=== PATIENT | male | born 1950 | race Caucasian/White ===

== ENCOUNTER 2017-06-07 15:51 | Inpatient (IN) | payer MEDICARE ==
[2017-06-07] MEDS ORDERED: Acetaminophen 650 MG Suppository ONE (16:11)
[2017-06-07] MEDS ORDERED: Sodium Chloride 0.9% 100 ML ONE (16:27)
[2017-06-07] MEDS ORDERED: Piperacillin/Tazobactam 4.5 GM VIAL ONE (16:27)
[2017-06-07 16:29] LABS: Hematocrit 39.5 % (42.0-52.0); Mean Platelet Volume 7.6 fL (7.4-10.4); Red Blood Cell (RBC) Count 4.78 mill/uL (4.70-6.10); White Blood Cell (WBC) Count 22.2 thou/uL (4.8-10.8)
[2017-06-07 16:35] LABS: Lactic Acid - Sepsis 1.6 mmol/L (0.5-2.2)
[2017-06-07 16:39] LABS: ALT (SGPT) 35 U/L (8-55); AST (SGOT) 137 U/L (5-34); Alkaline Phosphatase 80 U/L (40-150); Anion Gap 13 mmol/L (10-20); BUN (Urea Nitrogen) 13 mg/dL (8.4-25.7); Bilirubin, Total 0.4 mg/dL (0.2-1.2); Calc. Creatinine Clearance 0 mL/min (70-130); Calcium 9.1 mg/dL (7.8-10.44); Carbon Dioxide 24 mmol/L (23-31); Chloride 99 mmol/L (98-107); Estimated GFR-MDRD Greater than 90; Globulin 4.5 g/dL (2.4-3.5); Protein, Total 7.7 g/dL (5.8-8.1)
[2017-06-07 16:46] LABS: Anisocytosis MODERATE=16-30 cells (100X) (0-5/hpf); Band 41 % (5-11); Elliptocytes SLIGHT = 2-5 cells (100X) (0-1/hpf); Hypochromia SLIGHT = 6-15 cells (100X) (0-5/hpf); Metamyelocyte 2 % (0-0); Neutrophil 39 % (42-75); Ovalocytes SLIGHT = 2-5 cells (100X) (0-1/hpf); Polychromasia SLIGHT = 2-3 cells (100X) (0-2/hpf); Target Cells SLIGHT = 2-5 cells (100X) (0-1/hpf)
[2017-06-07 17:30] LABS: Troponin I 0.024 ng/mL (< 0.028)
[2017-06-07 17:41] LABS: Bilirubin Negative (Negative); Blood, Urine Large (Negative); Glucose, Urine (Dipstick) Negative (Negative); Ketone, Urine 15 mg/dL (Negative); Nitrite Negative (Negative); Protein, Urine (Dipstick) 100 mg/dL (Neg-Trace)
[2017-06-07 17:43] LABS: Bacteria/HPF None Seen HPF (None Seen); Hyaline Casts/LPF 0-3 HYALINE CAST LPF (0-3 Hyaline); RBC/HPF GREATER THAN 50-TNTC HPF (0-3); WBC/HPF 0-3 HPF (0-3)
[2017-06-07 17:55] LABS: Renal Epithelial None Seen HPF (0-3); Transitional Epithelial NONE SEEN HPF (0-3)
--- NOTE | 2017-06-07 19:19 | RAD ---
SINGLE VIEW OF THE CHEST: 06/07/17 COMPARISON: 04/21/17 HISTORY: Mental status changes with possible fall six hours ago. FINDINGS: Single view of the chest shows an enlarged but stable cardiomediastinal silhouette. The pacemaker is unchanged in position. There appear to be multifocal opacities in the left thorax which may represe nt scarring or these could represent infiltrates. No pleural effusion is seen. IMPRESSION: Multifocal left pulmonary infiltrates. POS: [facility]
[2017-06-07] MEDS ORDERED: Diabetic Tussin 200 MG/10 ML UDCUP PO PRN (22:00)
[2017-06-07] MEDS ORDERED: Lorazepam 1 MG TAB PO PRN (22:00)
--- NOTE | 2017-06-07 22:18 | CT ---
CT OF THE BRAIN WITHOUT CONTRAST: 06/07/17 COMPARISON: 06/18/16 HISTORY: Mental status changes and possible fall six hours ago. TECHNIQUE: Multiple contiguous axial images were obtained in a CT of the brain without contrast. FINDINGS: There are scattered hypodensities in the subcortical and periventricular white matter, likely second heaven to small vessel ischemic disease. There is a stable calcified region along the temporal dura whi ch may represent a small meningioma. There is no evidence of hydrocephalus, intracranial hemorrhage or extra-axial fluid collection. The calvarium and overlying soft tissues are unremarkable. IMPRESSION: The visualized paranasal sinuses and mastoid air cells are well aerated. IMPRESSION: 1. No evidence of acute intracranial abnormality. 2. Small vessel ischemic disease. POS: [facility]
--- NOTE | 2017-06-07 22:24 | CT ---
CT OF THE CERVICAL SPINE WITHOUT CONTRAST: 06/07/17 COMPARISON: 04/06/16 HISTORY: AMS with possible fall. TECHNIQUE: Multiple contiguous axial images were obtained in a CT of the cervical spine without contrast. Sagit bernarda and coronal reformats were performed. FINDINGS: There are severe degenerative changes of the cervical spine. There are large bulky anterior osteophy sherif and fusion at multiple levels. The vertebral bodies demonstrate normal alignment without acute f racture or subluxation. No prevertebral soft tissue swelling is seen. The posterior facets are well aligned. Normal alignment of the skull base with the cervical spine is seen. IMPRESSION: Degenerative changes of the cervical spine without acute osseous abnormality. POS: [facility]
--- NOTE | 2017-06-07 22:41 | HP ---
PRIMARY CARE PHYSICIAN: Through the [facility]. CHIEF COMPLAINT: Fell at the assisted living. HISTORY OF PRESENT ILLNESS: The history of present illness is taken from the patient's son who is a t the bedside. Mr. Lomax is a 66-year-old gentleman who has a very complex past medical history. He was actually recently discharged from our facility for a COPD exacerbation. He also has a histor y of a lung mass which is presumed cancerous, but he has not been biopsied due to his poor health. He also has a history of atrial fibrillation, bipolar disorder and chronic swallowing dysfunction. He was apparently residing at the [facility] when his son says that they called him a nd said that he had fallen and hit his head and his eye was swollen. They had called the paramedics , but he refused to come to the hospital on the first time. Apparently according to the son, he gómez d in the same position for over 3 hours and his son had come [facility] to check on him and try to move him. We started having a very severe pain in his leg. He was concerned more about the leg and asked them to bring him to the hospital. When he was in the emergency room, he was found t o have a temperature of 103. His heart rate was in the 150s and he was also somewhat tachypneic. H e also has an elevated white blood cell count of 22,000 and his chest x-ray was suggestive of an inf iltrate in the left lung field and he is being admitted for severe sepsis likely from pneumonia. Th e patient himself has no complaints other than wanting his keys and he denies any pain other than so me pain in his legs, but otherwise no other complaints from the patient. REVIEW OF SYSTEMS: This is unreliable as the patient appears to have some form of possible delirium from the infection and is unable to give me any significant history of present illness. PAST MEDICAL HISTORY: Taken from his previous hospital stay from the and P from 04/21/2017 and in cludes sick sinus syndrome status post dual chamber pacemaker, history of paroxysmal atrial fibrilla tion, bipolar disorder, chronic swallowing dysfunction, hypertension, chronic respiratory failure se condary to COPD, lung cancer which is untreated other than radiation, history of ischemic colitis, c hronic anemia, dyslipidemia, gastroesophageal reflux disease and syncope. PAST SURGICAL HISTORY: He has had a pacemaker placed, a colostomy, back surgery and a ureteral sten t placed. ALLERGIES: No known drug allergies. FAMILY HISTORY: Significant for Parkinson disease. SOCIAL HISTORY: He lives at [facility]. He was a smoker since age 13. No mentio n of any alcohol use. CODE STATUS: Per the patient's son at the bedside is DNR. There has been no surrogate decision laurie er designated, but the son and daughter are his closest relative and they make decisions for him tog ether. MEDICATIONS: Include diltiazem 30 mg t.i.d., Depakote 250 mg twice a day, Colace 100 mg daily, foli c acid 0.4 mg daily, DuoNeb, Xarelto 20 mg daily, Florastor 250 mg daily, BuSpar 30 mg daily. PHYSICAL EXAMINATION: GENERAL: He is awake and alert and answering questions, but somewhat disoriented. VITAL SIGNS: His blood pressure was 130/80, heart rate initially was 150, currently it is around 11 2, respiratory rate is 22, temperature was 103.2 rectally. He is slightly disheveled in appearance with some poor hygiene. HEENT: He does have some mild erythema over the left eye, but there is no swelling. His pupils are reactive. He has got very dry mucous membranes. There was no oral lesion. Neck, there is no efraín opathy, no bruits. LUNGS: He has got some mild expiratory wheezing as well as some rales along the left base as well a s some decreased breath sounds. ABDOMEN: Soft, nontender, nondistended. The colostomy site, there is no drainage from the colostom y site. There is no redness or induration. EXTREMITIES: On his extremities, he did have some chronic venous stasis changes, but no significant edema and his pulses were palpable. LABORATORY RESULTS: His white blood cell count was 22.2, hemoglobin 12.3, hematocrit is 39.5, plate let count is 300. Sodium 132, potassium 4.0, chloride is 99, BUN 13, creatinine 0.77, glucose is 10 9. His urine was significant for large blood, but no white blood cells are mentioned. No bacteria, and his chest x-ray, the official reading is still pending but by my reading, there is some cardiom egaly as well as increased pulmonary vascular markings since what appears to be some fluffy infiltra te or even mass-like lesions along the left lung. ASSESSMENT AND PLAN: This is a 66-year-old gentleman who is seriously ill with a sepsis picture, tommy irene as a result of pneumonia. He will be admitted to telemetry, started on broad spectrum IV antib iotics including vancomycin and Zosyn. Blood and cultures have been obtained from the emergency sourav m. We will also place him on IV fluid resuscitation and continue his usual home medications. The p atient wishes were to be DNR, which will be acknowledged and done during this admission. I did expl ain to the patient's son that his prognosis at this time is guarded as he has significant comorbidit ies and what appears to be again very severe sepsis.
[2017-06-07] MEDS: Acetaminophen 325 MG TAB PO PRN (22:45)
[2017-06-07] MEDS: Piperacillin/Tazobactam 3.375 GM in Sodium Chloride 0.9% 100 ML IVPB SCH (23:48)
[2017-06-08] MEDS: Vancomycin HCl 1.75 GM in Sodium Chloride 0.9% 500 ML IVPB SCH ×2 (04:25→17:17)
[2017-06-08] MEDS: Piperacillin/Tazobactam 3.375 GM in Sodium Chloride 0.9% 100 ML IVPB SCH ×4 (06:39→23:30)
[2017-06-08 06:43] LABS: Anion Gap 14 mmol/L (10-20); BUN (Urea Nitrogen) 11 mg/dL (8.4-25.7); Calc. Creatinine Clearance 177 mL/min (70-130); Calcium 8.2 mg/dL (7.8-10.44); Carbon Dioxide 20 mmol/L (23-31); Chloride 105 mmol/L (98-107); Estimated GFR-MDRD Greater than 90
[2017-06-08 07:16] LABS: Band 44 % (5-11); Hematocrit 37.9 % (42.0-52.0); Mean Platelet Volume 8.2 fL (7.4-10.4); Metamyelocyte 2 % (0-0); Neutrophil 35 % (42-75); Red Blood Cell (RBC) Count 4.39 mill/uL (4.70-6.10); White Blood Cell (WBC) Count 18.2 thou/uL (4.8-10.8)
[2017-06-08] MEDS: Famotidine 20 MG TAB PO SCH ×2 (08:55→21:01)
--- NOTE | 2017-06-08 12:21 | PDOC.PN ---
- Subjective Encounter Start Date: 06/08/17 Encounter Start Time: 12:20 Subjective: pt poor historian .reports he feels ok. -: denies any CP/SOB/F/C - Objective Resuscitation Status: Resuscitation Status DNR:Do Not Resuscitate MAR Reviewed: Yes Vital Signs & Weight: Vital Signs (12 hours) Temp Pulse Resp BP Pulse Ox 06/08/17 08:00 99.7 F H 103 H 20 97 06/08/17 04:00 99.9 F H 108 H 20 134/77 98 Weight Weight 254 lb 9.6 oz Result Diagrams: 06/08/17 05:34 06/08/17 05:34 Additional Labs: Microbiology 06/07/17 17:17 Venous blood - Left Arm Blood Culture - Preliminary Specimen has been received and culture in progress. No Growth to date. 06/07/17 16:07 Venous blood - Left Arm Blood Culture - Preliminary Specimen has been received and culture in progress. No Growth to date. Laboratory Tests 06/07/17 06/07/17 06/07/17 16:07 16:07 16:07 WBC 22.2 H Lactic Acid 1.6 AST 137 H CK-MB (CK-2) Troponin I 06/07/17 06/08/17 16:07 05:34 WBC 18.2 H Lactic Acid AST CK-MB (CK-2) 16.1 H* Troponin I 0.024 Radiology Reviewed by me: Yes (CXR-left sided PNA) EKG Reviewed by me: Yes (rate controlled a-fib) Phys Exam - Physical Examination Constitutional: NAD pale and sick looking HEENT: PERRLA, moist MMs, sclera anicteric, oral pharynx no lesions Neck: no nodes, no JVD Respiratory: no wheezing, no rales, no rhonchi decreased at bases Cardiovascular: no significant murmur, irregular Gastrointestinal: soft, non-tender, no distention, positive bowel sounds Musculoskeletal: no edema, pulses present Neurological: non-focal, normal sensation, moves all 4 limbs Psychiatric: normal affect, A&O x 3 Skin: no rash Dx/Plan (1) Sepsis Code(s): A41.9 - SEPSIS, UNSPECIFIED ORGANISM Status: Acute (2) CAP (community acquired pneumonia) Code(s): J18.9 - PNEUMONIA, UNSPECIFIED ORGANISM Status: Acute (3) Chronic atrial fibrillation Code(s): I48.2 - CHRONIC ATRIAL FIBRILLATION Status: Acute (4) Bipolar disorder Code(s): F31.9 - BIPOLAR DISORDER, UNSPECIFIED Status: Chronic (5) COPD (chronic obstructive pulmonary disease) Status: Chronic Comment: requiring intermittent bipap (6) GERD (gastroesophageal reflux disease) Code(s): K21.9 - GASTRO-ESOPHAGEAL REFLUX DISEASE WITHOUT ESOPHAGITIS Status: Chronic Qualifiers: Esophagitis presence: with esophagitis Qualified Code(s): K21.0 - Gastro- esophageal reflux disease with esophagitis (7) Sick sinus syndrome Code(s): I49.5 - SICK SINUS SYNDROME Status: Chronic Comment: s/p PPM placement in past (8) Lung cancer, primary, with metastasis from lung to other site Code(s): C34.90 - MALIGNANT NEOPLASM OF UNSP PART OF UNSP BRONCHUS OR LUNG Status: Chronic Qualifiers: Laterality: unspecified laterality Qualified Code(s): C34.90 - Malignant neoplasm of unspecified part of unspecified bronchus or lung Comment: Without treatment (9) Chronic anticoagulation Code(s): Z79.01 - PHLEBOTOMY SERVICES REPRESENTATIVE (CURRENT) USE OF ANTICOAGULANTS Status: Chronic Comment: on Xarelto for A-fib (10) Chronic Dysphagia Status: Chronic Comment: Does not follow aspiration precautions at home (11) h/o Ischemic colitis Status: Acute (12) HLD (hyperlipidemia) Code(s): E78.5 - HYPERLIPIDEMIA, UNSPECIFIED Status: Chronic (13) HTN (hypertension) Code(s): I10 - ESSENTIAL (PRIMARY) HYPERTENSION Status: Chronic - Plan continue antibiotics, PT/OT, social science research assistant, respiratory therapy, incentive spirometry, out of bed/ambulate, DVT proph w/SCDs Cont empiric ABx. pt high risk of aspiration but won't follow diet restrict -: Cont diet w precautions. consult palliative care team for goals of care -: PtDNR w advanced ,metastatic,untreated lung CA w multiple admissions -: reconile and restart home meds including xarelto. -: daily labs. supportive care. IS.Nebs.O2 prn * . Review of Systems - Review of Systems Constitutional: Weakness, Malaise Respiratory: Cough. negative: Dry, Shortness of Breath, Hemoptysis, SOB with Excertion, Pleuritic Pain, Sputum, Wheezing Cardiovascular: negative: Chest Pain, Palpitations, Orthopnea, Paroxysmal Noc. Dyspnea, Edema, Light Headedness, Other Gastrointestinal: negative: Nausea, Vomiting, Abdominal Pain, Diarrhea, Constipation, Melena, Hematochezia, Other Genitourinary: negative: Dysuria, Frequency, Incontinence, Hematuria, Retention , Other Musculoskeletal: negative: Neck Pain, Shoulder Pain, Arm Pain, Back Pain, Hand Pain, Leg Pain, Foot Pain, Other Neurological: negative: Weakness, Numbness, Incoordination, Change in Speech, Confusion, Seizures, Other - Medications/Allergies Allergies/Adverse Reactions: Allergies Allergy/AdvReac Type Severity Reaction Status Date / Time No Known Allergies Allergy Verified 06/18/16 22:03 Medications: Current Medications Acetaminophen (Tylenol) 650 mg PO Q4H PRN PRN Reason: Headache/Fever or Pain Last Admin: 06/07/17 22:45 Dose: 650 mg Albuterol/Ipratropium (Duoneb) 3 ml NEB Q4H PRN PRN Reason: SOB &/or Wheezing Famotidine (Pepcid) 20 mg PO BID [facility] Last Admin: 06/08/17 08:55 Dose: Not Given Guaifenesin (Robitussin Sf) 200 mg PO Q4H PRN PRN Reason: Cough Hydralazine HCl (Apresoline) 10 mg SLOW IVP Q4H PRN PRN Reason: Systolic BP > 180 Piperacillin Sod/Tazobactam (Sod 3.375 gm/ Sodium Chloride) 100 mls @ 200 mls/ hr IVPB Q6HR [facility] Last Admin: 06/08/17 06:39 Dose: 100 mls Vancomycin HCl 1.75 gm/ Sodium (Chloride) 500 mls @ 250 mls/hr IVPB 0400,1600 [facility] Last Admin: 06/08/17 04:25 Dose: 500 mls Lorazepam (Ativan) 0.5 mg PO Q4H PRN PRN Reason: Anxiety/Agitation Miscellaneous Medication (Pharmacy To Dose) 0 each IVPB PRN PRN PRN Reason: [facility] Pharmacy to Dose Sodium Chloride (Flush - Normal Saline) 10 ml IVF Q12HR [facility] Last Admin: 06/08/17 08:55 Dose: 10 ml Sodium Chloride (Flush - Normal Saline) 10 ml IVF PRN PRN PRN Reason: Saline Flush Last Admin: 06/08/17 06:40 Dose: 10 ml
[2017-06-08] MEDS: Acetaminophen 325 MG TAB PO PRN ×2 (12:47→17:54)
--- NOTE | 2017-06-08 15:55 | RAD ---
THREE VIEWS LEFT WRIST: HISTORY: Fall with pain. FINDINGS: AP, lateral, and oblique views left wrist are obtained. There are degenerative changes seen in the 1st carpometacarpal joint. No evidence of acute fracture is seen. No other bony lesions seen. IMPRESSION: Osteoarthritis 1st carpometacarpal joint. POS: [facility]
--- NOTE | 2017-06-08 18:11 | RAD ---
LEFT ELBOW FOUR VIEW: 06/08/17 HISTORY: Fall. FINDINGS: Large joint effusion. There is some cortical irregularity of the lateral margin of the radial head w ithout a definite impacted fracture. There is large osteophyte formation of the sublime tubercle. Ch ronic medial epicondylitis. Mild lateral epicondylitis. IMPRESSION: Large joint effusion without a displaced fracture definitively seen. This is concerning for a nondis placed radial head/neck fracture, radiographically occult. MRI recommended. POS: [facility]
--- NOTE | 2017-06-08 18:36 | CON ---
DATE OF SERVICE: 06/08/2017 SERVICE: Pulmonary Medicine. REASON FOR CONSULTATION: [facility] patient. HISTORY OF PRESENT ILLNESS: The patient is a 66-year-old white male with past medical history for fairly significant debility requiring independent living. He has been falling on and off for quite some time. He has absolutely no clue why he is in the hospital. He does have confusional states whenever he comes into the hospital for the most part. That being said, we are told that he had hypoxemia, and increasing altered mentation. He was brought to the emergency department where he was discovered to have pneumonia. He is being treated for healthcare-associated pneumonia. His breathing is actually much improved. He currently has complaints of pain in the right leg, left leg, and the left arm. Apparently, he had fallen on two separate occasions and was down for an extended period of time (she is up to 7 hours after both falls). As mentioned, he was living in independent living. It is not clear whether or not he is safe to return to that environment in his usual state. PAST MEDICAL HISTORY: 1. Sick sinus syndrome, status post pacemaker. 2. Paroxysmal atrial fibrillation. 3. Bipolar disorder. 4. Oropharyngeal dysphagia. 5. Hypertension. 6. Dyslipidemia. 7. Chronic hypoxic respiratory failure. 8. Chronic obstructive pulmonary disease. 9. History of lung cancer, status post radiation therapy. 10. History of ischemic colitis. 11. Anemia. 12. Dyslipidemia. 13. Gastroesophageal reflux disease. PAST SURGICAL HISTORY: 1. Pacemaker placement. 2. Colostomy. 3. Back surgery. 4. Ureteral stent placement. ALLERGIES: No known drug allergies. MEDICATIONS: List of his inpatient medicines was reviewed. No updates were made at this time. SOCIAL HISTORY: He is currently lives in [place] with the independent living. He has a greater than [id number] history of smoking. He does not use significant alcohol or illicit drugs. There is no report of exposure to chemicals or dust, asbestos, or tuberculosis. FAMILY HISTORY: Noncontributory. REVIEW OF SYSTEMS: General, head, ears, eyes, nose, throat, cardiovascular, respiratory, GI, , musculoskeletal, neurologic and skin is negative except as mentioned in the HPI. PHYSICAL EXAMINATION: VITAL SIGNS: Temperature 101.5, pulse 108, blood pressure 129/75, respirations 24, and saturation 98% on room air currently. HEART: Normal rate, regular. ABDOMEN: Soft, nontender, nondistended, bowel sounds positive. MUSCULOSKELETAL: No cyanosis. There is erythema in the right lower extremity with heat to palpation. There is a slightly asymmetric edema. There is also a little swelling in the left upper extremity which appears to be diffuse. He is tender to palpation throughout the left forearm. : Padron catheter in place. NEUROLOGIC: Grossly nonfocal. LABORATORY DATA: WBC 18.2, hemoglobin 11.0, and platelets 215,000. Neutrophil count is 35% with a band count is 44%. Basic metabolic profile is unremarkable. Troponin is 0.024 with a CK-MB of 16.1. There are no significant white blood cells in the urine. There is greater than 50 red blood cells. Blood cultures x2 and urine culture negative to date. IMAGIN. Wrist x-ray demonstrates no acute osseous abnormality. There is some osteoarthritis. 2. Elbow x-ray demonstrates no acute osseous abnormality, so far as I can tell though the official read is currently pending. 3. CT of the cervical spine demonstrates degenerative changes without acute osseous abnormality. 4. CT of the brain demonstrates no acute intracranial abnormality. There are some small vessel ischemic changes. 5. Chest x-ray demonstrates left-sided alveolar pattern throughout the periphery of the left lung. The heart size appears to be fairly normal. There is an AICD in place. Cranial angle appears to be fairly short. There are some air bronchograms, all consistent with suspected pneumonia. ASSESSMENT: 1. Severe sepsis. 2. Healthcare-associated pneumonia. 3. Cellulitis of the right lower extremity, possible. 4. Lung cancer. 5. Debility. PLAN: We will ultrasound the right leg. Agree with vancomycin and Zosyn. This should also cover cellulitis if this is present in the right lower extremity. From a purely respiratory perspective, he is stable for transition out of the [facility] to the medical unit. I will continue to follow while he remains in this location. Ultimately on discharge from the hospital, he requires repeat chest x-ray in 6 weeks to make certain this infiltrate resolves. Urine will be sent for Strep and legionella antigens. We will also collect influenza A and B. MTDD
--- NOTE | 2017-06-08 18:42 | ULT ---
VENOUS DOPPLER ULTRASOUND OF THE RIGHT LOWER EXTREMITY 06/08/17 HISTORY: Edema in the right leg. TECHNIQUE: Thorpe scale ultrasound with color flow and spectral doppler imaging of the deep venous system of the right lower extremity is performed. FINDINGS: There is good flow, compression and augmentation noted in the right common femoral, femoral, deep fe moral, popliteal, posterior tibial and greater saphenous veins in the right lower extremity. IMPRESSION: No evidence of DVT in the right lower extremity. POS: [facility]
[2017-06-08 18:53] LABS: LegU Control Bar Appear? YES (CONTROL BAR); LegionellaU Control Bkground? CLEAR/WHITE (CLR/WHITE); Strp pneuU Control Background? CLEAR/WHITE (CLR/WHITE); Strp pneumo Control Bar Appear YES (CONTROL BAR)
[2017-06-08] MEDS: guaiFENesin ER 600 MG TAB PO SCH (21:01)
[2017-06-09] MEDS: Acetaminophen 325 MG TAB PO PRN ×2 (02:52→11:10)
[2017-06-09 04:39] LABS: Anion Gap 13 mmol/L (10-20); BUN (Urea Nitrogen) 8 mg/dL (8.4-25.7); Calc. Creatinine Clearance 194 mL/min (70-130); Calcium 8.4 mg/dL (7.8-10.44); Carbon Dioxide 21 mmol/L (23-31); Chloride 102 mmol/L (98-107); Estimated GFR-MDRD Greater than 90; Vancomycin, Trough 8.4 ug/mL
[2017-06-09] MEDS: Vancomycin HCl 1.75 GM in Sodium Chloride 0.9% 500 ML IVPB SCH (05:00)
[2017-06-09 05:18] LABS: Band 4 % (5-11); Burr Cells SLIGHT = 2-5 cells (100X) (0-1/hpf); Hematocrit 33.1 % (42.0-52.0); Hypochromia SLIGHT = 6-15 cells (100X) (0-5/hpf); Mean Platelet Volume 7.6 fL (7.4-10.4); Neutrophil 67 % (42-75); Polychromasia SLIGHT = 2-3 cells (100X) (0-2/hpf); Red Blood Cell (RBC) Count 3.93 mill/uL (4.70-6.10); White Blood Cell (WBC) Count 13.1 thou/uL (4.8-10.8)
[2017-06-09] MEDS: Piperacillin/Tazobactam 3.375 GM in Sodium Chloride 0.9% 100 ML IVPB SCH ×3 (06:18→18:09)
[2017-06-09] MEDS: guaiFENesin ER 600 MG TAB PO SCH ×2 (08:49→22:24)
[2017-06-09] MEDS: Famotidine 20 MG TAB PO SCH ×2 (09:01→22:24)
[2017-06-09] MEDS ORDERED: Benzonatate 100 MG CAP PO PRN (09:27)
--- NOTE | 2017-06-09 11:27 | CON ---
DATE OF CONSULTATION: 06/09/2017 PRIMARY BLENDING TANK TENDER: Dr. Jase Hdez REASON FOR CONSULTATION: Atrial flutter. HISTORY OF PRESENT ILLNESS: Mr. Lomax is a 66-year-old white gentleman who comes to the hospital f or a fall. He has had multiple falls in the last year. He has had several admissions for falls in the past. He has hit his head several times with it and he has got several lesions on his head and forehead from the falls. He came in this time for the same reason, he fell down. He was found down . He was actually down for about 3 hours before they found him. He is in an assisted living facili . He was brought in and diagnosed with a pneumonia and is being treated with antibiotics currentl y. Mr. Lomax remains somewhat confused and is unable to give any other accurate history, all he wa nts to know is when he is going to be able to be discharged from the hospital. PAST MEDICAL HISTORY: 1. Sick sinus syndrome, status post pacemaker placement. 2. Paroxysmal atrial fibrillation. 3. Atrial flutter, status post ablation. 4. Bipolar disorder. 5. Chronic dysphagia and swallowing dysfunction. 6. Hypertension. 7. Chronic respiratory failure. 8. Chronic obstructive pulmonary disease. 9. Untreated lung cancer with apparent metastatic disease. 10. History of ischemic colitis. 11. Chronic anemia. 12. Hyperlipidemia. 13. Gastroesophageal reflux disease. 14. Multiple episodes of syncope in the past. PAST SURGICAL HISTORY: 1. Pacemaker placement at [facility]. 2. Colostomy at [facility]. 3. Back surgery. 2. Ureteral stent. SOCIAL HISTORY: No alcohol, tobacco or drugs. He used to be a smoker. FAMILY HISTORY: Noncontributory. OUTPATIENT MEDICATIONS: Diltiazem 30 mg p.o. t.i.d., Depakote 250 mg twice a day, Colace 100 mg kaylen ly, folic acid, Duoneb, Xarelto 20 mg daily, Florastor, BuSpar. ALLERGIES: No known drug allergies. REVIEW OF SYSTEMS: A 12 point review of systems was done as otherwise noted in history of present i llness. However, most likely inaccurate as the patient is confused currently. PHYSICAL EXAMINATION: VITAL SIGNS: Temperature 101.5 max, earlier this morning at 4:00 a.m., pulse 99, respiratory rate 1 7, satting 97% on 2 liters, blood pressure 132/69. GENERAL: Awake, alert, he is oriented to person only, in no distress. HEENT: Normocephalic. He has several bruises on his forehead from the falls and hitting his head. NECK: Supple, no JVD. LUNGS: Clear anteriorly. There are coarse breath sounds bilaterally. CARDIOVASCULAR: S1, S2. No S3, S4. No murmurs or rubs. ABDOMEN: Soft. EXTREMITIES: 1+ edema. SKIN: Warm and dry. There is an erythematous area on the left leg. LABORATORY WORK: Reviewed. White count on admission of 22,000 with 41% bands, hemoglobin up to 12 , hematocrit 39, platelet count 300. Chemistries were reviewed. Troponin is negative x1. CK-MB wa s high. UA was reviewed. vanc trough was normal. Serology is Strep pneumo and L pneumo. Ur ine antigens were both negative. EKG on admission showed atrial flutter with 2:1 AV block. Telemetry currently shows sinus tachycard ia, heart rate between [address] of the brain, chest x-ray, wrist and elbow x-ray were all reviewed. ASSESSMENT AND PLAN: 1. Atrial flutter with 2:1 atrioventricular block. Most likely related to his acute infectious pro cess. Currently he remains in sinus rhythm and sinus tachycardia. I would continue his home regime n with Diltiazem as long as blood pressure allows. If his blood pressure becomes an issue we may sw itch this to either digoxin or amiodarone. As far as stroke prophylaxis is concerned, he would be a very poor candidate for full anticoagulation given his frequent falls. I agree with Dr. Allen's evaluation that discontinuing his Xarelto for now and will reevaluate in the next few days depending on his mental status. 2. Lung cancer. Thank you for allowing me to participate in the care of your patient. We will follow.
--- NOTE | 2017-06-09 11:36 | PRG ---
DATE OF SERVICE: 06/09/2017 Mr. Loamx's events have been reviewed. He says he is feeling a little better. PHYSICAL EXAMINATION: VITAL SIGNS: He had a temperature of 101 yesterday, it is 99.7 this morning. Heart rate 99, respir atory rate 17. Oximetry is 97. Blood pressure 132/69. LUNGS: Remarkable for coarse wheezes bilaterally that are mild. CARDIOVASCULAR: Regular rhythm. ABDOMEN: Soft. EXTREMITIES: Without asymmetry. IMPRESSION: 1. Pneumonia. 2. ? Rhabdomyolysis. CPK was not done. His left upper extremity is fairly swollen. He says he was laying on his arm for several hours. No fracture was seen, but I will have Orthopedic Surgery look at him. I have already discussed this with the orthopedics team. PLAN: Continue antimicrobial therapy for pneumonia and possible cellulitis.
--- NOTE | 2017-06-09 13:09 | PDOC.PN ---
- Subjective Encounter Start Date: 06/09/17 Encounter Start Time: 13:07 Subjective: awake & says he feels Ok ,denies any chest pain/cough/fever/SOB - Objective Resuscitation Status: Resuscitation Status DNR:Do Not Resuscitate Vital Signs & Weight: Vital Signs (12 hours) Temp Pulse Resp BP Pulse Ox 06/09/17 11:39 100 F H 108 H 22 H 134/95 H 100 06/09/17 08:00 99.7 F H 99 17 97 06/09/17 07:05 99.7 F H 99 17 132/69 97 06/09/17 06:00 99.5 F 90 22 H 122/85 97 06/09/17 04:15 99.9 F H 95 22 H 06/09/17 04:00 101.5 F H 108 H 22 H 130/75 98 Weight Weight 254 lb 6.4 oz I&O: 06/08/17 06/09/17 06/10/17 06:59 06:59 06:59 Intake Total 520 1610 240 Output Total 1250 5335 Balance -730 -1115 240 Result Diagrams: 06/09/17 03:58 06/09/17 03:58 Additional Labs: Laboratory Tests 06/08/17 06/08/17 16:03 16:03 Ur L.pneumophila Ag Negative Ur Strep pneumoniae Ag NEGATIVE Radiology Reviewed by me: Yes (XR wrist left-effusion) Phys Exam - Physical Examination Constitutional: NAD pale and weak looking HEENT: PERRLA, moist MMs, sclera anicteric, oral pharynx no lesions Neck: no nodes, no JVD Respiratory: no rales, no rhonchi, clear to auscultation bilateral wheezing left lung Cardiovascular: RRR, no significant murmur Gastrointestinal: soft, non-tender, no distention, positive bowel sounds Musculoskeletal: pulses present, edema present Neurological: non-focal, normal sensation, moves all 4 limbs Psychiatric: normal affect, A&O x 3 Skin: no rash Dx/Plan (1) Sepsis Code(s): A41.9 - SEPSIS, UNSPECIFIED ORGANISM Status: Acute (2) CAP (community acquired pneumonia) Code(s): J18.9 - PNEUMONIA, UNSPECIFIED ORGANISM Status: Acute (3) Chronic atrial fibrillation Code(s): I48.2 - CHRONIC ATRIAL FIBRILLATION Status: Acute Comment: NSR now (4) Bipolar disorder Code(s): F31.9 - BIPOLAR DISORDER, UNSPECIFIED Status: Chronic (5) COPD (chronic obstructive pulmonary disease) Status: Chronic Comment: requiring intermittent bipap (6) GERD (gastroesophageal reflux disease) Code(s): K21.9 - GASTRO-ESOPHAGEAL REFLUX DISEASE WITHOUT ESOPHAGITIS Status: Chronic Qualifiers: Esophagitis presence: with esophagitis Qualified Code(s): K21.0 - Gastro- esophageal reflux disease with esophagitis (7) Sick sinus syndrome Code(s): I49.5 - SICK SINUS SYNDROME Status: Chronic Comment: s/p PPM placement in past (8) Lung cancer, primary, with metastasis from lung to other site Code(s): C34.90 - MALIGNANT NEOPLASM OF UNSP PART OF UNSP BRONCHUS OR LUNG Status: Chronic Qualifiers: Laterality: unspecified laterality Qualified Code(s): C34.90 - Malignant neoplasm of unspecified part of unspecified bronchus or lung Comment: Without treatment (9) Chronic anticoagulation Code(s): Z79.01 - [facility] (CURRENT) USE OF ANTICOAGULANTS Status: Chronic Comment: was on Xarelto for A-fib (10) Chronic Dysphagia Status: Chronic Comment: Does not follow aspiration precautions at home (11) h/o Ischemic colitis Status: Acute Comment: s/p colectomy and ostomy placement (12) HLD (hyperlipidemia) Code(s): E78.5 - HYPERLIPIDEMIA, UNSPECIFIED Status: Chronic (13) HTN (hypertension) Code(s): I10 - ESSENTIAL (PRIMARY) HYPERTENSION Status: Chronic (14) Bipolar disease, chronic Code(s): F31.9 - BIPOLAR DISORDER, UNSPECIFIED Status: Acute - Plan continue antibiotics, 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 -: restart cardizem Po for rate control.sinus now. -: cont Empiric abx.persistant fever? check PVR.follow Cx * .No DVt on RLE US. * Pallaitive care team consulted given advanced lung cancer and resultant recurrent PNA and sepsis. Pt does not want Rx * Discussed the risk of aspiration and PNA with current diet , but pt wants to continues to eat understanding the risk including . * am labs. * DNR Review of Systems - Review of Systems Other: cant not be reliably obtainable as Patient appears confused - Medications/Allergies Allergies/Adverse Reactions: Allergies Allergy/AdvReac Type Severity Reaction Status Date / Time No Known Allergies Allergy Verified 06/18/16 22:03 Medications: Current Medications Acetaminophen (Tylenol) 650 mg PO Q4H PRN PRN Reason: Headache/Fever or Pain Last Admin: 06/09/17 11:10 Dose: 650 mg Albuterol/Ipratropium (Duoneb) 3 ml NEB Q4H PRN PRN Reason: SOB &/or Wheezing Benzonatate (Tessalon) 100 mg PO Q4H PRN PRN Reason: Cough Cyanocobalamin (Vitamin B-12) 1,000 mcg PO DAILY [facility] Diltiazem HCl (Cardizem) 30 mg PO ACHS [facility] Last Admin: 06/09/17 11:10 Dose: 30 mg Divalproex Sodium (Depakote) 1,500 mg PO HS [facility] Famotidine (Pepcid) 20 mg PO BID [facility] Last Admin: 06/09/17 09:01 Dose: 20 mg Gabapentin (Neurontin) 300 mg PO BID [facility] Guaifenesin (Robitussin Sf) 200 mg PO Q4H PRN PRN Reason: Cough Guaifenesin (Mucinex) 600 mg PO Q12HR [facility] Last Admin: 06/09/17 08:49 Dose: Not Given Hydralazine HCl (Apresoline) 10 mg SLOW IVP Q4H PRN PRN Reason: Systolic BP > 180 Piperacillin Sod/Tazobactam (Sod 3.375 gm/ Sodium Chloride) 100 mls @ 200 mls/ hr IVPB Q6HR [facility] Last Admin: 06/09/17 11:11 Dose: 100 mls Vancomycin HCl 2 gm/ Sodium (Chloride) 500 mls @ 250 mls/hr IVPB 0500,1700 [facility] Last Admin: 06/09/17 05:26 Dose: 500 mls Lorazepam (Ativan) 0.5 mg PO Q4H PRN PRN Reason: Anxiety/Agitation Miscellaneous Medication (Pharmacy To Dose) 0 each IVPB PRN PRN PRN Reason: [facility] Pharmacy to Dose Sodium Chloride (Flush - Normal Saline) 10 ml IVF Q12HR [facility] Last Admin: 06/09/17 09:01 Dose: 10 ml Sodium Chloride (Flush - Normal Saline) 10 ml IVF PRN PRN PRN Reason: Saline Flush Last Admin: 06/09/17 06:18 Dose: 10 ml
--- NOTE | 2017-06-09 15:44 | RAD ---
RIGHT ANKLE THREE VIEWS: 06/09/17 HISTORY: Fall. Pain. COMPARISON: None. FINDINGS: Mild soft tissue swelling. Joint space is preserved. No fracture, no cortical irregularity. No perio steal reaction. IMPRESSION: Soft tissue swelling, without fracture. POS: [facility]
--- NOTE | 2017-06-09 16:04 | CT ---
LEFT WRIST CT: 06/09/17 HISTORY: Fall. Pain. COMPARISON: None. TECHNIQUE: Noncontrast left wrist Act is performed in the axial plane. Reformatted images are submitted for int erpretation. FINDINGS: Distal radius and ulna are unremarkable. There is evidence of a nondisplaced triquetral bone fractur e. Otherwise, the proximal carpal row is unremarkable. The distal carpal row does not demonstrate an y fractures. The visualized metacarpal and phalanges do not have fracture. IMPRESSION: Nondisplaced triquetral fracture. Exam reviewed in conjunction with Dr. Sears. POS: [facility]
[2017-06-09] MEDS: HYDROcodone/Acetaminophen 5/325 mg Tablet PO PRN (16:58)
[2017-06-09] MEDS ORDERED: Rivaroxaban 10 MG TAB PO SCH (18:00)
--- NOTE | 2017-06-09 18:37 | CON ---
DATE OF CONSULTATION: 06/09/2017 HISTORY OF PRESENT ILLNESS: We were asked to see the patient by Dr. [place] for complaints of some left hand and wrist swelling. The patient fell at [facility]. He was found down 5 hours later and he had laid on that arm. The patient's son is at the bedside and he also sta sherif his father is having some right ankle pain and that is the leg that he had laid on for quite a w hile. The patient is awake, alert, and in no acute distress, currently resting in bed. He is able to move that left hand and right foot without problems. In fact, he moves all of his extremities we ll. It is visibly noted though that the left hand and wrist is quite edematous. The patient denies any numbness or tingling in that hand currently and also denies any numbness or tingling in the solange t. Past medical history, social history, family history, medications, allergies, surgical history can a ll be gleaned from his admission H and P on 06/07/2017. PHYSICAL EXAMINATION: GENERAL: Well-nourished male, resting in bed, in no acute distress. Speech clear. Affect pleasant . Answers questions appropriately. He is alert and oriented x3. Son is at the bedside. The patie nt does stammer once in a while and has to think about his answers, but for the most part, he is brii te lucid. HEENT: Normal exam. EXTREMITIES: Right upper extremity, multiple areas of bruising on the arm, but moves right upper ex tremity well. Pulses bilaterally are intact. Left upper extremity, he does have swelling to the en tire left hand into the distal aspect of his forearm. The edema is pitting and mildly tender to pal pation. He is able to flex and extend, move his wrist back and forth, side to side without any pain . It is just painful with palpation. He moves all of his fingers. Sensations are intact. 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 Lower extremities, left lower extremity and right lower extremity show obvious peripheral vascular disease, mottling of lower extremities, but his pulses are equal. Both lower extremities w ere cold to the touch and equal in their temperature with gross sensation. Movement is good. He ca n flex, extend, and rotate his right ankle without difficulty. It is just tender to palpation media lly and laterally over the malleolus. Strength to the bilateral lower extremities is equal. He can lift them off the bed without difficulty. ASSESSMENT: 1. Left hand wrist swelling due to compression from being down on the floor for an extended period of time, 5 hours. 2. Right ankle pain, also tender to palpation from being down on the floor for 5+ hours. X-RAYS: No x-rays of the ankle. X-rays of the hand shows no gross bony abnormalities or fractures. PLAN: I spoke with the patient and his son. They both admit that the swelling is looking a little bit better and he is able to move his hand a little bit better. I offered him a wrist splint or an [place] wrap to help with the swelling. The patient denied. As for the ankle, there are no x-rays. We are going to get some x-rays and also speak with the patient tomorrow about what the films show. If the edema continues to subside, there is probably nothing orthopedically for us to do. If he has p ain for a week or so afterward, I encouraged the son and father to follow up with us as the fracture may show up that was not visible at this point in time and they are both happy with this plan. Aga in, x-rays ordered of the ankle, take a look at those and talk with the patient and family in the mo rning about the findings. Matt Smiley PA-C, for Dr. Maximo Mejia M.D.
[2017-06-09] MEDS ORDERED: RISPERIDONE 2 MG PO SCH (21:00)
[2017-06-09] MEDS: Gabapentin 300 MG CAP PO SCH (22:24)
[2017-06-09] MEDS: Divalproex Sodium DR 500 MG TAB PO SCH (22:25)
[2017-06-10] MEDS: Piperacillin/Tazobactam 3.375 GM in Sodium Chloride 0.9% 100 ML IVPB SCH ×5 (00:37→23:55)
[2017-06-10 06:14] LABS: Anion Gap 14 mmol/L (10-20); BUN (Urea Nitrogen) 9 mg/dL (8.4-25.7); Calc. Creatinine Clearance 182 mL/min (70-130); Calcium 8.4 mg/dL (7.8-10.44); Carbon Dioxide 22 mmol/L (23-31); Chloride 105 mmol/L (98-107); Estimated GFR-MDRD Greater than 90
[2017-06-10 06:19] LABS: Band 9 % (5-11); Hematocrit 32.4 % (42.0-52.0); Mean Platelet Volume 7.6 fL (7.4-10.4); Neutrophil 69 % (42-75); Red Blood Cell (RBC) Count 3.78 mill/uL (4.70-6.10); White Blood Cell (WBC) Count 7.3 thou/uL (4.8-10.8)
[2017-06-10] MEDS: Gabapentin 300 MG CAP PO SCH ×2 (09:13→21:41)
[2017-06-10] MEDS: guaiFENesin ER 600 MG TAB PO SCH ×2 (09:13→21:41)
[2017-06-10] MEDS: Famotidine 20 MG TAB PO SCH ×2 (09:13→21:40)
[2017-06-10] MEDS: Cyanocobalamin (Vitamin B-12) 1,000 MCG TAB PO SCH (09:14)
--- NOTE | 2017-06-10 12:12 | PDOC.PN ---
- Subjective Encounter Start Date: 06/10/17 Encounter Start Time: 09:30 -: old records requested/rev Patient seen and examined. No new complaints. No overnight events - Objective Resuscitation Status: Resuscitation Status DNR:Do Not Resuscitate MAR Reviewed: Yes Vital Signs & Weight: Vital Signs (12 hours) Temp Pulse Resp BP Pulse Ox 06/10/17 08:00 98.8 F 85 24 H 145/79 H 94 L 06/10/17 04:00 98.3 F 93 20 139/90 92 L Weight Weight 246 lb 11.2 oz I&O: 06/09/17 06/10/17 06/11/17 06:59 06:59 06:59 Intake Total 1610 1670 Output Total 7420 6269 Balance -1115 -1005 Result Diagrams: 06/10/17 05:11 06/10/17 05:11 Radiology Reviewed by me: Yes Phys Exam - Physical Examination Constitutional: NAD HEENT: PERRLA, moist MMs, sclera anicteric Neck: no JVD, supple Respiratory: no wheezing, no rales, no rhonchi coarse sound Cardiovascular: RRR, no significant murmur, no rub Gastrointestinal: soft, non-tender, no distention, positive bowel sounds Musculoskeletal: no edema, pulses present Neurological: moves all 4 limbs Lymphatic: no nodes Psychiatric: normal affect Skin: no rash, normal turgor Dx/Plan (1) Ankle pain, left Code(s): M25.572 - PAIN IN LEFT ANKLE AND JOINTS OF LEFT FOOT Status: Acute Qualifiers: Chronicity: acute Qualified Code(s): M25.572 - Pain in left ankle and joints of left foot (2) Effusion of elbow joint, left Code(s): M25.422 - EFFUSION, LEFT ELBOW Status: Acute (3) Multifocal pneumonia Code(s): J18.9 - PNEUMONIA, UNSPECIFIED ORGANISM Status: Acute (4) Rhabdomyolysis Code(s): M62.82 - RHABDOMYOLYSIS Status: Acute (5) Sepsis Code(s): A41.9 - SEPSIS, UNSPECIFIED ORGANISM Status: Acute (6) Wrist pain, left Code(s): M25.532 - PAIN IN LEFT WRIST Status: Acute (7) Bipolar disorder Code(s): F31.9 - BIPOLAR DISORDER, UNSPECIFIED Status: Chronic (8) COPD (chronic obstructive pulmonary disease) Status: Chronic Comment: requiring intermittent bipap (9) Chronic anticoagulation Code(s): Z79.01 - 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 (CURRENT) USE OF ANTICOAGULANTS Status: Chronic Comment: was on Xarelto for A-fib, now discontinued due to fall risk and not a good candidate (10) DJD (degenerative joint disease) of cervical spine Code(s): M47.812 - SPONDYLOSIS W/O MYELOPATHY OR RADICULOPATHY, CERVICAL REGION Status: Chronic (11) GERD (gastroesophageal reflux disease) Code(s): K21.9 - GASTRO-ESOPHAGEAL REFLUX DISEASE WITHOUT ESOPHAGITIS Status: Chronic Qualifiers: Esophagitis presence: with esophagitis Qualified Code(s): K21.0 - Gastro- esophageal reflux disease with esophagitis (12) H/O sick sinus syndrome Code(s): Z86.79 - PERSONAL HISTORY OF OTHER DISEASES OF THE CIRCULATORY SYSTEM Status: Chronic Comment: with PPM (13) HLD (hyperlipidemia) Code(s): E78.5 - HYPERLIPIDEMIA, UNSPECIFIED Status: Chronic (14) HTN (hypertension) Code(s): I10 - ESSENTIAL (PRIMARY) HYPERTENSION Status: Chronic (15) Lung cancer, primary, with metastasis from lung to other site Code(s): C34.90 - MALIGNANT NEOPLASM OF UNSP PART OF UNSP BRONCHUS OR LUNG Status: Chronic Qualifiers: Laterality: unspecified laterality Qualified Code(s): C34.90 - Malignant neoplasm of unspecified part of unspecified bronchus or lung Comment: Without treatment (16) Normocytic anemia Code(s): D64.9 - ANEMIA, UNSPECIFIED Status: Chronic (17) Obesity (BMI 30.0-34.9) Code(s): E66.9 - OBESITY, UNSPECIFIED Status: Chronic (18) Paroxysmal atrial fibrillation Code(s): I48.0 - PAROXYSMAL ATRIAL FIBRILLATION Status: Chronic (19) Tobacco dependence Code(s): F17.200 - NICOTINE DEPENDENCE, UNSPECIFIED, UNCOMPLICATED Status: Chronic - Plan cont current plan of care, continue antibiotics, PT/OT, respiratory therapy * medication reviewed as below * symptomatic treatment. * continue vancomycin and zosyn for now * pain control. * pt is clinically improving Review of Systems - Review of Systems Other: not reliable due to confused status - Medications/Allergies Allergies/Adverse Reactions: Allergies Allergy/AdvReac Type Severity Reaction Status Date / Time No Known Allergies Allergy Verified 06/18/16 22:03 Medications: Current Medications Acetaminophen (Tylenol) 650 mg PO Q4H PRN PRN Reason: Headache/Fever or Pain Last Admin: 06/09/17 11:10 Dose: 650 mg Hydrocodone Bitart/Acetaminophen ([place] 5/325) 1 tab PO Q6H PRN PRN Reason: Pain Last Admin: 06/09/17 16:58 Dose: 1 tab Albuterol/Ipratropium (Duoneb) 3 ml NEB Q4H PRN PRN Reason: SOB &/or Wheezing Benzonatate (Tessalon) 100 mg PO Q4H PRN PRN Reason: Cough Cyanocobalamin (Vitamin B-12) 1,000 mcg PO DAILY [facility] Last Admin: 06/10/17 09:14 Dose: 1,000 mcg Diltiazem HCl (Cardizem) 30 mg PO ACHS [facility] Last Admin: 06/10/17 09:13 Dose: 30 mg Divalproex Sodium (Depakote) 1,500 mg PO HS [facility] Last Admin: 06/09/17 22:25 Dose: 1,500 mg Famotidine (Pepcid) 20 mg PO BID [facility] Last Admin: 06/10/17 09:13 Dose: 20 mg Gabapentin (Neurontin) 300 mg PO BID [facility] Last Admin: 06/10/17 09:13 Dose: 300 mg Guaifenesin (Robitussin Sf) 200 mg PO Q4H PRN PRN Reason: Cough Guaifenesin (Mucinex) 600 mg PO Q12HR [facility] Last Admin: 06/10/17 09:13 Dose: 600 mg Hydralazine HCl (Apresoline) 10 mg SLOW IVP Q4H PRN PRN Reason: Systolic BP > 180 Piperacillin Sod/Tazobactam (Sod 3.375 gm/ Sodium Chloride) 100 mls @ 200 mls/ hr IVPB Q6HR [facility] Last Admin: 06/10/17 05:49 Dose: 100 mls Vancomycin HCl 2 gm/ Sodium (Chloride) 500 mls @ 250 mls/hr IVPB 0500,1700 [facility] Last Admin: 06/10/17 06:30 Dose: 500 mls Lorazepam (Ativan) 0.5 mg PO Q4H PRN PRN Reason: Anxiety/Agitation Miscellaneous Medication (Pharmacy To Dose) 0 each IVPB PRN PRN PRN Reason: [facility] Pharmacy to Dose Sodium Chloride (Flush - Normal Saline) 10 ml IVF Q12HR [facility] Last Admin: 06/10/17 09:23 Dose: 10 ml Sodium Chloride (Flush - Normal Saline) 10 ml IVF PRN PRN PRN Reason: Saline Flush Last Admin: 06/09/17 06:18 Dose: 10 ml
--- NOTE | 2017-06-10 14:58 | PRG ---
DATE OF SERVICE: 06/10/2017 SUBJECTIVE: Denies any difficulty breathing. OBJECTIVE: VITAL SIGNS: Blood pressure 140/79, sats 100% on 2 liters, temperature 98, respirations 24. CHEST: With decreased breath sounds, no wheezing. CARDIAC: Normal S1, S2. No gallops. ABDOMEN: Soft, no masses. LABORATORY DATA: White count is 7.3, H\T\H 9 and 32. Platelet count 206. Electrolytes are normal. IMPRESSION: 1. Chronic obstructive pulmonary disease. 2. Pneumonia. 3. Lung cancer. PLAN: It looks like he is stable at this stage. Continue neb treatments, deescalate antibiotics, PT.
[2017-06-10 16:29] LABS: Vancomycin, Trough 14.2 ug/mL
--- NOTE | 2017-06-10 17:13 | PDOC.CTH ---
Cardiology Progress Note - Subjective No new issues. No new complaints. - Objective Vital Signs Temp Pulse Resp BP Pulse Ox 06/10/17 12:00 98.4 F 104 H 18 104/63 92 L 06/10/17 09:30 98.8 F 85 24 H 94 L 06/10/17 08:00 98.8 F 85 24 H 145/79 H 94 L Weight 246 lb 11.2 oz 06/09/17 06/10/17 06/11/17 06:59 06:59 06:59 Intake Total 1610 1670 240 Output Total 2725 2675 Balance -1115 -1005 240 - Physical Examination General/Neuro: alert & oriented x3, NAD Neck: no JVD present Lungs: unlabored respirations Heart: RRR Abdomen: NT/ND Extremities: + edema B (1+) - Labs Result Diagrams: 06/10/17 05:11 06/10/17 05:11 Troponin/CKMB CK-MB (CK-2) 16.1 ng/mL (0-6.6) H* 06/07/17 16:07 Troponin I 0.024 ng/mL (< 0.028) 06/07/17 16:07 - Assessment/Plan 1. Atrial flutter remains in sinus . 2. Lung Cancer. 3. SSS s/p PPM in the past PLAN: - Continue current meds. - Will sign out please call with any questions.
[2017-06-10] MEDS: HYDROcodone/Acetaminophen 5/325 mg Tablet PO PRN (19:39)
[2017-06-10] MEDS: Divalproex Sodium DR 500 MG TAB PO SCH (21:40)
[2017-06-11 04:48] LABS: Anion Gap 15 mmol/L (10-20); BUN (Urea Nitrogen) 15 mg/dL (8.4-25.7); CK (CPK) 375 U/L (30-200); Calc. Creatinine Clearance 100 mL/min (70-130); Calcium 8.4 mg/dL (7.8-10.44); Carbon Dioxide 22 mmol/L (23-31); Chloride 107 mmol/L (98-107); Estimated GFR-MDRD 63
[2017-06-11] MEDS: Piperacillin/Tazobactam 3.375 GM in Sodium Chloride 0.9% 100 ML IVPB SCH ×3 (05:56→17:29)
[2017-06-11 06:30] LABS: Anisocytosis SLIGHT = 6-15 cells (100X) (0-5/hpf); Hematocrit 31.1 % (42.0-52.0); Hypochromia SLIGHT = 6-15 cells (100X) (0-5/hpf); Mean Platelet Volume 7.3 fL (7.4-10.4); Metamyelocyte 1 % (0-0); Neutrophil 61 % (42-75); Polychromasia SLIGHT = 2-3 cells (100X) (0-2/hpf); Red Blood Cell (RBC) Count 3.65 mill/uL (4.70-6.10); White Blood Cell (WBC) Count 7.6 thou/uL (4.8-10.8)
[2017-06-11] MEDS: guaiFENesin ER 600 MG TAB PO SCH ×2 (07:48→21:41)
[2017-06-11] MEDS: Cyanocobalamin (Vitamin B-12) 1,000 MCG TAB PO SCH (07:48)
[2017-06-11] MEDS: Famotidine 20 MG TAB PO SCH ×2 (07:49→21:41)
[2017-06-11] MEDS: Gabapentin 300 MG CAP PO SCH ×2 (07:49→21:41)
--- NOTE | 2017-06-11 10:43 | PDOC.PN ---
- Subjective Encounter Start Date: 06/11/17 Encounter Start Time: 09:40 Patient seen and examined. pt is sleepy today, No overnight events - Objective Resuscitation Status: Resuscitation Status DNR:Do Not Resuscitate MAR Reviewed: Yes Vital Signs & Weight: Vital Signs (12 hours) Temp Pulse Resp BP Pulse Ox 06/11/17 08:00 98.5 F 105 H 20 137/88 92 L Weight Weight 239 lb 4.8 oz I&O: 06/10/17 06/11/17 06/12/17 06:59 06:59 06:59 Intake Total 1670 1810 360 Output Total 2675 0 Balance -1005 -240 360 Result Diagrams: 06/11/17 04:02 06/11/17 04:02 Phys Exam - Physical Examination Constitutional: NAD HEENT: PERRLA, sclera anicteric Neck: no JVD, supple coarse breath sound Cardiovascular: RRR, no significant murmur, no rub Gastrointestinal: soft, non-tender, no distention, positive bowel sounds colostomy+, peterson+ Musculoskeletal: no edema, pulses present Neurological: moves all 4 limbs Lymphatic: no nodes Psychiatric: normal affect Skin: no rash, normal turgor Dx/Plan (1) Sepsis Code(s): A41.9 - SEPSIS, UNSPECIFIED ORGANISM Status: Acute (2) Multifocal pneumonia Code(s): J18.9 - PNEUMONIA, UNSPECIFIED ORGANISM Status: Acute (3) Ankle pain, left Code(s): M25.572 - PAIN IN LEFT ANKLE AND JOINTS OF LEFT FOOT Status: Acute Qualifiers: Chronicity: acute Qualified Code(s): M25.572 - Pain in left ankle and joints of left foot (4) Effusion of elbow joint, left Code(s): M25.422 - EFFUSION, LEFT ELBOW Status: Acute (5) Rhabdomyolysis Code(s): M62.82 - RHABDOMYOLYSIS Status: Acute (6) Wrist pain, left Code(s): M25.532 - PAIN IN LEFT WRIST Status: Acute (7) Bipolar disorder Code(s): F31.9 - BIPOLAR DISORDER, UNSPECIFIED Status: Chronic (8) COPD (chronic obstructive pulmonary disease) Status: Chronic Comment: requiring intermittent bipap (9) Chronic anticoagulation Code(s): Z79.01 - LONG-TERM (CURRENT) USE OF ANTICOAGULANTS Status: Chronic Comment: was on Xarelto for A-fib, now discontinued due to fall risk and not a good candidate (10) DJD (degenerative joint disease) of cervical spine Code(s): M47.812 - SPONDYLOSIS W/O MYELOPATHY OR RADICULOPATHY, CERVICAL REGION Status: Chronic (11) GERD (gastroesophageal reflux disease) Code(s): K21.9 - GASTRO-ESOPHAGEAL REFLUX DISEASE WITHOUT ESOPHAGITIS Status: Chronic Qualifiers: Esophagitis presence: with esophagitis Qualified Code(s): K21.0 - Gastro- esophageal reflux disease with esophagitis (12) H/O sick sinus syndrome Code(s): Z86.79 - PERSONAL HISTORY OF OTHER DISEASES OF THE CIRCULATORY SYSTEM Status: Chronic Comment: with PPM (13) HLD (hyperlipidemia) Code(s): E78.5 - HYPERLIPIDEMIA, UNSPECIFIED Status: Chronic (14) HTN (hypertension) Code(s): I10 - ESSENTIAL (PRIMARY) HYPERTENSION Status: Chronic (15) Lung cancer, primary, with metastasis from lung to other site Code(s): C34.90 - MALIGNANT NEOPLASM OF UNSP PART OF UNSP BRONCHUS OR LUNG Status: Chronic Qualifiers: Laterality: unspecified laterality Qualified Code(s): C34.90 - Malignant neoplasm of unspecified part of unspecified bronchus or lung Comment: Without treatment (16) Normocytic anemia Code(s): D64.9 - ANEMIA, UNSPECIFIED Status: Chronic (17) Obesity (BMI 30.0-34.9) Code(s): E66.9 - OBESITY, UNSPECIFIED Status: Chronic (18) Paroxysmal atrial fibrillation Code(s): I48.0 - PAROXYSMAL ATRIAL FIBRILLATION Status: Chronic (19) Tobacco dependence Code(s): F17.200 - NICOTINE DEPENDENCE, UNSPECIFIED, UNCOMPLICATED Status: Chronic - Plan cont current plan of care, peterson catheter, continue antibiotics, medical social consultant , speech therapy, respiratory therapy * contineu vancomycin and zosyn * will change to augmentin and doxy on discharge * discharge planning * high risk for readmission * supportive care * medication reviewed as below * symptomatic treatment.. Review of Systems - Review of Systems Other: not reliable today due to his sleepiness and confusional state - Medications/Allergies Allergies/Adverse Reactions: Allergies Allergy/AdvReac Type Severity Reaction Status Date / Time No Known Allergies Allergy Verified 06/18/16 22:03 Medications: Current Medications Acetaminophen (Tylenol) 650 mg PO Q4H PRN PRN Reason: Headache/Fever or Pain Last Admin: 06/09/17 11:10 Dose: 650 mg Hydrocodone Bitart/Acetaminophen ([place] 5/325) 1 tab PO Q6H PRN PRN Reason: Pain Last Admin: 06/10/17 19:39 Dose: 1 tab Albuterol/Ipratropium (Duoneb) 3 ml NEB Q4H PRN PRN Reason: SOB &/or Wheezing Benzonatate (Tessalon) 100 mg PO Q4H PRN PRN Reason: Cough Cyanocobalamin (Vitamin B-12) 1,000 mcg PO DAILY [facility] Last Admin: 06/11/17 07:48 Dose: 1,000 mcg Diltiazem HCl (Cardizem) 30 mg PO ACHS [facility] Last Admin: 06/11/17 07:49 Dose: 30 mg Divalproex Sodium (Depakote) 1,500 mg PO HS [facility] Last Admin: 06/10/17 21:40 Dose: 1,500 mg Famotidine (Pepcid) 20 mg PO BID [facility] Last Admin: 06/11/17 07:49 Dose: 20 mg Gabapentin (Neurontin) 300 mg PO BID [facility] Last Admin: 06/11/17 07:49 Dose: 300 mg Guaifenesin (Robitussin Sf) 200 mg PO Q4H PRN PRN Reason: Cough Guaifenesin (Mucinex) 600 mg PO Q12HR [facility] Last Admin: 06/11/17 07:48 Dose: 600 mg Hydralazine HCl (Apresoline) 10 mg SLOW IVP Q4H PRN PRN Reason: Systolic BP > 180 Piperacillin Sod/Tazobactam (Sod 3.375 gm/ Sodium Chloride) 100 mls @ 200 mls/ hr IVPB Q6HR [facility] Last Admin: 06/11/17 05:56 Dose: 100 mls Vancomycin HCl 2 gm/ Sodium (Chloride) 500 mls @ 250 mls/hr IVPB 0500,1700 [facility] Last Admin: 06/11/17 05:56 Dose: 500 mls Lorazepam (Ativan) 0.5 mg PO Q4H PRN PRN Reason: Anxiety/Agitation Miscellaneous Medication (Pharmacy To Dose) 0 each IVPB PRN PRN PRN Reason: VANC Pharmacy to Dose Sodium Chloride (Flush - Normal Saline) 10 ml IVF Q12HR [facility] Last Admin: 06/11/17 07:51 Dose: Not Given Sodium Chloride (Flush - Normal Saline) 10 ml IVF PRN PRN PRN Reason: Saline Flush Last Admin: 06/09/17 06:18 Dose: 10 ml
[2017-06-11] MEDS: HYDROcodone/Acetaminophen 5/325 mg Tablet PO PRN (14:49)
--- NOTE | 2017-06-11 17:36 | PRG ---
DATE OF SERVICE: 06/11/2017 SUBJECTIVE: Denies any difficulty breathing, coughing, or wheezing. OBJECTIVE: VITAL SIGNS: Blood pressure 130/78, sats are 92% on 2 liters, temperature 98, pulse 105. CHEST: Decreased breath sounds, no wheezing. CARDIAC: Normal S1, S2. No gallops. LABORATORY DATA: White count 7.6, H\T\H 9 and 30, and platelet count normal. Electrolytes are norm al. IMPRESSION: Pneumonia, rhabdo, severe deconditioning, bipolar. PLAN: 1. Continue neb treatment, continue Zosyn and supportive care. 2. Deescalate antibiotics.
[2017-06-11] MEDS: Divalproex Sodium DR 500 MG TAB PO SCH (21:40)
[2017-06-12] MEDS: Piperacillin/Tazobactam 3.375 GM in Sodium Chloride 0.9% 100 ML IVPB SCH ×3 (00:36→13:38)
[2017-06-12 05:22] LABS: Vancomycin, Trough 52.2 ug/mL
[2017-06-12] MEDS: guaiFENesin ER 600 MG TAB PO SCH ×2 (08:45→21:13)
[2017-06-12] MEDS: Famotidine 20 MG TAB PO SCH ×2 (08:45→21:13)
[2017-06-12] MEDS: Cyanocobalamin (Vitamin B-12) 1,000 MCG TAB PO SCH (08:45)
[2017-06-12] MEDS: Gabapentin 300 MG CAP PO SCH ×2 (08:46→21:13)
--- NOTE | 2017-06-12 11:48 | PDOC.PN ---
- Subjective Encounter Start Date: 06/12/17 Encounter Start Time: 10:45 Patient seen and examined. pt is lethargic today. No overnight events - Objective Resuscitation Status: Resuscitation Status DNR:Do Not Resuscitate MAR Reviewed: Yes Vital Signs & Weight: Vital Signs (12 hours) Temp Pulse Resp BP Pulse Ox 06/12/17 11:30 98.1 F 86 16 148/85 H 92 L 06/12/17 08:00 98.5 F 89 16 92 L 06/12/17 07:50 98.5 F 89 16 146/75 H 92 L Weight Weight 241 lb 12.8 oz I&O: 06/11/17 06/12/17 06/13/17 06:59 06:59 06:59 Intake Total 1810 1360 240 Output Total 2050 1300 Balance -240 60 240 Result Diagrams: 06/11/17 04:02 06/11/17 04:02 Phys Exam - Physical Examination Constitutional: NAD HEENT: PERRLA, moist MMs, sclera anicteric Neck: no JVD, supple Respiratory: no wheezing, no rales, no rhonchi coarse breath sound Cardiovascular: RRR, no significant murmur, no rub Gastrointestinal: soft, non-tender, no distention Musculoskeletal: no edema, pulses present Lymphatic: no nodes Skin: no rash, normal turgor Dx/Plan (1) Sepsis Code(s): A41.9 - SEPSIS, UNSPECIFIED ORGANISM Status: Acute (2) Multifocal pneumonia Code(s): J18.9 - PNEUMONIA, UNSPECIFIED ORGANISM Status: Acute (3) Ankle pain, left Code(s): M25.572 - PAIN IN LEFT ANKLE AND JOINTS OF LEFT FOOT Status: Acute Qualifiers: Chronicity: acute Qualified Code(s): M25.572 - Pain in left ankle and joints of left foot (4) Effusion of elbow joint, left Code(s): M25.422 - EFFUSION, LEFT ELBOW Status: Acute (5) Rhabdomyolysis Code(s): M62.82 - RHABDOMYOLYSIS Status: Acute (6) Wrist pain, left Code(s): M25.532 - PAIN IN LEFT WRIST Status: Acute (7) Bipolar disorder Code(s): F31.9 - BIPOLAR DISORDER, UNSPECIFIED Status: Chronic (8) COPD (chronic obstructive pulmonary disease) Status: Chronic Comment: requiring intermittent bipap (9) Chronic anticoagulation Code(s): Z79.01 - FPC (CURRENT) USE OF ANTICOAGULANTS Status: Chronic Comment: was on Xarelto for A-fib, now discontinued due to fall risk and not a good candidate (10) DJD (degenerative joint disease) of cervical spine Code(s): M47.812 - SPONDYLOSIS W/O MYELOPATHY OR RADICULOPATHY, CERVICAL REGION Status: Chronic (11) GERD (gastroesophageal reflux disease) Code(s): K21.9 - GASTRO-ESOPHAGEAL REFLUX DISEASE WITHOUT ESOPHAGITIS Status: Chronic Qualifiers: Esophagitis presence: with esophagitis Qualified Code(s): K21.0 - Gastro- esophageal reflux disease with esophagitis (12) H/O sick sinus syndrome Code(s): Z86.79 - PERSONAL HISTORY OF OTHER DISEASES OF THE CIRCULATORY SYSTEM Status: Chronic Comment: with PPM (13) HLD (hyperlipidemia) Code(s): E78.5 - HYPERLIPIDEMIA, UNSPECIFIED Status: Chronic (14) HTN (hypertension) Code(s): I10 - ESSENTIAL (PRIMARY) HYPERTENSION Status: Chronic (15) Lung cancer, primary, with metastasis from lung to other site Code(s): C34.90 - MALIGNANT NEOPLASM OF UNSP PART OF UNSP BRONCHUS OR LUNG Status: Chronic Qualifiers: Laterality: unspecified laterality Qualified Code(s): C34.90 - Malignant neoplasm of unspecified part of unspecified bronchus or lung Comment: Without treatment (16) Normocytic anemia Code(s): D64.9 - ANEMIA, UNSPECIFIED Status: Chronic (17) Obesity (BMI 30.0-34.9) Code(s): E66.9 - OBESITY, UNSPECIFIED Status: Chronic (18) Paroxysmal atrial fibrillation Code(s): I48.0 - PAROXYSMAL ATRIAL FIBRILLATION Status: Chronic (19) Tobacco dependence Code(s): F17.200 - NICOTINE DEPENDENCE, UNSPECIFIED, UNCOMPLICATED Status: Chronic - Plan cont current plan of care * continue IV vancomycin and zosyn * prognosis is poor * will need placement * medication reviewed as below * symptomatic treatment.. Review of Systems - Review of Systems Other: unable to review as pt is demented - Medications/Allergies Allergies/Adverse Reactions: Allergies Allergy/AdvReac Type Severity Reaction Status Date / Time No Known Allergies Allergy Verified 06/18/16 22:03 Medications: Current Medications Acetaminophen (Tylenol) 650 mg PO Q4H PRN PRN Reason: Headache/Fever or Pain Last Admin: 06/09/17 11:10 Dose: 650 mg Hydrocodone Bitart/Acetaminophen ([place] 5/325) 1 tab PO Q6H PRN PRN Reason: Pain Last Admin: 06/11/17 14:49 Dose: 1 tab Albuterol/Ipratropium (Duoneb) 3 ml NEB Q4H PRN PRN Reason: SOB &/or Wheezing Benzonatate (Tessalon) 100 mg PO Q4H PRN PRN Reason: Cough Cyanocobalamin (Vitamin B-12) 1,000 mcg PO DAILY [facility] Last Admin: 06/12/17 08:45 Dose: 1,000 mcg Diltiazem HCl (Cardizem) 30 mg PO ACHS [facility] Last Admin: 06/12/17 08:45 Dose: 30 mg Divalproex Sodium (Depakote) 1,500 mg PO HS [facility] Last Admin: 06/11/17 21:40 Dose: 1,500 mg Famotidine (Pepcid) 20 mg PO BID [facility] Last Admin: 06/12/17 08:45 Dose: 20 mg Gabapentin (Neurontin) 300 mg PO BID [facility] Last Admin: 06/12/17 08:46 Dose: 300 mg Guaifenesin (Robitussin Sf) 200 mg PO Q4H PRN PRN Reason: Cough Guaifenesin (Mucinex) 600 mg PO Q12HR [facility] Last Admin: 06/12/17 08:45 Dose: 600 mg Hydralazine HCl (Apresoline) 10 mg SLOW IVP Q4H PRN PRN Reason: Systolic BP > 180 Piperacillin Sod/Tazobactam (Sod 3.375 gm/ Sodium Chloride) 100 mls @ 200 mls/ hr IVPB Q6HR [facility] Last Admin: 06/12/17 05:42 Dose: 100 mls Vancomycin HCl 2 gm/ Sodium (Chloride) 500 mls @ 250 mls/hr IVPB .HOLD UNTIL < 20 SAM Lorazepam (Ativan) 0.5 mg PO Q4H PRN PRN Reason: Anxiety/Agitation Miscellaneous Medication (Pharmacy To Dose) 0 each IVPB PRN PRN PRN Reason: VANC Pharmacy to Dose Sodium Chloride (Flush - Normal Saline) 10 ml IVF Q12HR [facility] Last Admin: 06/12/17 08:46 Dose: 10 ml Sodium Chloride (Flush - Normal Saline) 10 ml IVF PRN PRN PRN Reason: Saline Flush Last Admin: 06/09/17 06:18 Dose: 10 ml
--- NOTE | 2017-06-12 12:51 | PRG ---
DATE OF SERVICE: 06/12/2017 Mr. Lomax says he is feeling better. He actually says he feels great. He was actually fairly func tional prior to admission. Rehab placement is being contemplated. PHYSICAL EXAMINATION: VITAL SIGNS: He is afebrile, heart rate 86, respiratory rate 16. Oximetry is 92. Blood pressure 1 48/85. LUNGS: Clear. HEART: Regular rhythm. ABDOMEN: Soft. IMPRESSION: 1. Status post fall with mild rhabdomyolysis. 2. Pneumonia ? aspiration mediated. He can be switched to p.o. antimicrobial therapy. 3. Chronic obstructive pulmonary disease. 4. 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 5. History of a lung mass, referred for empiric stereotactic radiation. 6. Life-long smoking. 7. History of PET imaging showing this lung mass to have an SUV of 15, my understanding was that he did not keep his follow up for stereotactic radiation. 8. History of atrial fibrillation. 9. Do not resuscitate status in the past. PLAN: Continue current care, switch to p.o. antibiotics. ADDENDUM: CT of the left wrist showing a fracture. I will discuss the above with Orthopedic Surgery .
[2017-06-12] MEDS: Divalproex Sodium DR 500 MG TAB PO SCH (21:13)
[2017-06-12] MEDS: Amoxicillin/Potassium Clav 875 MG TAB PO SCH (21:13)
[2017-06-12] MEDS: HYDROcodone/Acetaminophen 5/325 mg Tablet PO PRN (21:14)
[2017-06-13] MEDS: Amoxicillin/Potassium Clav 875 MG TAB PO SCH ×2 (08:12→20:29)
[2017-06-13] MEDS: Gabapentin 300 MG CAP PO SCH ×2 (08:12→20:29)
[2017-06-13] MEDS: Famotidine 20 MG TAB PO SCH ×2 (08:12→20:29)
[2017-06-13] MEDS: guaiFENesin ER 600 MG TAB PO SCH ×2 (08:12→20:29)
[2017-06-13] MEDS ORDERED: methylPREDNISolone Sod Succ/PF 125 MG/2 ML VIAL IVP SCH (13:15)
--- NOTE | 2017-06-13 13:54 | PDOC.PN ---
- Subjective Encounter Start Date: 06/13/17 Encounter Start Time: 10:25 Subjective: lethargic, awakens easily, says he is breathing better - Objective Resuscitation Status: Resuscitation Status DNR:Do Not Resuscitate MAR Reviewed: Yes Vital Signs & Weight: Vital Signs (12 hours) Temp Pulse Resp BP Pulse Ox 06/13/17 08:00 98.0 F 86 20 130/80 93 L Weight Weight 250 lb 8 oz I&O: 06/12/17 06/13/17 06/14/17 06:59 06:59 06:59 Intake Total 1360 1810 240 Output Total 1300 2450 Balance 60 -640 240 Result Diagrams: 06/11/17 04:02 06/11/17 04:02 Phys Exam - Physical Examination HEENT: PERRLA, sclera anicteric Neck: no JVD, supple Respiratory: no rales, wheezing present Cardiovascular: RRR, no rub Gastrointestinal: soft, no distention, positive bowel sounds Musculoskeletal: pulses present, edema present Neurological: non-focal, moves all 4 limbs Psychiatric: A&O x 3 Dx/Plan (1) Aspiration pneumonia Code(s): J69.0 - PNEUMONITIS DUE TO INHALATION OF FOOD AND VOMIT Status: Acute Qualifiers: Aspiration pneumonia type: unspecified (2) COPD (chronic obstructive pulmonary disease) Status: Acute Qualifiers: COPD type: COPD with acute exacerbation Qualified Code(s): J44.1 - Chronic obstructive pulmonary disease with (acute) exacerbation (3) Rhabdomyolysis Code(s): M62.82 - RHABDOMYOLYSIS Status: Acute (4) Sepsis Code(s): A41.9 - SEPSIS, UNSPECIFIED ORGANISM Status: Acute Qualifiers: Sepsis type: sepsis due to unspecified organism Qualified Code(s): A41.9 - Sepsis, unspecified organism (5) Wrist pain, left Code(s): M25.532 - PAIN IN LEFT WRIST Status: Acute Comment: in splint with edema of extremity (6) Bipolar disorder Code(s): F31.9 - BIPOLAR DISORDER, UNSPECIFIED Status: Chronic Qualifiers: Active/Remission status: remission status unspecified Qualified Code(s): F31.9 - Bipolar disorder, unspecified (7) GERD (gastroesophageal reflux disease) Code(s): K21.9 - GASTRO-ESOPHAGEAL REFLUX DISEASE WITHOUT ESOPHAGITIS Status: Chronic Qualifiers: Esophagitis presence: with esophagitis Qualified Code(s): K21.0 - Gastro- esophageal reflux disease with esophagitis (8) H/O sick sinus syndrome Code(s): Z86.79 - PERSONAL HISTORY OF OTHER DISEASES OF THE CIRCULATORY SYSTEM Status: Chronic Comment: with PPM (9) HLD (hyperlipidemia) Code(s): E78.5 - HYPERLIPIDEMIA, UNSPECIFIED Status: Chronic Qualifiers: Hyperlipidemia type: unspecified Qualified Code(s): E78.5 - Hyperlipidemia , unspecified (10) HTN (hypertension) Code(s): I10 - ESSENTIAL (PRIMARY) HYPERTENSION Status: Chronic Qualifiers: Hypertension type: essential hypertension Qualified Code(s): I10 - Essential (primary) hypertension (11) Normocytic anemia Code(s): D64.9 - ANEMIA, UNSPECIFIED Status: Chronic (12) Obesity (BMI 30.0-34.9) Code(s): E66.9 - OBESITY, UNSPECIFIED Status: Chronic (13) Paroxysmal atrial fibrillation Code(s): I48.0 - PAROXYSMAL ATRIAL FIBRILLATION Status: Chronic (14) Lung mass Code(s): R91.8 - OTHER NONSPECIFIC ABNORMAL FINDING OF LUNG FIELD Status: Chronic - Plan is on steroids, duonebs -: elevate left UE over 3 pillows -: oob to chair and amb as tolerated -: is on augmentin -: awaiting placement * . Review of Systems - Medications/Allergies Allergies/Adverse Reactions: Allergies Allergy/AdvReac Type Severity Reaction Status Date / Time No Known Allergies Allergy Verified 06/18/16 22:03 Medications: Current Medications Acetaminophen (Tylenol) 650 mg PO Q4H PRN PRN Reason: Headache/Fever or Pain Last Admin: 06/09/17 11:10 Dose: 650 mg Hydrocodone Bitart/Acetaminophen ([place] 5/325) 1 tab PO Q6H PRN PRN Reason: Pain Last Admin: 06/12/17 21:14 Dose: 1 tab Albuterol/Ipratropium (Duoneb) 3 ml NEB Q4H PRN PRN Reason: SOB &/or Wheezing Albuterol/Ipratropium (Duoneb) 3 ml NEB [id number] [facility] Amoxicillin/Clavulanate Potassium (Augmentin) 875 mg PO Q12HR [facility] Last Admin: 06/13/17 08:12 Dose: 875 mg Benzonatate (Tessalon) 100 mg PO Q4H PRN PRN Reason: Cough Diltiazem HCl (Cardizem) 30 mg PO ACHS [facility] Last Admin: 06/13/17 11:44 Dose: 30 mg Divalproex Sodium (Depakote) 1,500 mg PO HS [facility] Last Admin: 06/12/17 21:13 Dose: 1,500 mg Famotidine (Pepcid) 20 mg PO BID [facility] Last Admin: 06/13/17 08:12 Dose: 20 mg Gabapentin (Neurontin) 300 mg PO BID [facility] Last Admin: 06/13/17 08:12 Dose: 300 mg Guaifenesin (Robitussin Sf) 200 mg PO Q4H PRN PRN Reason: Cough Guaifenesin (Mucinex) 600 mg PO Q12HR [facility] Last Admin: 06/13/17 08:12 Dose: 600 mg Hydralazine HCl (Apresoline) 10 mg SLOW IVP Q4H PRN PRN Reason: Systolic BP > 180 Lorazepam (Ativan) 0.5 mg PO Q4H PRN PRN Reason: Anxiety/Agitation Methylprednisolone Sodium Succinate (Solu-Medrol) 125 mg IVP NOW [facility] Stop: 06/13/17 15:15 Prednisone (Prednisone) 40 mg PO Q[facility] Sodium Chloride (Flush - Normal Saline) 10 ml IVF Q12HR [facility] Last Admin: 06/13/17 08:12 Dose: 10 ml Sodium Chloride (Flush - Normal Saline) 10 ml IVF PRN PRN PRN Reason: Saline Flush Last Admin: 06/09/17 06:18 Dose: 10 ml
--- NOTE | 2017-06-13 18:34 | PRG ---
DATE OF SERVICE: 06/13/2017 SUBJECTIVE: Mr. Lomax was evaluated today. He had no complaints. OBJECTIVE: VITAL SIGNS: He is afebrile, heart rate is 84, respiratory rate 20, oximetry is 92, blood pressure 130/74. LUNGS: He was noted to have diffuse coarse wheezes today. HEART: Regular rhythm. ABDOMEN: Soft. IMPRESSION: 1. Chronic obstructive pulmonary disease with bronchospasm. 2. Left lung pneumonia. ? aspiration related. 3. History of a lung mass. He does confirm that he completed empiric stereotactic radiation of his lung mass.I suppose the abnormality on the left could be related to progression with endobronchial disease. 4. Wrist fracture. PLAN: Continue current care. Nebulizer treatments were added today routinely he was given one dose of IV steroids today and we will be given 48 day of prednisone, starting tomorrow. Hopefully, he will feel better with this. [facility]
[2017-06-13] MEDS: Divalproex Sodium DR 500 MG TAB PO SCH (20:23)
[2017-06-14] MEDS: Gabapentin 300 MG CAP PO SCH ×2 (07:53→22:01)
[2017-06-14] MEDS: predniSONE 20 MG TAB PO SCH (07:53)
[2017-06-14] MEDS: guaiFENesin ER 600 MG TAB PO SCH ×2 (07:53→22:01)
[2017-06-14] MEDS: Famotidine 20 MG TAB PO SCH ×2 (07:54→22:01)
[2017-06-14] MEDS: Amoxicillin/Potassium Clav 875 MG TAB PO SCH (07:54)
[2017-06-14 09:17] LABS: ALT (SGPT) 33 U/L (8-55); AST (SGOT) 21 U/L (5-34); Alkaline Phosphatase 78 U/L (40-150); Anion Gap 17 mmol/L (10-20); BUN (Urea Nitrogen) 41 mg/dL (8.4-25.7); Bilirubin, Total 0.2 mg/dL (0.2-1.2); Calc. Creatinine Clearance 18 mL/min (70-130); Calcium 8.9 mg/dL (7.8-10.44); Carbon Dioxide 21 mmol/L (23-31); Chloride 105 mmol/L (98-107); Estimated GFR-MDRD 13; Globulin 4.3 g/dL (2.4-3.5); Protein, Total 7.1 g/dL (5.8-8.1)
[2017-06-14 09:42] LABS: #Lymphocytes 0.4 thou/uL (1.20-3.40); #Monocytes 0.2 thou/uL (0.11-0.59); #Neutrophils 4.9 thou/uL (1.40-6.50); %Eosinophils 0.3 % (0.0-10.0); %Lymphocytes 7.8 % (21.0-51.0); %Monocytes 3.1 % (0.0-10.0); Anisocytosis MODERATE=16-30 cells (100X) (0-5/hpf); Hematocrit 30.8 % (42.0-52.0); Mean Platelet Volume 7.5 fL (7.4-10.4); Red Blood Cell (RBC) Count 3.58 mill/uL (4.70-6.10); White Blood Cell (WBC) Count 5.6 thou/uL (4.8-10.8)
[2017-06-14] MEDS: HYDROcodone/Acetaminophen 5/325 mg Tablet PO PRN (11:46)
--- NOTE | 2017-06-14 13:42 | PRG ---
DATE OF SERVICE: 06/14/2017 Mr. Lomax thinks he can go home. He is not ambulating very far. My concern is that he was down on the floor with an arm under him, unable to turn himself over which would suggest to me that his fun ctional level prior to coming to the hospital was marginal at best. He would probably best be serve d in a residential unit until his is a little stronger. PHYSICAL EXAMINATION: VITAL SIGNS: He is afebrile, heart rate 71, respiratory rate 20, oximetry is 90. Blood pressure 12 4/74. LUNGS: His lungs are clear. His wheezes are for all practical purposes, resolved compared to yeste rday. White count 5.6, hemoglobin 9.2, platelets 239. Electrolytes are unchanged, although somehow his creatinine has gone from 1.1 to 4.5. It is unclear whether or not this has been repeated, so this will need to be repeated. If this is truly him, he has only had negative 200 to negative 600 fluid balance the last 4 days. I cannot imagine his creat inine went to 4 over 3 days, especially with documented excellent urine output.
[2017-06-14 14:16] LABS: Anion Gap 17 mmol/L (10-20); BUN (Urea Nitrogen) 43 mg/dL (8.4-25.7); Calc. Creatinine Clearance 19 mL/min (70-130); Carbon Dioxide 20 mmol/L (23-31); Chloride 106 mmol/L (98-107); Estimated GFR-MDRD 14
[2017-06-14] MEDS: Sodium Chloride 0.45% 1,000 ML IV SCH (15:14)
--- NOTE | 2017-06-14 16:12 | PDOC.PN ---
- Subjective Encounter Start Date: 06/14/17 Encounter Start Time: 13:00 Subjective: breathing better, no chest pain or abd pain - Objective Resuscitation Status: Resuscitation Status DNR:Do Not Resuscitate MAR Reviewed: Yes Vital Signs & Weight: Vital Signs (12 hours) Temp Pulse Resp BP Pulse Ox 06/14/17 12:28 97.9 F 71 20 124/74 90 L 06/14/17 10:30 68 15 06/14/17 08:00 97.9 F 75 16 94 L 06/14/17 07:50 91 L 06/14/17 07:48 75 16 91 L Weight Weight 173 lb 6.4 oz I&O: 06/13/17 06/14/17 06/15/17 06:59 06:59 06:59 Intake Total 1810 0 Output Total 2449 2050 Balance -640 -111 Result Diagrams: 06/14/17 08:42 06/14/17 13:38 Phys Exam - Physical Examination HEENT: PERRLA, sclera anicteric Neck: no JVD, supple Respiratory: no wheezing, no rales Cardiovascular: RRR, no significant murmur Gastrointestinal: soft, non-tender, positive bowel sounds Musculoskeletal: no edema, pulses present Neurological: non-focal, moves all 4 limbs Psychiatric: A&O x 3 Dx/Plan (1) ARF (acute renal failure) Status: Acute Qualifiers: Acute renal failure type: unspecified Qualified Code(s): N17.9 - Acute kidney failure, unspecified (2) Aspiration pneumonia Code(s): J69.0 - PNEUMONITIS DUE TO INHALATION OF FOOD AND VOMIT Status: Acute Qualifiers: Aspiration pneumonia type: unspecified (3) COPD (chronic obstructive pulmonary disease) Status: Acute Qualifiers: COPD type: COPD with acute exacerbation Qualified Code(s): J44.1 - Chronic obstructive pulmonary disease with (acute) exacerbation (4) Rhabdomyolysis Code(s): M62.82 - RHABDOMYOLYSIS Status: Acute (5) Sepsis Code(s): A41.9 - SEPSIS, UNSPECIFIED ORGANISM Status: Acute Qualifiers: Sepsis type: sepsis due to unspecified organism Qualified Code(s): A41.9 - Sepsis, unspecified organism (6) Wrist pain, left Code(s): M25.532 - PAIN IN LEFT WRIST Status: Chronic Comment: in splint with edema of extremity (7) Bipolar disorder Code(s): F31.9 - BIPOLAR DISORDER, UNSPECIFIED Status: Chronic Qualifiers: Active/Remission status: remission status unspecified Qualified Code(s): F31.9 - Bipolar disorder, unspecified (8) GERD (gastroesophageal reflux disease) Code(s): K21.9 - GASTRO-ESOPHAGEAL REFLUX DISEASE WITHOUT ESOPHAGITIS Status: Chronic Qualifiers: Esophagitis presence: with esophagitis Qualified Code(s): K21.0 - Gastro- esophageal reflux disease with esophagitis (9) H/O sick sinus syndrome Code(s): Z86.79 - PERSONAL HISTORY OF OTHER DISEASES OF THE CIRCULATORY SYSTEM Status: Chronic Comment: with PPM (10) HLD (hyperlipidemia) Code(s): E78.5 - HYPERLIPIDEMIA, UNSPECIFIED Status: Chronic Qualifiers: Hyperlipidemia type: unspecified Qualified Code(s): E78.5 - Hyperlipidemia , unspecified (11) HTN (hypertension) Code(s): I10 - ESSENTIAL (PRIMARY) HYPERTENSION Status: Chronic Qualifiers: Hypertension type: essential hypertension Qualified Code(s): I10 - Essential (primary) hypertension (12) Normocytic anemia Code(s): D64.9 - ANEMIA, UNSPECIFIED Status: Chronic (13) Obesity (BMI 30.0-34.9) Code(s): E66.9 - OBESITY, UNSPECIFIED Status: Chronic (14) Paroxysmal atrial fibrillation Code(s): I48.0 - PAROXYSMAL ATRIAL FIBRILLATION Status: Chronic (15) Lung mass Code(s): R91.8 - OTHER NONSPECIFIC ABNORMAL FINDING OF LUNG FIELD Status: Chronic - Plan transfer pt to telemetry, unclear if he had arrythmias -: sudden arf with creatinine going upto 4, d/w -: usg renal results are pending, had mild rhabdo which is resolving -: clinically he feels better and his breathing has gotten better -: on iv fluids 125mls/hr, labs in am, decrease augmentin dose * . Review of Systems - Medications/Allergies Allergies/Adverse Reactions: Allergies Allergy/AdvReac Type Severity Reaction Status Date / Time No Known Allergies Allergy Verified 06/18/16 22:03 Medications: Current Medications Acetaminophen (Tylenol) 650 mg PO Q4H PRN PRN Reason: Headache/Fever or Pain Last Admin: 06/09/17 11:10 Dose: 650 mg Hydrocodone Bitart/Acetaminophen ([place] 5/325) 1 tab PO Q6H PRN PRN Reason: Pain Last Admin: 06/14/17 11:46 Dose: 1 tab Albuterol/Ipratropium (Duoneb) 3 ml NEB Q4H PRN PRN Reason: SOB &/or Wheezing Albuterol/Ipratropium (Duoneb) 3 ml NEB [id number] [facility] Last Admin: 06/14/17 10:30 Dose: 3 ml Amoxicillin/Clavulanate Potassium (Augmentin) 500 mg PO Q12HR [facility] Benzonatate (Tessalon) 100 mg PO Q4H PRN PRN Reason: Cough Diltiazem HCl (Cardizem) 30 mg PO ACHS [facility] Last Admin: 06/14/17 11:47 Dose: 30 mg Divalproex Sodium (Depakote) 1,500 mg PO HS [facility] Last Admin: 06/13/17 20:23 Dose: 1,500 mg Famotidine (Pepcid) 20 mg PO BID [facility] Last Admin: 06/14/17 07:54 Dose: 20 mg Gabapentin (Neurontin) 300 mg PO BID [facility] Last Admin: 06/14/17 07:53 Dose: 300 mg Guaifenesin (Robitussin Sf) 200 mg PO Q4H PRN PRN Reason: Cough Guaifenesin (Mucinex) 600 mg PO Q12HR [facility] Last Admin: 06/14/17 07:53 Dose: 600 mg Hydralazine HCl (Apresoline) 10 mg SLOW IVP Q4H PRN PRN Reason: Systolic BP > 180 Sodium Chloride (1/2 Normal Saline) 1,000 mls @ 125 mls/hr IV .Q8H [facility] Last Admin: 06/14/17 15:14 Dose: 1,000 mls Lorazepam (Ativan) 0.5 mg PO Q4H PRN PRN Reason: Anxiety/Agitation Prednisone (Prednisone) 40 mg PO QAM[facility] Last Admin: 06/14/17 07:53 Dose: 40 mg Sodium Bicarbonate (Bicarbonate, Sodium) 650 mg PO BID [facility] Sodium Chloride (Flush - Normal Saline) 10 ml IVF Q12HR [facility] Last Admin: 06/14/17 07:54 Dose: 10 ml Sodium Chloride (Flush - Normal Saline) 10 ml IVF PRN PRN PRN Reason: Saline Flush Last Admin: 06/09/17 06:18 Dose: 10 ml
--- NOTE | 2017-06-14 16:15 | ULT ---
RENAL ULTRASOUND: HISTORY: Acute renal failure. TECHNIQUE: Multiplanar, henson scale, and color Doppler images were obtained in a renal ultrasound. FINDINGS: The kidneys are normal in echogenicity without hydronephrosis or calculi and measure 14.2 and 13.7 c m in length on the right and left, respectively. The urinary bladder is decompressed with a Padron catheter. IMPRESSION: Unremarkable renal ultrasound. POS: SUGAR
[2017-06-14] MEDS: Albumin 25% 25 GM/100 ML BOT IVPB SCH (20:46)
[2017-06-14 21:15] LABS: Bilirubin Negative (Negative); Blood, Urine Small (Negative); Glucose, Urine (Dipstick) Negative (Negative); Ketone, Urine Negative (Negative); Nitrite Negative (Negative); Protein, Urine (Dipstick) Negative (Neg-Trace); Urobilinogen 0.2 mg/dL (0.2-1.0)
[2017-06-14 21:18] LABS: Bacteria/HPF None Seen HPF (None Seen); Squamous Epithelial 0-3 HPF (0-3)
[2017-06-14 21:34] LABS: Hyaline Casts/LPF 0-3 HYALINE CAST LPF (0-3 Hyaline)
[2017-06-14] MEDS: Divalproex Sodium DR 500 MG TAB PO SCH (22:00)
[2017-06-14] MEDS: Sodium Bicarbonate Tab 325 MG TAB PO SCH (22:00)
[2017-06-14] MEDS: Amoxicillin/Potassium Clav 500 MG TAB PO SCH (22:00)
[2017-06-15] MEDS: Albumin 25% 25 GM/100 ML BOT IVPB SCH ×5 (01:01→23:06)
[2017-06-15] MEDS: Sodium Chloride 0.45% 1,000 ML IV SCH ×4 (01:01→19:59)
[2017-06-15 07:43] LABS: #Lymphocytes 0.6 thou/uL (1.20-3.40); #Monocytes 0.7 thou/uL (0.11-0.59); #Neutrophils 7.4 thou/uL (1.40-6.50); %Eosinophils 0.2 % (0.0-10.0); %Lymphocytes 6.6 % (21.0-51.0); %Monocytes 7.6 % (0.0-10.0); Hematocrit 28.1 % (42.0-52.0); Hypochromia SLIGHT = 6-15 cells (100X) (0-5/hpf); Mean Platelet Volume 7.9 fL (7.4-10.4); Polychromasia SLIGHT = 2-3 cells (100X) (0-2/hpf); Red Blood Cell (RBC) Count 3.26 mill/uL (4.70-6.10); White Blood Cell (WBC) Count 8.6 thou/uL (4.8-10.8)
[2017-06-15 07:51] LABS: Anion Gap 18 mmol/L (10-20); BUN (Urea Nitrogen) 49 mg/dL (8.4-25.7); Calc. Creatinine Clearance 30 mL/min (70-130); Calcium 9.1 mg/dL (7.8-10.44); Carbon Dioxide 21 mmol/L (23-31); Chloride 107 mmol/L (98-107); Estimated GFR-MDRD 15
[2017-06-15] MEDS: predniSONE 20 MG TAB PO SCH (08:35)
--- NOTE | 2017-06-15 09:47 | CON ---
DATE OF CONSULTATION: 06/15/2017 SERVICE: Renal medicine. HISTORY OF PRESENT ILLNESS: Mr. Lomax is a 66-year-old white male who was admitted for frequent fa lls. During this hospitalization, his renal function was noted to have worsened, hence the renal co nsultation. Please note, this patient has also been evaluated by Cardiology due to the frequent falls and? of an y cardiac issues with him. He does have atrial flutter with 2:1 AV block. Pulmonology has also halley luated him for his underlying chronic obstructive pulmonary disease. REVIEW OF SYSTEMS: Positive for dysarthria. No chest pain. Denies any syncopal episode. No nause a, no vomiting, no diarrhea, no constipation. No fever or chills. No abdominal pain. Appetite vy r. Energy level is fair. No gross hematuria. No dysuria, no urinary frequency. CURRENT MEDICATIONS: [place] 5/325 q.6 hours p.r.n., DuoNeb q.4 hours p.r.n., Augmentin 500 mg p.o. q .12 hours, Cardizem 30 mg at bedtime, Depakote 1500 mg p.o. at bedtime, Pepcid 20 mg p.o. b.i.d., Ne urontin 300 mg p.o. b.i.d., hydralazine p.r.n., Ativan 0.5 mg q.4 hours p.r.n., prednisone 40 mg q.a .m., sodium bicarbonate 650 mg p.o. b.i.d., 1/2 normal saline at 125 mL per hour. PAST MEDICAL HISTORY: Includes the followin. History of paroxysmal atrial fibrillation. 2. Bipolar disorder. 3. Chronic obstructive pulmonary disease. 4. Chronis dysphagia. 5. Hypertension. 6. Lung cancer - with metastatic lesion - untreated history of ischemic colitis, chronic anemia, GE RD, multiple episodes of syncope, sick sinus syndrome. PAST SURGICAL HISTORY: 1. Status post pacemaker placement. 2. Status post colostomy. 3. Status post colonoscopy. 4. Status post back surgery. 5. Status post ureteral stent placement. SOCIAL HISTORY: The patient is currently living in [facility], 2 children. He is wi dowed. Smoked for 50 years - still smoking at 1 pack a day. No alcohol. 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 Education, high school. No IV drug abuse. ALLERGIES: None. TRAUMA: None. IMMUNIZATION: Unknown. HOSPITALIZATION: Please see past medical history. FAMILY HISTORY: Noncontributory. PHYSICAL EXAMINATION: VITAL SIGNS: Blood pressure is 142/65, heart rate 74, respiratory rate 20, temperature 98, pulse ox 90%. GENERAL: Awake, alert, oriented. The patient is dysarthric. SKIN: Adequate turgor. HEENT: Pinkish conjunctivae, anicteric sclerae. NECK: No neck mass, no carotid bruits, no JVD. LUNGS: Decreased breath sounds. HEART: Irregular. No murmur, no gallops or rubs. ABDOMEN: Globular, soft, nontender, no masses. EXTREMITIES: No edema or deformities. NEUROLOGIC: The patient is somewhat dysarthric, but moving all extremities. No tremors or asterixi s. LABORATORY DATA AND IMAGING: Renal ultrasound of 06/14/2017 was within normal. On 06/14/2017, whit e count 5.6, hemoglobin 9.2, sodium 141, potassium 4.6, chloride 107, carbon dioxide 21, BUN 49, cre atinine 4.11, glucose 110, calcium 9.1. Urine sodium 52, urine creatinine 79. Urinalysis shows spe cific gravity of 1.014, no pigmented granular casts. ASSESSMENT AND PLAN: 1. Acute kidney injury on top of underlying chronic renal failure, most likely hemodynamically medi ated renal dysfunction. I agree with empiric volume repletion. Currently on half normal saline. I did add salt poor albumin 25 grams IV q.6 hours to see if I can improve the renal function. There is no indication for any dialytic intervention. Also, this patient is most likely not a candidate f or a long-term dialysis due to the multiple comorbid problems with the patient. I did review the me dications. The patient is not on any nephrotoxic drugs. If no significant improvement with the shelly al function, this patient may have a superimposed acute tubular necrosis. 2. Chronic renal failure, unclear etiology. Renal ultrasound is said to be within normal. The uri ne sediment was relatively benign. No indication for any renal biopsy. Continue supportive care.
[2017-06-15] MEDS: Sodium Bicarbonate Tab 325 MG TAB PO SCH ×2 (09:58→22:44)
[2017-06-15] MEDS: Amoxicillin/Potassium Clav 500 MG TAB PO SCH ×2 (09:58→22:42)
[2017-06-15] MEDS: Famotidine 20 MG TAB PO SCH ×2 (09:58→22:44)
[2017-06-15] MEDS: guaiFENesin ER 600 MG TAB PO SCH ×3 (09:58→22:43)
[2017-06-15] MEDS: Gabapentin 300 MG CAP PO SCH ×2 (09:58→22:45)
[2017-06-15 10:20] LABS: Ovalocytes SLIGHT = 2-5 cells (100X) (0-1/hpf)
--- NOTE | 2017-06-15 15:37 | PDOC.PN ---
- Subjective Encounter Start Date: 06/15/17 Encounter Start Time: 15:30 Subjective: States feeling ok overall. Admitted for fall, sepsis and PNA with -: aspiration component. Transferred to tele with PM hx. - Objective Resuscitation Status: Resuscitation Status DNR:Do Not Resuscitate MAR Reviewed: Yes Vital Signs & Weight: Vital Signs (12 hours) Temp Pulse Pulse Pulse Resp BP BP 06/15/17 13:57 80 16 06/15/17 12:00 85 20 06/15/17 11:16 80 83 135/77 146/93 H 06/15/17 10:25 98 F 74 16 06/15/17 10:23 74 16 06/15/17 08:05 98 F 74 20 06/15/17 06:49 88 16 06/15/17 04:00 98.4 F 83 22 H BP Pulse Ox Pulse Ox Pulse Ox 06/15/17 13:57 96 06/15/17 12:00 135/77 92 L 06/15/17 11:16 93 L 95 06/15/17 10:25 96 06/15/17 10:23 96 06/15/17 08:05 142/65 H 90 L 06/15/17 06:49 92 L 06/15/17 04:00 129/68 92 L Weight Admit Weight 254 lb 9.6 oz Weight 261 lb 4.8 oz I&O: 06/14/17 06/15/17 06/16/17 06:59 06:59 06:59 Intake Total 1940 2720 Output Total 2576 2130 Balance -636 590 Result Diagrams: 06/15/17 07:14 06/15/17 07:14 EKG Reviewed by me: Yes (Tele - A-paced in 60's) Phys Exam - Physical Examination awake, talks slowly HEENT: PERRLA Neck: no JVD, supple diminished in bases, scattered coarse sounds Respiratory: no wheezing Cardiovascular: RRR Gastrointestinal: soft, non-tender, no distention, positive bowel sounds Musculoskeletal: no edema, pulses present Neurological: normal sensation, moves all 4 limbs Skin: normal turgor, cap refill <2 seconds Dx/Plan (1) ARF (acute renal failure) Status: Acute Qualifiers: Acute renal failure type: unspecified Qualified Code(s): N17.9 - Acute kidney failure, unspecified Comment: Likely multifactorial, slow improvement, continue IV NS at 75ml/h, avoid nephrotoxic meds and contrast media, repeat creatinine in am (2) Aspiration pneumonia Code(s): J69.0 - PNEUMONITIS DUE TO INHALATION OF FOOD AND VOMIT Status: Acute Qualifiers: Aspiration pneumonia type: unspecified Comment: Continue Augmentin 500mg BID, Duonebs, O2 supplementation (3) Rhabdomyolysis Code(s): M62.82 - RHABDOMYOLYSIS Status: Acute Comment: Mild, improved, continue IVF's (4) Sepsis Code(s): A41.9 - SEPSIS, UNSPECIFIED ORGANISM Status: Acute Qualifiers: Sepsis type: sepsis due to unspecified organism Qualified Code(s): A41.9 - Sepsis, unspecified organism Comment: Suspected but no organism identified, supportive care (5) H/O sick sinus syndrome Code(s): Z86.79 - PERSONAL HISTORY OF OTHER DISEASES OF THE CIRCULATORY SYSTEM Status: Chronic Comment: with PPM, stable (6) Lung cancer, primary, with metastasis from lung to other site Code(s): C34.90 - MALIGNANT NEOPLASM OF UNSP PART OF UNSP BRONCHUS OR LUNG Status: Chronic Qualifiers: Laterality: unspecified laterality Qualified Code(s): C34.90 - Malignant neoplasm of unspecified part of unspecified bronchus or lung Comment: Without treatment (7) Wrist pain, left Code(s): M25.532 - PAIN IN LEFT WRIST Status: Chronic Comment: Left triquetral fx, non-displaced, splinting - Plan continue antibiotics, PT/OT, older adult social work specialist, respiratory therapy, out of bed/ ambulate, DVT proph w/SCDs Stable overall -: Continue Augmentin 500mg BID -: Avoid nephrotoxic meds and contrast media -: PT for mobilization -: Plan for SNF transfer to [facility] 06/16/17 * AM lab: BMP
[2017-06-15] MEDS: HYDROcodone/Acetaminophen 5/325 mg Tablet PO PRN (16:07)
--- NOTE | 2017-06-15 19:31 | PRG ---
DATE OF SERVICE: 06/15/2017 SUBJECTIVE: Madie Lomax was moved to the telemetry unit. Dr. Joya is to see him in consultation. IV fluids were started yesterday. His creatinine is down to 4.11 from 4.52 yesterday morning. Intake and outputs positive 590 mL. OBJECTIVE: LUNGS: Remarkable for coarse equal breath sounds. HEART: Regular rhythm. ABDOMEN: Soft. IMPRESSION: 1. Chronic obstructive pulmonary disease. 2. History of stereotactically radiated lung mass, it was presumed to be cancer. 3. History of atrial fibrillation. 4. Acute kidney injury of unclear etiology appears to be improving. He will likely be in the hospi b[facility]arda several more days because of his renal dysfunction.
[2017-06-15] MEDS: Divalproex Sodium DR 500 MG TAB PO SCH (22:43)
[2017-06-16] MEDS: Sodium Chloride 0.45% 1,000 ML IV SCH ×2 (04:32→17:26)
[2017-06-16] MEDS: Albumin 25% 25 GM/100 ML BOT IVPB SCH ×3 (05:41→17:27)
[2017-06-16] MEDS: Nystatin 500,000 UNITS/5 ML UDCUP SSP SCH ×3 (05:41→17:27)
[2017-06-16 06:17] LABS: Anion Gap 15 mmol/L (10-20); BUN (Urea Nitrogen) 50 mg/dL (8.4-25.7); Calc. Creatinine Clearance 34 mL/min (70-130); Calcium 9.1 mg/dL (7.8-10.44); Carbon Dioxide 21 mmol/L (23-31); Chloride 106 mmol/L (98-107); Estimated GFR-MDRD 17
[2017-06-16 07:51] VITALS: BMI 35.2
--- NOTE | 2017-06-16 08:25 | PRG ---
DATE OF SERVICE: 06/16/2017 RENAL MEDICINE SUBJECTIVE: Mr. Lomax is a 66-year-old white male who was seen for his acute kidney injury seconda ry to presumed hemodynamically mediated renal dysfunction. Patient was started on salt poor albumin yesterday. We are currently avoiding any diuretics for this patient. This morning, he is feeling better. His appetite is excellent. He denies any shortness of breath or worsening shortness of zofia ath. PHYSICAL EXAMINATION: VITAL SIGNS: Blood pressure is 135/91, heart rate 84, respiratory rate 16, temperature 98.3, pulse ox 90%. GENERAL: Awake, supine, comfortable, not in distress. SKIN: Adequate turgor. HEENT: Pinkish conjunctivae, anicteric sclerae. NECK: No neck mass, no carotid bruits, no JVD. Some mild dysarthria. LUNGS: Decreased breath sounds. HEART: Normal sinus rhythm. No murmur, no gallops or rubs. ABDOMEN: Globular, soft, nontender. No masses. EXTREMITIES: No edema, no deformities. MEDICATIONS: Medications of 06/16/2017 was reviewed. LABORATORY DATA: Laboratories of 06/16/2017; sodium 138, potassium 4.3, chloride 106, carbon dioxid e 21, BUN 50, and creatinine 3.66. GFR is 17 mL per minute. Calcium 9.1. ASSESSMENT AND PLAN: Acute kidney injury - this is a hemodynamically mediated renal dysfunction. P bob note creatinine is slowly improving. We will continue current gentle volume repletion with th is patient. He is currently on crystalloid and colloids - half normal and salt poor albumin. Pleas e note review of the renal ultrasound was essentially within normal. There is no indication for any dialytic intervention with this patient. Continue current management. Recheck basic metabolic kraft el and CBC in a.m.
--- NOTE | 2017-06-16 08:47 | PRG ---
DATE OF SERVICE: 06/16/2017 He says he feels better. He does not want to go to rehab. PHYSICAL EXAMINATION: VITAL SIGNS: He is afebrile, heart rate 84, respiratory rate 16, oximetry is 90 on 2 liters, blood pressure 135/91. LUNGS: Lungs are clear now. HEART: Regular rhythm. ABDOMEN: Abdomen is soft. EXTREMITIES: His wrist brace is off his left wrist. IMPRESSION: 1. Status post fall, for a prolonged period of time down on the floor unable to get off of his left wrist. 2. Wrist fracture. He should have his brace on. I have relayed this to the nurses. 3. Acute kidney injury most likely secondary to intravascular volume depletion. Creatinine is down to 3.66. 4. Underlying obstructive lung disease. 5. Marginal medical compliance history. 6. [facility] that [facility]. This was stereotactically radiated by Dr. Qureshi. 7. Pneumonia in the left lung on admission. I do not feel bronchoscopy is indicated at this point since there is no further therapeutic options for him should we find endobronchial disease or progre ssion of the tumor on the left. We will continue current care.
[2017-06-16] MEDS: guaiFENesin ER 600 MG TAB PO SCH ×2 (09:20→21:23)
[2017-06-16] MEDS: Sodium Bicarbonate Tab 325 MG TAB PO SCH ×2 (09:20→21:23)
[2017-06-16] MEDS: Nystatin Powder 15 GM BOT TOP SCH ×2 (09:21→21:36)
[2017-06-16] MEDS: predniSONE 20 MG TAB PO SCH (09:21)
[2017-06-16] MEDS: Amoxicillin/Potassium Clav 500 MG TAB PO SCH ×2 (09:21→21:23)
[2017-06-16] MEDS: Famotidine 20 MG TAB PO SCH ×2 (09:21→21:23)
[2017-06-16] MEDS: Gabapentin 300 MG CAP PO SCH ×2 (09:21→21:25)
--- NOTE | 2017-06-16 09:51 | PDOC.PN ---
- Subjective Encounter Start Date: 06/16/17 Encounter Start Time: 09:40 Subjective: f/u [facility] likely due to volume depletion. Creatinine improved but still -: elevated. No SOB, increasing edema. - Objective Resuscitation Status: Resuscitation Status DNR:Do Not Resuscitate MAR Reviewed: Yes Vital Signs & Weight: Vital Signs (12 hours) Temp Pulse Resp BP Pulse Ox 06/16/17 09:14 98.3 F 98 20 120/74 92 L 06/16/17 06:32 84 16 06/16/17 04:00 98.3 F 101 H 22 H 135/91 H 90 L 06/16/17 01:35 96 Weight Admit Weight 254 lb 9.6 oz Weight 266 lb 11.2 oz I&O: 06/15/17 06/16/17 06/17/17 06:59 06:59 06:59 Intake Total 2720 2550 Output Total 2130 3100 Balance 590 -550 Result Diagrams: 06/15/17 07:14 06/16/17 05:27 Additional Labs: Laboratory Tests 03/04/16 03/05/16 03/06/16 04:00 04:08 03:45 WBC 12.5 H 15.4 H 14.5 H Hgb 9.0 L 6.7 L 8.0 L Bands % (Auto) 10 16 H 6 Creatinine Calcium Phosphorus Magnesium 03/07/16 03/08/16 03/08/16 04:00 03:54 03:54 WBC 17.2 H Hgb 8.4 L Bands % (Auto) 12 H 8 Creatinine Calcium 8.4 Phosphorus 2.6 Magnesium 2.0 06/14/17 06/14/17 06/15/17 08:42 13:38 07:14 WBC Hgb Bands % (Auto) Creatinine 4.52 H 4.39 H 4.11 H Calcium Phosphorus Magnesium EKG Reviewed by me: Yes (Tele - SR in in 's) Phys Exam - Physical Examination Constitutional: NAD HEENT: PERRLA, oral pharynx no lesions Neck: no JVD, supple few scattered coarse sounds diminished in bases Cardiovascular: RRR Gastrointestinal: soft, non-tender, no distention, positive bowel sounds Musculoskeletal: no edema, pulses present Neurological: normal sensation, moves all 4 limbs Skin: normal turgor, cap refill <2 seconds Dx/Plan (1) ARF (acute renal failure) Status: Acute Qualifiers: Acute renal failure type: unspecified Qualified Code(s): N17.9 - Acute kidney failure, unspecified Comment: Likely multifactorial, slow improvement, continue IV NS at 75ml/h, avoid nephrotoxic meds and contrast media, repeat creatinine in am (2) Aspiration pneumonia Code(s): J69.0 - PNEUMONITIS DUE TO INHALATION OF FOOD AND VOMIT Status: Acute Qualifiers: Aspiration pneumonia type: unspecified Comment: Continue Augmentin 500mg BID, Duonebs, O2 supplementation (3) Rhabdomyolysis Code(s): M62.82 - RHABDOMYOLYSIS Status: Acute Comment: Mild, improved, continue IVF's (4) Sepsis Code(s): A41.9 - SEPSIS, UNSPECIFIED ORGANISM Status: Acute Qualifiers: Sepsis type: sepsis due to unspecified organism Qualified Code(s): A41.9 - Sepsis, unspecified organism Comment: Suspected but no organism identified, supportive care (5) H/O sick sinus syndrome Code(s): Z86.79 - PERSONAL HISTORY OF OTHER DISEASES OF THE CIRCULATORY SYSTEM Status: Chronic Comment: with PPM, stable (6) Lung cancer, primary, with metastasis from lung to other site Code(s): C34.90 - MALIGNANT NEOPLASM OF UNSP PART OF UNSP BRONCHUS OR LUNG Status: Chronic Qualifiers: Laterality: unspecified laterality Qualified Code(s): C34.90 - Malignant neoplasm of unspecified part of unspecified bronchus or lung Comment: Partial treatment apparently in past, none currently (7) Wrist pain, left Code(s): M25.532 - PAIN IN LEFT WRIST Status: Chronic Comment: Left triquetral fx, non-displaced, splinting - Plan continue antibiotics, PT/OT, DVT proph w/SCDs Stable overall -: Continue IVF's low volume -: Avoid nephrotoxic meds and contrast media -: PT for mobilization -: Continue Prednisone 40mg daily * Approved for [facility] but awaiting renal function to return to baseline * AM lab: BMP
[2017-06-16] MEDS: Divalproex Sodium DR 500 MG TAB PO SCH (21:23)
[2017-06-17] MEDS: Nystatin 500,000 UNITS/5 ML UDCUP SSP SCH ×4 (01:06→17:46)
[2017-06-17 05:40] LABS: #Lymphocytes 0.7 thou/uL (1.20-3.40); #Monocytes 0.8 thou/uL (0.11-0.59); #Neutrophils 5.4 thou/uL (1.40-6.50); %Basophils 0.2 % (0.0-1.0); %Eosinophils 0.1 % (0.0-10.0); %Lymphocytes 10.3 % (21.0-51.0); %Monocytes 11.7 % (0.0-10.0); Hematocrit 26.6 % (42.0-52.0); Mean Platelet Volume 7.5 fL (7.4-10.4); Red Blood Cell (RBC) Count 3.08 mill/uL (4.70-6.10)
[2017-06-17 05:53] LABS: Anion Gap 15 mmol/L (10-20); BUN (Urea Nitrogen) 51 mg/dL (8.4-25.7); Calc. Creatinine Clearance 37 mL/min (70-130); Calcium 8.8 mg/dL (7.8-10.44); Carbon Dioxide 23 mmol/L (23-31); Chloride 108 mmol/L (98-107); Estimated GFR-MDRD 18
[2017-06-17] MEDS: Sodium Chloride 0.45% 1,000 ML IV SCH ×2 (07:56→17:48)
[2017-06-17] MEDS: Gabapentin 300 MG CAP PO SCH ×2 (08:36→21:48)
[2017-06-17] MEDS: Sodium Bicarbonate Tab 325 MG TAB PO SCH ×2 (08:36→21:47)
[2017-06-17] MEDS: Amoxicillin/Potassium Clav 500 MG TAB PO SCH ×2 (08:36→21:47)
[2017-06-17] MEDS: predniSONE 20 MG TAB PO SCH (08:37)
[2017-06-17] MEDS: guaiFENesin ER 600 MG TAB PO SCH ×2 (08:37→21:48)
[2017-06-17] MEDS: Famotidine 20 MG TAB PO SCH ×2 (08:37→21:48)
[2017-06-17] MEDS ORDERED: Lorazepam 1 MG TAB PO PRN (09:40)
[2017-06-17] MEDS ORDERED: HYDROcodone/Acetaminophen 5/325 mg Tablet PO PRN (09:41)
[2017-06-17] MEDS: Nystatin Powder 15 GM BOT TOP SCH ×2 (09:47→21:48)
[2017-06-17] MEDS ORDERED: Epoetin (ESRD) 20,000 UNITS/ML SC SCH (11:00)
--- NOTE | 2017-06-17 11:06 | PRG ---
DATE OF SERVICE: 06/17/2017 RENAL MEDICINE SUBJECTIVE: Mr. Lomax is a 66-year-old white male who was seen for his acute kidney injury on top of his chronic renal failure. He had a presumptive diagnosis of hemodynamically mediated renal dysf unction. He was started on salt poor albumin and adjustment of home medications was made. Currently, this morning he is feeling better. He denies any chest pain, shortness of breath. The p atient denies any nausea or vomiting. PHYSICAL EXAMINATION: VITAL SIGNS: Blood pressure is 141/76, heart rate is 94, respiratory rate 18, pulse ox 94%, tempera ture 97.6. GENERAL: Noted to be awake, supine, comfortable, and not in distress. SKIN: Adequate turgor. HEENT: He has slightly pale conjunctivae, anicteric sclerae. NECK: No neck mass, no carotid bruits, no JVD. CHEST: No deformities. LUNGS: Decreased breath sounds. HEART: Normal sinus rhythm. No murmur, no gallops, no rubs. ABDOMEN: Globular, soft, nontender, no masses. EXTREMITIES: No edema, no deformities. MEDICATIONS: Medications of 06/17/2017 was reviewed. LABORATORY DATA: Laboratories of 06/17/2017; white count 7, hemoglobin 7.8, hematocrit 26.6. Sodiu m 141, potassium 4.6, chloride 108, carbon dioxide 23, BUN 51, creatinine 3.39, GFR 18 mL per minute , calcium 8.8. ASSESSMENT AND PLAN: 1. Acute kidney injury on top of his chronic renal failure, superimposed prerenal azotemia. Much i mproved with salt poor albumin and holding off diuretics and ERIC inhibitors. Creatinine peaked at 4 .5, it is currently 3.39. From a renal point of view, this patient can be discharged and we will fo llow him up at the [facility]. Continue to hold off any diuretics and ERIC inhibitors or ARBs for the moment. 2. Anemia. We will give Epogen 10,000 units subcu q. week. Overall, agreed with current management.
[2017-06-17] MEDS ORDERED: Epoetin (ESRD) 10,000 UNITS/ML VIAL IVP SCH (12:00)
--- NOTE | 2017-06-17 12:27 | PRG ---
DATE OF SERVICE: 06/17/2017 SUBJECTIVE: Patient had no acute complaints this morning. OBJECTIVE: VITAL SIGNS: Temperature 97.6, pulse 90, respirations 20, O2 saturation 94% on 2 liters, blood pres sure 141/76. HEENT: Unremarkable. NECK: No JVD. LUNGS: Poor air movement without wheezing. CARDIAC: S1 and S2 regular. ABDOMEN: Soft. EXTREMITIES: No edema. LABORATORY DATA: White blood cell count 7, hematocrit 26.6, and platelet count 215. Sodium 141, po tassium 4.6, chloride 108, CO2 of 23, BUN 51, creatinine 3.4, glucose 101. ASSESSMENT: 1. Status post fall. 2. Wrist fracture. 3. Acute kidney injury. 4. Lung mass. 5. Pneumonia. PLAN: 1. We are continuing with oral antibiotic medication. 2. He is not considered a candidate for workup of lung mass at this time. 3. Continue steroids. 4. Increase activity as tolerated. 5. The patient should be able to move to the regular floor.
--- NOTE | 2017-06-17 13:06 | PDOC.PN ---
- Subjective Encounter Start Date: 06/17/17 Encounter Start Time: 13:04 Pt seen for ALPESH. Denies chest pain, shortness of breath, fevers or chills. No nausea or vomiting. - Objective Resuscitation Status: Resuscitation Status DNR:Do Not Resuscitate MAR Reviewed: Yes Vital Signs & Weight: Vital Signs (12 hours) Temp Pulse Resp BP Pulse Ox 06/17/17 12:39 97.9 F 91 20 147/70 H 94 L 06/17/17 10:33 90 20 06/17/17 08:29 97.6 F 90 20 06/17/17 08:20 94 18 141/76 H 94 L 06/17/17 07:01 95 06/17/17 06:50 84 16 06/17/17 04:00 97.6 F 72 20 143/66 H 94 L Weight Admit Weight 254 lb 9.6 oz Weight 261 lb 6.4 oz I&O: 06/16/17 06/17/17 06/18/17 06:59 06:59 06:59 Intake Total 2550 2566.25 Output Total 3100 3600 Balance -550 -1033.75 Result Diagrams: 06/17/17 04:51 06/17/17 04:51 EKG Reviewed by me: Yes (Tele: NSR) Phys Exam - Physical Examination Obese HEENT: moist MMs, oral pharynx no lesions Neck: supple Respiratory: no wheezing, no rales, no rhonchi, clear to auscultation bilateral Cardiovascular: RRR, no rub Gastrointestinal: soft, positive bowel sounds Musculoskeletal: pulses present L wrist brace Neurological: moves all 4 limbs Psychiatric: normal affect Skin: no rash Dx/Plan (1) ARF (acute renal failure) Status: Acute Qualifiers: Acute renal failure type: unspecified Qualified Code(s): N17.9 - Acute kidney failure, unspecified Comment: Likely multifactorial, slow improvement, continue IV NS at 75ml/h, avoid nephrotoxic meds and contrast media, repeat creatinine in am (2) Bipolar disorder Code(s): F31.9 - BIPOLAR DISORDER, UNSPECIFIED Status: Chronic Qualifiers: Active/Remission status: remission status unspecified Qualified Code(s): F31.9 - Bipolar disorder, unspecified (3) DJD (degenerative joint disease) of cervical spine Code(s): M47.812 - SPONDYLOSIS W/O MYELOPATHY OR RADICULOPATHY, CERVICAL REGION Status: Chronic (4) GERD (gastroesophageal reflux disease) Code(s): K21.9 - GASTRO-ESOPHAGEAL REFLUX DISEASE WITHOUT ESOPHAGITIS Status: Chronic Qualifiers: Esophagitis presence: with esophagitis Qualified Code(s): K21.0 - Gastro- esophageal reflux disease with esophagitis (5) HLD (hyperlipidemia) Code(s): E78.5 - HYPERLIPIDEMIA, UNSPECIFIED Status: Chronic Qualifiers: Hyperlipidemia type: unspecified Qualified Code(s): E78.5 - Hyperlipidemia , unspecified (6) HTN (hypertension) Code(s): I10 - ESSENTIAL (PRIMARY) HYPERTENSION Status: Chronic Qualifiers: Hypertension type: essential hypertension Qualified Code(s): I10 - Essential (primary) hypertension (7) Lung mass Code(s): R91.8 - OTHER NONSPECIFIC ABNORMAL FINDING OF LUNG FIELD Status: Chronic (8) Obesity (BMI 30.0-34.9) Code(s): E66.9 - OBESITY, UNSPECIFIED Status: Chronic (9) Paroxysmal atrial fibrillation Code(s): I48.0 - PAROXYSMAL ATRIAL FIBRILLATION Status: Chronic - Plan PT/OT, out of bed/ambulate, DVT proph w/SCDs * . Discussed with nephrology service. Creatinine is stable. Transfer to [facility] 24-48 hrs. Transfer to medical floor. Ambulate patient. Review of Systems - Review of Systems Constitutional: negative: Fever, Chills, Sweats, Weakness, Malaise Respiratory: negative: Cough, Dry, Shortness of Breath, Hemoptysis, SOB with Excertion, Pleuritic Pain, Sputum, Wheezing Cardiovascular: negative: Chest Pain, Palpitations, Orthopnea, Paroxysmal Noc. Dyspnea, Edema, Light Headedness - Medications/Allergies Allergies/Adverse Reactions: Allergies Allergy/AdvReac Type Severity Reaction Status Date / Time No Known Allergies Allergy Verified 06/18/16 22:03 Medications: Current Medications Acetaminophen (Tylenol) 650 mg PO Q4H PRN PRN Reason: Headache/Fever or Pain Last Admin: 06/09/17 11:10 Dose: 650 mg Hydrocodone Bitart/Acetaminophen ([place] 5/325) 1 tab PO Q6H PRN PRN Reason: Pain Albuterol/Ipratropium (Duoneb) 3 ml NEB Q4H PRN PRN Reason: SOB &/or Wheezing Albuterol/Ipratropium (Duoneb) 3 ml NEB [id number] Last Admin: 06/17/17 10:33 Dose: 3 ml Amoxicillin/Clavulanate Potassium (Augmentin) 500 mg PO Q12HR [facility] Last Admin: 06/17/17 08:36 Dose: 500 mg Benzonatate (Tessalon) 100 mg PO Q4H PRN PRN Reason: Cough Last Admin: 06/15/17 10:19 Dose: 100 mg Diltiazem HCl (Cardizem) 30 mg PO ACHS [facility] Last Admin: 06/17/17 12:24 Dose: 30 mg Divalproex Sodium (Depakote) 1,500 mg PO HS [facility] Last Admin: 06/16/17 21:23 Dose: 1,500 mg Epoetin Amol (Procrit) 10,000 units IVP [facility] Last Admin: 06/17/17 12:24 Dose: 10,000 units Famotidine (Pepcid) 20 mg PO BID [facility] Last Admin: 06/17/17 08:37 Dose: 20 mg Ferrous Sulfate (Feosol) 325 mg PO BID-[facility] Gabapentin (Neurontin) 300 mg PO BID [facility] Last Admin: 06/17/17 08:36 Dose: 300 mg Guaifenesin (Robitussin Sf) 200 mg PO Q4H PRN PRN Reason: Cough Guaifenesin (Mucinex) 600 mg PO Q12HR [facility] Last Admin: 06/17/17 08:37 Dose: 600 mg Hydralazine HCl (Apresoline) 10 mg SLOW IVP Q4H PRN PRN Reason: Systolic BP > 180 Sodium Chloride (1/2 Normal Saline) 1,000 mls @ 75 mls/hr IV .[id number] [facility] Last Admin: 06/17/17 07:56 Dose: 1,000 mls Lorazepam (Ativan) 0.5 mg PO Q4H PRN PRN Reason: Anxiety/Agitation Nystatin (Mycostatin Powder) 0 gm TOP BID [facility] Last Admin: 06/17/17 09:47 Dose: 1 applic Nystatin (Mycostatin) 500,000 units SSP Q6HR [facility] Last Admin: 06/17/17 12:24 Dose: 500,000 units Prednisone (Prednisone) 40 mg PO QAM-[facility] Last Admin: 06/17/17 08:37 Dose: 40 mg Sodium Bicarbonate (Bicarbonate, Sodium) 650 mg PO BID [facility] Last Admin: 06/17/17 08:36 Dose: 650 mg Sodium Chloride (Flush - Normal Saline) 10 ml IVF Q12HR [facility] Last Admin: 06/17/17 09:56 Dose: 10 ml Sodium Chloride (Flush - Normal Saline) 10 ml IVF PRN PRN PRN Reason: Saline Flush Last Admin: 06/15/17 16:35 Dose: 10 ml
[2017-06-17] MEDS: Ferrous Sulfate 325 MG TAB PO SCH (17:48)
[2017-06-17] MEDS: Divalproex Sodium DR 500 MG TAB PO SCH (21:56)
[2017-06-18] MEDS: Nystatin 500,000 UNITS/5 ML UDCUP SSP SCH ×4 (00:54→16:59)
[2017-06-18] MEDS: Sodium Chloride 0.45% 1,000 ML IV SCH ×3 (05:58→16:59)
[2017-06-18] MEDS: Amoxicillin/Potassium Clav 500 MG TAB PO SCH ×2 (09:51→20:34)
[2017-06-18] MEDS: Ferrous Sulfate 325 MG TAB PO SCH ×2 (09:51→16:59)
[2017-06-18] MEDS: guaiFENesin ER 600 MG TAB PO SCH ×2 (09:51→20:35)
[2017-06-18] MEDS: Nystatin Powder 15 GM BOT TOP SCH ×2 (09:52→20:39)
[2017-06-18] MEDS: Gabapentin 300 MG CAP PO SCH ×2 (09:52→20:34)
[2017-06-18] MEDS: Famotidine 20 MG TAB PO SCH ×2 (09:52→20:33)
[2017-06-18] MEDS: predniSONE 20 MG TAB PO SCH (09:52)
[2017-06-18] MEDS: Sodium Bicarbonate Tab 325 MG TAB PO SCH ×2 (09:52→20:34)
--- NOTE | 2017-06-18 10:30 | PRG ---
DATE OF SERVICE: 06/18/2017 SUBJECTIVE: The patient is doing reasonably well, had no complaints. PHYSICAL EXAMINATION: VITAL SIGNS: Temperature 97.9, pulse 88, respirations 20, O2 saturation 97%, blood pressure 146/87. HEENT: Unremarkable. NECK: No JVD. CHEST: Fairly clear. CARDIAC: S1 and S2 regular. ABDOMEN: Soft. EXTREMITIES: Trace edema. ASSESSMENT: 1. Status post fall. 2. Wrist fracture. 3. Acute kidney injury. 4. Lung mass. 5. Pneumonia. PLAN: Continue oral antibiotic medication. Continue steroids.
--- NOTE | 2017-06-18 12:37 | PDOC.PN ---
- Subjective Encounter Start Date: 06/18/17 Encounter Start Time: 12:35 Patient seen and examined, all questions answered, states he does not want to go to the senior care from where he came and is pending a bed at [facility], no new issues in the last 24 hours. All questions answered. - Objective Resuscitation Status: Resuscitation Status DNR:Do Not Resuscitate Vital Signs & Weight: Vital Signs (12 hours) Temp Pulse Resp BP BP Pulse Ox 06/18/17 10:34 101 H 20 92 L 06/18/17 08:05 97.9 F 88 20 146/87 H 97 06/18/17 08:00 97.9 F 88 20 97 06/18/17 07:40 94 L 06/18/17 07:38 84 20 94 L 06/18/17 04:00 97.9 F 94 20 133/85 93 L 06/18/17 00:46 93 L Weight Admit Weight 254 lb 9.6 oz Weight 261 lb 6.4 oz I&O: 06/17/17 06/18/17 06/19/17 06:59 06:59 06:59 Intake Total 2566.25 2820 240 Output Total 3600 5130 0 Balance -1033.75 -2310 240 Result Diagrams: 06/17/17 04:51 06/17/17 04:51 Phys Exam - Physical Examination Constitutional: NAD HEENT: PERRLA, moist MMs Neck: no nodes, no JVD Respiratory: no wheezing, no rales coarse breath sounds B/L Cardiovascular: RRR, no significant murmur Gastrointestinal: soft, non-tender Musculoskeletal: pulses present, edema present (trace) Neurological: non-focal, normal sensation Skin: no rash, normal turgor Dx/Plan (1) ARF (acute renal failure) Status: Acute Qualifiers: Acute renal failure type: unspecified Qualified Code(s): N17.9 - Acute kidney failure, unspecified Comment: Likely multifactorial, slow improvement, continue IV NS at 75ml/h, avoid nephrotoxic meds and contrast media, repeat creatinine in am (2) Bipolar disorder Code(s): F31.9 - BIPOLAR DISORDER, UNSPECIFIED Status: Chronic Qualifiers: Active/Remission status: remission status unspecified Qualified Code(s): F31.9 - Bipolar disorder, unspecified (3) DJD (degenerative joint disease) of cervical spine Code(s): M47.812 - SPONDYLOSIS W/O MYELOPATHY OR RADICULOPATHY, CERVICAL REGION Status: Chronic (4) GERD (gastroesophageal reflux disease) Code(s): K21.9 - GASTRO-ESOPHAGEAL REFLUX DISEASE WITHOUT ESOPHAGITIS Status: Chronic Qualifiers: Esophagitis presence: with esophagitis Qualified Code(s): K21.0 - Gastro- esophageal reflux disease with esophagitis (5) Lung mass Code(s): R91.8 - OTHER NONSPECIFIC ABNORMAL FINDING OF LUNG FIELD Status: Chronic (6) Obesity (BMI 30.0-34.9) Code(s): E66.9 - OBESITY, UNSPECIFIED Status: Chronic (7) Paroxysmal atrial fibrillation Code(s): I48.0 - PAROXYSMAL ATRIAL FIBRILLATION Status: Chronic - Plan * Pending bed placement at [facility] * no changes in medical management for now * DC once bed available * case and plan d/w patient at length, he understands and agrees with this plan
[2017-06-18] MEDS: Divalproex Sodium DR 500 MG TAB PO SCH (20:33)
[2017-06-19] MEDS: Nystatin 500,000 UNITS/5 ML UDCUP SSP SCH ×3 (01:14→12:14)
[2017-06-19 05:59] LABS: Anion Gap 15 mmol/L (10-20); BUN (Urea Nitrogen) 49 mg/dL (8.4-25.7); Calc. Creatinine Clearance 44 mL/min (70-130); Calcium 8.8 mg/dL (7.8-10.44); Carbon Dioxide 22 mmol/L (23-31); Chloride 109 mmol/L (98-107); Estimated GFR-MDRD 23
[2017-06-19] MEDS: Sodium Chloride 0.45% 1,000 ML IV SCH (07:44)
[2017-06-19] MEDS: predniSONE 20 MG TAB PO SCH (07:50)
[2017-06-19] MEDS: Amoxicillin/Potassium Clav 500 MG TAB PO SCH (07:50)
[2017-06-19] MEDS: Gabapentin 300 MG CAP PO SCH (07:50)
[2017-06-19] MEDS: Famotidine 20 MG TAB PO SCH (07:50)
[2017-06-19] MEDS: Ferrous Sulfate 325 MG TAB PO SCH (07:50)
[2017-06-19] MEDS: guaiFENesin ER 600 MG TAB PO SCH (07:50)
[2017-06-19] MEDS: Nystatin Powder 15 GM BOT TOP SCH (07:51)
[2017-06-19] MEDS: Sodium Bicarbonate Tab 325 MG TAB PO SCH (07:51)
--- NOTE | 2017-06-19 10:38 | DIS ---
DISCHARGE DIAGNOSES: 1. Pneumonia, better. 2. History of falls. Physical therapy in place. 3. Atrial flutter with a history of paroxysmal atrial fibrillation, stable. 4. Bipolar disorder, stable. 5. Chronic obstructive pulmonary disease, stable. 6. Chronic dysphagia, stable. 7. Hypertension, stable. 8. Lung cancer, stable. 9. The patient is a DNR code. 10. Stable acute kidney injury on chronic kidney disease. 11. Sick sinus syndrome, status post pacemaker. 12. Left wrist swelling better. CONSULTANTS: The patient's consultants on the case were Cardiology, Renal, Ortho and Pulmonary. DISCHARGE MEDICATIONS: Include nebulizer treatments, Augmentin 500 mg p.o. b.i.d. for 14 days, Sonia enzo 100 mg p.o. q.6 hours p.r.n. for cough, Buspirone 300 mg p.o. b.i.d., vitamin B, Depakote 1500 p.o. at bedtime, doxycycline 100 mg p.o. b.i.d. for 14 days, gabapentin 300 mg p.o. b.i.d., Medrol D [place], sodium bicarbonate 325 tabs two tablets p.o. b.i.d. for 7 days, tramadol 50 mg p.o. b.i.d. f or pain control, Risperdal 2 mg p.o. b.i.d. BRIEF HOSPITAL COURSE: This is a 66-year-old pleasant gentleman who was a resident of the [facility], came into the hospital with fall. He also was found to have a temperature of 103. Please refe r to the admitting physician's H\T\P for further details. He was found to have pneumonia. He also has a history of lung cancer, Pulmonary were consulted. They optimized the antibiotics, gave him Du oNeb treatments and put him on some steroids. He improved with this treatment. He was also found t o be in SVT for which Dr. Saravia was consulted. He put the patient on Cardizem which controlled the SVT and he did much better with that. The patient also developed acute kidney injury on chronic re nal injury for which Dr. Joya was consulted. Kidney ultrasound was good. He hydrate the patient, ga ve some albumin. The patient's kidney functions improved, though not at baseline, it is acceptable for discharge with outpatient followup. The patient also had a history of fall which resulted in le ft wrist swelling and right ankle swelling. Orthopedic was consulted for that. They did a CT scan which did not show any fracture and he recommended medical management that. The patient is doing mu ch better with all respects, he is a little deconditioned for which physical therapy was done. He i s accepted at [facility] where he is going to do more physical therapy. Sha andino was involved and they recommended pureed diet which he is tolerating well. He is right now medi [facility] stable to be discharged to the shelter facility and to be followed up by Cardiology, P ulmonary, Renal and Orthopedic. PHYSICAL EXAMINATION: VITAL SIGNS: At the time of discharge, his blood pressure was 135/95, respirations 18, temperature 98 and pulse of 100. GENERAL: The patient was lying in bed in no apparent distress. HEENT: Atraumatic and normocephalic. Pupils equally round, react to light. Extraocular movements intact. Mucous membranes moist. NECK: No JVD. LUNGS: Chest with some coarse breath sounds at the bases, otherwise good air entry in upper lobes. HEART: S1, S2, no murmurs or gallops. ABDOMEN: Soft. EXTREMITIES: Some chronic venous stasis changes, left wrist in a splint. NEUROLOGIC: Alert, oriented. Cranial nerves II through XII; no sensorimotor deficits. The patient is right now medically stable to be discharged. His Padron catheter will be discontinued. He is a DNR. He is asked to come back to the emergency room in case symptoms recur and is asked to follow u p with consultants as an outpatient and the PCP in 1 week. He is right now medically stable to be d ischarged. Total time for this discharge took 35 minutes.
[2017-06-19 12:14] VITALS: BP 126/82; TEMP 98.1
== END 2017-06-19 14:18 | DRG 871 ==
LOC: ERS 15:51 → T4-B 21:48 → IMCU/EMU 21:55 → T4-B 06-09 21:15 → 2NO 06-14 18:28 → T4-B 06-17 16:42
PROVIDERS: ADMIT Internal Medicine; ATTEND Internal Medicine
PROC: 2W39X1Z Immobilization of Left Upper Extremity using Splint (ICD-10-PCS; principal; 2017-06-09)
DX: A41.9 Sepsis, unspecified organism (principal); J18.9 Pneumonia, unspecified organism; N17.9 Acute kidney failure, unspecified; J96.10 Chronic respiratory failure, unspecified whether with hypoxia or hypercapnia; M62.82 Rhabdomyolysis; J44.0 Chronic obstructive pulmonary disease with (acute) lower respiratory infection; R13.10 Dysphagia, unspecified; I48.0 Paroxysmal atrial fibrillation; I44.1 Atrioventricular block, second degree; I48.92 Unspecified atrial flutter; Z66 Do not resuscitate; Z95.0 Presence of cardiac pacemaker; E78.5 Hyperlipidemia, unspecified; Z93.3 Colostomy status; R91.8 Other nonspecific abnormal finding of lung field; F31.9 Bipolar disorder, unspecified; F17.210 Nicotine dependence, cigarettes, uncomplicated; I12.9 Hypertensive chronic kidney disease with stage 1 through stage 4 chronic kidney disease, or unspecified chronic kidney disease; N18.9 Chronic kidney disease, unspecified; M25.432 Effusion, left wrist; M25.571 Pain in right ankle and joints of right foot; Y95 Nosocomial condition; M47.892 Other spondylosis, cervical region; E66.9 Obesity, unspecified; Z68.30 Body mass index [BMI] 30.0-30.9, adult; R65.20 Severe sepsis without septic shock; D64.9 Anemia, unspecified; M25.422 Effusion, left elbow; Z79.01 Long term (current) use of anticoagulants; W19.XXXA Unspecified fall, initial encounter; Z91.81 History of falling; Y92.129 Unspecified place in nursing home as the place of occurrence of the external cause
CPT/HCPCS: 36415; 36416; 51702; 70450; 71010; 72125; 76770; 80048; 80053; 80202; 81001; 81003; 81015; 82274; 82550; 82553; 82570; 83605; 84300; 84484; 85025; 87040; 87086; 87633; 87899; 93005; 94640; 94760; 96361; 96365; 96366; 96367; 96375; A4216; G8978-GP-CK; G8978-GP-CL; G8979-GP-CJ; G8987-GO-CL; G8988-GO-CJ; G8996-GN-CM; G8997-GN-CM; J2270; J2543; J2930; J3370; J7050; J7506; J7620; P9047; Q4081

== ENCOUNTER 2017-06-23 16:56 | Emergency (ER) | payer MEDICARE ==
--- NOTE | 2017-06-23 18:06 | RAD ---
PORTABLE CHEST ONE VIEW 06/23/17 at 5:13 p.m. HISTORY: Fall. FINDINGS/IMPRESSION: Comparison made to exam of 06/07/17. Left sided pacemaker device remains in place. The heart size is normal. The aorta is tortuous. The l ungs are well expanded. The mass in the left upper lobe is incompletely obscured by the overlying pa cemaker and was better seen on the CT scan of 08/24/16. No lobar consolidation, pneumothorax or pleural effusions are seen. A mild infiltrate of the left lung base cannot be excluded. POS: [facility]
--- NOTE | 2017-06-23 18:08 | RAD ---
RIGHT KNEE FOUR VIEWS: 06/23/17 HISTORY: Right knee pain, fall. FINDINGS/IMPRESSION: Degenerative changes are present. No acute fracture or dislocation is identified. No significant jalil nt effusion is seen. POS: [facility]
[2017-06-23 18:22] LABS: Prothrombin Time 18.1 SEC (12.0-14.7)
[2017-06-23 18:25] LABS: Hematocrit 30.7 % (42.0-52.0); Mean Platelet Volume 8.2 fL (7.4-10.4); Red Blood Cell (RBC) Count 3.52 mill/uL (4.70-6.10); White Blood Cell (WBC) Count 6.1 thou/uL (4.8-10.8)
[2017-06-23 18:26] LABS: Bilirubin Negative (Negative); Blood, Urine Moderate (Negative); Glucose, Urine (Dipstick) Negative (Negative); Ketone, Urine Negative (Negative); Nitrite Negative (Negative); Protein, Urine (Dipstick) Trace mg/dL (Neg-Trace); Urobilinogen 0.2 mg/dL (0.2-1.0)
[2017-06-23 18:27] LABS: Bacteria/HPF None Seen HPF (None Seen); Hyaline Casts/LPF 0-3 HYALINE CAST LPF (0-3 Hyaline); Squamous Epithelial 0-3 HPF (0-3)
--- NOTE | 2017-06-23 18:32 | CT ---
CT BRAIN WITHOUT CONTRAST: 06/23/17 HISTORY: Fall. Patient on Pradaxa/blood thinner medicine. FINDINGS: Comparison is made to exam of 06/07/17. Ventricular size prominence is again seen. Changes of chronic small vessel ischemic disease in the p eriventricular white matter are redemonstrated. The ventricular size is stable and the basilar ciste rns patent. No evidence of acute infarct, hemorrhage, midline shift or abnormal extra-axial fluid co llections is noted. The bony calvarium is intact. The visualized paranasal sinuses and mastoid air c ells are well aerated. The calcified small meningioma along the right temporal dura is stable. IMPRESSION: Stable exam. No acute process. POS: [facility]
[2017-06-23 18:33] LABS: Lactic Acid - Sepsis 1.2 mmol/L (0.5-2.2)
[2017-06-23 18:38] LABS: ALT (SGPT) 16 U/L (8-55); AST (SGOT) 14 U/L (5-34); Alkaline Phosphatase 66 U/L (40-150); Anion Gap 15 mmol/L (10-20); BUN (Urea Nitrogen) 43 mg/dL (8.4-25.7); Bilirubin, Total 0.3 mg/dL (0.2-1.2); Calc. Creatinine Clearance 0 mL/min (70-130); Calcium 8.7 mg/dL (7.8-10.44); Carbon Dioxide 25 mmol/L (23-31); Chloride 102 mmol/L (98-107); Estimated GFR-MDRD 24; Protein, Total 7.7 g/dL (5.8-8.1)
[2017-06-23 18:44] LABS: Anisocytosis SLIGHT = 6-15 cells (100X) (0-5/hpf); Band 4 % (5-11); Hypochromia SLIGHT = 6-15 cells (100X) (0-5/hpf); Neutrophil 66 % (42-75); Ovalocytes SLIGHT = 2-5 cells (100X) (0-1/hpf); Polychromasia SLIGHT = 2-3 cells (100X) (0-2/hpf); Reactive Lymphocytes 1 % (0-10); Troponin I 0.022 ng/mL (< 0.028)
[2017-06-23] MEDS ORDERED: Acetaminophen 500 MG TAB ONE (18:49)
== END 2017-06-23 21:22 | disposition left against medical advice (07) ==
LOC: ERS 16:56 → T4-B 20:36 → UNDOADMIN 20:36 → ERS 21:22
DX: S80.211A Abrasion, right knee, initial encounter (principal); N39.0 Urinary tract infection, site not specified; N28.9 Disorder of kidney and ureter, unspecified; E87.70 Fluid overload, unspecified; W19.XXXA Unspecified fall, initial encounter; K21.9 Gastro-esophageal reflux disease without esophagitis; J44.9 Chronic obstructive pulmonary disease, unspecified; F31.9 Bipolar disorder, unspecified; F17.210 Nicotine dependence, cigarettes, uncomplicated
CPT/HCPCS: 70450; 71010; 80053; 81003; 81015; 83605; 83880; 84484; 85025; 85610; 87086; 93005; 96361; 96365; 96366; J1956

== ENCOUNTER 2017-06-24 11:35 | Emergency (ER) | payer MEDICARE, OTHER ==
[2017-06-24 14:00] LABS: Hematocrit 29.7 % (42.0-52.0); Red Blood Cell (RBC) Count 3.39 mill/uL (4.70-6.10); White Blood Cell (WBC) Count 5.9 thou/uL (4.8-10.8)
[2017-06-24 14:01] LABS: Prothrombin Time 20.4 SEC (12.0-14.7)
[2017-06-24 14:02] LABS: PTT 53.4 SEC (22.9-36.1)
[2017-06-24 14:16] LABS: Anisocytosis MODERATE=16-30 cells (100X) (0-5/hpf); Band 10 % (5-11); Hypochromia SLIGHT = 6-15 cells (100X) (0-5/hpf); Metamyelocyte 1 % (0-0); Myelocyte 1 % (0-0); Neutrophil 59 % (42-75); Ovalocytes SLIGHT = 2-5 cells (100X) (0-1/hpf); Polychromasia SLIGHT = 2-3 cells (100X) (0-2/hpf)
[2017-06-24 14:18] LABS: ALT (SGPT) 14 U/L (8-55); AST (SGOT) 12 U/L (5-34); Alkaline Phosphatase 59 U/L (40-150); Anion Gap 14 mmol/L (10-20); BUN (Urea Nitrogen) 33 mg/dL (8.4-25.7); Bilirubin, Total 0.3 mg/dL (0.2-1.2); Calc. Creatinine Clearance 0 mL/min (70-130); Calcium 8.4 mg/dL (7.8-10.44); Carbon Dioxide 25 mmol/L (23-31); Chloride 104 mmol/L (98-107); Estimated GFR-MDRD 28; Globulin 3.7 g/dL (2.4-3.5)
--- NOTE | 2017-06-24 14:22 | CT ---
CT HEAD NONCONTRAST: HISTORY: Falls. Weakness. COMPARISON: 06/23/17. FINDINGS: There is no evidence of acute intracranial hemorrhage or infarct. Diffuse cortical atrophy and chronic manager bernarda ischemic small-vessel disease are similar in appearance to the previous exam. There is no mass effect or shift of midline structures. Visualized paranasal sinuses remain well aerated. IMPRESSION: Chronic-type findings are stable. No acute intracranial abnormalities are demonstrated. POS: [facility]
--- NOTE | 2017-06-24 14:23 | CT ---
CT CERVICAL SPINE NONCONTRAST: History Fall. Neck injury. COMPARISON: 06/14/17. FINDINGS: Bulky osteophytosis with partial fusion is similar in appearance to the prior study. No acute fract ure or dislocation. Vertebral body height and alignment are maintained. Cervicothoracic junction i s intact. IMPRESSION: Prominent degenerative changes of the cervical spine. No acute osseous abnormalities are demonstrat ed. POS: [facility]
== END 2017-06-24 16:36 | disposition home or self-care (01) ==
LOC: ERS 11:35
DX: S00.03XA Contusion of scalp, initial encounter (principal); S00.81XA Abrasion of other part of head, initial encounter; K21.9 Gastro-esophageal reflux disease without esophagitis; J44.9 Chronic obstructive pulmonary disease, unspecified; F31.9 Bipolar disorder, unspecified; F17.210 Nicotine dependence, cigarettes, uncomplicated; W17.89XA Other fall from one level to another, initial encounter
CPT/HCPCS: 36415; 70450; 72125; 80053; 82553; 84484; 85025; 85610; 85730; 93005; 96360

== ENCOUNTER 2017-07-07 09:23 | Inpatient (IN) | payer MEDICARE, OTHER ==
[2017-07-07] MEDS ORDERED: Acetaminophen 500 MG TAB ONE (10:15)
[2017-07-07 10:22] LABS: Hematocrit 27.8 % (42.0-52.0); Mean Platelet Volume 7.8 fL (7.4-10.4); White Blood Cell (WBC) Count 10.4 thou/uL (4.8-10.8)
[2017-07-07 10:24] LABS: Prothrombin Time 19.4 SEC (12.0-14.7)
[2017-07-07 10:25] LABS: PTT 54.8 SEC (22.9-36.1)
[2017-07-07 10:32] LABS: Lactic Acid - Sepsis 2.9 mmol/L (0.5-2.2)
[2017-07-07 10:39] LABS: ALT (SGPT) 22 U/L (8-55); AST (SGOT) 30 U/L (5-34); Alkaline Phosphatase 73 U/L (40-150); Anion Gap 16 mmol/L (10-20); BUN (Urea Nitrogen) 17 mg/dL (8.4-25.7); Bilirubin, Total 0.4 mg/dL (0.2-1.2); CK (CPK) 774 U/L (30-200); Calc. Creatinine Clearance 0 mL/min (70-130); Calcium 8.7 mg/dL (7.8-10.44); Carbon Dioxide 26 mmol/L (23-31); Chloride 94 mmol/L (98-107); Estimated GFR-MDRD 48; Protein, Total 7.1 g/dL (5.8-8.1)
[2017-07-07 10:41] LABS: Troponin I Less than 0.010 ng/mL (< 0.028)
[2017-07-07 10:49] LABS: Band 25 % (5-11); Hypochromia SLIGHT = 6-15 cells (100X) (0-5/hpf); Myelocyte 1 % (0-0); Neutrophil 54 % (42-75); Polychromasia SLIGHT = 2-3 cells (100X) (0-2/hpf)
[2017-07-07] MEDS ORDERED: Acetaminophen 325 MG Suppository ONE (11:06)
[2017-07-07] MEDS ORDERED: Acetaminophen 650 MG Suppository ONE (11:06)
--- NOTE | 2017-07-07 11:49 | CT ---
NONCONTRAST CT OF THE CERVICAL SPINE: 07/07/2017 HISTORY: Left-sided neck pain after a fall. COMPARISON: 06/24/2017 FINDINGS: There is calcification of the anterior longitudinal ligament with large bridging osteophytes present . The large anteriorly projecting osteophyte at the C3-C4 level is again present. There are multil evel degenerative changes and partial fusion of several vertebral bodies. No fracture or subluxatio n is seen, and the CT scan of the cervical spine is stable from the study on 06/24/2017. The prevertebral soft tissues are within normal limits. There is suggestion of a subcentimeter hypodense nodule in the left lobe of the thyroid gland, stabl e from prior exam. IMPRESSION: 1. Stable CT scan of the cervical spine with prominent degenerative changes and partial fusion at m ultiple levels with a large anterior osteophyte at the C3-C4 level. 2. No fracture or subluxation involving the cervical spine. POS: [facility]
--- NOTE | 2017-07-07 11:58 | CT ---
CT BRAIN WITHOUT CONTRAST: HISTORY: Trauma. COMPARISON: CT brain 06/24/17. FINDINGS: Moderate atrophy. Moderate microangiopathic changes. No midline shift or mass effect. Calvarium is intact. There is a radiopaque object adjacent to the medial left orbit, similar to the comparison examination. There appears to be a left forehead soft tissue contusion. No acute hemorrhage. There is a partially calcified extraaxial mass along the right parietal calvarium, likely a partiall y calcified meningioma. IMPRESSION: No acute posttraumatic sequelae. No acute intracranial abnormality. POS: [facility]
--- NOTE | 2017-07-07 12:12 | RAD ---
PORTABLE CHEST 1 VIEW: Date: 07/07/17 Time: 1036 hours HISTORY: Fall. FINDINGS: Comparison made with exam of 06/07/17. There has been interval improvement in the left lung multifocal infiltrates with residual opacities in the left upper and lower lung zones. The right lung is unremarkable. The heart size is stable. Le ft-sided pacemaker device remains in place. IMPRESSION: Incomplete resolution of left lung infiltrate since 06/07/17. Continued follow-up is recommended in 4 weeks. CODE T. POS: [facility]
--- NOTE | 2017-07-07 12:12 | RAD ---
LEFT ANKLE 3 VIEWS: Date: 07/07/17 HISTORY: Fall, left ankle pain. FINDINGS/IMPRESSION: Degenerative changes are present. No acute fracture or dislocation is identified. The ankle mortise is maintained. POS: [facility]
--- NOTE | 2017-07-07 12:14 | RAD ---
RIGHT ANKLE 3 VIEWS: Date: 07/07/17 HISTORY: Fall, right ankle pain. FINDINGS/IMPRESSION: Degenerative changes are present. The ankle mortise is maintained. No acute fracture or dislocation is identified. POS: [facility]
--- NOTE | 2017-07-07 12:17 | RAD ---
RIGHT LEG 2 VIEWS: Date: 07/07/17 HISTORY: Fall. Right leg pain. FINDINGS/IMPRESSION: The right tibia and fibula appear intact. Degenerative changes are present in the right knee and ank le joints. POS: [facility]
--- NOTE | 2017-07-07 12:20 | RAD ---
RIGHT FOOT 3 VIEWS: Date: 07/07/17 HISTORY: Fall. Right foot pain. FINDINGS/IMPRESSION: No acute fracture or dislocation is identified. POS: [facility]
--- NOTE | 2017-07-07 12:22 | RAD ---
4 VIEW LEFT ELBOW: Date: 07/07/17 INDICATION: Fall, trauma, pain. FINDINGS: No fracture or dislocation. Lateral view is obliqued, which limits assessment. There is osteoarthrit is. IMPRESSION: 1. No acute fracture of the left elbow. 2. There is a subtle, stable cortical irregularity of the radial head/neck junction, without signif icant interval displacement. Correlate clinically. POS: [facility]
--- NOTE | 2017-07-07 12:37 | RAD ---
3 VIEWS LEFT HAND: Date: 07/07/17 HISTORY: Fall after tripping. Patient found face-down on left side. Swelling to left eye. FINDINGS: The fingers are held in flexion, which limits osseous detail of the phalanges. While no obvious disp laced fracture is seen, subtle fracture cannot be excluded base on this exam. PA view is also not ob tained due to positioning. No obvious fracture is visualized. There is no dislocation seen. Subcutan eous soft tissue swelling seen dorsal to the hand. IMPRESSION: 1. Limited exam due to positioning and fingers held in flexion. While no obvious fracture is seen, subtle fracture would be difficult to entirely exclude, especially involving the fingers. If patient has persistent pain, follow-up imaging is recommended. 2. Subcutaneous soft tissue swelling. POS: [facility]
[2017-07-07] MEDS ORDERED: Potassium Chloride 30 MEQ, Admixture Fee 1 EACH in Sodium Chloride 0.9% 250 ML 250 ML IVPB SCH (13:15)
--- NOTE | 2017-07-07 13:23 | CT ---
CT ABDOMEN AND PELVIS WITHOUT CONTRAST: Date: 07/07/17 HISTORY: Left lower quadrant pain. FINDINGS: Absence of oral and IV contrast reduces the sensitivity of exam, particularly for evaluation of janey d organs and bowel. Patient refused rectal contrast after being tipped. There is patchy consolidation in the left lung base with accompanying tiny effusion. No calcified ga llstones are seen. No free air or free fluid is noted in the abdomen or pelvis. No calculi are seen in the kidneys, ureters, or the urinary bladder. No hydroureteronephrosis is not ed on either side. There is a small cyst arising from the posterior cortex of the left kidney. The p rostate is enlarged. A normal appearing appendix is present. There is a left lower quadrant colostomy. No significant div erticulosis is seen. No pericolonic inflammatory changes are noted. A normal appearing appendix is p resent. There are vascular calcifications without evidence of aneurysmal dilatation of the abdominal aorta. There are degenerative changes in the spine. IMPRESSION: 1. Left basilar patchy consolidation with tiny pleural effusions, suspicious for pneumonia. 2. No CT evidence of urinary tract calculi or obstruction. 3. Prostatic enlargement. 4. No evidence of diverticulitis or appendicitis. POS: [facility]
[2017-07-07] MEDS ORDERED: Piperacillin/Tazobactam 3.375 GM VIAL ONE (13:25)
[2017-07-07 14:10] LABS: Bilirubin Negative (Negative); Blood, Urine Large (Negative); Glucose, Urine (Dipstick) Negative (Negative); Ketone, Urine Negative (Negative); Nitrite Negative (Negative); Protein, Urine (Dipstick) 30 mg/dL (Neg-Trace); Urobilinogen 0.2 mg/dL (0.2-1.0)
[2017-07-07 14:17] LABS: Bacteria/HPF None Seen HPF (None Seen); Hyaline Casts/LPF 4-6 HYALINE CAST LPF (0-3 Hyaline); Squamous Epithelial 0-3 HPF (0-3)
[2017-07-07] MEDS ORDERED: Acetaminophen 325 MG TAB PO PRN (14:54)
[2017-07-07] MEDS ORDERED: Ondansetron ODT 4 MG TAB SL PRN (14:54)
[2017-07-07] MEDS ORDERED: Ondansetron HCl/PF 4 MG/2 ML Vial IVP PRN ×2 (14:54→16:24)
[2017-07-07 15:49] VITALS: BMI 31.0
[2017-07-07] MEDS ORDERED: Acetaminophen 500 MG TAB PO PRN (16:24)
[2017-07-07] MEDS ORDERED: Benzonatate 100 MG CAP PO PRN (16:24)
[2017-07-07] MEDS ORDERED: Ondansetron ODT 4 MG TAB PO PRN (16:24)
[2017-07-07] MEDS ORDERED: Nystatin Powder 15 GM BOT TOP PRN (16:52)
[2017-07-07] MEDS: Sodium Chloride 0.9% 1,000 ML IV SCH (17:51)
[2017-07-07] MEDS: Cefepime 2 GM, Admixture Fee 1 EACH in Sodium Chloride 0.9% 100 ML IVPB SCH (19:04)
[2017-07-07] MEDS ORDERED: Divalproex Sodium DR 500 MG TAB PO SCH (21:00)
[2017-07-07] MEDS ORDERED: FLU VACC TS2017-18 (>65YR) 0.5 ML SYRINGE IM ONE (21:00)
[2017-07-07] MEDS: Gabapentin 300 MG CAP PO SCH ×2 (21:45→21:54)
[2017-07-07] MEDS: Famotidine/PF 20 mg/2ml Vial SLOW IVP SCH (21:46)
[2017-07-07] MEDS ORDERED: Valproate Sodium 500 MG in Sodium Chloride 0.9% 100 ML IVPB SCH (22:30)
[2017-07-08] MEDS: Vancomycin HCl 1 GM in Premix Bag 1 BAG IVPB SCH ×2 (02:50→13:39)
[2017-07-08] MEDS: Sodium Chloride 0.9% 1,000 ML IV SCH ×2 (02:52→11:25)
[2017-07-08] MEDS: Cefepime 2 GM, Admixture Fee 1 EACH in Sodium Chloride 0.9% 100 ML IVPB SCH ×2 (05:30→17:46)
[2017-07-08 06:39] LABS: Band 15 % (5-11); Mean Platelet Volume 7.5 fL (7.4-10.4); Neutrophil 54 % (42-75); Red Blood Cell (RBC) Count 2.86 mill/uL (4.70-6.10)
[2017-07-08 06:48] LABS: ALT (SGPT) 24 U/L (8-55); AST (SGOT) 54 U/L (5-34); Alkaline Phosphatase 59 U/L (40-150); Anion Gap 11 mmol/L (10-20); BUN (Urea Nitrogen) 13 mg/dL (8.4-25.7); Bilirubin, Total 0.2 mg/dL (0.2-1.2); CK (CPK) 1200 U/L (30-200); Calc. Creatinine Clearance 112 mL/min (70-130); Calcium 8.2 mg/dL (7.8-10.44); Carbon Dioxide 29 mmol/L (23-31); Chloride 102 mmol/L (98-107); Estimated GFR-MDRD 76; Globulin 3.4 g/dL (2.4-3.5)
[2017-07-08] MEDS: Famotidine/PF 20 mg/2ml Vial SLOW IVP SCH ×2 (08:05→21:02)
[2017-07-08] MEDS: Gabapentin 300 MG CAP PO SCH ×2 (08:05→21:02)
[2017-07-08] MEDS: Cyanocobalamin (Vitamin B-12) 1,000 MCG TAB PO SCH (08:05)
[2017-07-08] MEDS: Saccharomyces boulardii 250 MG CAP PO SCH (08:05)
[2017-07-08] MEDS ORDERED: Mag-Al 1200 mg/1200 mg/30 ML UDCUP PO PRN (08:20)
[2017-07-08] MEDS ORDERED: Eucerin (Mineral Oil/Petrolatum,White) 30 gm Jar TOP PRN (08:20)
[2017-07-08] MEDS ORDERED: Diabetic Tussin 200 MG/10 ML UDCUP PO PRN (08:20)
[2017-07-08] MEDS ORDERED: Artificial Tears 18 DROP/0.9 ML EA EYE PRN (08:20)
[2017-07-08] MEDS ORDERED: Chloraseptic Spray 180 ml Bottle PO PRN (08:20)
[2017-07-08] MEDS ORDERED: Milk Of Magnesia 30 ML UDCUP PO PRN (08:20)
[2017-07-08] MEDS ORDERED: hydrALAZINE 20 MG/ML VIAL SLOW IVP PRN (08:20)
[2017-07-08] MEDS ORDERED: Loperamide HCl 2 MG CAP PO PRN (08:20)
[2017-07-08] MEDS ORDERED: Sodium Chloride 0.65% Nasal 44 ML BOT EA NARE PRN (08:20)
[2017-07-08] MEDS ORDERED: Senokot 8.6 MG TAB PO PRN (08:20)
--- NOTE | 2017-07-08 11:34 | PDOC.PN ---
- Subjective Encounter Start Date: 07/08/17 Encounter Start Time: 09:35 -: old records requested/rev Patient seen and examined. No new complaints. No overnight events, asking for food, no fever - Objective Resuscitation Status: Resuscitation Status DNR:Do Not Resuscitate MAR Reviewed: Yes Vital Signs & Weight: Vital Signs (12 hours) Temp Pulse Resp BP Pulse Ox 07/08/17 10:13 78 16 95 07/08/17 07:55 98.0 F 95 16 07/08/17 07:13 98.0 F 95 16 143/84 H 99 07/08/17 06:20 97 07/08/17 06:18 71 16 97 07/08/17 04:00 97.5 F L 79 16 128/81 99 07/08/17 00:00 97.5 F L 80 18 97/59 L 100 Weight Weight 235 lb 3.2 oz I&O: 07/07/17 07/08/17 07/09/17 06:59 06:59 06:59 Intake Total 1440 Output Total 200 Balance 1240 Result Diagrams: 07/08/17 05:58 07/08/17 05:57 Phys Exam - Physical Examination Constitutional: NAD HEENT: PERRLA, moist MMs, sclera anicteric Neck: no JVD, supple Respiratory: no wheezing, no rales, no rhonchi Cardiovascular: RRR, no significant murmur, no rub Gastrointestinal: soft, non-tender, no distention, positive bowel sounds colostomy+ Musculoskeletal: no edema, pulses present Neurological: moves all 4 limbs Lymphatic: no nodes Psychiatric: normal affect Skin: no rash, normal turgor Dx/Plan (1) ARF (acute renal failure) Status: Acute Qualifiers: Comment: (2) Hypokalemia Code(s): E87.6 - HYPOKALEMIA Status: Acute (3) Hyponatremia Code(s): E87.1 - HYPO-OSMOLALITY AND HYPONATREMIA Status: Acute (4) Lactic acidosis Code(s): E87.2 - ACIDOSIS Status: Acute (5) Left lower lobe pneumonia Code(s): J18.1 - LOBAR PNEUMONIA, UNSPECIFIED ORGANISM Status: Acute (6) Rhabdomyolysis Code(s): M62.82 - RHABDOMYOLYSIS Status: Acute (7) Sepsis Code(s): A41.9 - SEPSIS, UNSPECIFIED ORGANISM Status: Acute Qualifiers: Comment: (8) UTI (urinary tract infection) Status: Acute (9) BPH (benign prostatic hyperplasia) Code(s): N40.0 - BENIGN PROSTATIC HYPERPLASIA WITHOUT LOWER URINRY TRACT SYMP Status: Chronic (10) Bipolar disorder Code(s): F31.9 - BIPOLAR DISORDER, UNSPECIFIED Status: Chronic Qualifiers: (11) DJD (degenerative joint disease) of cervical spine Code(s): M47.812 - SPONDYLOSIS W/O MYELOPATHY OR RADICULOPATHY, CERVICAL REGION Status: Chronic (12) GERD (gastroesophageal reflux disease) Code(s): K21.9 - GASTRO-ESOPHAGEAL REFLUX DISEASE WITHOUT ESOPHAGITIS Status: Chronic (13) H/O sick sinus syndrome Code(s): Z86.79 - PERSONAL HISTORY OF OTHER DISEASES OF THE CIRCULATORY SYSTEM Status: Chronic Comment: (14) HLD (hyperlipidemia) Code(s): E78.5 - HYPERLIPIDEMIA, UNSPECIFIED Status: Chronic Qualifiers: (15) HTN (hypertension) Code(s): I10 - ESSENTIAL (PRIMARY) HYPERTENSION Status: Chronic Qualifiers: (16) Lung cancer, primary, with metastasis from lung to other site Code(s): C34.90 - MALIGNANT NEOPLASM OF UNSP PART OF UNSP BRONCHUS OR LUNG Status: Chronic Qualifiers: Comment: (17) Normocytic anemia Code(s): D64.9 - ANEMIA, UNSPECIFIED Status: Chronic (18) Obesity (BMI 30.0-34.9) Code(s): E66.9 - OBESITY, UNSPECIFIED Status: Chronic (19) Paroxysmal atrial fibrillation Code(s): I48.0 - PAROXYSMAL ATRIAL FIBRILLATION Status: Chronic (20) Tobacco dependence Code(s): F17.200 - NICOTINE DEPENDENCE, UNSPECIFIED, UNCOMPLICATED Status: Chronic - Plan cont current plan of care, continue antibiotics, social media specialist, speech therapy * continue IV antibiotics for now as per below * continue IVF * follow up on culture result * monitor labs * start diet after speech evaluation * verify home medication * medication reviewed as below * symptomatic treatment. Review of Systems - Review of Systems ENT: negative: Ear Pain, Ear Discharge, Nose Pain, Nose Discharge, Nose Congestion, Mouth Pain, Mouth Swelling, Throat Pain, Throat Swelling, Other Respiratory: negative: Cough, Dry, Shortness of Breath, Hemoptysis, SOB with Excertion, Pleuritic Pain, Sputum, Wheezing Cardiovascular: negative: Chest Pain, Palpitations, Orthopnea, Paroxysmal Noc. Dyspnea, Edema, Light Headedness, Other Gastrointestinal: negative: Nausea, Vomiting, Abdominal Pain, Diarrhea, Constipation, Melena, Hematochezia, Other Genitourinary: negative: Dysuria, Frequency, Incontinence, Hematuria, Retention , Other Musculoskeletal: negative: Neck Pain, Shoulder Pain, Arm Pain, Back Pain, Hand Pain, Leg Pain, Foot Pain, Other - Medications/Allergies Allergies/Adverse Reactions: Allergies Allergy/AdvReac Type Severity Reaction Status Date / Time No Known Allergies Allergy Verified 06/18/16 22:03 Medications: Current Medications Acetaminophen (Tylenol) 650 mg PO Q4H PRN PRN Reason: Headache/Fever or Mild Pain Al Hydroxide/Mg Hydroxide (Maalox) 15 ml PO Q4H PRN PRN Reason: Heartburn or Indigestion Albuterol/Ipratropium (Duoneb) 3 ml NEB [id number] Last Admin: 07/08/17 10:13 Dose: 3 ml Artificial Tears (Tears Naturale) 0 drop EA EYE PRN PRN PRN Reason: Dry Eyes Benzonatate (Tessalon) 200 mg PO Q6H PRN PRN Reason: Cough Cyanocobalamin (Vitamin B-12) 1,000 mcg PO DAILY [facility] Last Admin: 07/08/17 08:05 Dose: Not Given Famotidine (Pepcid) 20 mg SLOW IVP Q12HR [facility] Last Admin: 07/08/17 08:05 Dose: Not Given Gabapentin (Neurontin) 300 mg PO BID [facility] Last Admin: 07/08/17 08:05 Dose: Not Given Guaifenesin (Robitussin Sf) 200 mg PO Q4H PRN PRN Reason: Cough Hydralazine HCl (Apresoline) 10 mg SLOW IVP Q4H PRN PRN Reason: Systolic BP > 180 Cefepime HCl 2 gm/Miscellaneous Medication 1 each/ Sodium Chloride 100 mls @ 200 mls/hr IVPB 0600,1800 [facility] Last Admin: 07/08/17 05:30 Dose: 100 mls Sodium Chloride (Normal Saline 0.9%) 1,000 mls @ 100 mls/hr IV .Q10H [facility] Last Admin: 07/08/17 11:25 Dose: Not Given Vancomycin HCl 1 gm/ Device 200 mls @ 200 mls/hr IVPB 0200,1400 [facility] Last Admin: 07/08/17 02:50 Dose: 200 mls Valproic Acid 500 mg/ Sodium (Chloride) 105 mls @ 105 mls/hr IVPB HS [facility] Loperamide HCl (Imodium) 2 mg PO PRN PRN PRN Reason: Diarrhea/Loose Stools Magnesium Hydroxide (Milk Of Magnesium) 30 ml PO DAILYPRN PRN PRN Reason: Constipation Mineral Oil/White Petrolatum (Eucerin Cream) 0 gm TOP BIDPRN PRN PRN Reason: Dry Skin Nystatin (Mycostatin Powder) 0 gm TOP BID PRN PRN Reason: Topical Irritations Ondansetron HCl (Zofran Odt) 4 mg PO Q6H PRN PRN Reason: Nausea/Vomiting Ondansetron HCl (Zofran) 4 mg IVP Q6H PRN PRN Reason: Nausea/Vomiting Phenol (Chloraseptic [place] 180 Ml Bot) 0 ml PO PRN PRN PRN Reason: Sore Throat Saccharomyces Boulardii (Florastor) 250 mg PO DAILY [facility] Last Admin: 07/08/17 08:05 Dose: Not Given Senna (Senokot) 2 tab PO HSPRN PRN PRN Reason: Constipation Sodium Chloride (Flush - Normal Saline) 10 ml IVF Q12HR [facility] Last Admin: 07/08/17 08:05 Dose: Not Given Sodium Chloride (Flush - Normal Saline) 10 ml IVF PRN PRN PRN Reason: Saline Flush Sodium Chloride ([place] Nasal [place] 0.65%) 0 ml EA NARE QIDPRN PRN PRN Reason: Nasal Congestion
--- NOTE | 2017-07-08 12:15 | HP ---
DATE OF ADMISSION: 07/07/2017 PRIMARY CARE PHYSICIAN: [facility] in [place], [place]. CHIEF COMPLAINT: Fall. HISTORY OF PRESENT ILLNESS: This is a 66-year-old male, who presents to [facility] and transfer from [facility] after patient states he sustained a fall. The patient states he was attempting to step over the foot rest of his recliner; when he lost his ba nerissa, falling on the ground. The patient states he was on the floor for approximately 1 hour befor [facility] staffs were able to locate him. Patient states he has some difficulty with his right lo wer extremity stepping over objects and uses a rolling walker for ambulation. The patient denies an specific injury; other than bruising to his knees, but no specific head injury or loss of consciou sness. The patient was notably admitted to [facility] after admission in 05/2017 for suspected pneumonia and a prior history of falls. The patient received antibiotic therap y during this time and was released back to [place] on discharge 06/19/2017. The patient denies a sd specific increased cough, fever, chills or exposure history. Patient denies any specific change to his chronic medication regimen. Patient denies any specific unilateral weakness, difficulty with speech, or facial droop. In the emergency room, the patient underwent general evaluation including multiple imaging modalities including plain radiographs and CTs of the abdomen and pelvis and cervi yara spine essentially showing negative findings for acute fracture; however, CT of the abdomen and p gypsy did reveal evidence of left lower lobe basilar patchy and infiltrate concerning for pneumonia. Patient received intravenous fluids x500 mL as well as vancomycin and Zosyn. The patient also rec eived Tylenol and potassium chloride supplementation. PAST MEDICAL HISTORY: 1. Recent community-acquired pneumonia, treated 06/07/2017 to 06/19/2017. 2. History of falls. 3. Sick sinus syndrome, status post dual chamber pacemaker placement. 4. History of paroxysmal atrial fibrillation. 5. Bipolar disorder. 6. Chronic dysphagia. 7. Hypertension. 8. Chronic hypoxemic respiratory failure secondary to chronic obstructive pulmonary disease. 9. History of lung cancer, previously treated with radiation. 10. History of ischemic colitis. 11. Chronic anemia. 12. Dyslipidemia. 13. Gastroesophageal reflux disease. PAST SURGICAL HISTORY: 1. Status post pacemaker placement. 2. Status post colostomy. 3. Status post back surgery. 4. Status post ureteral stent placement. DISCHARGE MEDICATIONS: From 06/19/2017 showed, 1. DuoNeb 3 mL nebulized q.4 hours p.r.n. 2. BuSpar 300 mg p.o. b.i.d. 3. Vitamin B. 4. Depakote 1500 mg p.o. at bedtime. 5. Gabapentin 300 mg p.o. b.i.d. 6. Sodium bicarbonate 325 mg 2 tablets p.o. b.i.d. 7. Tramadol 50 mg p.o. b.i.d. 8. Risperdal 2 mg p.o. b.i.d. ALLERGIES: No known drug allergies. FAMILY HISTORY: Positive for Parkinson's disease. SOCIAL HISTORY: Patient resides at [facility]. Smoked since the age of 13. No a lcohol or illicit drug use. Ambulates with a rolling walker. History of multiple and recurrent fal ls. REVIEW OF SYSTEMS: The following complete review of systems was negative, unless otherwise mentione d in the HPI or below: Constitutional: Weight loss or gain, ability to conduct usual activities. Skin: Rash, itching. Eyes: Double vision, pain. ENT/Mouth: Nose bleeding, neck stiffness, pain, tenderness. Cardiovascular: Palpitations, dyspnea on exertion, orthopnea. Respiratory: Shortness of breath, wheezing, cough, hemoptysis, fever or night sweats. Gastrointesti nal: Poor appetite, abdominal pain, heartburn, nausea, vomiting, constipation, or diarrhea. Genitourinary: Urgency, frequency, dysuria, nocturia. Musculoskeletal: Pain, swelling. Neurologic/Psychiatric: Anxiety, depression. Allergy/Immunologic: Skin rash, bleeding tendency. PHYSICAL EXAMINATION: VITAL SIGNS: On admission, blood pressure 110/75, pulse 78, respiratory rate 16, temperature 97.9 degrees Fahrenheit, O2 saturation 97% on 2 liters per minute by nasal cannula. GENERAL APPEARANCE: This is a 66-year-old male , who appearing older than stated age, eduardo rt and oriented x3, pleasant, in no acute distress. HEENT: Pupils are equal, round, and reactive to light and accommodation. Extraocular muscles are i ntact. No scleral icterus, no conjunctival injection. Nares patent. OP is clear. Teeth in poor r epair. NECK: Supple. No cervical adenopathy. No thyromegaly. No carotid bruits. No JVD appreciated. C ervical spine with full active and passive range of motion. No meningeal signs appreciated. CHEST: Coarse breath sounds in the bases bilaterally. Diminished breath sounds in the bases. CARDIOVASCULAR EXAM: S1, S2 with distant heart sounds. ABDOMEN: Rounded, soft, nontender, nondistended. Bowel sounds are positive in all four quadrants. There is no hepatosplenomegaly, no abdominal bruits, no rebound or guarding appreciated. EXTREMITIES: Warm and dry with fair turgor. Mild pitting edema to the bilateral lower extremities. Pulses palpable distally at the dorsalis pedis, posterior tibial and popliteal arteries bilaterall y. Capillary refill less than 2 seconds. Contusions noted on bilateral patellar regions and ankle region. NEUROLOGIC EXAMINATION: Cranial nerves II-XII are grossly intact. No focal or lateralizing signs a ppreciated. The patient not observed ambulatory during this exam. PERTINENT LABORATORY AND X-RAY FINDINGS: Sodium 133, potassium 3.2, chloride 94, CO2 of 26, BUN 17, creatinine 1.47 with estimated GFR 48, glucose 144, lactic acid level ranged between 1.0 to 2.9, ca lcium 8.7. LFTs within normal limits. Total CK 774. Troponin negative x1. Albumin 3.1. CBC show ed a white blood cell count 10.4, hemoglobin 8.6, hematocrit 28, platelet count 179,000 with 54% [place] trophils, 25% bands. PT 19.4, INR 1.6, PTT 55. Urinalysis showed large blood, small leukocyte ghada rase, 11-20 rbcs per high power field and 7-10 wbcs per high power field. CT of the cervical spine dated 07/07/2017 showed no acute fracture or dislocation. Degenerative changes noted throughout the cervical spine. CT of the brain without contrast dated 07/07/2017 showed no acute intracranial pro cess. CT of the abdomen and pelvis dated 07/07/2017 showed left basilar patchy consolidation concer carroll for pneumonia. Radiographs of the hand, foot, elbows and ankles showed no evidence of fracture or dislocation. Portable chest x-ray dated 07/07/2017 showed left lung infiltrate persistent since 06/07/2017. ASSESSMENT AND PLAN: 1. Left lower lobe community-acquired/healthcare associated pneumonia. Suspect gram positive cocci . We will continue cefepime 2 g IV q.12 h. with additional vancomycin 1 g IV q.12 h. Bronchodilator therapy with DuoNebs 3 mL nebulized q.4 hours p.r.n. Blood cultures x2 pending. Continue general and pulmonary supportive measures. Oxygen supplementation at 2 liters per minute by nasal cannula. 2. Status post mechanical fall. We will obtain PT, OT evaluation for functional assessment. The p atient may benefit from inpatient rehabilitation. General fall risk precautions. 3. Acute kidney injury. We will continue intravenous normal saline at 100 mL per hour. Avoid neph rotoxic agents and contrast media. Repeat creatinine in the a.m. 4. Hyponatremia, mild. Continue intravenous normal saline and repeat sodium level in the a.m. 5. Hypokalemia. Potassium supplementation initiated in the emergency room. We will repeat potassi um level in the a.m. 6. Acute rhabdomyolysis. We will continue intravenous fluids as outlined previously. Repeat total CK in the a.m. 7. Chronic normocytic anemia. Stable currently. No evidence to suggest acute blood loss. Repeat CBC in the a.m. 8. Chronic dysphagia. We will obtain speech therapy consultation for general swallow evaluation. 9. Polypharmacy. We will attempt to review patient's overall medication regimen with attempts to c onsolidate or eliminate due to interactions. 10. Deconditioning/recurrent falls. PT, OT evaluation in the a.m. Consider inpatient rehabilitati on screening. 11. Prophylaxis. Sequential compression devices while in bed and Pepcid 20 mg p.o. b.i.d. 12. Code status: Do not resuscitate, confirmed with the patient. Surrogate medical decision maker is the patient's daughter.
[2017-07-08] MEDS: Acetaminophen 325 MG TAB PO PRN (16:16)
[2017-07-08] MEDS: Valproate Sodium 500 MG in Sodium Chloride 0.9% 100 ML IVPB SCH (21:02)
[2017-07-09 01:25] LABS: Vancomycin, Trough 13.3 ug/mL
[2017-07-09] MEDS: Vancomycin HCl 1 GM in Premix Bag 1 BAG IVPB SCH ×2 (01:31→13:13)
[2017-07-09] MEDS: Acetaminophen 325 MG TAB PO PRN ×2 (01:31→20:40)
[2017-07-09] MEDS: Cefepime 2 GM, Admixture Fee 1 EACH in Sodium Chloride 0.9% 100 ML IVPB SCH ×2 (05:19→17:37)
[2017-07-09] MEDS: Sodium Chloride 0.9% 1,000 ML IV SCH ×2 (08:51)
[2017-07-09] MEDS: Saccharomyces boulardii 250 MG CAP PO SCH (08:52)
[2017-07-09] MEDS: Famotidine/PF 20 mg/2ml Vial SLOW IVP SCH ×2 (08:53→20:40)
[2017-07-09] MEDS: Multivit, Therapeutic 1 TAB PO SCH (08:53)
[2017-07-09] MEDS: Folic Acid 1 MG TAB PO SCH (08:53)
[2017-07-09] MEDS: Cyanocobalamin (Vitamin B-12) 1,000 MCG TAB PO SCH (08:53)
[2017-07-09] MEDS: Fluconazole 100 MG TAB PO SCH (08:53)
[2017-07-09] MEDS: Gabapentin 300 MG CAP PO SCH ×2 (08:53→20:40)
[2017-07-09 10:04] LABS: Anion Gap 9 mmol/L (10-20); BUN (Urea Nitrogen) 7 mg/dL (8.4-25.7); CK (CPK) 706 U/L (30-200); Calc. Creatinine Clearance 139 mL/min (70-130); Calcium 8.6 mg/dL (7.8-10.44); Carbon Dioxide 31 mmol/L (23-31); Chloride 103 mmol/L (98-107); Estimated GFR-MDRD Greater than 90
[2017-07-09 10:09] LABS: Hematocrit 27.4 % (42.0-52.0); Mean Platelet Volume 7.2 fL (7.4-10.4); Red Blood Cell (RBC) Count 3.03 mill/uL (4.70-6.10); White Blood Cell (WBC) Count 4.3 thou/uL (4.8-10.8)
[2017-07-09 10:45] LABS: Band 5 % (5-11); Neutrophil 61 % (42-75); Polychromasia SLIGHT = 2-3 cells (100X) (0-2/hpf)
[2017-07-09] MEDS: NS 0.9% w/ 20 MEQ KCL 1,000 ML/1,000 ML BAG IV SCH (10:56)
[2017-07-09] MEDS ORDERED: Potassium Chloride 20 MEQ TAB PO SCH (11:00)
--- NOTE | 2017-07-09 12:01 | PDOC.PN ---
- Subjective Encounter Start Date: 07/09/17 Encounter Start Time: 08:30 Patient seen and examined. No new complaints. No overnight events - Objective Resuscitation Status: Resuscitation Status DNR:Do Not Resuscitate MAR Reviewed: Yes Vital Signs & Weight: Vital Signs (12 hours) Temp Pulse Resp BP Pulse Ox 07/09/17 11:45 98.4 F 90 18 146/90 H 92 L 07/09/17 10:59 87 16 93 L 07/09/17 08:06 98.2 F 96 20 162/92 H 90 L 07/09/17 08:00 98.2 F 96 20 90 L 07/09/17 06:14 95 07/09/17 06:13 92 16 95 07/09/17 03:56 98.6 F 97 16 148/90 H 93 L Weight Weight 235 lb 3.2 oz I&O: 07/08/17 07/09/17 07/10/17 06:59 06:59 06:59 Intake Total 1440 1350 240 Output Total 200 500 Balance 1240 850 240 Result Diagrams: 07/09/17 09:21 07/09/17 09:21 Additional Labs: Accuchecks 07/08/17 11:38 POC Glucose 142 H Phys Exam - Physical Examination Constitutional: NAD HEENT: PERRLA, moist MMs, sclera anicteric Neck: no JVD, supple Respiratory: no wheezing, no rales, no rhonchi Cardiovascular: RRR, no significant murmur, no rub Gastrointestinal: soft, non-tender, no distention, positive bowel sounds Musculoskeletal: no edema, pulses present Neurological: moves all 4 limbs Lymphatic: no nodes Psychiatric: normal affect Skin: no rash, normal turgor Dx/Plan (1) ARF (acute renal failure) Status: Resolved Qualifiers: Comment: (2) Hypokalemia Code(s): E87.6 - HYPOKALEMIA Status: Acute (3) Hyponatremia Code(s): E87.1 - HYPO-OSMOLALITY AND HYPONATREMIA Status: Resolved (4) Lactic acidosis Code(s): E87.2 - ACIDOSIS Status: Resolved (5) Left lower lobe pneumonia Code(s): J18.1 - LOBAR PNEUMONIA, UNSPECIFIED ORGANISM Status: Acute (6) Rhabdomyolysis Code(s): M62.82 - RHABDOMYOLYSIS Status: Acute (7) Sepsis Code(s): A41.9 - SEPSIS, UNSPECIFIED ORGANISM Status: Acute Qualifiers: Comment: (8) UTI (urinary tract infection) Status: Acute (9) BPH (benign prostatic hyperplasia) Code(s): N40.0 - BENIGN PROSTATIC HYPERPLASIA WITHOUT LOWER URINRY TRACT SYMP Status: Chronic (10) Bipolar disorder Code(s): F31.9 - BIPOLAR DISORDER, UNSPECIFIED Status: Chronic Qualifiers: (11) DJD (degenerative joint disease) of cervical spine Code(s): M47.812 - SPONDYLOSIS W/O MYELOPATHY OR RADICULOPATHY, CERVICAL REGION Status: Chronic (12) GERD (gastroesophageal reflux disease) Code(s): K21.9 - GASTRO-ESOPHAGEAL REFLUX DISEASE WITHOUT ESOPHAGITIS Status: Chronic (13) H/O sick sinus syndrome Code(s): Z86.79 - PERSONAL HISTORY OF OTHER DISEASES OF THE CIRCULATORY SYSTEM Status: Chronic Comment: (14) HLD (hyperlipidemia) Code(s): E78.5 - HYPERLIPIDEMIA, UNSPECIFIED Status: Chronic Qualifiers: (15) HTN (hypertension) Code(s): I10 - ESSENTIAL (PRIMARY) HYPERTENSION Status: Chronic Qualifiers: (16) Lung cancer, primary, with metastasis from lung to other site Code(s): C34.90 - MALIGNANT NEOPLASM OF UNSP PART OF UNSP BRONCHUS OR LUNG Status: Chronic Qualifiers: Comment: (17) Normocytic anemia Code(s): D64.9 - ANEMIA, UNSPECIFIED Status: Chronic (18) Obesity (BMI 30.0-34.9) Code(s): E66.9 - OBESITY, UNSPECIFIED Status: Chronic (19) Paroxysmal atrial fibrillation Code(s): I48.0 - PAROXYSMAL ATRIAL FIBRILLATION Status: Chronic (20) Tobacco dependence Code(s): F17.200 - NICOTINE DEPENDENCE, UNSPECIFIED, UNCOMPLICATED Status: Chronic - Plan cont current plan of care, continue antibiotics, PT/OT * continue vanocmycin and cefefime * change IVF NS with KCL * replace potassium PO and add with IVF * repeat labs tomorrow * CK improving' * renal function improved * on discharge consider omnicef * medication reviewed as below * symptomatic treatment. Review of Systems - Review of Systems ENT: negative: Ear Pain, Ear Discharge, Nose Pain, Nose Discharge, Nose Congestion, Mouth Pain, Mouth Swelling, Throat Pain, Throat Swelling, Other Respiratory: negative: Cough, Dry, Shortness of Breath, Hemoptysis, SOB with Excertion, Pleuritic Pain, Sputum, Wheezing Cardiovascular: negative: Chest Pain, Palpitations, Orthopnea, Paroxysmal Noc. Dyspnea, Edema, Light Headedness, Other Gastrointestinal: negative: Nausea, Vomiting, Abdominal Pain, Diarrhea, Constipation, Melena, Hematochezia, Other Genitourinary: negative: Dysuria, Frequency, Incontinence, Hematuria, Retention , Other Musculoskeletal: negative: Neck Pain, Shoulder Pain, Arm Pain, Back Pain, Hand Pain, Leg Pain, Foot Pain, Other - Medications/Allergies Allergies/Adverse Reactions: Allergies Allergy/AdvReac Type Severity Reaction Status Date / Time No Known Allergies Allergy Verified 06/18/16 22:03 Medications: Current Medications Acetaminophen (Tylenol) 650 mg PO Q4H PRN PRN Reason: Headache/Fever or Mild Pain Last Admin: 07/09/17 01:31 Dose: 650 mg Al Hydroxide/Mg Hydroxide (Maalox) 15 ml PO Q4H PRN PRN Reason: Heartburn or Indigestion Albuterol/Ipratropium (Duoneb) 3 ml NEB [id number] [facility] Last Admin: 07/09/17 10:59 Dose: 3 ml Artificial Tears (Tears Naturale) 0 drop EA EYE PRN PRN PRN Reason: Dry Eyes Benzonatate (Tessalon) 200 mg PO Q6H PRN PRN Reason: Cough Cyanocobalamin (Vitamin B-12) 1,000 mcg PO DAILY [facility] Last Admin: 07/09/17 08:53 Dose: 1,000 mcg Famotidine (Pepcid) 20 mg SLOW IVP Q12HR [facility] Last Admin: 07/09/17 08:53 Dose: 20 mg Fluconazole (Diflucan) 100 mg PO DAILY [facility] Last Admin: 07/09/17 08:53 Dose: 100 mg Folic Acid (Folvite) 1 mg PO DAILY [facility] Last Admin: 07/09/17 08:53 Dose: 1 mg Gabapentin (Neurontin) 300 mg PO BID [facility] Last Admin: 07/09/17 08:53 Dose: 300 mg Guaifenesin (Robitussin Sf) 200 mg PO Q4H PRN PRN Reason: Cough Hydralazine HCl (Apresoline) 10 mg SLOW IVP Q4H PRN PRN Reason: Systolic BP > 180 Cefepime HCl 2 gm/Miscellaneous Medication 1 each/ Sodium Chloride 100 mls @ 200 mls/hr IVPB 0600,1800 [facility] Last Admin: 07/09/17 05:19 Dose: 100 mls Vancomycin HCl 1 gm/ Device 200 mls @ 200 mls/hr IVPB 0200,1400 [facility] Last Admin: 07/09/17 01:31 Dose: 200 mls Valproic Acid 500 mg/ Sodium (Chloride) 105 mls @ 105 mls/hr IVPB HS [facility] Last Admin: 07/08/17 21:02 Dose: 105 mls Potassium Chloride/Sodium Chloride (Ns 0.9% W/ 20 Meq Kcl) 1,000 ml in 1,000 mls @ 75 mls/hr IV .[id number] [facility] Last Admin: 07/09/17 10:56 Dose: 1,000 mls Loperamide HCl (Imodium) 2 mg PO PRN PRN PRN Reason: Diarrhea/Loose Stools Magnesium Hydroxide (Milk Of Magnesium) 30 ml PO DAILYPRN PRN PRN Reason: Constipation Mineral Oil/White Petrolatum (Eucerin Cream) 0 gm TOP BIDPRN PRN PRN Reason: Dry Skin Multivitamins (Theragran) 1 tab PO DAILY [facility] Last Admin: 07/09/17 08:53 Dose: 1 tab Nystatin (Mycostatin Powder) 0 gm TOP BID PRN PRN Reason: Topical Irritations Ondansetron HCl (Zofran Odt) 4 mg PO Q6H PRN PRN Reason: Nausea/Vomiting Ondansetron HCl (Zofran) 4 mg IVP Q6H PRN PRN Reason: Nausea/Vomiting Phenol (Chloraseptic [place] 180 Ml Bot) 0 ml PO PRN PRN PRN Reason: Sore Throat Potassium Chloride (K-Dur) 40 meq PO NOW [facility] Stop: 07/09/17 13:00 Last Admin: 07/09/17 10:56 Dose: 40 meq Saccharomyces Boulardii (Florastor) 250 mg PO DAILY [facility] Last Admin: 07/09/17 08:52 Dose: 250 mg Senna (Senokot) 2 tab PO HSPRN PRN PRN Reason: Constipation Sodium Chloride (Flush - Normal Saline) 10 ml IVF Q12HR [facility] Last Admin: 07/09/17 08:54 Dose: Not Given Sodium Chloride (Flush - Normal Saline) 10 ml IVF PRN PRN PRN Reason: Saline Flush Sodium Chloride ([place] Nasal [place] 0.65%) 0 ml EA NARE QIDPRN PRN PRN Reason: Nasal Congestion
[2017-07-09] MEDS: Valproate Sodium 500 MG in Sodium Chloride 0.9% 100 ML IVPB SCH (20:41)
[2017-07-10] MEDS: NS 0.9% w/ 20 MEQ KCL 1,000 ML/1,000 ML BAG IV SCH ×3 (00:59→19:37)
[2017-07-10] MEDS: Vancomycin HCl 1 GM in Premix Bag 1 BAG IVPB SCH ×2 (01:00→14:18)
[2017-07-10] MEDS: Cefepime 2 GM, Admixture Fee 1 EACH in Sodium Chloride 0.9% 100 ML IVPB SCH ×2 (05:10→18:06)
[2017-07-10] MEDS: Fluconazole 100 MG TAB PO SCH (07:54)
[2017-07-10] MEDS: Multivit, Therapeutic 1 TAB PO SCH (07:54)
[2017-07-10] MEDS: Folic Acid 1 MG TAB PO SCH (07:54)
[2017-07-10] MEDS: Saccharomyces boulardii 250 MG CAP PO SCH (07:54)
[2017-07-10] MEDS: Cyanocobalamin (Vitamin B-12) 1,000 MCG TAB PO SCH (07:54)
[2017-07-10] MEDS: Gabapentin 300 MG CAP PO SCH ×2 (07:54→20:07)
[2017-07-10] MEDS: Famotidine/PF 20 mg/2ml Vial SLOW IVP SCH (07:57)
--- NOTE | 2017-07-10 13:24 | PDOC.PN ---
- Subjective Encounter Start Date: 07/10/17 Encounter Start Time: 11:20 Subjective: no sob, feels better -: is amb around 70ft with rw - Objective Resuscitation Status: Resuscitation Status DNR:Do Not Resuscitate MAR Reviewed: Yes Vital Signs & Weight: Vital Signs (12 hours) Temp Pulse Resp BP Pulse Ox 07/10/17 11:08 84 15 96 07/10/17 08:00 98.3 F 88 22 H 150/87 H 95 07/10/17 07:16 98.3 F 85 16 94 L 07/10/17 07:03 99 16 94 L Weight Weight 235 lb 3.2 oz I&O: 07/09/17 07/10/17 07/11/17 06:59 06:59 06:59 Intake Total 1350 3795 300 Output Total 500 Balance 850 3795 300 Result Diagrams: 07/09/17 09:21 07/09/17 09:21 Phys Exam - Physical Examination HEENT: PERRLA, moist MMs Neck: no JVD, supple Respiratory: no wheezing, no rales rhonchi++ Cardiovascular: RRR, no significant murmur Gastrointestinal: soft, non-tender, positive bowel sounds Musculoskeletal: no edema, pulses present Neurological: non-focal, moves all 4 limbs Dx/Plan (1) Left lower lobe pneumonia Code(s): J18.1 - LOBAR PNEUMONIA, UNSPECIFIED ORGANISM Status: Acute Qualifiers: Pneumonia type: due to unspecified organism Qualified Code(s): J18.1 - Lobar pneumonia, unspecified organism (2) Rhabdomyolysis Code(s): M62.82 - RHABDOMYOLYSIS Status: Resolved (3) Sepsis Code(s): A41.9 - SEPSIS, UNSPECIFIED ORGANISM Status: Acute Qualifiers: Sepsis type: sepsis due to unspecified organism Comment: (4) BPH (benign prostatic hyperplasia) Code(s): N40.0 - BENIGN PROSTATIC HYPERPLASIA WITHOUT LOWER URINRY TRACT SYMP Status: Chronic Qualifiers: Lower urinary tract symptom presence: symptoms absent Qualified Code(s): N40.0 - Benign prostatic hyperplasia without lower urinary tract symptoms (5) Bipolar disorder Code(s): F31.9 - BIPOLAR DISORDER, UNSPECIFIED Status: Chronic Qualifiers: Active/Remission status: remission status unspecified (6) H/O sick sinus syndrome Code(s): Z86.79 - PERSONAL HISTORY OF OTHER DISEASES OF THE CIRCULATORY SYSTEM Status: Chronic Comment: has pacemaker (7) HLD (hyperlipidemia) Code(s): E78.5 - HYPERLIPIDEMIA, UNSPECIFIED Status: Chronic Qualifiers: (8) HTN (hypertension) Code(s): I10 - ESSENTIAL (PRIMARY) HYPERTENSION Status: Chronic Qualifiers: Hypertension type: essential hypertension (9) Normocytic anemia Code(s): D64.9 - ANEMIA, UNSPECIFIED Status: Chronic (10) Obesity (BMI 30.0-34.9) Code(s): E66.9 - OBESITY, UNSPECIFIED Status: Chronic (11) Paroxysmal atrial fibrillation Code(s): I48.0 - PAROXYSMAL ATRIAL FIBRILLATION Status: Chronic (12) Tobacco dependence Code(s): F17.200 - NICOTINE DEPENDENCE, UNSPECIFIED, UNCOMPLICATED Status: Chronic - Plan is at aspiration risk -: wants to go home, has his son close by to help -: dc plan in am with HH, PT, speech -: currently on vanc and cefepime -: to mobilize more, nebs, i.spirometer * . Review of Systems - Medications/Allergies Allergies/Adverse Reactions: Allergies Allergy/AdvReac Type Severity Reaction Status Date / Time No Known Allergies Allergy Verified 06/18/16 22:03 Medications: Current Medications Acetaminophen (Tylenol) 650 mg PO Q4H PRN PRN Reason: Headache/Fever or Mild Pain Last Admin: 07/09/17 20:40 Dose: 650 mg Al Hydroxide/Mg Hydroxide (Maalox) 15 ml PO Q4H PRN PRN Reason: Heartburn or Indigestion Albuterol/Ipratropium (Duoneb) 3 ml NEB [id number] SCH Last Admin: 07/10/17 11:08 Dose: 3 ml Artificial Tears (Tears Naturale) 0 drop EA EYE PRN PRN PRN Reason: Dry Eyes Benzonatate (Tessalon) 200 mg PO Q6H PRN PRN Reason: Cough Cyanocobalamin (Vitamin B-12) 1,000 mcg PO DAILY [facility] Last Admin: 07/10/17 07:54 Dose: 1,000 mcg Famotidine (Pepcid) 20 mg SLOW IVP Q12HR [facility] Last Admin: 07/10/17 07:57 Dose: 20 mg Fluconazole (Diflucan) 100 mg PO DAILY [facility] Last Admin: 07/10/17 07:54 Dose: 100 mg Folic Acid (Folvite) 1 mg PO DAILY [facility] Last Admin: 07/10/17 07:54 Dose: 1 mg Gabapentin (Neurontin) 300 mg PO BID [facility] Last Admin: 07/10/17 07:54 Dose: 300 mg Guaifenesin (Robitussin Sf) 200 mg PO Q4H PRN PRN Reason: Cough Hydralazine HCl (Apresoline) 10 mg SLOW IVP Q4H PRN PRN Reason: Systolic BP > 180 Cefepime HCl 2 gm/Miscellaneous Medication 1 each/ Sodium Chloride 100 mls @ 200 mls/hr IVPB 0600,1800 [facility] Last Admin: 07/10/17 05:10 Dose: 100 mls Vancomycin HCl 1 gm/ Device 200 mls @ 200 mls/hr IVPB 0200,1400 [facility] Last Admin: 07/10/17 01:00 Dose: 200 mls Valproic Acid 500 mg/ Sodium (Chloride) 105 mls @ 105 mls/hr IVPB HS [facility] Last Admin: 07/09/17 20:41 Dose: 105 mls Potassium Chloride/Sodium Chloride (Ns 0.9% W/ 20 Meq Kcl) 1,000 ml in 1,000 mls @ 75 mls/hr IV .[id number] [facility] Last Admin: 07/10/17 00:59 Dose: 1,000 mls Loperamide HCl (Imodium) 2 mg PO PRN PRN PRN Reason: Diarrhea/Loose Stools Magnesium Hydroxide (Milk Of Magnesium) 30 ml PO DAILYPRN PRN PRN Reason: Constipation Mineral Oil/White Petrolatum (Eucerin Cream) 0 gm TOP BIDPRN PRN PRN Reason: Dry Skin Multivitamins (Theragran) 1 tab PO DAILY [facility] Last Admin: 07/10/17 07:54 Dose: 1 tab Nystatin (Mycostatin Powder) 0 gm TOP BID PRN PRN Reason: Topical Irritations Ondansetron HCl (Zofran Odt) 4 mg PO Q6H PRN PRN Reason: Nausea/Vomiting Ondansetron HCl (Zofran) 4 mg IVP Q6H PRN PRN Reason: Nausea/Vomiting Phenol (Chloraseptic [place] 180 Ml Bot) 0 ml PO PRN PRN PRN Reason: Sore Throat Saccharomyces Boulardii (Florastor) 250 mg PO DAILY [facility] Last Admin: 07/10/17 07:54 Dose: 250 mg Senna (Senokot) 2 tab PO HSPRN PRN PRN Reason: Constipation Sodium Chloride (Flush - Normal Saline) 10 ml IVF Q12HR [facility] Last Admin: 07/10/17 08:08 Dose: Not Given Sodium Chloride (Flush - Normal Saline) 10 ml IVF PRN PRN PRN Reason: Saline Flush Sodium Chloride (Libby Nasal [place] 0.65%) 0 ml EA NARE QIDPRN PRN PRN Reason: Nasal Congestion
[2017-07-10] MEDS: Acetaminophen 325 MG TAB PO PRN (19:55)
[2017-07-10] MEDS: Famotidine 20 MG TAB PO SCH (20:07)
[2017-07-10] MEDS: Valproate Sodium 500 MG in Sodium Chloride 0.9% 100 ML IVPB SCH (21:07)
[2017-07-11] MEDS: Vancomycin HCl 1 GM in Premix Bag 1 BAG IVPB SCH ×2 (02:21→15:24)
[2017-07-11] MEDS: NS 0.9% w/ 20 MEQ KCL 1,000 ML/1,000 ML BAG IV SCH (05:08)
[2017-07-11] MEDS: Cefepime 2 GM, Admixture Fee 1 EACH in Sodium Chloride 0.9% 100 ML IVPB SCH (05:08)
[2017-07-11 07:12] LABS: Hematocrit 26.6 % (42.0-52.0); Mean Platelet Volume 7.2 fL (7.4-10.4); Red Blood Cell (RBC) Count 2.94 mill/uL (4.70-6.10); White Blood Cell (WBC) Count 5.3 thou/uL (4.8-10.8)
[2017-07-11 07:27] LABS: Anion Gap 11 mmol/L (10-20); BUN (Urea Nitrogen) 11 mg/dL (8.4-25.7); CK (CPK) 141 U/L (30-200); Calc. Creatinine Clearance 146 mL/min (70-130); Calcium 8.8 mg/dL (7.8-10.44); Carbon Dioxide 24 mmol/L (23-31); Chloride 105 mmol/L (98-107); Estimated GFR-MDRD Greater than 90
[2017-07-11 08:19] LABS: Band 13 % (5-11); Neutrophil 46 % (42-75); Polychromasia SLIGHT = 2-3 cells (100X) (0-2/hpf)
[2017-07-11] MEDS: Folic Acid 1 MG TAB PO SCH (08:46)
[2017-07-11] MEDS: Multivit, Therapeutic 1 TAB PO SCH (08:46)
[2017-07-11] MEDS: Famotidine 20 MG TAB PO SCH (08:46)
[2017-07-11] MEDS: Cyanocobalamin (Vitamin B-12) 1,000 MCG TAB PO SCH (08:46)
[2017-07-11] MEDS: Fluconazole 100 MG TAB PO SCH (08:46)
[2017-07-11] MEDS: Gabapentin 300 MG CAP PO SCH (08:46)
[2017-07-11] MEDS: Saccharomyces boulardii 250 MG CAP PO SCH (08:46)
--- NOTE | 2017-07-11 10:25 | PDOC.PN ---
- Subjective Encounter Start Date: 07/11/17 Encounter Start Time: 09:00 Subjective: no sob, wants to go home - Objective Resuscitation Status: Resuscitation Status DNR:Do Not Resuscitate MAR Reviewed: Yes Vital Signs & Weight: Vital Signs (12 hours) Temp Pulse Resp BP Pulse Ox 07/11/17 08:00 99 F 108 H 16 91 L 07/11/17 07:16 99 F 108 H 16 128/85 91 L 07/11/17 06:25 103 H 18 92 L 07/11/17 04:44 98.2 F 107 H 20 124/82 92 L 07/11/17 01:46 92 L 07/11/17 00:00 98.5 F 100 20 125/83 92 L Weight Weight 235 lb 3.2 oz I&O: 07/10/17 07/11/17 07/12/17 06:59 06:59 06:59 Intake Total 3795 2445 240 Output Total 300 Balance 3795 2145 240 Result Diagrams: 07/11/17 06:43 07/11/17 06:42 Phys Exam - Physical Examination HEENT: PERRLA, sclera anicteric Neck: no JVD, supple Respiratory: no wheezing, no rales rhonchi+ Cardiovascular: RRR, no significant murmur Gastrointestinal: soft, non-tender, positive bowel sounds Musculoskeletal: no edema, pulses present Neurological: non-focal, moves all 4 limbs Psychiatric: A&O x 3 Dx/Plan (1) Left lower lobe pneumonia Code(s): J18.1 - LOBAR PNEUMONIA, UNSPECIFIED ORGANISM Status: Acute Qualifiers: Pneumonia type: due to unspecified organism Qualified Code(s): J18.1 - Lobar pneumonia, unspecified organism (2) Rhabdomyolysis Code(s): M62.82 - RHABDOMYOLYSIS Status: Resolved (3) Sepsis Code(s): A41.9 - SEPSIS, UNSPECIFIED ORGANISM Status: Acute Qualifiers: Sepsis type: sepsis due to unspecified organism Comment: (4) BPH (benign prostatic hyperplasia) Code(s): N40.0 - BENIGN PROSTATIC HYPERPLASIA WITHOUT LOWER URINRY TRACT SYMP Status: Chronic Qualifiers: Lower urinary tract symptom presence: symptoms absent Qualified Code(s): N40.0 - Benign prostatic hyperplasia without lower urinary tract symptoms (5) Bipolar disorder Code(s): F31.9 - BIPOLAR DISORDER, UNSPECIFIED Status: Chronic Qualifiers: Active/Remission status: remission status unspecified (6) H/O sick sinus syndrome Code(s): Z86.79 - PERSONAL HISTORY OF OTHER DISEASES OF THE CIRCULATORY SYSTEM Status: Chronic Comment: has pacemaker (7) HLD (hyperlipidemia) Code(s): E78.5 - HYPERLIPIDEMIA, UNSPECIFIED Status: Chronic Qualifiers: (8) HTN (hypertension) Code(s): I10 - ESSENTIAL (PRIMARY) HYPERTENSION Status: Chronic Qualifiers: Hypertension type: essential hypertension (9) Normocytic anemia Code(s): D64.9 - ANEMIA, UNSPECIFIED Status: Chronic (10) Obesity (BMI 30.0-34.9) Code(s): E66.9 - OBESITY, UNSPECIFIED Status: Chronic (11) Paroxysmal atrial fibrillation Code(s): I48.0 - PAROXYSMAL ATRIAL FIBRILLATION Status: Chronic (12) Tobacco dependence Code(s): F17.200 - NICOTINE DEPENDENCE, UNSPECIFIED, UNCOMPLICATED Status: Chronic - Plan hemostable -: dc pt to home with HH, speech and PT -: diet per speech therapy advice on discharge * .
--- NOTE | 2017-07-11 12:52 | DIS ---
DATE OF ADMISSION: 07/07/2017 DATE OF DISCHARGE: 07/11/2017 DISCHARGE DISPOSITION: To home with home health with PT and speech. PRIMARY DISCHARGE DIAGNOSES: Left lower lobe pneumonia, history of frequent falls, rhabdomyolysis, sepsis due to pneumonia, benign prostatic hypertrophy, risk of aspiration, hypertension. SECONDARY DISCHARGE DIAGNOSES: History of bipolar disorder, pacemaker, dyslipidemia, hypertension, normocytic anemia, obesity, paroxysmal atrial fibrillation, and tobacco dependence. PROCEDURES DONE DURING HOSPITALIZATION: The patient has had abdominal and pelvic CAT scan done on the day of admission which revealed left basilar patchy consolidation with tiny pleural effusion, no urinary calculi or obstruction was seen. No evidence of diverticulitis or appendicitis was seen. CT cervical spine showed no fracture or subluxation of C-spine. There were prominent degenerative changes seen. He has had left 3-view x-ray done, which showed soft tissue swelling, no obvious fracture was seen. Right leg tibio-fibula x- ray done showed no fractures. Right foot x-ray done showed no fractures. Left elbow 4-view x-ray done showed no fractures. Left ankle, 3-views showed no fracture. Right ankle 3-views, no fracture or dislocation. Chest x-ray done showed left lung infiltrate with discharge hemoglobin and hematocrit of 8 and 26 , platelet count 221, MCV is 90, and albumin 2.6. DISCHARGE MEDICATIONS: Augmentin 875 mg p.o. twice daily for another 6 days, Tessalon q.4 hourly p.r.n., Symbicort inhaler 2 puffs twice daily, buspirone 30 mg twice daily, vitamin B12 1000 mcg p.o. daily, Depakote 1500 mg p.o. at bedtime, folic acid 1 mg daily, gabapentin 300 mg twice daily, DuoNebs q.4 hourly p.r.n., multivitamin 1 tab once daily, Mucinex 600 mg p.o. twice daily, and Ultram twice daily p.r.n. 50 mg. ALLERGIES: No known drug allergies. DISCHARGE PLAN: Patient to follow up with primary care physician in 1 week. BRIEF COURSE DURING HOSPITALIZATION: The patient was brought to emergency room after he apparently fell while stepping over the foot of his recliner losing balance and falling onto the ground. He has had multiple imaging studies which I have described above, which were all negative for acute fracture or dislocation. Patient has had history of left lung pneumonia with incomplete resolution and was given IV antibiotics during his stay which has been switched over to Augmentin at the time of discharge. Please note patient also has chronic dysphagia and is at risk for aspiration as well. He was also on multiple medications which could potentially alter his mentation as well. He has longstanding history of bipolar disorder. The patient does not want to be placed and would like to go home. He states his son lives close by and helps him out if needed. In view of this home health with PT and speech therapy will be arranged prior to discharge. He was counseled adequately with regards to fall precautions and use rolling walker. He was given options of going to intermediate again, patient has refused the same at present. He will shortly be discharged home. Please see a face to face documentation on [employer] for the day of discharge. NADIA
[2017-07-11 15:26] VITALS: BP 128/87; TEMP 98.3
== END 2017-07-11 17:52 | disposition home health service (06) | DRG 871 ==
LOC: ERS 09:23 → T4-B 13:51
PROVIDERS: ADMIT Family Medicine; ATTEND Family Medicine
DX: A41.9 Sepsis, unspecified organism (principal); J18.1 Lobar pneumonia, unspecified organism; N17.9 Acute kidney failure, unspecified; E87.2 Acidosis; M62.82 Rhabdomyolysis; I48.0 Paroxysmal atrial fibrillation; R13.10 Dysphagia, unspecified; E87.1 Hypo-osmolality and hyponatremia; N39.0 Urinary tract infection, site not specified; I10 Essential (primary) hypertension; Z95.0 Presence of cardiac pacemaker; Y95 Nosocomial condition; K21.9 Gastro-esophageal reflux disease without esophagitis; E78.5 Hyperlipidemia, unspecified; E87.6 Hypokalemia; D64.9 Anemia, unspecified; Z91.81 History of falling; Z66 Do not resuscitate; N40.0 Benign prostatic hyperplasia without lower urinary tract symptoms; F17.210 Nicotine dependence, cigarettes, uncomplicated; F31.9 Bipolar disorder, unspecified; E66.9 Obesity, unspecified; Z68.30 Body mass index [BMI] 30.0-30.9, adult; M47.892 Other spondylosis, cervical region; Z85.118 Personal history of other malignant neoplasm of bronchus and lung
CPT/HCPCS: 36415; 36416; 51701; 70450; 71010; 72125; 74176; 80048; 80053; 80202; 81003; 81015; 82550; 82553; 83605; 84484; 85007; 85025; 85027; 85610; 85730; 87040; 87149; 94640; 96361; 96365; 96367; A4216; G8978-GP-CJ; G8979-GP-CI; G8996-GN-CM; G8997-GN-CM; J0692; J2543; J3370; J3480; J7050; J7620; S0028

== ENCOUNTER 2017-08-20 01:52 | Inpatient (IN) | payer MEDICARE ==
[2017-08-20] MEDS ORDERED: Pantoprazole 40 MG VIAL ONE (03:16)
[2017-08-20 03:26] LABS: Prothrombin Time 24.6 SEC (12.0-14.7)
[2017-08-20 03:46] LABS: ALT (SGPT) Less than 7 U/L (8-55); AST (SGOT) 22 U/L (5-34); Alkaline Phosphatase 79 U/L (40-150); Anion Gap 13 mmol/L (10-20); BUN (Urea Nitrogen) 12 mg/dL (8.4-25.7); Bilirubin, Total 0.2 mg/dL (0.2-1.2); Calc. Creatinine Clearance 0 mL/min (70-130); Calcium 8.3 mg/dL (7.8-10.44); Carbon Dioxide 26 mmol/L (23-31); Chloride 101 mmol/L (98-107); Estimated GFR-MDRD 83; Globulin 4.3 g/dL (2.4-3.5); Iron 24 ug/dL (65-175); Protein, Total 7.2 g/dL (5.8-8.1)
[2017-08-20 03:53] LABS: Band 29 % (5-11); Hematocrit 28.4 % (42.0-52.0); Hypochromia SLIGHT = 6-15 cells (100X) (0-5/hpf); Mean Platelet Volume 6.3 fL (7.4-10.4); Metamyelocyte 2 % (0-0); Neutrophil 39 % (42-75); Red Blood Cell (RBC) Count 3.03 mill/uL (4.70-6.10); White Blood Cell (WBC) Count 19.9 thou/uL (4.8-10.8)
[2017-08-20] MEDS ORDERED: Piperacillin/Tazobactam 4.5 GM in Sodium Chloride 0.9% 100 ML IVPB SCH (04:45)
[2017-08-20] MEDS ORDERED: Nitroglycerin 0.4 MG TAB (25 Tab Bottle) PO PRN (06:32)
[2017-08-20] MEDS ORDERED: Acetaminophen 650 MG Suppository PR PRN (06:32)
[2017-08-20] MEDS ORDERED: Ondansetron HCl/PF 4 MG/2 ML Vial IVP PRN (06:32)
[2017-08-20] MEDS ORDERED: Calcium Carbonate 500 MG ChewTAB PO PRN (06:32)
[2017-08-20] MEDS ORDERED: Acetaminophen 325 MG TAB PO PRN (06:32)
[2017-08-20] MEDS ORDERED: Ondansetron ODT 4 MG TAB PO PRN (06:32)
[2017-08-20 06:41] LABS: Bilirubin Negative (Negative); Blood, Urine Moderate (Negative); Glucose, Urine (Dipstick) Negative (Negative); Ketone, Urine Negative (Negative); Nitrite Negative (Negative); Protein, Urine (Dipstick) Negative (Neg-Trace); Urobilinogen 0.2 mg/dL (0.2-1.0)
[2017-08-20] MEDS ORDERED: Loratadine 10 MG TAB PO PRN (06:42)
[2017-08-20] MEDS ORDERED: Eucerin (Mineral Oil/Petrolatum,White) 30 gm Jar TOP PRN (06:42)
[2017-08-20] MEDS ORDERED: Diabetic Tussin 200 MG/10 ML UDCUP PO PRN (06:42)
[2017-08-20] MEDS ORDERED: hydrALAZINE 20 MG/ML VIAL SLOW IVP PRN (06:42)
[2017-08-20] MEDS ORDERED: Vancomycin HCl 1 GM in Premix Bag 1 BAG IVPB SCH (06:45)
[2017-08-20] MEDS ORDERED: cefTRIAXone\\ROCEPHIN 1 GM in Sodium Chloride 0.9% 100 ML IVPB SCH (06:45)
[2017-08-20 06:47] LABS: Bacteria/HPF None Seen HPF (None Seen); Hyaline Casts/LPF 0-3 HYALINE CAST LPF (0-3 Hyaline); Squamous Epithelial None Seen HPF (0-3); WBC/HPF 0-3 HPF (0-3)
[2017-08-20 07:03] LABS: Hematocrit 25.9 % (42.0-52.0)
--- NOTE | 2017-08-20 07:05 | HP ---
DATE OF ADMISSION: 08/20/2017 CHIEF COMPLAINT: Gastrointestinal bleeding. HISTORY OF PRESENT ILLNESS: Patient is a 66-year-old male with chronic atrial fibrillation on Pradax a, hypertension, and COPD who presented to the hospital with above complaints. The patient woke up around 1:00 a.m. with blood leaking from his colostomy bag. His colostomy bag wa s full of fresh blood mixed with clots. He felt lightheaded; however, denies any syncope. He denies any nausea, vomiting. He had mild abdominal discomfort that was mainly on the left lower quadrant w ithout any aggravating or relieving factor. No fevers, chills or fall reported. Please note that luis daniel villegas is a poor historian and not much information is available from the patient. In the emergency room, initial vital signs showed temperature 97.8, respiration of 18, pulse rate of 105 with a blood pressure of 141/72 with O2 saturation of 95% on room air. He was started on Protoni x drip. He was also started on empiric antibiotics due to leukocytosis of 19.9 with 29% bandemia. H is INR was 2.1. PAST MEDICAL HISTORY: 1. Sick sinus syndrome, status post pacemaker. 2. History of community-acquired pneumonia in May of this year. 3. Swallow dysfunction, currently on mechanical soft with nectar thick liquids per last Speech thera py note. 4. Chronic obstructive pulmonary disease. 5. Hypertension. 6. Dementia. 7. Bipolar disorder. 8. Chronic atrial fibrillation on Pradaxa. 9. Sick sinus syndrome, status post pacemaker. 10. Chronic respiratory failure on home oxygen. 11. History of lung cancer treated with radiation. 12. History of ischemic colitis. 13. Chronic anemia. 14. Dyslipidemia. 15. Gastroesophageal reflux disease. PAST SURGICAL HISTORY: 1. Pacemaker placement. 2. Colostomy 3. Back surgery. 4. Ureteral stent placement. CURRENT HOME MEDICATIONS: The patient does not remember any of his home medications. Family to jim zimmer accurate list of medications. He states that he takes Pradaxa with the last dose in the last 12 ho urs. ALLERGIES: No known drug allergies. FAMILY HISTORY: Positive for Parkinson disease. SOCIAL HISTORY: Patient currently lives at home, ambulates with the help of a rolling walker. He velazco s history of recurrent falls. He has a long history of tobacco abuse. REVIEW OF SYSTEMS: Cannot be reliably obtained from the patient due to current cognitive status. PHYSICAL EXAMINATION: VITAL SIGNS: As discussed above. GENERAL: A 66-year-old male in no apparent distress. Feels generally weak. Colostomy bag full of f resh blood. HEENT: Head atraumatic, normocephalic. Sclerae anicteric, conjunctiva was pale. No oral lesion. NECK: Supple, no JVD appreciated. No carotid bruit. LUNGS: Clear to auscultation bilaterally with scattered rales at bases. No wheezing. HEART: S1, S2 present. Regular rate and rhythm, tachycardic, 2/6 systolic murmur over the mitral ar ea. ABDOMEN: Soft. Tenderness over the left side. No rebound or guarding. Colostomy bag full of fresh blood. EXTREMITIES: A 2+ edema in bilateral lower extremities. No calf tenderness. SKIN: Warm and dry. LYMPH NODES: No palpable lymph nodes in the neck. PERIPHERAL VASCULAR: Radial pulses palpable bilaterally. MUSCULOSKELETAL: No joint swelling or tenderness. LABORATORY FINDINGS AND IMAGING: CBC showed WBC of 19.9 with a hemoglobin 8.5, hematocrit 28.4, plat elet count of 297. INR 2.1. Chemistries showed sodium 136, potassium 4.3, chloride 101, bicarbonate 26, BUN 12, creatinine 0.92. Albumin of 2.9. CT scan of the abdomen and pelvis by my review was dequan nettles for acute findings. Chest x-ray by my review showed increased bronchopulmonary markings. Tel emetry monitoring by my review showed sinus rhythm. IMPRESSION: 1. Gastrointestinal bleeding. Patient is on Pradaxa. Gastroenterology and General Surgery has been contacted. We will continue Protonix drip. We will monitor H&H closely. We will transfuse if need ed. 2. Anemia secondary to acute gastrointestinal blood loss. 3. Dementia/bipolar disorder. We will resume home medications once confirmed. 4. Hypertension. We will confirm home medications and start accordingly based on his blood pressure . 5. Chronic atrial fibrillation on anticoagulation. Pradaxa will be held. 6. Tobacco dependence. Patient was counseled. 7. Sick sinus syndrome, status post pacemaker. 8. Dyslipidemia. 9. Leukocytosis with 39% bandemia. Patient probably has sepsis of unclear etiology. We will contin ue empiric antibiotics. Blood cultures have been sent. 10. Mild protein calorie malnutrition. 11. History of ischemic colitis. 12. History of lung cancer treated with radiation. 13. Gastroesophageal reflux disease. 14. Swallow dysfunction. Last recommended diet per speech therapy's note from June is mechanical soft with nectar thick liquid. 15. Chronic respiratory failure on home oxygen. 16. History of recurrent falls. We will consult physical therapy once stable. 17. Code status: FULL CODE. Surrogate decision maker to be verified. Patient is unable to name any surrogate decision maker. LEVEL OF RISK: High. The patient will be monitored in the intermediate care unit. Plan of care was discussed with the patient and he stated understanding.
[2017-08-20 07:29] LABS: Troponin I Less than 0.010 ng/mL (< 0.028)
[2017-08-20 07:34] VITALS: BMI 29.5
[2017-08-20] MEDS: Pantoprazole 80 MG, Admixture Fee 1 EACH in Sodium Chloride 0.9% 100 ML IVP SCH ×2 (08:05→16:59)
[2017-08-20] MEDS: Dextrose 5 % And 0.9 % NaCl 1,000 ML IV SCH ×3 (08:26→23:00)
--- NOTE | 2017-08-20 08:45 | CON ---
DATE OF CONSULTATION: 08/20/2017 HISTORY OF PRESENT ILLNESS: The patient is a 66-year-old gentleman who was in his normal state of he alth until 1:00 a.m. this morning when he started passing blood per his colostomy bag. The patient i s on Pradaxa and took his Pradaxa last night. He reports some abdominal pain around his ostomy site. He denies any nausea or vomiting. He denies any weight loss. He denies any NSAID use. The patien david receives most of his care at the [facility] and reports it has been maybe 8 or 9 years since his l ast colonoscopy. He does not remember having an upper endoscopy in the past. He has not had problem s with ulcers or GI bleeding in the past. PAST MEDICAL HISTORY: Includes sick sinus syndrome, status post pacemaker, pneumonia, COPD, hyperten thai, bipolar disorder, atrial fibrillation on Pradaxa, lung cancer, history of diverticulitis with r esection, history of Meckel's diverticulum with resection, gastroesophageal reflux disease, and chron ic anemia. PAST SURGICAL HISTORY: Includes pacemaker placement, colon resection with permanent colostomy, back surgery, and ureteral stent placement. HOME MEDICATIONS: Includes Tylenol #3 one to two p.o. q.6 hours p.r.n., Risperdal 2 mg p.o. b.i.d., pantoprazole 40 mg p.o. daily, Pradaxa 75 mg p.o. b.i.d., Symbicort 2 puffs b.i.d., folic acid 2 mg p .o. daily, DuoNeb q.6 hours p.r.n., tramadol 50 mg p.o. b.i.d. p.r.n., multivitamins 1 p.o. daily, ga bapentin 300 mg p.o. b.i.d., Depakote 1500 mg p.o. at bedtime, vitamin B12 1000 mcg p.o. daily, buspi davon 30 mg p.o. b.i.d. ALLERGIES: No known allergies. SOCIAL HISTORY: Does smoke. Does not drink alcohol. FAMILY HISTORY: Negative for GI or liver disease. REVIEW OF SYSTEMS: CONSTITUTIONAL: No fever or chills, no weight loss. EYES: No blurred vision or double vision. ENT: No sore throat or earaches. CARDIOVASCULAR: No chest pain or palpitations. PULMONARY: No shortness of breath, cough or wheezing. GASTROINTESTINAL: See above. GENITOURINARY: No hematuria or dysuria. MUSCULOSKELETAL: No joint pain or muscle weakness. SKIN: No rashes. N EUROLOGIC: No numbness or seizure activity. PHYSICAL EXAMINATION: GENERAL: Shows a somewhat disheveled white male in no acute distress. VITAL SIGNS: Temperature is 98.2, pulse 98, respiratory rate 18, blood pressure 113/78. HEENT: Shows poor dentition. NECK: Supple. CHEST: Clear. CARDIOVASCULAR: Regular rate and rhythm. ABDOMEN: Soft and nontender, without organomegaly or masses. He has a colostomy in the midline with a large amount of dark maroon stool in his bag. RECTAL: Deferred. EXTREMITIES: Normal. LABORATORY DATA AND IMAGING: Shows a white blood cell count of 19.9, hemoglobin 8.3 with a repeat of 8, platelet count is 297. He has 29% bands. PT is 24.6 with an INR of 2.1. Chemistries show an ir on of 24, TIBC of 200, ferritin 155, albumin 2.9. Abdominal and pelvic chest x-ray has been done, bu t pending. ASSESSMENT: 1. Gastrointestinal bleed - probably lower since patient has had diverticular problems in the past. 2. Atrial fibrillation on Pradaxa - last dose was last night. 3. Chronic obstructive pulmonary disease. 4. History of colon resection for diverticulitis with colostomy. RECOMMENDATIONS: 1. Serial hemoglobin and hematocrit. 2. Transfuse as needed. 3. Hold Pradaxa. 4. Stat GI bleeding scan. 5. Clear liquids. 6. Endoscopy when the patient's Pradaxa has worn off.
[2017-08-20] MEDS ORDERED: cefTRIAXone\\ROCEPHIN 1 GM, Syringe 0.4 ML in Sterile Water 9.6 ML SLOW IVP SCH (09:00)
--- NOTE | 2017-08-20 10:33 | RAD ---
PORTABLE CHEST: COMPARISON: 07/07/17 exam. HISTORY: Dyspnea. FINDINGS: Heart size is within normal limits. A pacemaker is in place. There is a persistent left upper lobe parenchymal density which has not changed since that prior examination. It appears to have increased in size as compared to an older chest x-ray of 04/06/16. IMPRESSION: Persistent left upper lobe lung mass. This has been noted on a previous PET scan of 08/19/14 but appe ars larger as compared to that exam. Repeat CT may be helpful in further characterization. CT would be recommended. CODE T POS: CATRACHO
--- NOTE | 2017-08-20 11:07 | CON ---
DATE OF CONSULTATION: 08/20/2017 REASON FOR CONSULTATION: Lower gastrointestinal bleed from [facility]. BRIEF HISTORY: This is a 66-year-old with a history of left colectomy for what sounds like ischemic changes with colostomy, who presents with maroon colored stool into his colostomy bag since last nigh t. He was only recently hospitalized a few weeks ago for pneumonia. He is on Pradaxa for chronic at rial fibrillation and initially presented with blood covering and leaking around his colostomy bag. The bag has been replaced. He is still having some maroon-colored stools. He has been hemodynamical ly stable. PAST MEDICAL HISTORY: He denies abdominal pain, nausea or vomiting. Medical history includes pneumo chela, COPD, hypertension, dementia, bipolar, atrial fibrillation, COPD, lung cancer, ischemic colitis, GERD. PAST SURGICAL HISTORY: Pacemaker, left colectomy, colostomy, ureteral stents, back surgery. MEDICINES: See list, but includes Pradaxa. ALLERGIES: No known drug allergies. SOCIAL HISTORY: Lives at home, has a history of multiple falls. Has previous history of tobacco abu se. No alcohol or other drugs. REVIEW OF SYSTEMS: Otherwise, negative unless described above. PHYSICAL EXAMINATION: VITAL SIGNS: Blood pressure is 113/78, pulse 98, respirations 18. He is afebrile. HEENT: Sclerae are anicteric. Oropharynx clear. NECK: No lymphadenopathy. CHEST: Clear. HEART: Regular rate and regular rhythm. ABDOMEN: Soft, nontender, and nondistended. There is maroon colored stool in his colostomy bag. LABORATORY DATA AND X-RAY FINDINGS: Hemoglobin is 8.0 this morning, it was 8.5 last night. Platelet count was 297, creatinine is 0.92, iron is 24, TIBC is 200 both low. Bleeding scan this morning is pending. ASSESSMENT: Lower gastrointestinal bleed. Bleeding scan pending. PLAN: Dr. Thorpe has already seen. Pradaxa has been stopped. We will follow with you, not planning a ny surgical procedures unless he becomes unresponsive to blood transfusion or bleeds more than 4-6 un its down.
--- NOTE | 2017-08-20 11:54 | PDOC.EVN ---
Event Note - Event Note Event Note: pt seen and evaluated agree with current mx f/u labs f/u gi rec's
[2017-08-20] MEDS ORDERED: Heparin 1,000 UNITS/ML VIAL ONE (12:00)
--- NOTE | 2017-08-20 12:24 | CT ---
PRELIMINARY REPORT/[facility]/EMERGENCY AFTER HOURS PROCEDURE: EXAM: CT Abdomen and Pelvis With Intravenous Contrast EXAM DATE/TIME: Exam ordered 08/20/2017 4:06 AM CLINICAL HISTORY: 66 years old, male; Signs and symptoms; Other: Bleed through ostomy; Prior surgery; Surgery date: 6+ months; Patient HX: 66 yo m here for large amount of blood leaking out of his colostomy bag onset 1 h our ago. Pt notes he has been fine and normal up until an hour ago. He woke up from sleeping covered in his stool that was leaking out of an overfilled colostomy bag. Pt is not on any blood thinners TECHNIQUE: Axial computed tomography images of the abdomen and pelvis with intravenous contrast. Coronal reformatted images were created and reviewed. COMPARISON: No relevant prior studies available. FINDINGS: Lower thorax: Mild dependent airspace opacity in the left lower lobe is compatible with pneumonia or aspiration. ABDOMEN: Liver: Unremarkable. No mass. Gallbladder and bile ducts: Unremarkable. No calcified stones. No ductal dilation. Pancreas: Unremarkable. No mass. No ductal dilation. Spleen: Unremarkable. No splenomegaly. Adrenals: Unremarkable. No mass. Kidneys and ureters: Round hypodense lesion of the left kidney does not meet strict CT criteria for a simple cyst and is indeterminate, potentially a hyperdense cyst. It measures 2.1 cm and 32 Hounsfiel d units. Stomach and bowel: Left lower quadrant colostomy. No bowel wall thickening or intestinal obstruction. Appendix: Normal appendix. PELVIS: Bladder: Unremarkable. No mass. Reproductive: Prostatomegaly. ABDOMEN and PELVIS: Intraperitoneal space: Unremarkable. No free air. No significant fluid collection. Bones/joints: No acute fracture. No dislocation. Soft tissues: Unremarkable. Vasculature: Unremarkable. No abdominal aortic aneurysm. Lymph nodes: Unremarkable. No enlarged lymph nodes. IMPRESSION: 1. Mild dependent airspace opacity in the left lower lobe is compatible with pneumonia or aspiration. Patient 2. Indeterminate left renal lesion as above, potentially a hyperdense cyst. Thank you for allowing us to participate in the care of your patient. Dictated and Authenticated by: Emir Persaud MD 08/20/2017 4:43 AM Central Time ([place] & [place]) FINAL REPORT CT OF ABDOMEN AND PELVIS PERFORMED WITH CONTRAST ENHANCEMENT: HISTORY: The patient woke up with a large amount of blood leaking from colostomy bag about an hour ago. The p atient is not on blood thinners. COMPARISON: 04/06/16 and 07/07/17 exams. FINDINGS: The lung bases showed some parenchymal change in the left lower lobe suggesting an infiltrate. This could potentially be on the basis of aspiration. It has definitely improved as compared to the 07/07 study. Scan artifact obscures detail of the liver and spleen, but no focal abnormalities were seen. The kraft creas is atrophic. Gallbladder region appears unremarkable. Right and left adrenal glands and right and left kidneys are normal in size. Small hypodensities inv olving both kidneys are too small to characterize but statistically most likely cysts. These densiti es are felt to be stable as compared to previous studies. There is some fluid present within the rig ht transverse colon. There is a left-sided colostomy present. The small bowel loops are difficult t o assess for any wall thickening given the lack of oral contrast. Some questionable slight wall thic kening of some of the proximal small bowel, but underdistension precludes any definitive characteriza tion. CT OF PELVIS PERFORMED WITH CONTRAST ENHANCEMENT: No adenopathy, mass, or free fluid. Arthritic changes of the spine are noted. No lytic or blastic bony change. IMPRESSION: 1. Patchy airspace opacity in the left base suggesting infiltrate possibly on the basis of aspiratio n. This is improved as compared to the more recent CT exam. 2. Small hypodensities involving both kidneys stable as compared to the prior exam. 3. This report is in agreement with the temporary report issued by [facility]. POS: [facility]
[2017-08-20] MEDS ORDERED: Iopamidol 370 76% 100 ML VIAL ONE (13:42)
[2017-08-20 14:54] LABS: Hematocrit 23.3 % (42.0-52.0)
--- NOTE | 2017-08-20 15:39 | NM ---
NUCLEAR MEDICINE GI BLEEDING STUDY: History: Patient noted blood into colostomy. Examination is performed using 27 mCi Technetium 99M tagged red blood cells. Images were obtained to approximately 84 minutes. FINDINGS: There is some activity within the vascular system and some minimal bladder activity. I do not see any signs of an acute GI bleed. IMPRESSION: No evidence of active GI bleed. POS: [facility]
[2017-08-20] MEDS: traMADol HCl 50 MG TAB PO PRN (17:39)
[2017-08-20] MEDS ORDERED: Vancomycin HCl 1.25 GM in Sodium Chloride 0.9% 250 ML 250 ML IVPB SCH (18:00)
[2017-08-20] MEDS ORDERED: Acetaminophen/Codeine 30-300mg Tablet PO SCH (22:45)
--- NOTE | 2017-08-21 01:01 | CON ---
DATE OF CONSULTATION: 08/20/2017 HISTORY OF PRESENT ILLNESS: Mr. Lomax is a 66-year-old male, I have known him for quite some time. He was last hospitalized in June with left lower lobe pneumonia, rhabdomyolysis. Apparently had been down for a while prior to coming to the hospital. He did have a wrist fracture. He was admitted this admission with GI bleeding. A bleeding scan shows no active bleeding, but he st ill has some orange stool in his ostomy bag. I was consulted because he was present in the IMU. PAST MEDICAL HISTORY: 1. Remarkable for lung cancer that we attempted to resect. It was not resectable surgically and he subsequently underwent chemoradiation. 2. History of COPD which was moderate by pulmonary function testing, but after his attempted resecti on of his lung cancer, he had severe bronchospasm. 3. History of some early dementia. 4. History of recent pneumonia. He never did follow up in my office for a followup chest radiograph . He had left lower lobe abnormality. 5. On chest x-ray in this admission, he has persistent left upper lobe density. 6. History of reflux disease. 7. History of lipid disorder. 8. History of bipolar illness in the past. 9. History of lumbar spine surgery in the . 10. History of exploratory laparotomy. 11. Meckel's diverticulectomy, resection of distal transverse colon and descending colon, sigmoid co elda, Myles's pouch and repair of left ureter with reimplantation. 12. History of ischemic bowel seen on that surgery per Dr. Max's operative note. FAMILY HISTORY: Negative for lung disease at an early age. REVIEW OF SYSTEMS: Otherwise negative. He says he is not feeling bad. He just noticed blood coming out of his ostomy, so he called his son and brought him to the hospital. PHYSICAL EXAMINATION: VITAL SIGNS: He is afebrile, heart rate is 91, respiratory rate is in the 20s, oximetry is 96, blood pressure 114/70. HEENT: Pupils are equal. Sclerae is anicteric. NECK: Supple. LUNGS: Clear. HEART: Regular rhythm. S1 and S2 are normal. ABDOMEN: Soft. EXTREMITIES: Without asymmetry. LABORATORY DATA: Hemoglobin was 7.1 this afternoon, down from 8 grams this morning, so he is receivi ng blood. IMPRESSION: Gastrointestinal blood loss. His anticoagulants have been held (on this for atrial fibrillation). PLAN: Continue with Gastroenterology. Transfusions if necessary. Hopefully we can avoid procedures hopefully was worse with anticoagulation, he will have resolution of his bleeding.
[2017-08-21 02:01] LABS: Hematocrit 25.7 % (42.0-52.0)
[2017-08-21] MEDS: Pantoprazole 80 MG, Admixture Fee 1 EACH in Sodium Chloride 0.9% 100 ML IVPB SCH ×2 (03:05→14:36)
[2017-08-21] MEDS: Dextrose 5 % And 0.9 % NaCl 1,000 ML IV SCH ×3 (03:06→22:16)
[2017-08-21 06:04] LABS: ALT (SGPT) Less than 7 U/L (8-55); AST (SGOT) 12 U/L (5-34); Alkaline Phosphatase 58 U/L (40-150); Anion Gap 6 mmol/L (10-20); BUN (Urea Nitrogen) 13 mg/dL (8.4-25.7); Bilirubin, Total 0.2 mg/dL (0.2-1.2); Calc. Creatinine Clearance 130 mL/min (70-130); Carbon Dioxide 28 mmol/L (23-31); Chloride 106 mmol/L (98-107); Estimated GFR-MDRD Greater than 90; Globulin 3.4 g/dL (2.4-3.5); Magnesium 2.1 mg/dL (1.6-2.6); Protein, Total 5.8 g/dL (5.8-8.1)
[2017-08-21 06:25] LABS: Anisocytosis MODERATE=16-30 cells (100X) (0-5/hpf); Band 8 % (5-11); Hematocrit 25.2 % (42.0-52.0); Hypochromia SLIGHT = 6-15 cells (100X) (0-5/hpf); Mean Platelet Volume 6.2 fL (7.4-10.4); Metamyelocyte 5 % (0-0); Neutrophil 45 % (42-75); Red Blood Cell (RBC) Count 2.69 mill/uL (4.70-6.10); White Blood Cell (WBC) Count 12.1 thou/uL (4.8-10.8)
[2017-08-21 09:52] LABS: Hematocrit 22.9 % (42.0-52.0)
[2017-08-21] MEDS: Vancomycin HCl 1.25 GM in Sodium Chloride 0.9% 250 ML 250 ML IVPB SCH (12:04)
--- NOTE | 2017-08-21 12:34 | PRG ---
DATE OF SERVICE: 08/21/2017 Mr. Lomax has had a decrease in the amount of blood in his ostomy bag. His nurse tells me when she was redoing his ostomy bag that his stoma looks perhaps like it had been a little ischemic as it was sloughing some tissue. PHYSICAL EXAMINATION: LUNGS: Lungs are clear. HEART: Regular rhythm. ABDOMEN: Soft. LABORATORY DATA: White count 12.1, hemoglobin 7.9 and 7.3 later this morning. Electrolytes are norm al. IMPRESSION AND PLAN: Gastrointestinal blood loss ? secondary to ischemic bowel versus ulcer disease versus another cause. His anticoagulants are being held. His blood loss appears to be slowly decrea sing. GI is following. He is hemodynamically stable and stable from the standpoint of chronic obstr uctive pulmonary disease.
[2017-08-21 13:20] LABS: Hematocrit 22.8 % (42.0-52.0)
[2017-08-21] MEDS: cefTRIAXone\\ROCEPHIN 1 GM, Syringe 0.4 ML in Sterile Water 9.6 ML SLOW IVP SCH (13:46)
--- NOTE | 2017-08-21 17:31 | PDOC.PN ---
- Subjective Encounter Start Date: 08/21/17 Encounter Start Time: 17:29 Patient seen and examined. No new complaints. No overnight events - Objective Resuscitation Status: Resuscitation Status DNR:Do Not Resuscitate MAR Reviewed: Yes Vital Signs & Weight: Vital Signs (12 hours) Temp Pulse Pulse Pulse Resp BP BP 08/21/17 16:00 98.0 F 98 16 08/21/17 11:20 82 94 117/79 121/74 08/21/17 11:08 98.1 F 86 18 08/21/17 10:00 74 18 08/21/17 08:00 82 18 08/21/17 07:49 97.7 F 84 18 08/21/17 07:07 97.7 F 88 16 BP Pulse Ox 08/21/17 16:00 122/58 L 08/21/17 11:20 08/21/17 11:08 117/79 97 08/21/17 10:00 102/72 95 08/21/17 08:00 109/75 95 08/21/17 07:49 108/79 94 L 08/21/17 07:07 94 L Weight Weight 220 lb 12.8 oz I&O: 08/20/17 08/21/17 08/22/17 06:59 06:59 06:59 Intake Total 2940.8 Output Total 2125 Balance 815.8 Result Diagrams: 08/21/17 13:09 08/21/17 05:31 Phys Exam - Physical Examination Constitutional: NAD HEENT: PERRLA Neck: no JVD Respiratory: no wheezing Cardiovascular: no significant murmur Gastrointestinal: non-tender colostomy bag still shows dark material Musculoskeletal: pulses present Neurological: moves all 4 limbs Psychiatric: A&O x 3 Dx/Plan (1) LGI bleed Code(s): K92.2 - GASTROINTESTINAL HEMORRHAGE, UNSPECIFIED Status: Acute (2) Anemia due to acute blood loss Code(s): D62 - ACUTE POSTHEMORRHAGIC ANEMIA Status: Acute (3) Dementia Code(s): F03.90 - UNSPECIFIED DEMENTIA WITHOUT BEHAVIORAL DISTURBANCE Status: Acute (4) HTN (hypertension) Code(s): I10 - ESSENTIAL (PRIMARY) HYPERTENSION Status: Acute (5) Tobacco use Code(s): Z72.0 - TOBACCO USE Status: Acute - Plan * f/u h/h * transfuse as needed * f/u gi plan
[2017-08-21] MEDS: traMADol HCl 50 MG TAB PO PRN (22:15)
--- NOTE | 2017-08-21 22:38 | PRG ---
DATE OF SERVICE: 08/21/2017 SUBJECTIVE: Mr. Lomax has passed maroon stools from his colostomy today; however, it has only been several milliliters of fluid. He has not required his colostomy bag to be changed. Yesterday, he velazco d 15 mL of bloody output into the colostomy. He did require 2 units transfusion yesterday. He has h ad no nausea or vomiting. He has had some abdominal pain around his colostomy. He had a bleeding sc an yesterday, which was negative. OBJECTIVE: VITAL SIGNS: Temperature 98.8, pulse 76, blood pressure 113/72. GENERAL: He is in no acute distress. He is awake and alert. LUNGS: Clear to auscultation bilaterally. HEART: Regular rate and rhythm. ABDOMEN: Soft, nontender, nondistended. Bowel sounds are present. He has maroon effluent in the co lostomy bag. EXTREMITIES: No lower extremity edema. LABORATORY DATA: Hemoglobin is 7.1 today, status post 2 units transfusion given last night. INR yes terday was 2.1. He has been on Pradaxa. Creatinine 0.8 and bleeding scan was negative yesterday. IMPRESSION: Gastrointestinal bleed. The dark maroon stool could be from an upper or lower gastrointestinal sourc e. He appears to have the majority of his bleeding yesterday or prior with a large amount of bloody output yesterday, but very minimal output today. The bleeding scan was negative. He did receive 2 u nits transfusion and his hemoglobin still remains at 7.1 today. His last dose of Pradaxa was the watson carroll of 08/19/2017. RECOMMENDATIONS: 1. EGD and colonoscopy through the ostomy tomorrow. 2. Check hemoglobin in the morning.
[2017-08-21 23:25] LABS: Vancomycin, Trough 12.4 ug/mL
[2017-08-22] MEDS: Vancomycin HCl 1.25 GM in Sodium Chloride 0.9% 250 ML 250 ML IVPB SCH ×2 (00:17→16:28)
[2017-08-22] MEDS ORDERED: GoLYTELY 4,000 ml Bottle PO SCH (05:00)
[2017-08-22] MEDS: Pantoprazole 80 MG, Admixture Fee 1 EACH in Sodium Chloride 0.9% 100 ML IVPB SCH ×2 (05:02→17:02)
[2017-08-22 09:07] LABS: Hematocrit 23.1 % (42.0-52.0)
[2017-08-22] MEDS: cefTRIAXone\\ROCEPHIN 1 GM, Syringe 0.4 ML in Sterile Water 9.6 ML SLOW IVP SCH (12:59)
[2017-08-22] MEDS: Dextrose 5 % And 0.9 % NaCl 1,000 ML IV SCH ×2 (12:59→21:52)
[2017-08-22] MEDS ORDERED: Propofol 200 MG/20 ML VIAL ONE (16:40)
[2017-08-22] MEDS ORDERED: Lidocaine 1% PF 5 ML VIAL ONE (16:40)
--- NOTE | 2017-08-22 20:21 | OP ---
PROCEDURE: Esophagogastroduodenoscopy and colonoscopy. PREOPERATIVE DIAGNOSES: 1. Suspected lower gastrointestinal bleeding. 2. Stable hemoglobin of 7.3 and stable vital signs. POSTOPERATIVE DIAGNOSES: 1. Antral erosions, biopsied. 2. Otherwise, normal esophagogastroduodenoscopy. 3. Colonoscopy notable for end-colostomy in the left lower quadrant with no blood in the effluent. 4. Ulcers in the colon, white based up to 1 cm in size, biopsied. 5. Ulcers in the ileum, 5-7 mm in size, biopsied. RECOMMENDATIONS: 1. Await histopathology. 2. Hold anticoagulation. 3. Avoid all NSAIDs. PROCEDURE IN DETAIL: After the patient was informed of the risks, benefits, possible complications o f endoscopy including perforation, bleeding, reactions to medication and aspiration, informed consent was obtained. The patient brought to endoscopy suite where he was sedated in gradual fashion. Once he was comfortable, a bite block was placed in incisural orifice. The endoscope was advanced throug h the esophagus, stomach and second and third portion of duodenum and slowly removed. There was good visualization of mucosa. There were no masses, lesions or arteriovenous malformations identified in the esophagus. In the stomach, there was small antral erosions without active bleeding, biopsy take n and submitted to Pathology. The remainder of the stomach was normal in forward and retroflexed vie ws. The duodenum was normal to the third portion. The scope was removed. The patient turned in the room. A rectal examination was performed. The rectum was normal with is mucus there, no blood. At tention was then turned to left lower quadrant colostomy, the bag was removed. The endoscope was adv anced through this after digital exam revealed no overt strictures or masses. The endoscope was adva nced through the remainder of the colon to the cecum was identified by ileocecal valve and appendicea l orifice. The ileocecal valve appeared ulcerated and erythematous. The terminal ileum was entered and traversed for a distance of about 20 cm, 5 or 6 scattered ulcers, ranging in size upward ulcers u p to 7-8 mm. These were white base without active bleeding. Multiple biopsies were taken from these ulcers. There were also 2 ulcers in the remainder of the colon, there was only about 60 cm of colon left and couple of ulcers was seen, bland, white-based with nonraised margins and these were biopsie d as well. Retroflexed views in the rectum were normal. The scope was removed. The patient tolerat ed the procedure well with no complications.
--- NOTE | 2017-08-22 20:46 | PRG ---
DATE OF SERVICE: 08/22/2017 SUBJECTIVE: He is down for endoscopy today. OBJECTIVE: VITAL SIGNS: He is afebrile, heart rate is 77, respiratory rate is 20, blood pressure 118/68. The operative note is not dictated yet. LABORATORY DATA: Hemoglobin of 7.3 this morning, which is stable. Electrolytes are unchanged. IMPRESSION: 1. Gastrointestinal blood loss on anticoagulants. 2. On anticoagulants for chronic atrial fibrillation. 3. Deconditioning. His scooter broke down and his son tells me that his strength is improving now that he is forced to walk. 4. Status post lung cancer, status post stereotactic radiation, this may be enlarging and recurrent, and as I have explained to the son, there are few options. 5. Chronic obstructive pulmonary disease. 6. Reflux disease. 7. Lipid disorder. 8. History of colostomy. 9. History of ischemic bowel with ? recurrent ischemic bowel this admission. PLAN: Continue supportive care. Transfusions as necessary. He probably does not need to go home with hemoglobin of 7 and I would recommend gently transfusing him prior to discharge. [facility]
--- NOTE | 2017-08-22 23:31 | PDOC.PN ---
- Subjective Encounter Start Date: 08/22/17 Encounter Start Time: 12:45 Patient seen and examined. No new complaints. No overnight events. - Objective Resuscitation Status: Resuscitation Status DNR:Do Not Resuscitate MAR Reviewed: Yes Vital Signs & Weight: Vital Signs (12 hours) Temp Pulse Resp BP Pulse Ox 08/22/17 20:00 98.2 F 88 18 125/84 96 08/22/17 15:49 98.4 F 77 20 118/68 98 08/22/17 11:34 97.7 F 79 20 105/81 100 Weight Weight 218 lb 9.6 oz I&O: 08/21/17 08/22/17 08/23/17 06:59 06:59 06:59 Intake Total 2940.8 3684.5 4250 Output Total 2125 2095 3150 Balance 815.8 1589.5 1100 Result Diagrams: 08/23/17 06:12 08/23/17 06:12 EKG Reviewed by me: Yes (Tele SR) Phys Exam - Physical Examination Constitutional: NAD Respiratory: no wheezing, no rhonchi Cardiovascular: RRR, no rub Gastrointestinal: soft, non-tender, positive bowel sounds Musculoskeletal: no edema Neurological: moves all 4 limbs Dx/Plan - Plan DVT proph w/SCDs IMPRESSION: 1. Gastrointestinal bleeding. 2. Anemia secondary to acute gastrointestinal blood loss. 3. Dementia/bipolar disorder. 4. Hypertension. 5. Chronic atrial fibrillation on anticoagulation. Pradaxa on hold 6. Tobacco dependence - counseled. 7. Sick sinus syndrome, status post pacemaker. 8. Dyslipidemia. 9. Leukocytosis with 39% bandemia. improved. unlikely to be infectious 10. Mild protein calorie malnutrition. 11. History of ischemic colitis. 12. History of lung cancer treated with radiation. 13. Gastroesophageal reflux disease. 14. Swallow dysfunction. 15. Chronic respiratory failure on home oxygen. 16. History of recurrent falls. PLAN: * EGD/Colon today * GI following * AM labs * Transfuse PRN * Cont current meds as below Review of Systems - Review of Systems Respiratory: negative: Cough, Dry, Shortness of Breath, Hemoptysis, SOB with Excertion, Pleuritic Pain, Sputum, Wheezing Cardiovascular: negative: Chest Pain, Palpitations, Orthopnea, Paroxysmal Noc. Dyspnea, Edema, Light Headedness - Medications/Allergies Allergies/Adverse Reactions: Allergies Allergy/AdvReac Type Severity Reaction Status Date / Time No Known Allergies Allergy Verified 06/18/16 22:03 Medications: Current Medications Acetaminophen (Tylenol) 650 mg PO Q4H PRN PRN Reason: Headache/Fever or Pain Acetaminophen (Tylenol) 650 mg OK Q4H PRN PRN Reason: Headache/Fever or Pain Albuterol/Ipratropium (Duoneb) 3 ml NEB [id number] PRN PRN Reason: SOB &/or Wheezing Calcium Carbonate (Tums) 1,000 mg PO Q4H PRN PRN Reason: Heartburn or Indigestion Guaifenesin (Robitussin Sf) 200 mg PO Q4H PRN PRN Reason: Cough Hydralazine HCl (Apresoline) 5 mg SLOW IVP Q4H PRN PRN Reason: SBP Greater Than 180 Dextrose/Sodium Chloride (D5 0.9% Ns) 1,000 mls @ 125 mls/hr IV .Q8H [facility] Last Admin: 08/22/17 21:52 Dose: 1,000 mls Ceftriaxone Sodium 1 gm/ (Syringe 0.4 ml/ Sterile Water) 10 mls @ 120 mls/hr SLOW IVP 1300 [facility] Last Admin: 08/22/17 12:59 Dose: 10 mls Pantoprazole Sodium 80 mg/Miscellaneous Medication 1 each/ Sodium Chloride 100 mls @ 10 mls/hr IVPB INF [facility] Last Admin: 08/22/17 17:02 Dose: 100 mls Vancomycin HCl 1.25 gm/ Sodium (Chloride) 250 mls @ 166.667 mls/hr IVPB 1200, 2359 [facility] Last Admin: 08/22/17 16:28 Dose: 250 mls Loratadine (Claritin) 10 mg PO DAILYPRN PRN PRN Reason: Sinus Symptoms Mineral Oil/White Petrolatum (Eucerin Cream) 0 gm TOP BIDPRN PRN PRN Reason: Dry Skin Miscellaneous Medication (Pharmacy To Dose) 0 each IVPB ASDIR PRN PRN Reason: Pharmacy to Dose; VANOMYCIN Nitroglycerin (Nitrostat) 0.4 mg PO Q5MIN PRN PRN Reason: Chest Pain Ondansetron HCl (Zofran Odt) 4 mg PO Q6H PRN PRN Reason: Nausea/Vomiting Ondansetron HCl (Zofran) 4 mg IVP Q6H PRN PRN Reason: Nausea/Vomiting Sodium Chloride (Flush - Normal Saline) 10 ml IVF PRN PRN PRN Reason: Saline Flush Last Admin: 08/20/17 13:08 Dose: 10 ml Tramadol HCl (Ultram) 50 mg PO BID PRN PRN Reason: Moderate to Severe Pain (6-10) Last Admin: 08/21/17 22:15 Dose: 50 mg
[2017-08-23] MEDS: Vancomycin HCl 1.25 GM in Sodium Chloride 0.9% 250 ML 250 ML IVPB SCH ×2 (00:03→13:06)
[2017-08-23] MEDS: Pantoprazole 80 MG, Admixture Fee 1 EACH in Sodium Chloride 0.9% 100 ML IVPB SCH ×2 (04:01→15:45)
[2017-08-23] MEDS: Dextrose 5 % And 0.9 % NaCl 1,000 ML IV SCH ×2 (06:25→15:46)
[2017-08-23 06:35] LABS: Anion Gap 8 mmol/L (10-20); BUN (Urea Nitrogen) 6 mg/dL (8.4-25.7); BUN/Creatinine Ratio 9.09; Calc. Creatinine Clearance 0 mL/min (70-130); Calcium 8.2 mg/dL (7.8-10.44); Carbon Dioxide 27 mmol/L (23-31); Chloride 105 mmol/L (98-107); Estimated GFR-MDRD Greater than 90; Magnesium 1.6 mg/dL (1.6-2.6); Phosphorus 3.1 mg/dL (2.3-4.7)
[2017-08-23 10:10] LABS: Band 11 % (5-11); Hematocrit 21.1 % (42.0-52.0); Mean Platelet Volume 6.5 fL (7.4-10.4); Neutrophil 62 % (42-75); Red Blood Cell (RBC) Count 2.27 mill/uL (4.70-6.10); White Blood Cell (WBC) Count 8.3 thou/uL (4.8-10.8)
[2017-08-23 11:29] LABS: Vancomycin, Trough 14.3 ug/mL
[2017-08-23] MEDS: cefTRIAXone\\ROCEPHIN 1 GM, Syringe 0.4 ML in Sterile Water 9.6 ML SLOW IVP SCH (13:06)
--- NOTE | 2017-08-23 17:15 | PRG ---
DATE OF SERVICE: 08/23/2017 SUBJECTIVE: Mr. Lomax has had no new problems. He is receiving blood for hemoglobin of 6.8, this m orning. PHYSICAL EXAMINATION: VITAL SIGNS: He is afebrile, heart rate 78, respiratory rate is 20, oximetry is 99%, blood pressure 123/73. LUNGS: Clear. HEART: Regular rhythm. ABDOMEN: Soft. IMPRESSION: 1. Gastrointestinal blood loss, now requiring transfusion, if we should avoid anticoagulants in the future. 2. Probable recurrent lung cancer. 3. Obstructive lung disease, clinically stable at this time.
--- NOTE | 2017-08-23 20:26 | PDOC.PN ---
- Subjective Encounter Start Date: 08/23/17 Encounter Start Time: 14:00 Patient seen and examined. No new complaints. No overnight events. No new GI bleeding - Objective Resuscitation Status: Resuscitation Status DNR:Do Not Resuscitate MAR Reviewed: Yes Vital Signs & Weight: Vital Signs (12 hours) Temp Pulse Pulse Resp BP BP Pulse Ox 08/23/17 17:54 98.2 F 84 20 133/72 97 08/23/17 16:00 98.7 F 78 20 123/73 99 08/23/17 14:09 98.5 F 79 20 118/79 97 08/23/17 13:56 98.4 F 75 18 113/68 94 L 08/23/17 11:42 98.4 F 81 20 119/59 L 97 Weight Weight 3.489 oz I&O: 08/22/17 08/23/17 08/24/17 06:59 06:59 06:59 Intake Total 3684.5 5990 3050 Output Total 2095 3900 2100 Balance 1589.5 2090 950 Result Diagrams: 08/23/17 06:12 08/23/17 06:12 EKG Reviewed by me: Yes (Tele SR) Phys Exam - Physical Examination Constitutional: NAD Respiratory: no wheezing, no rhonchi Cardiovascular: RRR, no rub Gastrointestinal: soft, non-tender, positive bowel sounds Neurological: moves all 4 limbs Dx/Plan - Plan DVT proph w/SCDs IMPRESSION: 1. Gastrointestinal bleeding - improving - s/p EGD/Colon 2. Anemia secondary to acute gastrointestinal blood loss. 3. Dementia/bipolar disorder. 4. Hypertension. 5. Chronic atrial fibrillation on anticoagulation. Pradaxa on hold 6. Tobacco dependence - counseled. 7. Sick sinus syndrome, status post pacemaker. 8. Dyslipidemia. 9. Leukocytosis with 39% bandemia. improved. unlikely to be infectious 10. Mild protein calorie malnutrition. 11. History of ischemic colitis. 12. History of lung cancer treated with radiation. 13. Gastroesophageal reflux disease. on PPI 14. Swallow dysfunction. 15. Chronic respiratory failure on home oxygen. 16. History of recurrent falls. PLAN: * s/p EGD/Colon * GI/Critical care following * AM labs * Transfuse 1 unit PRBC * Cont current meds as below Review of Systems - Review of Systems Respiratory: negative: Cough, Dry, Shortness of Breath, Hemoptysis, SOB with Excertion, Pleuritic Pain, Sputum, Wheezing Cardiovascular: negative: Chest Pain, Palpitations, Orthopnea, Paroxysmal Noc. Dyspnea, Edema, Light Headedness Gastrointestinal: negative: Nausea, Vomiting, Abdominal Pain, Diarrhea, Constipation, Melena, Hematochezia - Medications/Allergies Allergies/Adverse Reactions: Allergies Allergy/AdvReac Type Severity Reaction Status Date / Time No Known Allergies Allergy Verified 06/18/16 22:03 Medications: Current Medications Acetaminophen (Tylenol) 650 mg PO Q4H PRN PRN Reason: Headache/Fever or Pain Acetaminophen (Tylenol) 650 mg SD Q4H PRN PRN Reason: Headache/Fever or Pain Albuterol/Ipratropium (Duoneb) 3 ml NEB [id number] PRN PRN Reason: SOB &/or Wheezing Calcium Carbonate (Tums) 1,000 mg PO Q4H PRN PRN Reason: Heartburn or Indigestion Guaifenesin (Robitussin Sf) 200 mg PO Q4H PRN PRN Reason: Cough Hydralazine HCl (Apresoline) 5 mg SLOW IVP Q4H PRN PRN Reason: SBP Greater Than 180 Dextrose/Sodium Chloride (D5 0.9% Ns) 1,000 mls @ 125 mls/hr IV .Q8H [facility] Last Admin: 08/23/17 15:46 Dose: 1,000 mls Ceftriaxone Sodium 1 gm/ (Syringe 0.4 ml/ Sterile Water) 10 mls @ 120 mls/hr SLOW IVP 1300 [facility] Last Admin: 08/23/17 13:06 Dose: 10 mls Pantoprazole Sodium 80 mg/Miscellaneous Medication 1 each/ Sodium Chloride 100 mls @ 10 mls/hr IVPB INF [facility] Last Admin: 08/23/17 15:45 Dose: 100 mls Vancomycin HCl 1.25 gm/ Sodium (Chloride) 250 mls @ 166.667 mls/hr IVPB 1200, 2359 [facility] Last Admin: 08/23/17 13:06 Dose: 250 mls Loratadine (Claritin) 10 mg PO DAILYPRN PRN PRN Reason: Sinus Symptoms Mineral Oil/White Petrolatum (Eucerin Cream) 0 gm TOP BIDPRN PRN PRN Reason: Dry Skin Miscellaneous Medication (Pharmacy To Dose) 0 each IVPB ASDIR PRN PRN Reason: Pharmacy to Dose; VANOMYCIN Nitroglycerin (Nitrostat) 0.4 mg PO Q5MIN PRN PRN Reason: Chest Pain Ondansetron HCl (Zofran Odt) 4 mg PO Q6H PRN PRN Reason: Nausea/Vomiting Ondansetron HCl (Zofran) 4 mg IVP Q6H PRN PRN Reason: Nausea/Vomiting Sodium Chloride (Flush - Normal Saline) 10 ml IVF PRN PRN PRN Reason: Saline Flush Last Admin: 08/20/17 13:08 Dose: 10 ml Tramadol HCl (Ultram) 50 mg PO BID PRN PRN Reason: Moderate to Severe Pain (6-10) Last Admin: 08/21/17 22:15 Dose: 50 mg
--- NOTE | 2017-08-23 20:46 | PRG ---
DATE OF SERVICE: 08/23/2017 SUBJECTIVE: Mr. Lomax has just had green output in his ostomy today. OBJECTIVE: VITAL SIGNS: Temperature 98.2, pulse is 78, and blood pressure 133/72. GENERAL: He is in no acute distress, awake and alert. LUNGS: Clear to auscultation bilaterally. HEART: Regular rate and rhythm. ABDOMEN: Soft, nontender, nondistended, bowel sounds are present. He has green effluent in the colo stomy bag. EXTREMITIES: No lower extremity edema. LABORATORY DATA: Hemoglobin this morning was 6.8 down from 7.3 yesterday. He did receive 1 unit tra nsfusion today. IMPRESSION: Gastrointestinal bleed. He had multiple ulcers in the terminal ileum and couple ulcers in the colon. These were clean white base without active bleeding. There is no further overt bleedi ng in the colostomy output. His hemoglobin is pretty stable from yesterday to today; however, a slig ht decrease. He did receive a unit of blood. The ulcers could have been from NSAIDs. He states he was taken 800 mg ibuprofen 2-3 times per day up until 4 weeks ago. RECOMMENDATIONS: 1. Avoid anticoagulation for now. 2. If his hemoglobin remains stable tomorrow, he could potentially discharge from a GI standpoint. He can follow up in GI clinic in 2-4 weeks. I will sign off for now. Please call if GI can be of as sistance.
[2017-08-24] MEDS: Dextrose 5 % And 0.9 % NaCl 1,000 ML IV SCH ×3 (00:11→17:36)
[2017-08-24] MEDS: Vancomycin HCl 1.25 GM in Sodium Chloride 0.9% 250 ML 250 ML IVPB SCH ×2 (00:11→12:45)
[2017-08-24 04:36] LABS: Anion Gap 9 mmol/L (10-20); BUN (Urea Nitrogen) 6 mg/dL (8.4-25.7); BUN/Creatinine Ratio 9.23; Calc. Creatinine Clearance 0 mL/min (70-130); Calcium 8.1 mg/dL (7.8-10.44); Carbon Dioxide 24 mmol/L (23-31); Chloride 106 mmol/L (98-107); Estimated GFR-MDRD Greater than 90
[2017-08-24 04:39] LABS: Band 7 % (5-11); Hematocrit 23.6 % (42.0-52.0); Mean Platelet Volume 6.3 fL (7.4-10.4); Metamyelocyte 1 % (0-0); Neutrophil 50 % (42-75); Nucleated RBC 1 % (0); Red Blood Cell (RBC) Count 2.57 mill/uL (4.70-6.10); White Blood Cell (WBC) Count 8.1 thou/uL (4.8-10.8)
[2017-08-24] MEDS: cefTRIAXone\\ROCEPHIN 1 GM, Syringe 0.4 ML in Sterile Water 9.6 ML SLOW IVP SCH (12:30)
--- NOTE | 2017-08-24 15:56 | PDOC.PN ---
- Subjective Encounter Start Date: 08/24/17 Encounter Start Time: 13:00 Patient seen and examined. No new complaints. No overnight events. No new GI bleeding - Objective Resuscitation Status: Resuscitation Status DNR:Do Not Resuscitate MAR Reviewed: Yes Vital Signs & Weight: Vital Signs (12 hours) Temp Pulse Resp BP Pulse Ox 08/24/17 11:59 98.4 F 81 28 H 119/76 97 08/24/17 07:49 99.3 F 90 16 97 08/24/17 07:00 99.1 F 85 24 H 123/70 92 L Weight Weight 3.489 oz I&O: 08/23/17 08/24/17 08/25/17 06:59 06:59 06:59 Intake Total 5990 3050 Output Total 3900 3215 Balance 2089 Result Diagrams: 08/24/17 03:31 08/24/17 03:31 Phys Exam - Physical Examination Constitutional: NAD Respiratory: no wheezing, no rhonchi Cardiovascular: RRR, no rub Gastrointestinal: soft, non-tender, positive bowel sounds Musculoskeletal: no edema Neurological: moves all 4 limbs Dx/Plan - Plan DVT proph w/SCDs IMPRESSION: 1. Gastrointestinal bleeding - improving - s/p EGD/Colon 2. Anemia secondary to acute gastrointestinal blood loss. s/p transfusion 3. Dementia/bipolar disorder. 4. Hypertension. 5. Chronic atrial fibrillation on anticoagulation. Pradaxa on hold 6. Tobacco dependence - counseled. 7. Sick sinus syndrome, status post pacemaker. 8. Dyslipidemia. 9. Leukocytosis with 39% bandemia. improved. unlikely to be infectious. ? Aspiration 10. Mild protein calorie malnutrition. 11. History of ischemic colitis. 12. History of lung cancer treated with radiation. 13. Gastroesophageal reflux disease. on PPI 14. Swallow dysfunction. 15. Chronic respiratory failure on home oxygen. 16. History of recurrent falls. PLAN: * AM h/h * 1 unit PRBC ordered * DC IVF * Change Atbx to PO * GI/Critical care following * Cont current meds as below Review of Systems - Review of Systems Respiratory: negative: Cough, Dry, Shortness of Breath, Hemoptysis, SOB with Excertion, Pleuritic Pain, Sputum, Wheezing Cardiovascular: negative: Chest Pain, Palpitations, Orthopnea, Paroxysmal Noc. Dyspnea, Edema, Light Headedness Gastrointestinal: negative: Nausea, Vomiting, Abdominal Pain, Diarrhea, Constipation, Melena, Hematochezia, Other - Medications/Allergies Allergies/Adverse Reactions: Allergies Allergy/AdvReac Type Severity Reaction Status Date / Time No Known Allergies Allergy Verified 06/18/16 22:03 Medications: Current Medications Acetaminophen (Tylenol) 650 mg PO Q4H PRN PRN Reason: Headache/Fever or Pain Acetaminophen (Tylenol) 650 mg ND Q4H PRN PRN Reason: Headache/Fever or Pain Albuterol/Ipratropium (Duoneb) 3 ml NEB [id number] PRN PRN Reason: SOB &/or Wheezing Calcium Carbonate (Tums) 1,000 mg PO Q4H PRN PRN Reason: Heartburn or Indigestion Guaifenesin (Robitussin Sf) 200 mg PO Q4H PRN PRN Reason: Cough Hydralazine HCl (Apresoline) 5 mg SLOW IVP Q4H PRN PRN Reason: SBP Greater Than 180 Loratadine (Claritin) 10 mg PO DAILYPRN PRN PRN Reason: Sinus Symptoms Mineral Oil/White Petrolatum (Eucerin Cream) 0 gm TOP BIDPRN PRN PRN Reason: Dry Skin Miscellaneous Medication (Pharmacy To Dose) 0 each IVPB ASDIR PRN PRN Reason: Pharmacy to Dose; VANOMYCIN Nitroglycerin (Nitrostat) 0.4 mg PO Q5MIN PRN PRN Reason: Chest Pain Ondansetron HCl (Zofran Odt) 4 mg PO Q6H PRN PRN Reason: Nausea/Vomiting Ondansetron HCl (Zofran) 4 mg IVP Q6H PRN PRN Reason: Nausea/Vomiting Pantoprazole Sodium (Protonix) 40 mg PO BID SAM Sodium Chloride (Flush - Normal Saline) 10 ml IVF PRN PRN PRN Reason: Saline Flush Last Admin: 08/20/17 13:08 Dose: 10 ml Tramadol HCl (Ultram) 50 mg PO BID PRN PRN Reason: Moderate to Severe Pain (6-10) Last Admin: 08/21/17 22:15 Dose: 50 mg
[2017-08-24] MEDS: traMADol HCl 50 MG TAB PO PRN (20:34)
--- NOTE | 2017-08-24 21:48 | PRG ---
DATE OF SERVICE: 08/24/2017 SUBJECTIVE: Mr. Lomax did well overnight. He wants to go home. His hemoglobin is still 7.6 after 1 unit given yesterday. He is not bleeding anymore. His white cou nt is 8.1. His renal function is back to baseline at 0.6. His lungs are completely clear. IMPRESSION: 1. Advanced obstructive lung disease. 2. Possible recurrent lung cancer, status post stereotactic radiation. 3. Gastrointestinal blood loss. With his multiple medical problems, I really do not think he will mount a very rapid red cell respons e to his blood loss. I recommend transfusing him with another unit of packed cells. He should follo w up with me in a month, if he goes home over the weekend, for another chest radiograph, although the rapeutic options will be quite limited. He does remain a DO NOT RESUSCITATE patient per him and his family.
[2017-08-25 04:38] LABS: Hematocrit 27.7 % (42.0-52.0)
[2017-08-25 12:15] VITALS: BP 130/81; TEMP 98.6
--- NOTE | 2017-08-25 12:32 | PDOC.PN ---
- Subjective Encounter Start Date: 08/25/17 Encounter Start Time: 08:00 Patient seen and examined. No new complaints. No overnight events. No new GI bleeding - Objective Resuscitation Status: Resuscitation Status DNR:Do Not Resuscitate MAR Reviewed: Yes Vital Signs & Weight: Vital Signs (12 hours) Temp Pulse Resp BP Pulse Ox 08/25/17 12:00 98.6 F 79 18 130/81 91 L 08/25/17 07:33 98.9 F 88 18 118/66 91 L Weight Weight 3.489 oz I&O: 08/24/17 08/25/17 08/26/17 06:59 06:59 06:59 Intake Total 3050 640 Output Total 3215 1050 Balance -165 -410 Result Diagrams: 08/25/17 03:57 08/24/17 03:31 Phys Exam - Physical Examination Constitutional: NAD Respiratory: no wheezing, no rhonchi Scat rales at bases Cardiovascular: RRR, no rub Gastrointestinal: soft, non-tender, positive bowel sounds Musculoskeletal: no edema Neurological: moves all 4 limbs Dx/Plan - Plan DVT proph w/SCDs IMPRESSION: 1. Gastrointestinal bleeding - improving - s/p EGD/Colon 2. Anemia secondary to acute gastrointestinal blood loss. s/p transfusion 3. Dementia/bipolar disorder. 4. ?Aspiration - Atbx dced 5. Chronic atrial fibrillation on anticoagulation. Pradaxa on hold 6. Tobacco dependence - counseled. 7. Sick sinus syndrome, status post pacemaker. 8. Dyslipidemia. 9. Hypertension. 10. Mild protein calorie malnutrition. 11. History of ischemic colitis. 12. History of lung cancer treated with radiation. 13. Gastroesophageal reflux disease. on PPI 14. Swallow dysfunction. 15. Chronic respiratory failure on home oxygen. 16. History of recurrent falls. PLAN: * Cont current meds as below * DC if ok with Dr Hills * Hold Pradaxa for atleast [address] Osman Review of Systems - Review of Systems Respiratory: Cough, Dry. negative: Shortness of Breath, Hemoptysis, SOB with Excertion, Pleuritic Pain, Sputum, Wheezing Cardiovascular: negative: Chest Pain, Palpitations, Orthopnea, Paroxysmal Noc. Dyspnea, Edema, Light Headedness Gastrointestinal: negative: Nausea, Vomiting, Abdominal Pain, Diarrhea, Constipation, Melena, Hematochezia - Medications/Allergies Allergies/Adverse Reactions: Allergies Allergy/AdvReac Type Severity Reaction Status Date / Time No Known Allergies Allergy Verified 06/18/16 22:03 Medications: Current Medications Acetaminophen (Tylenol) 650 mg PO Q4H PRN PRN Reason: Headache/Fever or Pain Acetaminophen (Tylenol) 650 mg MA Q4H PRN PRN Reason: Headache/Fever or Pain Albuterol/Ipratropium (Duoneb) 3 ml NEB [id number] PRN PRN Reason: SOB &/or Wheezing Calcium Carbonate (Tums) 1,000 mg PO Q4H PRN PRN Reason: Heartburn or Indigestion Guaifenesin (Robitussin Sf) 200 mg PO Q4H PRN PRN Reason: Cough Hydralazine HCl (Apresoline) 5 mg SLOW IVP Q4H PRN PRN Reason: SBP Greater Than 180 Loratadine (Claritin) 10 mg PO DAILYPRN PRN PRN Reason: Sinus Symptoms Mineral Oil/White Petrolatum (Eucerin Cream) 0 gm TOP BIDPRN PRN PRN Reason: Dry Skin Nitroglycerin (Nitrostat) 0.4 mg PO Q5MIN PRN PRN Reason: Chest Pain Ondansetron HCl (Zofran Odt) 4 mg PO Q6H PRN PRN Reason: Nausea/Vomiting Ondansetron HCl (Zofran) 4 mg IVP Q6H PRN PRN Reason: Nausea/Vomiting Pantoprazole Sodium (Protonix) 40 mg PO BID SAM Last Admin: 08/25/17 08:39 Dose: 40 mg Sodium Chloride (Flush - Normal Saline) 10 ml IVF PRN PRN PRN Reason: Saline Flush Last Admin: 08/20/17 13:08 Dose: 10 ml Tramadol HCl (Ultram) 50 mg PO BID PRN PRN Reason: Moderate to Severe Pain (6-10) Last Admin: 08/24/17 20:34 Dose: 50 mg
--- NOTE | 2017-08-25 13:36 | DIS ---
DATE OF DISCHARGE: 08/25/2017 DISCHARGE DISPOSITION: Home. FOLLOWUP: 1. Follow up with primary care physician at [facility] in 1 week. 2. Follow up with Dr. Hills next month with chest x-ray. 3. Follow up with Dr. Osman, gastroenterology as an outpatient. CODE STATUS: DO NOT RESUSCITATE. ALLERGIES: No known drug allergies. The patient was seen and examined on the day of discharge: Denies any new complaints. No chest pain , shortness of breath, palpitations. DISCHARGE MEDICATIONS: Tylenol #3 as needed, Symbicort 80/4.5 two puffs b.i.d., buspirone 30 mg b.i. d., vitamin B12 1000 mcg daily, Depakote 1500 mg at bedtime, folic acid 2 mg daily, gabapentin 300 mg b.i.d., DuoNebs as needed, multivitamin 1 tablet daily, Protonix 40 mg daily, Risperdal 2 mg b.i.d. and tramadol as needed. Please note that Pradaxa was discontinued due to GI bleeding. BRIEF HOSPITAL COURSE: Patient is a 66-year-old male with chronic atrial fibrillation on Pradaxa, hy pertension, and COPD who presented to the hospital with GI bleeding. Please refer to the history and physical dated 08/20/2017 for further details. The patient was admitted to the intermediate care unit with a diagnosis of GI bleeding. Anticoagulat ion was discontinued. He was seen by multiple consultants including GI, Dr. Osman; General Surgery, Dr. Vazquez and Critical Care, Dr. Hills. He underwent GI bleeding scan that was negative. EGD was performed that showed antral erosions, which were biopsied. Colonoscopy showed some ulcers in the co elda and ileum, which were biopsied. The patient was advised to discontinue nonsteroidal anti-inflamm atory drugs. On admission, the patient had leukocytosis with WBC of 19.9 with 29% bandemia. For this reason, he w as started on empiric antibiotic that has been discontinued. His blood cultures remained negative. He has been cleared by consultants for discharge. He received total of 4 units PRBC this admission. FINAL DIAGNOSES: 1. Gastrointestinal bleeding. 2. Anemia secondary to acute gastrointestinal blood loss, status post 4 units PRBC. 3. Dementia/bipolar disorder. 4. Questionable aspiration. Antibiotics have been discontinued. 5. Chronic atrial fibrillation. Anticoagulation was discontinued. 6. Tobacco dependence. 7. Sick sinus syndrome, status post pacemaker. 8. Dyslipidemia. 9. Hypertension. 10. Probable moderate protein-calorie malnutrition. 11. History of ischemic colitis. 12. History of lung cancer treated with radiation. 13. Gastroesophageal reflux disease. 14. Swallow dysfunction on modified diet. 15. Chronic respiratory failure on home oxygen. 16. History of recurrent falls. Plan of care was discussed with the patient in detail. He stated understanding. Total time coordinating the discharge of this patient was 35 minutes. SIGNIFICANT LABS: Hemoglobin at discharge is 8.9. Albumin was 2.6, BUN 6, creatinine 0.65. INR was 34, TIBC 200, ferritin 155.
--- NOTE | 2017-08-26 15:36 | EKG ---
Test Reason : Blood Pressure : / mmHG Vent. Rate : 093 BPM Atrial Rate : 093 BPM P-R Int : 192 ms QRS Dur : 138 ms QT Int : 388 ms P-R-T Axes : 068 -44 021 degrees QTc Int : 482 ms Sinus rhythm with Fusion complexes Left axis deviation Right bundle branch block Abnormal ECG Confirmed by CLAUDIA BATES D.O. ([id number]), electronic news gathering editor TRIPP LUJAN ([id number]) on 08/26/2017 3:35:53 PM Referred By: Confirmed By:CLAUDIA BATES D.O.
== END 2017-08-25 15:45 | disposition home or self-care (01) | DRG 378 ==
LOC: ERS 01:52 → ERHOLD 04:25 → IMCU/EMU 07:24 → ONC 08-23 20:28
PROVIDERS: ADMIT Internal Medicine; ATTEND Internal Medicine
PROC: 0DD68ZX Extraction of Stomach, Via Natural or Artificial Opening Endoscopic, Diagnostic (ICD-10-PCS; principal; 2017-08-23)
PROC: 0DDB8ZX Extraction of Ileum, Via Natural or Artificial Opening Endoscopic, Diagnostic (ICD-10-PCS; 2017-08-23)
PROC: 0DDE8ZX Extraction of Large Intestine, Via Natural or Artificial Opening Endoscopic, Diagnostic (ICD-10-PCS; 2017-08-23)
PROC: 30233N1 Transfusion of Nonautologous Red Blood Cells into Peripheral Vein, Percutaneous Approach (ICD-10-PCS; 2017-08-24)
DX: K92.2 Gastrointestinal hemorrhage, unspecified (principal); K63.3 Ulcer of intestine; J96.10 Chronic respiratory failure, unspecified whether with hypoxia or hypercapnia; F03.90 Unspecified dementia, unspecified severity, without behavioral disturbance, psychotic disturbance, mood disturbance, and anxiety; Z99.81 Dependence on supplemental oxygen; E44.1 Mild protein-calorie malnutrition; D62 Acute posthemorrhagic anemia; I48.2 Chronic atrial fibrillation; Z79.01 Long term (current) use of anticoagulants; I10 Essential (primary) hypertension; J44.9 Chronic obstructive pulmonary disease, unspecified; Z93.3 Colostomy status; Z95.0 Presence of cardiac pacemaker; F31.9 Bipolar disorder, unspecified; Z85.118 Personal history of other malignant neoplasm of bronchus and lung; Z92.3 Personal history of irradiation; E78.5 Hyperlipidemia, unspecified; K21.9 Gastro-esophageal reflux disease without esophagitis; F17.200 Nicotine dependence, unspecified, uncomplicated; K25.9 Gastric ulcer, unspecified as acute or chronic, without hemorrhage or perforation; Z66 Do not resuscitate; Z91.81 History of falling; Z90.49 Acquired absence of other specified parts of digestive tract
CPT/HCPCS: 36415; 36430; 71010; 74177; 78278; 80053; 80069; 80202; 81003; 81015; 82728; 83540; 83550; 83735; 84100; 84484; 85014; 85018; 85025; 85049; 85610; 85730; 86850; 86900; 86901; 87040; 88305; 88312; 93005; 94760; 96365; 96366; 96368; 96376; A4216; A9604; C9113; G8978-GP-CJ; G8979-GP-CJ; G8980-GP-CJ; G8996-GN-CI; G8996-GN-CJ; G8997-GN-CI; G8997-GN-CJ; J0696; J1644; J2001; J2543; J2704; J3370; J7050; P9016

== ENCOUNTER 2017-10-12 02:43 | Emergency (ER) | payer MEDICARE ==
[2017-10-12 04:03] LABS: Hemoglobin 10.1 g/dL (14.0-18.0); Mean Corpuscular HGB CONC 31.8 g/dL (32.0-36.0); Mean Corpuscular Hemoglobin 31.1 pg (27.0-31.0); Mean Corpuscular Volume 97.9 fl (80.0-94.0); Mean Platelet Volume 8.2 fL (7.4-10.4); Platelet Count 229 thou/uL (130-400); RBC Distribution Width 18.1 % (11.5-14.5); Red Blood Cell (RBC) Count 3.24 mill/uL (4.70-6.10); White Blood Cell (WBC) Count 16.5 thou/uL (4.8-10.8)
[2017-10-12 04:11] LABS: ALT (SGPT) 12 U/L (8-55); AST (SGOT) 30 U/L (5-34); Alkaline Phosphatase 84 U/L (40-150); Anion Gap 17 mmol/L (10-20); BUN (Urea Nitrogen) 12 mg/dL (8.4-25.7); Bilirubin, Total Less than 0.2 mg/dL (0.2-1.2); CK (CPK) 48 U/L (30-200); Calc. Creatinine Clearance 0 mL/min (70-130); Calcium 8.1 mg/dL (7.8-10.44); Carbon Dioxide 23 mmol/L (23-31); Chloride 102 mmol/L (98-107); Estimated GFR-MDRD 83; Globulin 4.4 g/dL (2.4-3.5); Glucose 94 mg/dL (80-115); Potassium 4.2 mmol/L (3.5-5.1); Protein, Total 7.4 g/dL (5.8-8.1); Sodium 138 mmol/L (136-145)
[2017-10-12 04:15] LABS: Band 23 % (5-11); Eosinophils 1 % (0-10); Lymphocytes 5 % (21-51); MDiff Complete? YES; Metamyelocyte 14 % (0-0); Monocytes 10 % (0-10); Neutrophil 46 % (42-75); Nucleated RBC 1 % (0); PLT Morphology Comment Appears Adequate; Reactive Lymphocytes 1 % (0-10)
[2017-10-12 04:21] LABS: CKMB 1.7 ng/mL (0-6.6); Troponin I Less than 0.010 ng/mL (< 0.028)
[2017-10-12] MEDS ORDERED: Acetaminophen 325 MG TAB ONE (05:48)
--- NOTE | 2017-10-12 07:35 | CT ---
PRELIMINARY REPORT/[facility]/EMERGENCY AFTER HOURS PROCEDURE: EXAM: CT Head Without Intravenous Contrast CLINICAL HISTORY: 66 years old, male; Injury or trauma; Fall; Initial encounter; Blunt trauma (contusions or hematomas) ; Consciousness not specified; Patient HX: S/P fall TECHNIQUE: Axial computed tomography images of the head/brain without intravenous contrast. COMPARISON: No relevant prior studies available. FINDINGS: Brain: Moderate volume loss No hemorrhage.Moderate white matter disease. No edema. Ventricles: Unremarkable. No ventriculomegaly. Bones/joints: Unremarkable. No acute fracture. Soft tissues: Punctate calcification versus radiopaque foreign body in the medial left orbital tissue s on image 15 Sinuses: Unremarkable as visualized. No acute sinusitis. Mastoid air cells: Unremarkable as visualized. No mastoid effusion. IMPRESSION: Punctate calcification versus radiopaque foreign body in the medial left orbital tissues. Correlate clinically for history of remote injury No intracranial hemorrhage.Please see discussion above. Thank you for allowing us to participate in the care of your patient. Dictated and Authenticated by: Roger Means MD 10/12/2017 4:14 AM Central Time ([place] & [place]) FINAL REPORT BY DR. BENNETT EMERGENCY AFTER HOURS STUDY CT BRAIN NONCONTRAST: HISTORY: 66-year-old male status post acute head trauma from fall. FINDINGS: There is no midline shift or any other mass effect. There is no evidence of acute intracranial hemor rhage, large cortical infarct, obstructive hydrocephalus, or extraaxial fluid collection. The calvar ium is intact. There is diffuse parenchymal volume loss. There are low attenuation areas in the whi te matter. These are nonspecific, but they are probably chronic ischemic white matter changes due to microvascular atherosclerosis. The degree of brain parenchymal volume loss is greater than typical f or this age group. There is a tiny medial extraconal calcific density abutting the medial aspect of t he tendinous insertion of the left medial rectus muscle at the left globe. This report agrees with e preliminary report by [facility]. IMPRESSION: 1. No acute intracranial findings. 2. Involutional changes and chronic ischemic white matter changes. 3. Tiny 1 or 2 mm calcific density at the left anterior medial extraconal orbit. jn [] POS: [facility]
--- NOTE | 2017-10-12 07:51 | CT ---
PRELIMINARY REPORT/[facility]/EMERGENCY AFTER HOURS PROCEDURE: EXAM: CT Cervical Spine Without Intravenous Contrast CLINICAL HISTORY: 66 years old, male; Injury or trauma; Fall; Initial encounter; Blunt trauma; Patient HX: S/P fall TECHNIQUE: Axial computed tomography images of the cervical spine without intravenous contrast. COMPARISON: No relevant prior studies available. FINDINGS: Vertebrae: Extensive anterior osteophyte formation/DISH Loss of vertebral body height, presumed degen erative No acute fracture. Discs/spinal canal/neural foramina: No acute findings. Central canal and foraminal stenosis was prono unced at C3-C4 and C5-C6. Soft tissues: Unremarkable. Lung apices: Unremarkable as visualized. IMPRESSION: No definite acute cervical fracture observed Thank you for allowing us to participate in the care of your patient. Dictated and Authenticated by: Roger Means MD 10/12/2017 4:14 AM Central Time ([place] & [place]) FINAL REPORT BY DR. BENNETT: EMERGENT AFTER HOURS STUDY CT CERVICAL SPINE NONCONTRAST: HISTORY: 66-year-old male status post acute cervical trauma from fall. FINDINGS: There are no jumped or perched facets. There is no evidence of acute fracture. The vertebral body h eights are maintained. There is no prevertebral soft tissue swelling. There is ankylosis of cervica l and upper thoracic vertebral bodies due to bulky, flowing anterior osteophytes protruding anteriorl y into the prevertebral space, consistent with DISH. The flowing osteophytes are especially large at C2-3, and extremely large at C3-4, where they protrude far anteriorly, significantly anteriorly disp lacing the hypopharynx, distorting the larynx. This could cause chronic dysphagia. Furthermore, the central spinal canal is diffusely small in caliber on a congenital basis due to developmentally shor t pedicles. Upon this, hypertrophic degenerative changes are superimposed: disk-osteophyte complexes encroaching upon the anterior aspect of the spinal canal. These result in multilevel high-grade alma rosa tral spinal canal stenosis and high-grade neural foraminal stenosis, including severe central spinal canal stenosis and severe neural foraminal stenosis. No major disagreement with preliminary report b y [facility]. IMPRESSION: 1. No evidence of acute fracture or acute traumatic subluxation. 2. DISH (Diffuse idiopathic skeletal hyperostosis). 3. The large bulky osteophytes at C3-4 encroach upon and distort the hypopharynx, and could potentia lly cause chronic dysphagia. 4. 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 5. Multilevel high-grade central spinal canal stenosis and multilevel high-grade neural foraminal st enosis (including severe), due to cervical spondylosis superimposed on a developmentally very small c aliber spinal canal. carmella [] POS: [facility]
--- NOTE | 2017-10-12 08:06 | RAD ---
TWO VIEWS RIGHT HIP: HISTORY: Fall. FINDINGS: AP and frogleg views right hip are obtained. No evidence of right hip fractures, subluxations, or bony lesions seen. No acute or chronic bony abn ormality is noted. IMPRESSION: Unremarkable 2 views right hip. POS: [facility]
--- NOTE | 2017-10-12 08:20 | CT ---
PRELIMINARY REPORT/[facility]/EMERGENCY AFTER HOURS PROCEDURE: Addendum created by Roger Means MD on 10/12/2017 4:42 AM Central Time ([place] & [place]) THIS REPORT CONTAINS FINDINGS THAT MAY BE CRITICAL TO PATIENT CARE. The findings were verbally commun icated via telephone conference with Uli Hare at 4:42 AM BALANCE TRUING INSPECTOR on 10/12/2017. The findings were acknowledged and understood. Initial Report created on 10/12/2017 4:34 AM Central Time ([place] & [place]) EXAM: CT Chest With Intravenous Contrast CLINICAL HISTORY: 66 years old, male; Injury or trauma; Fall; Initial encounter; Blunt; Generalized; Blunt trauma (cont usions or hematomas); Patient HX: S/P fall TECHNIQUE: Axial computed tomography images of the chest with intravenous contrast. CONTRAST: 60 mL of ISOVUE administered intravenously. COMPARISON: No relevant prior studies available. FINDINGS: Left upper lobe mass abutting the pleural surface and extending to the left hilum measuring up to 5 c m with adjacent bronchiectasis and architectural distortion. There are reticular/ground glass densiti es adjacent to the superior margin and adjacent to the left fissure suspect for lymphangitic spread. Trace left pleural effusion and left-sided subsegmental atelectasis noted. Nodular density abutting t he pleura in the superior segment of the right lower lobe measuring approximately 6 mm noted set No definite hilar or mediastinal adenopathy noted. The heart is normal in size with pacemaker leads n oted. Calcified paraesophageal lymph node noted distally. There is no aortic aneurysm or dissection There is no pneumothorax observed No acute fracture noted. Chronic left third, seventh and eighth rib fractures noted Degenerative forrester ges in the spine and shoulders IMPRESSION: Left upper lobe pulmonary neoplasm with suspected lymphangitic spread. Contralateral metastasis suspe cted in the superior segment of the right lower lobe No definite acute traumatic injury to the chest detected EXAM: CT Abdomen and Pelvis With Intravenous Contrast CLINICAL HISTORY: 66 years old, male; Injury or trauma; Fall; Initial encounter; Blunt; Generalized; Blunt trauma (cont usions or hematomas); Patient HX: S/P fall TECHNIQUE: Axial computed tomography images of the abdomen and pelvis with intravenous contrast. CONTRAST: 60 mL of ISOVUE administered intravenously. COMPARISON: No relevant prior studies available. FINDINGS: ABDOMEN: Liver: Unremarkable. No mass. Gallbladder and bile ducts: Unremarkable. No calcified stones. No ductal dilation. Pancreas: Unremarkable. No mass. No ductal dilation. Spleen: Unremarkable. No splenomegaly. Adrenals: Unremarkable. No mass. Kidneys and ureters: Lobulated hypodensity in the left kidney not clearly cystic measuring 2 cm. Additional hypodensity in the upper pole of the left kidney No solid mass. No hydronephrosis. Stomach and bowel: Left-sided colostomy No obstruction. No mucosal thickening. Appendix: No findings to suggest acute appendicitis. PELVIS: Bladder: The urinary bladder is decompressed by a Padron catheter. Reproductive: Unremarkable as visualized. ABDOMEN and PELVIS: Intraperitoneal space: Unremarkable. No free air. No significant fluid collection. Bones/joints: No acute fracture. No dislocation. Degenerative changes in the lumbar spine with chroni c spondylolysis/spondylolisthesis at L5-S1 Soft tissues: Unremarkable. Vasculature: Unremarkable. No abdominal aortic aneurysm. Lymph nodes: Unremarkable. No enlarged lymph nodes. IMPRESSION: No definite solid organ injury or acute fracture. Incidental left renal noncystic hypodensity which may be further evaluated on a nonurgent basis Thank you for allowing us to participate in the care of your patient. Dictated and Authenticated by: Roger Means MD 10/12/2017 4:34 AM Central Time ([place] & [place]) FINAL REPORT CHEST CT WITH CONTRAST ABDOMEN CT WITH CONTRAST PELVIC CT WITH CONTRAST LIMITED CT OF THORACIC AND LUMBAR SPINE: Date: 10/12/17 HISTORY: Status post fall. Post-traumatic pain. COMPARISON: 08/20/17. TECHNIQUE: Chest, abdomen, and pelvic CT are performed in the axial plane. Coronal reformatted images are submit vahid for interpretation. Limited CT of thoracic and lumbar spine performed with reformatted images. FINDINGS: This report agrees with the preliminary report by [facility]. There is a left upper lobe mass, worrisome fo r malignancy until proven otherwise. Possible metastatic focus in the superior segment of the right l ower lobe. Questionable lymphangitic spread of the primary tumor and adjacent lung parenchyma as demo nstrated by reticular and ground-glass densities. There is no post-traumatic sequelae in the abdomen or pelvis. There is chronic change at L5-S1 as bin cribed in the preliminary report by [facility]. Left renal hypodensities are essentially stable when compar ed to the examination from March 2016. POS: [facility]
--- NOTE | 2017-10-12 08:20 | RAD ---
AP VIEW CHEST: Date: 10/12/17 INDICATION: Found down. COMPARISON: Prior exam dated 09/16/17. FINDINGS: Left upper lobe lung mass appears slightly larger than on the comparison examination. Mild cardiomega ly is stable. Pacemaker is similar. Left costophrenic angle is excluded. No definite pneumothorax is evident. No acute osseous abnormality is evident. IMPRESSION: Enlarging left upper lobe lung mass. POS: [facility]
[2017-10-12] MEDS ORDERED: ISOVUE-370 76%-LOCM 1 ML ONE (13:53)
--- NOTE | 2017-10-14 18:14 | EKG ---
Test Reason : Blood Pressure : / mmHG Vent. Rate : 079 BPM Atrial Rate : 079 BPM P-R Int : 216 ms QRS Dur : 146 ms QT Int : 438 ms P-R-T Axes : 076 -22 049 degrees QTc Int : 502 ms Sinus rhythm with 1st degree A-V block , + ectopy Right bundle branch block Abnormal ECG No changes from 19-AUG-17 Confirmed by CLAUDIA BATES D.O. ([id number]), editor managing newspaper [employer] LUJAN ([id number]) on 10/14/2017 6:13:24 PM Referred By: PALUO Confirmed By:CLAUDIA BATES D.O.
== END 2017-10-12 07:04 | disposition home or self-care (01) ==
LOC: ERS 02:43
DX: T68.XXXA Hypothermia, initial encounter (principal); K21.9 Gastro-esophageal reflux disease without esophagitis; J44.9 Chronic obstructive pulmonary disease, unspecified; F31.9 Bipolar disorder, unspecified; F17.210 Nicotine dependence, cigarettes, uncomplicated; Z79.891 Long term (current) use of opiate analgesic; Z79.899 Other long term (current) drug therapy
CPT/HCPCS: 36415; 51702; 70450; 71045; 71260; 72125; 74177; 80053; 82550; 82553; 83605; 84484; 85025; 85384; 93005

== ENCOUNTER 2017-10-15 09:32 | Emergency (ER) | payer MEDICARE ==
[2017-10-15 09:56] LABS: Hemoglobin 9.8 g/dL (14.0-18.0); Mean Corpuscular HGB CONC 30.7 g/dL (32.0-36.0); Mean Corpuscular Hemoglobin 30.8 pg (27.0-31.0); Mean Platelet Volume 7.8 fL (7.4-10.4); Platelet Count 270 thou/uL (130-400); RBC Distribution Width 18.7 % (11.5-14.5); Red Blood Cell (RBC) Count 3.19 mill/uL (4.70-6.10); White Blood Cell (WBC) Count 11.4 thou/uL (4.8-10.8)
[2017-10-15 10:07] LABS: ALT (SGPT) 9 U/L (8-55); AST (SGOT) 20 U/L (5-34); Albumin 2.9 g/dL (3.4-4.8); Alkaline Phosphatase 80 U/L (40-150); Anion Gap 13 mmol/L (10-20); BUN (Urea Nitrogen) 13 mg/dL (8.4-25.7); Bilirubin, Total 0.2 mg/dL (0.2-1.2); CK (CPK) 33 U/L (30-200); Calc. Creatinine Clearance 0 mL/min (70-130); Calcium 8.7 mg/dL (7.8-10.44); Carbon Dioxide 26 mmol/L (23-31); Chloride 105 mmol/L (98-107); Estimated GFR-MDRD Greater than 90; Globulin 4.4 g/dL (2.4-3.5); Glucose 87 mg/dL (80-115); Potassium 3.9 mmol/L (3.5-5.1); Protein, Total 7.3 g/dL (5.8-8.1); Sodium 140 mmol/L (136-145)
[2017-10-15 10:09] LABS: CKMB 0.6 ng/mL (0-6.6); Troponin I 0.013 ng/mL (< 0.028)
--- NOTE | 2017-10-15 10:17 | RAD ---
AP VIEW CHEST: Date: 10/15/17 HISTORY: Cough, shortness of breath, and fever. FINDINGS: Comparison made to previous exam from 10/12/17. AP view of chest demonstrates a dual lead intracardiac pacing device. Pulmonary vascular congestion i s seen. Again, left upper lobe lung parenchymal mass is noted. When compared to the previous comparis on radiograph of the chest from 10/12/17, no significant interval change is seen. IMPRESSION: 1. Left upper lobe mass. 2. Continued pulmonary vascular congestion. No significant interval change is noted since the previo us comparison exam from 3 days earlier. POS: [facility]
[2017-10-15 10:25] LABS: Band 21 % (5-11); Lymphocytes 5 % (21-51); MDiff Complete? YES; Macrocytosis SLIGHT = 6-15 cells (100X) (0-5/hpf); Monocytes 25 % (0-10); Myelocyte 1 % (0-0); Neutrophil 48 % (42-75); Nucleated RBC 1 % (0); PLT Morphology Comment Appears Adequate
[2017-10-15 12:03] LABS: Bilirubin Small (Negative); Blood, Urine Small (Negative); Clarity CLEAR (Clear); Glucose, Urine (Dipstick) Negative (Negative); Leukocyte Negative (Negative); Nitrite Negative (Negative); Protein, Urine (Dipstick) 30 mg/dL (Neg-Trace); Specific Gravity, Urine 1.021 (1.002-1.036); pH, Urine 6.5 (5.0-9.0)
[2017-10-15 12:05] LABS: Bacteria/HPF None Seen HPF (None Seen); Hyaline Casts/LPF 0-3 HYALINE CAST LPF (0-3 Hyaline); Pathc Cast-AUWi Flag 0.27 (0-2.49); RBC/HPF GREATER THAN 50-TNTC HPF (0-3); WBC/HPF 0-3 HPF (0-3)
[2017-10-15 12:17] LABS: Transitional Epithelial NONE SEEN HPF (0-3)
[2017-10-15] MEDS ORDERED: Piperacillin/Tazobactam 4.5 GM in Sodium Chloride 0.9% 100 ML IVPB SCH (14:00)
[2017-10-15] MEDS ORDERED: Fentanyl 100 MCG/2 ML VIAL ONE (15:33)
[2017-10-15] MEDS ORDERED: Cefepime 2 GM/10 ML SYR ONE (15:33)
[2017-10-15] MEDS ORDERED: Lorazepam 2 MG/ML VIAL ONE (16:01)
== END 2017-10-15 16:22 | disposition home or self-care (01) ==
LOC: ERS 09:32
DX: R91.8 Other nonspecific abnormal finding of lung field (principal); R09.02 Hypoxemia; K21.9 Gastro-esophageal reflux disease without esophagitis; J44.9 Chronic obstructive pulmonary disease, unspecified; F31.9 Bipolar disorder, unspecified; F17.210 Nicotine dependence, cigarettes, uncomplicated; Z79.891 Long term (current) use of opiate analgesic; Z79.899 Other long term (current) drug therapy
CPT/HCPCS: 51701; 71045; 80053; 81003; 81015; 82553; 83605; 83880; 84484; 85025; 87040; 87086; 93005; 94760; 96365; 96366; J0692; J2060; J2543; J3010; J3370; J7050

== ENCOUNTER 2017-11-18 09:38 | Inpatient (IN) | payer MEDICARE ==
[2017-11-18 10:56] LABS: INR-International Normal Ratio 1.3; PTT 41.1 SEC (22.9-36.1); Prothrombin Time 16.4 SEC (12.0-14.7)
[2017-11-18 11:11] LABS: Band 21 % (5-11); Eosinophils 3 % (0-10); Hemoglobin 9.1 g/dL (14.0-18.0); Lymphocytes 17 % (21-51); MDiff Complete? YES; Mean Corpuscular HGB CONC 30.9 g/dL (32.0-36.0); Mean Corpuscular Hemoglobin 30.5 pg (27.0-31.0); Mean Corpuscular Volume 98.6 fl (80.0-94.0); Mean Platelet Volume 8.1 fL (7.4-10.4); Metamyelocyte 6 % (0-0); Monocytes 8 % (0-10); Myelocyte 1 % (0-0); Neutrophil 44 % (42-75); Platelet Count 261 thou/uL (130-400); RBC Distribution Width 19.8 % (11.5-14.5); Red Blood Cell (RBC) Count 2.97 mill/uL (4.70-6.10); White Blood Cell (WBC) Count 6.6 thou/uL (4.8-10.8)
[2017-11-18 11:16] LABS: CKMB 2.1 ng/mL (0-6.6); Troponin I Less than 0.010 ng/mL (< 0.028)
[2017-11-18 11:32] LABS: ALT (SGPT) 65 U/L (8-55); AST (SGOT) 94 U/L (5-34); Albumin 2.9 g/dL (3.4-4.8); Alcohol Less than 10 mg/dL (Less than 10); Alkaline Phosphatase 104 U/L (40-150); Anion Gap 17 mmol/L (10-20); BUN (Urea Nitrogen) 16 mg/dL (8.4-25.7); Bilirubin, Total 0.2 mg/dL (0.2-1.2); Calc. Creatinine Clearance 0 mL/min (70-130); Calcium 8.7 mg/dL (7.8-10.44); Carbon Dioxide 20 mmol/L (23-31); Chloride 100 mmol/L (98-107); Estimated GFR-MDRD Greater than 90; Globulin 5.1 g/dL (2.4-3.5); Glucose 91 mg/dL (80-115); Potassium 3.9 mmol/L (3.5-5.1); Salicylate 9.9 mg/dL (15.0-30.0); Sodium 133 mmol/L (136-145)
[2017-11-18 11:34] LABS: Acetaminophen Less than 6.0 mcg/mL (10.0-30.0); CK (CPK) 121 U/L (30-200)
--- NOTE | 2017-11-18 12:39 | RAD ---
RADIOGRAPH CHEST 1 VIEW: Date: 11/18/17. Time: 10:22 a.m. HISTORY: A 67-year-old male status post syncope and fall. COMPARISON: 10/15/17. FINDINGS: The left upper lobe pulmonary mass which was approximately 4 x 4 cm, now appears larger, 5.5 x 6 cm. Left subclavian dual-lead pacemaker remains. No cardiomegaly or pneumothorax. No pulmonary edema. Increase in diffuse interstitial densities throughout the left lung, especially left base, compared to prior study. Mildly prominent interstitial markings of the right base. Otherwise, the right lung is relatively clear. No effacement of lateral costophrenic angles. IMPRESSION: 1. Interval increase in size of the now large left upper lobe pulmonary mass. 2. Interval worsening of diffuse interstitial infiltrates throughout the left lung, especially at th e left base. YAHAIRA [] POS: [facility]
--- NOTE | 2017-11-18 13:14 | CT ---
CT BRAIN WITHOUT CONTRAST: COMPARISON: 10/12/17. HISTORY: Fall at home and syncope. TECHNIQUE: Multiple contiguous axial images were obtained in a CT of the brain without contrast. FINDINGS: There are scattered hypodensities in the subcortical and periventricular white matter, likely seconda ry to small-vessel ischemic disease. No large confluent infarction is seen. There is no evidence of hydrocephalus, intracranial hemorrhage, or extraaxial fluid collection. The calvarium and overlying soft tissues are unremarkable. The visualized paranasal sinuses and mast oid air cells are well aerated. IMPRESSION: Small-vessel ischemic disease without acute intracranial abnormality. POS: [facility]
[2017-11-18 14:32] LABS: Troponin I 0.013 ng/mL (< 0.028)
--- NOTE | 2017-11-18 14:42 | HP ---
PRIMARY CARE PHYSICIAN: Dr. Romero at [facility]. CHIEF COMPLAINT: Found down on the floor. HISTORY OF PRESENT ILLNESS: The history of present illness is actually taken from the patient as he was able to recount most of why he is here. He says that the reason he is here at the hospital is be cause he was on the floor all night long. He says they kicked the door down and brought me into the hospital. The patient stays at [facility] and he says he does not know how he got up on the floor, but he says he woke up this morning and was on the ground. He says he was in t he process of trying to get himself up that is when pretty much almost simultaneously. He says that the staff basically kicked the door down and noticed he was on the floor, called EMS and brought him to the hospital. He says he did not have any complaints prior to this. He complains of a little bit of neck pain, but otherwise, he denies any chest pain. He denies feeling short of breath, no nausea , no vomiting, no diarrhea. He says he has a cough which is productive of yellow sputum, but he says he has had this "for a long time." When asked more specifically, he says about a month. He says it has not increased in frequency and actually is asking why he needs to stay in the hospital. REVIEW OF SYSTEMS: GENERAL: There has been no subjective fever, no chills, no night sweats, no weig ht loss. HEENT: He denies any headaches, no dizziness, no visual changes, no sore throat, no rhinor stanley, no neck pain, no adenopathy. PULMONARY: He has had cough productive of yellow sputum, no hemo ptysis. He denies shortness of breath. He denies wheezing. CARDIOVASCULAR: He emphatically denies chest pain, no PND, no orthopnea. No lower extremity edema. GASTROINTESTINAL: He denies any abdom inal pain, no nausea, no vomiting, no diarrhea. GENITOURINARY: He denies any dysuria, no frequency, no hematuria. MUSCULOSKELETAL: He denies any muscle pains or weakness. He says he does get around with a walker. He does notice some falling off and on, but no recent falls that he is aware of. SK IN/INTEGUMENT: No skin changes. No rash. PAST MEDICAL HISTORY: Taken from the patient as well as review of his recent hospitalization by Dr. Carr on 08/20/2017 and includes sick sinus syndrome, status post pacemaker, dysphagia where he uses a mechanical soft diet with nectar thick liquids, COPD, chronic respiratory failure, hypertension, de mentia, bipolar disorder, lung cancer, ischemic colitis, chronic anemia, dyslipidemia, gastroesophage al reflux disease, atrial flutter. He had been on anticoagulation, but this was recently discontinue d in 08/2017. This after he had a significant GI bleed in which he required 4 units of packed blood cells. He has since been off of Pradaxa as well as aspirin and continues to be off of this. PAST SURGICAL HISTORY: He has had an ablation for atrial flutter, pacemaker placed, colostomy, back surgery, ureteral stent. ALLERGIES: He says he is allergic to a certain medication, but he cannot remember the name. FAMILY HISTORY: Significant for Parkinson's. SOCIAL HISTORY: He continues to smoke about a pack a day. He says he has smoked since as long as he can remember. Denies any alcohol use. He lives at [facility]. He lives alone. He has a so n and a daughter and his son, Henrik is the surrogate decision maker. He wishes to be DO NOT RESUSCI ROSALES. He says he cannot remember his medications, but he is certain he is not taking Pradaxa or aspi rin anymore. PHYSICAL EXAMINATION: GENERAL: He is alert and oriented. He appears to be in no acute distress. VITAL SIGNS: Blood pressure was 121/80, heart rate 82, respiratory rate of 20, temperature is 97.7. HEENT: Pupils are equal, round, and reactive. Extraocular muscles are intact. His sclerae are anic teric. Throat; no erythema, no exudates. NECK: No adenopathy, no bruits. LUNGS: He has got rales at both bases as well as some rhonchi and some mild scattered wheezing. CARDIOVASCULAR: He has a normal S1 and S2. There is no S3 or S4. No murmurs, clicks, no rubs. ABDOMEN: Obese, it is soft, nontender, nondistended. Positive for bowel sounds. No rebound, no gua rding. EXTREMITIES: There is 1+ edema in both lower extremities. 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 LABORATORY DATA: White blood cell count 6.6, hemoglobin 9.1, hematocrit is 29.3, platelet count is 2 61. INR is 1.3. Sodium 133, potassium 3.9, chloride is 100, CO2 is 20, BUN of 16, creatinine 0.69, glucose is 91. Aspirin level was 9.9. ASSESSMENT AND PLAN: 1. This is a pleasant 67-year-old gentleman who is being admitted for altered mental status. It is possible that the patient may have had a transient ischemic attack as the patient has been taken off of Pradaxa and aspirin due to his massive gastrointestinal bleed. However, at this time it would be likely dangerous to restart this. He also had chest x-ray findings consistent with an increased infi ltrate in the lung bases. He has got a productive cough and an excessive amount of bands on his CBC. It is possible that with some limited pulmonary reserve, if he has pneumonia which is possible, thi s could have resulted in altered mental status as well. Considering that this is something that we c an treat, we will treat him for hospital acquired pneumonia, likely causing altered mental status and reassess him as we go along. Since he was recently hospitalized in the last 3 months, we will place him on Levaquin and vancomycin. 2. With regards to hypertension, we will need to obtain the names and doses of his usual medications and reconcile these and start as indicated. 3. We will continue for chronic respiratory failure. He will be placed on supplemental oxygen as we ll as At[facility]. Again, if he has any regular scheduled inhalers, we will continue those. 4. Lung cancer. The patient is currently not undergoing treatment. This is likely to complicate an d worsen his ability to improve. 5. Atrial flutter. He is currently in sinus rhythm. Again, we will need the names and doses of his medications. We will restart these and we will continue to hold anticoagulation with regards to the fairly recent GI bleed.
[2017-11-18] MEDS ORDERED: hydrALAZINE 20 MG/ML VIAL SLOW IVP PRN (15:09)
[2017-11-18] MEDS ORDERED: Milk Of Magnesia 30 ML UDCUP PO PRN (15:09)
[2017-11-18] MEDS ORDERED: Acetaminophen 325 MG TAB PO PRN ×2 (15:09)
[2017-11-18 16:57] VITALS: BMI 26.2
[2017-11-18] MEDS ORDERED: Vancomycin HCl 1.5 GM in Sodium Chloride 0.9% 250 ML 300 ML IVPB SCH (17:00)
[2017-11-18 18:01] LABS: Troponin I 0.013 ng/mL (< 0.028)
[2017-11-18] MEDS ORDERED: FLU VACC TS2017-18 (>65YR) 0.5 ML SYRINGE IM ONE (21:00)
[2017-11-18] MEDS ORDERED: Prevnar 13-Val Conj/PF 0.5 ML SYRINGE IM ONE (21:00)
[2017-11-18] MEDS ORDERED: Vancomycin HCl 1 GM in Premix Bag 1 BAG IVPB SCH (21:00)
[2017-11-19 06:01] LABS: Anion Gap 10 mmol/L (10-20); BUN (Urea Nitrogen) 10 mg/dL (8.4-25.7); Calc. Creatinine Clearance 162 mL/min (70-130); Calcium 8.3 mg/dL (7.8-10.44); Carbon Dioxide 26 mmol/L (23-31); Chloride 102 mmol/L (98-107); Estimated GFR-MDRD Greater than 90; Glucose 88 mg/dL (80-115); Potassium 3.3 mmol/L (3.5-5.1); Sodium 135 mmol/L (136-145)
[2017-11-19 06:23] LABS: Band 17 % (5-11); Eosinophils 1 % (0-10); Hemoglobin 7.4 g/dL (14.0-18.0); Lymphocytes 23 % (21-51); MDiff Complete? YES; Mean Corpuscular HGB CONC 31.4 g/dL (32.0-36.0); Mean Corpuscular Hemoglobin 31.3 pg (27.0-31.0); Mean Corpuscular Volume 99.6 fl (80.0-94.0); Mean Platelet Volume 6.7 fL (7.4-10.4); Monocytes 4 % (0-10); Myelocyte 2 % (0-0); Neutrophil 53 % (42-75); Platelet Count 240 thou/uL (130-400); RBC Distribution Width 18.2 % (11.5-14.5); Red Blood Cell (RBC) Count 2.37 mill/uL (4.70-6.10); White Blood Cell (WBC) Count 5.9 thou/uL (4.8-10.8)
[2017-11-19] MEDS: Vancomycin HCl 1.5 GM in Sodium Chloride 0.9% 250 ML 300 ML IVPB SCH ×2 (08:42→20:00)
[2017-11-19] MEDS: traMADol HCl 50 MG TAB PO PRN ×2 (10:18→16:09)
[2017-11-19] MEDS ORDERED: Sodium Ferric Gluconate 125 MG in Sodium Chloride 0.9% 100 ML IVPB SCH (14:45)
--- NOTE | 2017-11-19 14:49 | PDOC.PN ---
- Subjective Encounter Start Date: 11/19/17 Encounter Start Time: 14:47 Mr. Mejia does not have any complaints this afternoon. He denies chest pain or shortness of breath. - Objective Resuscitation Status: Resuscitation Status DNR:Do Not Resuscitate MAR Reviewed: Yes Vital Signs & Weight: Vital Signs (12 hours) Temp Pulse Resp BP BP BP Pulse Ox 11/19/17 12:00 98.1 F 91 18 113/72 114/73 116/67 92 L 11/19/17 08:00 98.2 F 88 15 127/76 91 L 11/19/17 04:00 98.1 F 87 15 141/75 H 94 L Result Diagrams: 11/19/17 04:48 11/19/17 04:48 Phys Exam - Physical Examination HEENT: PERRLA Respiratory: no rhonchi, wheezing present + rales at both bases, mild wheezing Cardiovascular: RRR, no significant murmur, no rub Gastrointestinal: soft, non-tender, positive bowel sounds Musculoskeletal: edema present trace pedal edema Dx/Plan (1) Anemia Code(s): D64.9 - ANEMIA, UNSPECIFIED Status: Acute (2) Dementia Code(s): F03.90 - UNSPECIFIED DEMENTIA WITHOUT BEHAVIORAL DISTURBANCE Status: Acute (3) Left lower lobe pneumonia Code(s): J18.1 - LOBAR PNEUMONIA, UNSPECIFIED ORGANISM Status: Acute Qualifiers: Pneumonia type: due to unspecified organism Qualified Code(s): J18.1 - Lobar pneumonia, unspecified organism (4) HTN (hypertension) Code(s): I10 - ESSENTIAL (PRIMARY) HYPERTENSION Status: Chronic Qualifiers: Hypertension type: essential hypertension (5) Lung cancer, primary, with metastasis from lung to other site Code(s): C34.90 - MALIGNANT NEOPLASM OF UNSP PART OF UNSP BRONCHUS OR LUNG Status: Chronic Qualifiers: Comment: (6) Paroxysmal atrial fibrillation Code(s): I48.0 - PAROXYSMAL ATRIAL FIBRILLATION Status: Chronic - Plan * Pneumonia- will continue Levaquin and Vancomycin * Anemia- he had a drop in his H&H overnight- will re-check in the AM, and check a stool for occult blood ( given the history of recent GI bleed) Continue Protonix, and will give Iron IV * Dementia- stable. * PAF- he has been in sinus rhythm- no anticoagulation due to recent GI bleed * HTN- blood pressure is stable * Recent Fall- PT is recommended group home placement prior to returning to assisted living- will consult Case Management
[2017-11-19] MEDS ORDERED: Potassium Chloride 20 MEQ TAB PO SCH (15:00)
[2017-11-19] MEDS: Mometasone/Formoterol 120 PUFF INHALER INH SCH (20:00)
[2017-11-19] MEDS: busPIRone HCl 10 MG TAB PO SCH (20:48)
[2017-11-19] MEDS: risperiDONE 1 MG TAB PO SCH (20:49)
[2017-11-19] MEDS: Divalproex Sodium DR 500 MG TAB PO SCH (20:49)
[2017-11-19] MEDS: Gabapentin 300 MG CAP PO SCH (20:52)
[2017-11-20 07:30] LABS: Vancomycin, Trough 13.8 ug/mL
[2017-11-20 07:37] LABS: Anion Gap 11 mmol/L (10-20); BUN (Urea Nitrogen) 6 mg/dL (8.4-25.7); Calc. Creatinine Clearance 145 mL/min (70-130); Calcium 8.8 mg/dL (7.8-10.44); Carbon Dioxide 26 mmol/L (23-31); Chloride 104 mmol/L (98-107); Estimated GFR-MDRD Greater than 90; Glucose 99 mg/dL (80-115); Potassium 4.1 mmol/L (3.5-5.1); Sodium 137 mmol/L (136-145)
[2017-11-20] MEDS: Mometasone/Formoterol 120 PUFF INHALER INH SCH ×2 (09:18→18:54)
[2017-11-20] MEDS: Folic Acid 1 MG TAB PO SCH (11:05)
[2017-11-20] MEDS: Vancomycin HCl 1.5 GM in Sodium Chloride 0.9% 250 ML 300 ML IVPB SCH ×2 (11:05→21:08)
[2017-11-20] MEDS: risperiDONE 1 MG TAB PO SCH ×2 (11:05→21:09)
[2017-11-20] MEDS: Gabapentin 300 MG CAP PO SCH ×2 (11:07→21:09)
[2017-11-20] MEDS: busPIRone HCl 10 MG TAB PO SCH ×2 (11:07→21:09)
[2017-11-20] MEDS: traMADol HCl 50 MG TAB PO PRN (11:08)
[2017-11-20 11:54] LABS: Hemoglobin 7.8 g/dL (14.0-18.0); Platelet Count 260 thou/uL (130-400)
--- NOTE | 2017-11-20 12:03 | PDOC.PN ---
- Subjective Encounter Start Date: 11/20/17 Encounter Start Time: 12:02 Mr. Lomax was seen today in follow-up. He says he feels fine today, and denies having any problems with breathing or cough. - Objective Resuscitation Status: Resuscitation Status DNR:Do Not Resuscitate MAR Reviewed: Yes Vital Signs & Weight: Vital Signs (12 hours) Temp Pulse Resp BP Pulse Ox 11/20/17 08:00 98.2 F 108 H 16 103/73 92 L 11/20/17 04:00 98.1 F 110 H 18 137/83 94 L I&O: 11/19/17 11/20/17 11/21/17 06:59 06:59 06:59 Intake Total 2130 Balance 2130 Result Diagrams: 11/20/17 06:52 11/20/17 06:53 Phys Exam - Physical Examination HEENT: PERRLA Respiratory: no wheezing + coarse breath sounds Cardiovascular: RRR, no significant murmur Gastrointestinal: soft, non-tender, positive bowel sounds Musculoskeletal: edema present trace pedal edema Dx/Plan (1) Anemia Code(s): D64.9 - ANEMIA, UNSPECIFIED Status: Acute (2) Dementia Code(s): F03.90 - UNSPECIFIED DEMENTIA WITHOUT BEHAVIORAL DISTURBANCE Status: Acute (3) Left lower lobe pneumonia Code(s): J18.1 - LOBAR PNEUMONIA, UNSPECIFIED ORGANISM Status: Acute Qualifiers: Pneumonia type: due to unspecified organism Qualified Code(s): J18.1 - Lobar pneumonia, unspecified organism (4) HTN (hypertension) Code(s): I10 - ESSENTIAL (PRIMARY) HYPERTENSION Status: Chronic Qualifiers: Hypertension type: essential hypertension (5) Lung cancer, primary, with metastasis from lung to other site Code(s): C34.90 - MALIGNANT NEOPLASM OF UNSP PART OF UNSP BRONCHUS OR LUNG Status: Chronic Qualifiers: Comment: (6) Paroxysmal atrial fibrillation Code(s): I48.0 - PAROXYSMAL ATRIAL FIBRILLATION Status: Chronic - Plan * Pneumonia- continue Vancomycin and Levaquin- he appears more alert and symptomatically improved. Can likely begin de-escalting antibiotics soon * Anemia- will repeat his H&H and make sure this is stable * HTN- blood pressure is stable * PAF- his heart rate was a little elevated this morning- will monitor- if the trend continues than will consider low dose cardizem or digoxin. He is not on anticoagulation due to a recent massive GI bleed * Lung cancer- advanced- and not being treated * Frequent falls- PT/OT * Home to [facility] with home PT vs. [facility] soon .
--- NOTE | 2017-11-20 16:52 | PDOC.EVN ---
Event Note - Event Note Event Note: Mr. Lomax's heart rate went as high as 140's briefly. Now it is around 118. Will start Cardizem - the short acting, and can transition to long acting if this is effective. Blood pressure has been marginal so will need to monitor closely.
[2017-11-20] MEDS: Divalproex Sodium DR 500 MG TAB PO SCH (21:10)
[2017-11-21] MEDS: traMADol HCl 50 MG TAB PO PRN ×2 (05:30→09:58)
[2017-11-21 05:46] LABS: Hemoglobin 7.4 g/dL (14.0-18.0); Platelet Count 275 thou/uL (130-400)
[2017-11-21] MEDS: Mometasone/Formoterol 120 PUFF INHALER INH SCH ×2 (06:54→18:34)
[2017-11-21] MEDS: busPIRone HCl 10 MG TAB PO SCH ×2 (09:58→21:14)
[2017-11-21] MEDS: risperiDONE 1 MG TAB PO SCH ×2 (09:58→21:13)
[2017-11-21] MEDS: Gabapentin 300 MG CAP PO SCH ×2 (10:03→21:13)
[2017-11-21] MEDS: Vancomycin HCl 1.5 GM in Sodium Chloride 0.9% 250 ML 300 ML IVPB SCH (10:03)
[2017-11-21] MEDS: Folic Acid 1 MG TAB PO SCH (10:03)
--- NOTE | 2017-11-21 11:05 | PDOC.PN ---
- Subjective Encounter Start Date: 11/21/17 Encounter Start Time: 11:20 Subjective: He has no new complains. -: No acute events overnight. Tachycardia resolved since Cardizem started. - Objective Resuscitation Status: Resuscitation Status DNR:Do Not Resuscitate MAR Reviewed: Yes Vital Signs & Weight: Vital Signs (12 hours) Temp Pulse Resp BP BP Pulse Ox 11/21/17 08:00 97.5 F L 94 24 H 108/68 97 11/21/17 07:43 98.5 F 97 16 11/21/17 06:56 97 11/21/17 06:54 97 16 97 11/21/17 04:00 98.5 F 103 H 20 105/57 L 94 L 11/21/17 02:36 94 L 11/21/17 00:00 98.2 F 101 H 20 131/72 93 L I&O: 11/20/17 11/21/17 11/22/17 06:59 06:59 06:59 Intake Total 2130 530 Balance 2130 530 Result Diagrams: 11/21/17 05:24 11/20/17 06:53 Phys Exam - Physical Examination Constitutional: NAD HEENT: PERRLA, moist MMs, sclera anicteric Edentulous Neck: no JVD, supple, full ROM Respiratory: no wheezing, no rales, no rhonchi, clear to auscultation bilateral Cardiovascular: RRR, no significant murmur, no rub Gastrointestinal: soft, non-tender, no distention, positive bowel sounds Musculoskeletal: no edema, pulses present Neurological: non-focal, moves all 4 limbs R hemiparesis Psychiatric: A&O x 3 (Able to tell who the president is) Skin: no rash, normal turgor Dx/Plan (1) Left lower lobe pneumonia Code(s): J18.1 - LOBAR PNEUMONIA, UNSPECIFIED ORGANISM Status: Acute Qualifiers: Pneumonia type: due to unspecified organism Qualified Code(s): J18.1 - Lobar pneumonia, unspecified organism Comment: Blood cultures still negative, continue antibiotics. Can discontinue vancomycin. (2) Dementia Code(s): F03.90 - UNSPECIFIED DEMENTIA WITHOUT BEHAVIORAL DISTURBANCE Status: Acute Qualifiers: Dementia behavioral disturbance: without behavioral disturbance Comment: Delirium precautions. (3) HTN (hypertension) Code(s): I10 - ESSENTIAL (PRIMARY) HYPERTENSION Status: Acute Qualifiers: Hypertension type: essential hypertension Qualified Code(s): I10 - Essential (primary) hypertension Comment: Continue Diltiazem. (4) Paroxysmal atrial fibrillation Code(s): I48.0 - PAROXYSMAL ATRIAL FIBRILLATION Status: Chronic Comment: Continue diltiazem. He is rate controlled. (5) Lung cancer, primary, with metastasis from lung to other site Code(s): C34.90 - MALIGNANT NEOPLASM OF UNSP PART OF UNSP BRONCHUS OR LUNG Status: Chronic Qualifiers: Laterality: left Qualified Code(s): C34.92 - Malignant neoplasm of unspecified part of left bronchus or lung Plan: Ensure adequate oxygenation/ Comment: (6) Normocytic anemia Code(s): D64.9 - ANEMIA, UNSPECIFIED Status: Chronic Comment: Hb stable. Transfuse for Hb < 7. Iron supplementation. 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
[2017-11-21] MEDS: Heparin 5,000 UNITS/ML VIAL SC SCH ×2 (16:13→21:14)
[2017-11-21] MEDS: Ferrous Sulfate 325 MG TAB PO SCH (16:13)
[2017-11-21] MEDS: Divalproex Sodium DR 500 MG TAB PO SCH (21:13)
[2017-11-22 04:50] LABS: Anion Gap 10 mmol/L (10-20); BUN (Urea Nitrogen) 8 mg/dL (8.4-25.7); Calc. Creatinine Clearance 152 mL/min (70-130); Calcium 8.7 mg/dL (7.8-10.44); Carbon Dioxide 29 mmol/L (23-31); Chloride 105 mmol/L (98-107); Estimated GFR-MDRD Greater than 90; Glucose 97 mg/dL (80-115); Sodium 140 mmol/L (136-145)
[2017-11-22 05:11] LABS: Band 7 % (5-11); Hemoglobin 7.2 g/dL (14.0-18.0); Lymphocytes 13 % (21-51); MDiff Complete? YES; Mean Corpuscular HGB CONC 30.2 g/dL (32.0-36.0); Mean Corpuscular Hemoglobin 30.8 pg (27.0-31.0); Mean Platelet Volume 6.3 fL (7.4-10.4); Metamyelocyte 3 % (0-0); Monocytes 12 % (0-10); Myelocyte 10 % (0-0); Neutrophil 55 % (42-75); Platelet Count 275 thou/uL (130-400); Red Blood Cell (RBC) Count 2.34 mill/uL (4.70-6.10); White Blood Cell (WBC) Count 5.8 thou/uL (4.8-10.8)
[2017-11-22] MEDS: Mometasone/Formoterol 120 PUFF INHALER INH SCH ×2 (06:45→23:17)
[2017-11-22 07:35] LABS: Vancomycin, Trough 12.4 ug/mL
[2017-11-22] MEDS: Gabapentin 300 MG CAP PO SCH ×2 (08:08→20:40)
[2017-11-22] MEDS: Folic Acid 1 MG TAB PO SCH (08:09)
[2017-11-22] MEDS: risperiDONE 1 MG TAB PO SCH ×2 (08:09→20:42)
[2017-11-22] MEDS: Heparin 5,000 UNITS/ML VIAL SC SCH ×3 (08:10→20:46)
[2017-11-22] MEDS: Ferrous Sulfate 325 MG TAB PO SCH ×2 (08:10→18:25)
[2017-11-22] MEDS: busPIRone HCl 10 MG TAB PO SCH ×2 (08:19→20:40)
[2017-11-22] MEDS: traMADol HCl 50 MG TAB PO PRN ×2 (08:30→18:24)
--- NOTE | 2017-11-22 12:14 | PDOC.PN ---
- Subjective Encounter Start Date: 11/22/17 Encounter Start Time: 12:15 Subjective: No complaints today -: No acute events overnight. - Objective Resuscitation Status: Resuscitation Status DNR:Do Not Resuscitate MAR Reviewed: Yes Vital Signs & Weight: Vital Signs (12 hours) Temp Pulse Resp BP Pulse Ox 11/22/17 08:00 97.8 F 118 H 20 117/83 92 L 11/22/17 06:14 97.7 F 97 16 100/64 91 L 11/22/17 01:02 97.5 F L 83 16 90/58 L 96 I&O: 11/21/17 11/22/17 11/23/17 06:59 06:59 06:59 Intake Total 530 800 Balance 530 800 Result Diagrams: 11/22/17 03:49 11/22/17 03:49 Phys Exam - Physical Examination Constitutional: NAD HEENT: PERRLA, moist MMs, sclera anicteric Neck: supple, full ROM Respiratory: no wheezing, no rales, no rhonchi, clear to auscultation bilateral Cardiovascular: no significant murmur, no rub, irregular Gastrointestinal: soft, non-tender, no distention, positive bowel sounds Musculoskeletal: no edema, pulses present residual hemiparesis Psychiatric: normal affect, A&O x 3 Skin: no rash, normal turgor Dx/Plan (1) Left lower lobe pneumonia Code(s): J18.1 - LOBAR PNEUMONIA, UNSPECIFIED ORGANISM Status: Acute Qualifiers: Pneumonia type: due to unspecified organism Qualified Code(s): J18.1 - Lobar pneumonia, unspecified organism Comment: Blood cultures still negative, continue Levofloxacin. (2) Dementia Code(s): F03.90 - UNSPECIFIED DEMENTIA WITHOUT BEHAVIORAL DISTURBANCE Status: Acute Qualifiers: Dementia behavioral disturbance: without behavioral disturbance Comment: Delirium precautions. (3) HTN (hypertension) Code(s): I10 - ESSENTIAL (PRIMARY) HYPERTENSION Status: Acute Qualifiers: Hypertension type: essential hypertension Qualified Code(s): I10 - Essential (primary) hypertension Comment: Continue Diltiazem. (4) Paroxysmal atrial fibrillation Code(s): I48.0 - PAROXYSMAL ATRIAL FIBRILLATION Status: Chronic Comment: Continue diltiazem. He is rate controlled. (5) Lung cancer, primary, with metastasis from lung to other site Code(s): C34.90 - MALIGNANT NEOPLASM OF UNSP PART OF UNSP BRONCHUS OR LUNG Status: Chronic Qualifiers: Laterality: left Qualified Code(s): C34.92 - Malignant neoplasm of unspecified part of left bronchus or lung Comment: (6) Normocytic anemia Code(s): D64.9 - ANEMIA, UNSPECIFIED Status: Chronic Comment: Hb stable. Transfuse for Hb < 7. Iron supplementation. - Plan cont current plan of care, PT/OT, speech therapy, DVT proph w/heparin * .
[2017-11-22] MEDS: Sodium Chloride 0.9% 500 ML IV SCH ×3 (15:01→15:03)
[2017-11-22] MEDS: Divalproex Sodium DR 500 MG TAB PO SCH (20:42)
[2017-11-23 04:27] LABS: Hemoglobin 7.4 g/dL (14.0-18.0); Mean Corpuscular Hemoglobin 31.7 pg (27.0-31.0); Mean Platelet Volume 6.4 fL (7.4-10.4); Platelet Count 267 thou/uL (130-400); RBC Distribution Width 18.1 % (11.5-14.5); Red Blood Cell (RBC) Count 2.33 mill/uL (4.70-6.10); White Blood Cell (WBC) Count 5.5 thou/uL (4.8-10.8)
[2017-11-23] MEDS: Mometasone/Formoterol 120 PUFF INHALER INH SCH (06:39)
[2017-11-23] MEDS: busPIRone HCl 10 MG TAB PO SCH (08:15)
[2017-11-23] MEDS: risperiDONE 1 MG TAB PO SCH (08:15)
[2017-11-23] MEDS: Ferrous Sulfate 325 MG TAB PO SCH (08:16)
[2017-11-23] MEDS: Folic Acid 1 MG TAB PO SCH (08:16)
[2017-11-23] MEDS: Gabapentin 300 MG CAP PO SCH (08:16)
[2017-11-23] MEDS: Heparin 5,000 UNITS/ML VIAL SC SCH ×2 (08:17→15:11)
[2017-11-23] MEDS ORDERED: Diltiazem HCl SR 90 mg Capsule PO SCH (09:00)
--- NOTE | 2017-11-23 12:21 | PDOC.PN ---
- Subjective Encounter Start Date: 11/23/17 Encounter Start Time: 12:37 Subjective: No new complaints -: No acute events overnight. - Objective Resuscitation Status: Resuscitation Status DNR:Do Not Resuscitate MAR Reviewed: Yes Vital Signs & Weight: Vital Signs (12 hours) Temp Pulse Resp BP Pulse Ox 11/23/17 08:00 98.0 F 124 H 22 H 138/84 92 L 11/23/17 04:00 98.1 F 86 20 141/77 H 92 L I&O: 11/22/17 11/23/17 11/24/17 06:59 06:59 06:59 Intake Total 800 Output Total 400 Balance 800 -400 Result Diagrams: 11/23/17 03:50 11/22/17 03:49 Phys Exam - Physical Examination Constitutional: NAD HEENT: PERRLA, moist MMs, sclera anicteric Neck: no JVD, supple, full ROM Respiratory: no wheezing, no rales, no rhonchi, clear to auscultation bilateral Cardiovascular: no significant murmur, no rub tachycardic Gastrointestinal: soft, non-tender, no distention, positive bowel sounds Musculoskeletal: no edema, pulses present Neurological: non-focal, moves all 4 limbs Psychiatric: normal affect, A&O x 3 Skin: no rash, normal turgor Dx/Plan (1) Left lower lobe pneumonia Code(s): J18.1 - LOBAR PNEUMONIA, UNSPECIFIED ORGANISM Status: Acute Qualifiers: Pneumonia type: due to unspecified organism Qualified Code(s): J18.1 - Lobar pneumonia, unspecified organism Comment: Blood cultures still negative, continue Levofloxacin. (2) Dementia Code(s): F03.90 - UNSPECIFIED DEMENTIA WITHOUT BEHAVIORAL DISTURBANCE Status: Acute Qualifiers: Dementia behavioral disturbance: without behavioral disturbance Comment: Delirium precautions. (3) HTN (hypertension) Code(s): I10 - ESSENTIAL (PRIMARY) HYPERTENSION Status: Acute Qualifiers: Hypertension type: essential hypertension Qualified Code(s): I10 - Essential (primary) hypertension Comment: Continue Diltiazem. (4) Paroxysmal atrial fibrillation Code(s): I48.0 - PAROXYSMAL ATRIAL FIBRILLATION Status: Chronic Comment: Tachycardic. Diltiazem dose increased. Not on Pradaxa 2/2 recent GI bleed. (5) Lung cancer, primary, with metastasis from lung to other site Code(s): C34.90 - MALIGNANT NEOPLASM OF UNSP PART OF UNSP BRONCHUS OR LUNG Status: Chronic Qualifiers: Laterality: left Qualified Code(s): C34.92 - Malignant neoplasm of unspecified part of left bronchus or lung Comment: (6) Normocytic anemia Code(s): D64.9 - ANEMIA, UNSPECIFIED Status: Chronic Comment: Hb stable. Transfuse for Hb < 7. Iron supplementation. 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
[2017-11-23] MEDS: traMADol HCl 50 MG TAB PO PRN (13:37)
[2017-11-23 15:11] VITALS: BP 131/84; TEMP 98.2
--- NOTE | 2017-11-23 18:35 | DIS ---
DATE OF ADMISSION: 11/18/2017 DATE OF DISCHARGE: 11/23/2017 DISCHARGE DIAGNOSES: Lobar pneumonia, dementia, hypertension, paroxysmal atrial fibrillation, lung c ancer with metastasis, normocytic anemia. HISTORY OF PRESENT ILLNESS AND HOSPITAL COURSE: This is a 67-year-old male who was found down on the floor. He reported being on the floor all night long and his door was kicked down and he was ruth t to the hospital. He resides at [facility] living. He reports he does remember act ually passing out. He only complains of a little bit of back pain, but otherwise denies chest pain. He also had no shortness of breath, no nausea, no vomiting, no diarrhea. He reports a cough which i s productive of yellowish sputum, but states he has had these "for a long time" and then states for m aybe about a month. Labs were relatively normal. He had a chest x-ray, which showed interval increa se in the size of his left upper lobe pulmonary mass and interval worsening of diffuse interstitial i nfiltrates throughout the left lung, especially at the left lung base. The diagnosis of left lower l obe pneumonia was made and he was started on IV antibiotics. He was also tachycardic during his hosp ital stay, which is likely from his history of atrial fibrillation. He was started on diltiazem with improvement in his heart rate. On admission, he also had a brain CT scan, which showed small vessel ischemic disease without acute intracranial abnormalities. DISCHARGE MEDICATIONS: Diltiazem 120 mg daily, ferrous sulfate 325 mg twice a day, Levofloxacin 750 mg daily, Magnesium hydroxide 30 mL orally daily as needed for constipation, tramadol 50 mg twice a d ay as needed for pain, vitamin B12 1000 mcg daily, buspirone 30 mg twice a day, gabapentin 300 mg twi ce a day, Depakote 1500 mg at bedtime, Symbicort 2 puff inhaled twice a day, multivitamin 1 tablet [place], folic acid 2 tablets daily, acetaminophen with codeine 1-2 tablets every 6 hours as needed for p ain, Risperidone 2 mg orally daily, pantoprazole 40 mg daily, DuoNeb 2.5 mg inhaled every 6 hours as needed for shortness of breath or wheezing. PHYSICAL EXAMINATION: He was examined on the date of discharge. For details, see today's progress n otcharo. LABORATORY DATA: WBC 5.5, hemoglobin 7.4, platelet count 267. Sodium 140, potassium 4.0, chloride 1 05, carbon dioxide 29, anion gap 10, BUN 8, creatinine 0.61, glucose 97, calcium 8.7. IMAGING: Chest x-ray and CT brain as stated in hospital course CONSULTS: None. PROCEDURES: None. DIET: Heart healthy. CONDITION AT DISCHARGE: Stable and improved. CARE GOALS: The patient is to follow up with the primary care physician in a week's time for repeat labs, blood pressure check and heart rate. Activity to resume as tolerated. TIME OF DISCHARGE: 65 minutes including chart review and documentation.
== END 2017-11-23 15:46 | DRG 194 ==
LOC: ERS 09:38 → 2SE 13:43 → T4-A 11-21 19:11
PROVIDERS: ADMIT Internal Medicine; ATTEND Internal Medicine
DX: J18.1 Lobar pneumonia, unspecified organism (principal); J96.10 Chronic respiratory failure, unspecified whether with hypoxia or hypercapnia; C79.9 Secondary malignant neoplasm of unspecified site; I48.0 Paroxysmal atrial fibrillation; J44.9 Chronic obstructive pulmonary disease, unspecified; R13.10 Dysphagia, unspecified; C34.90 Malignant neoplasm of unspecified part of unspecified bronchus or lung; F03.90 Unspecified dementia, unspecified severity, without behavioral disturbance, psychotic disturbance, mood disturbance, and anxiety; Z95.0 Presence of cardiac pacemaker; I10 Essential (primary) hypertension; F31.9 Bipolar disorder, unspecified; K21.9 Gastro-esophageal reflux disease without esophagitis; E78.5 Hyperlipidemia, unspecified; Z93.3 Colostomy status; F17.210 Nicotine dependence, cigarettes, uncomplicated; Z66 Do not resuscitate; M54.9 Dorsalgia, unspecified; D63.8 Anemia in other chronic diseases classified elsewhere
CPT/HCPCS: 36415; 70450; 71045; 80048; 80053; 80202; 80307; 82274; 82553; 82607; 82746; 83880; 84484; 85014; 85018; 85025; 85027; 85049; 85610; 85730; 86850; 86900; 86901; 87040; 90471; 90670; 90682; 93005; 94640; 94664; G0008; G0009; G8978-GP-CK; G8979-GP-CI; G8987-GO-CK; G8988-GO-CJ; G8996-GN-CM; G8997-GN-CM; J1644; J1956; J2916; J3370; J7050; J7620; Q2036

== ENCOUNTER 2017-11-29 16:13 | Inpatient (IN) | payer MEDICARE ==
[2017-11-29 17:29] LABS: Hemoglobin 6.9 g/dL (14.0-18.0); Mean Corpuscular HGB CONC 29.8 g/dL (32.0-36.0); Mean Corpuscular Hemoglobin 31.2 pg (27.0-31.0); Platelet Count 213 thou/uL (130-400); RBC Distribution Width 18.6 % (11.5-14.5)
[2017-11-29 17:47] LABS: ALT (SGPT) 23 U/L (8-55); AST (SGOT) 24 U/L (5-34); Albumin 2.7 g/dL (3.4-4.8); Alkaline Phosphatase 76 U/L (40-150); Anion Gap 11 mmol/L (10-20); BUN (Urea Nitrogen) 10 mg/dL (8.4-25.7); Bilirubin, Total Less than 0.2 mg/dL (0.2-1.2); Calc. Creatinine Clearance 0 mL/min (70-130); Calcium 8.4 mg/dL (7.8-10.44); Carbon Dioxide 31 mmol/L (23-31); Chloride 98 mmol/L (98-107); Estimated GFR-MDRD Greater than 90; Glucose 98 mg/dL (80-115); Potassium 3.9 mmol/L (3.5-5.1); Protein, Total 6.7 g/dL (5.8-8.1); Sodium 136 mmol/L (136-145)
[2017-11-29 17:49] LABS: Anisocytosis SLIGHT = 6-15 cells (100X) (0-5/hpf); Band 7 % (5-11); Eosinophils 3 % (0-10); Hypochromia SLIGHT = 6-15 cells (100X) (0-5/hpf); Lymphocytes 11 % (21-51); MDiff Complete? YES; Monocytes 6 % (0-10); Neutrophil 72 % (42-75); PLT Morphology Comment Appears Adequate; Reactive Lymphocytes 1 % (0-10)
[2017-11-29 18:03] LABS: INR-International Normal Ratio 1.3; PTT 28.3 SEC (22.9-36.1); Prothrombin Time 16.3 SEC (12.0-14.7)
[2017-11-29] MEDS ORDERED: Pantoprazole 40 MG VIAL ONE (19:22)
[2017-11-29] MEDS ORDERED: Pantoprazole 80 MG, Admixture Fee 1 EACH in Sodium Chloride 0.9% 100 ML IVPB SCH (19:30)
[2017-11-29 20:21] LABS: Bilirubin Negative (Negative); Blood, Urine Negative (Negative); Clarity CLEAR (Clear); Glucose, Urine (Dipstick) Negative (Negative); Leukocyte Negative (Negative); Nitrite Negative (Negative); Protein, Urine (Dipstick) Negative (Neg-Trace); Specific Gravity, Urine 1.015 (1.002-1.036); Urobilinogen 0.2 mg/dL (0.2-1.0)
[2017-11-29 22:26] VITALS: BMI 27.5
[2017-11-29] MEDS ORDERED: Ondansetron HCl/PF 4 MG/2 ML Vial IVP PRN (22:52)
[2017-11-29] MEDS ORDERED: Ondansetron ODT 4 MG TAB SL PRN (22:52)
[2017-11-29] MEDS ORDERED: Acetaminophen 325 MG TAB PO PRN (22:52)
--- NOTE | 2017-11-29 23:42 | CON ---
DATE OF CONSULTATION: 11/29/2017 GI INPATIENT CONSULTATION NOTE REQUESTING PHYSICIAN: Dr. Brown. REASON FOR CONSULTATION: Anemia, suspect possible gastrointestinal bleed. HISTORY OF PRESENT ILLNESS: Madie Lomax is a 67-year-old gentleman with a history significant for lung cancer, which that appears has recurred following chemoradiation treatment and has likely metast atic based on latest CT scan in 09/2017. He also has a history significant for gastrointestinal blee ding. He had a left colon resection he says for diverticulitis couple of years ago. He has an end c olostomy with about 60 cm of colon remaining. In August which was just 3 months ago, he had overt gastrointestinal bleeding with maroon blood coming from his ostomy in the context of Pradaxa use. He underwent EGD and colonoscopy at that time. The EGD showed only some small antral erosions. The co lonoscopy showed multiple ulcers in the terminal ileum, around the ileocecal valve and 2 bland ulcers in the remaining 60 cm of colon. Biopsies were obtained and demonstrated reactive gastropathy and a cute ulceration with no chronic findings. The conclusion was that this was likely NSAID mediated as he had been taking a lot of ibuprofen at that time. Pradaxa was discontinued at that time and appare ntly he has not been taking NSAID since then either. Since that time, he was briefly hospitalized he re again a week ago with altered mental status. He is at [facility]. He was sent ba ck to the ER this evening with complaints of progressive weakness over the past couple of days. The patient has simply been feeling generally weak. He denies any pain. There is no abdominal pain, paige sea, or vomiting. There is no increased ostomy output. The patient denies any melena or hematochezi a from his colostomy. There is no evidence of blood in the ostomy bag. He was found to be anemic wi th hemoglobin 6.9. I note that this has essentially been his baseline with hemoglobin from anywhere from 7-9 over the past 3 months. I do see his MCV has been trending up. It was a microcytic anemia several months ago and now is a macrocytic anemia with MCV 105. At any rate, FOBT was performed and is negative. We are consulted for recurrent anemia and suspicion of possible gastrointestinal bleedi ng. REVIEW OF SYSTEMS: Full review of systems including constitutional, head, eyes, ears, nose, throat, GI, , cardiovascular, respiratory, musculoskeletal, and neurologic systems is negative except as no vahid in HPI. PAST MEDICAL HISTORY: Coronary artery disease, COPD, left-sided lung cancer with failed attempt at r esection and prior chemotherapy and radiation, back surgery, elbow surgery, bipolar disorder, diverti culitis, status post left colon resection, NSAID-induced ulceration of the colon and terminal ileum i n 08/2017, atrial fibrillation, no longer on anticoagulation since 08/2017, pacemaker placement. SOCIAL HISTORY: The patient is at [place]. He still smokes a pack of cigarettes per day. No alco hol or drug use. FAMILY HISTORY: Noncontributory. ALLERGIES: ZOCOR. MEDICATIONS: Ibuprofen 800 mg twice a day, remains on the medication list, but he says he has not be en taking this; acetaminophen/codeine, gabapentin, tramadol, [place], omeprazole 40 mg daily, fl uconazole 100 mg daily, buspirone, ciprofloxacin 500 mg q.12 hours, folic acid, garlic, Risperdal, Du oNebs, Symbicort, Depakote, Tylenol, albuterol, multivitamin, vitamin B12 of 1000 mcg. PHYSICAL EXAMINATION: VITAL SIGNS: Temperature 98.4, pulse 97, blood pressure 112/67, 97% oxygen saturation on room air. GENERAL: A 67-year-old man appearing chronically ill, lying in bed comfortably in no acute distress. SKIN: He is pale, no jaundice. EYES: No scleral icterus. Extraocular movements are intact. ENT: Mucous membranes moist, no oral lesions. LYMPH: No submandibular, supraclavicular lymphadenopathy. THYROID: Nontender to palpation. HEART: Regular rate and rhythm. LUNGS: Breath sounds diminished in bilateral upper lobes and bilateral lower lobes. No respiratory distress, no wheezing. ABDOMEN: Bowel sounds present, soft and nontender to palpation throughout. He has a left lower quad rant ostomy with semi-solid greenish brownish stool in the ostomy bag. No melena or hematochezia not ed. EXTREMITIES: 2+ bilateral lower extremity edema. NEUROLOGICAL: Cranial nerves II-XII intact bilaterally. LABORATORY STUDIES: Hemoglobin 6.9, MCV 105, WBC 13, platelets 213. BUN 10, creatinine 0.67. INR 1 .3, total bilirubin 0.2, alkaline phosphatase 76, AST 24, ALT 23, albumin 2.7. FOBT is negative. Lo oking back at labs in the recent months, he had a normal ferritin, B12, and folic acid levels. IMAGING STUDIES: No new imaging today. Recent CT of the chest, abdomen, and pelvis from 10/12/2017 demonstrated left upper lobe mass as well as suspected metastatic disease to the right upper lobe. T he abdominal exam was essentially normal at that time except for his left lower quadrant colostomy. ASSESSMENT AND PLAN: 1. Anemia, chronic. 2. History of ulcerations of the terminal ileum and colon in 08/2017, likely NSAID mediated. 3. History of lung cancer, with likely a recurrent and now metastatic disease. Regarding the question of potential recurrent gastrointestinal bleeding, I really see no evidence for this. His hemoglobin is near baseline currently at 6.9, noticed his MCV has been creeping up over t he past few months. He denies any overt bleeding and there is no blood in the ostomy bag and in fact FOBT is negative. I do not think repeat endoscopic examination is going to be worthwhile or particu larly helpful in this case, I would agree with transfusion as needed. In the bigger picture, it would appear from fairly recent imaging that there is concern for recurrent lung malignancy and that he may have metastatic disease. If so, the patient does not express any aw areness of this. If he is not going to be getting any treatment, then hospice/palliative care consul tation would be warranted. Again, in this context, I do not see the utility of any endoscopic studie s. NSAID should continue to be avoided, and anticoagulation should continue to be avoided as well. Thank you for the consultation. Please call back anytime with questions or concerns.
[2017-11-30] MEDS ORDERED: Acetaminophen 325 MG TAB PO PRN (06:53)
[2017-11-30] MEDS ORDERED: Loperamide HCl 2 MG CAP PO PRN (06:53)
[2017-11-30] MEDS ORDERED: Zolpidem Tartrate 5 MG TAB PO PRN (06:53)
[2017-11-30] MEDS ORDERED: Eucerin (Mineral Oil/Petrolatum,White) 30 gm Jar TOP PRN (06:53)
[2017-11-30] MEDS ORDERED: Diabetic Tussin 200 MG/10 ML UDCUP PO PRN (06:53)
[2017-11-30] MEDS ORDERED: Sodium Chloride 0.65% Nasal 44 ML BOT EA NARE PRN (06:53)
[2017-11-30] MEDS ORDERED: Chloraseptic Spray 180 ml Bottle PO PRN (06:53)
[2017-11-30] MEDS ORDERED: Loratadine 10 MG TAB PO PRN (06:53)
[2017-11-30] MEDS ORDERED: Mag-Al 1200 mg/1200 mg/30 ML UDCUP PO PRN (06:53)
[2017-11-30] MEDS ORDERED: Senokot 8.6 MG TAB PO PRN (06:53)
[2017-11-30] MEDS ORDERED: hydrALAZINE 20 MG/ML VIAL SLOW IVP PRN (06:53)
[2017-11-30] MEDS ORDERED: Milk Of Magnesia 30 ML UDCUP PO PRN (06:53)
[2017-11-30] MEDS ORDERED: Ondansetron ODT 4 MG TAB PO PRN (06:53)
[2017-11-30] MEDS ORDERED: Ondansetron HCl/PF 4 MG/2 ML Vial IVP PRN (06:53)
[2017-11-30] MEDS ORDERED: Artificial Tears 18 DROP/0.9 ML EA EYE PRN (06:53)
[2017-11-30] MEDS: traMADol HCl 50 MG TAB PO PRN (08:05)
[2017-11-30] MEDS: Cyanocobalamin (Vitamin B-12) 1,000 MCG TAB PO SCH (08:05)
[2017-11-30] MEDS: Multivit, Therapeutic 1 TAB PO SCH (08:06)
[2017-11-30] MEDS ORDERED: RISPERIDONE 2 MG PO SCH (09:00)
[2017-11-30] MEDS ORDERED: Non-Formulary Item 1 EACH (Multivitamin [Daily Multiple Vitamin] 1 EACH) PO SCH (09:00)
[2017-11-30] MEDS ORDERED: Non-Formulary Item 1 EACH (Budesonide-Formoterol [Symbicort 80-4.5] 2 PUFF) INH SCH (09:00)
[2017-11-30] MEDS ORDERED: Non-Formulary Item 1 EACH (Buspirone Hcl [Buspirone Hcl] 30 MG) PO SCH (09:00)
[2017-11-30] MEDS ORDERED: Folic Acid 1 MG TAB PO SCH (09:00)
[2017-11-30] MEDS: Folic Acid 1 MG TAB PO SCH (09:10)
[2017-11-30] MEDS: Gabapentin 300 MG CAP PO SCH ×2 (09:11→20:38)
[2017-11-30] MEDS: Ferrous Sulfate 325 MG TAB PO SCH ×2 (09:13→19:53)
--- NOTE | 2017-11-30 10:50 | HP ---
DATE OF ADMISSION: 11/30/2017 PRIMARY CARE PHYSICIAN: Dr. Sara Jarvis at [facility]. REASON FOR ADMISSION: Severe anemia. HISTORY OF PRESENT ILLNESS: A 67-year-old male who lives at [facility] where he was found with low hemoglobin and the patient was feeling weak and tired and very short of breath with exertion and that is why patient was sent to ER for further evaluation. Patient denies any active bleeding at this point, but hemoglobin is 6.9. GI doctor, Dr. Payton already saw this patient and he is not thinking that this patient has any ongoing active bleeding and he recommended transfusion support and he was not thinking that patient will benefit from any procedure at this point. The patient denies any chest pain and palpitation at this point. He denies any shortness of breath. He denies any fever or chills. He denies any UTI symptoms. He denies any constipation, diarrhea, melena or hematochezia. He does have colostomy bag and colostomy bag containing brownish normal stool. REVIEW OF SYSTEMS: The following complete review of systems was negative, unless otherwise mentioned in the HPI or below: Constitutional: Weight loss or gain, ability to conduct usual activities. Skin: Rash, itching. Eyes: Double vision, pain. ENT/Mouth: Nose bleeding, neck stiffness, pain, tenderness. Cardiovascular: Palpitations, dyspnea on exertion, orthopnea. Respiratory: Shortness of breath, wheezing, cough, hemoptysis, fever or night sweats. Gastrointestinal: Poor appetite, abdominal pain, heartburn, nausea, vomiting, constipation, or diarrhea. Genitourinary: Urgency, frequency, dysuria, nocturia. Musculoskeletal: Pain, swelling. Neurologic/Psychiatric: Anxiety, depression. Allergy/Immunologic: Skin rash, bleeding tendency. Please see my HPI for pertinent positive and negative. All other review of systems reviewed and negative except as mentioned in the HPI. ALLERGIES: ZOCOR. CURRENT HOME MEDICATIONS: Tylenol No. 3 one to two tablets q.6 hourly p.r.n., Symbicort 2 puff inhalation b.i.d., buspirone 30 mg p.o. b.i.d., vitamin B12 1000 mcg p.o. daily, Cardizem-CD 120 mg p.o. daily, Depakote 1500 mg p.o. at bedtime, ferrous sulfate 325 mg p.o. b.i.d., folic acid 2 mg p.o. daily, gabapentin 300 mg p.o. b.i.d., DuoNeb q.6 hourly p.r.n., Milk of magnesia 30 mL p.o. daily, multivitamin 1 tablet p.o. daily, Protonix 40 mg p.o. daily, risperidone 2 mg p.o. b.i.d., tramadol 50 mg b.i.d. p.r.n. PAST MEDICAL HISTORY: Sick sinus syndrome, required pacemaker; history of community acquired pneumonia last year in May; oropharyngeal dysphagia on modified diet with mechanical soft diet with nectar thick liquid; COPD; hypertension; dementia; chronic atrial fibrillation; chronic respiratory failure on oxygen; history of lung cancer treated with radiation; history of ischemic colitis; chronic anemia; dyslipidemia; gastroesophageal reflux disease. PAST SURGICAL HISTORY: Pacemaker placement, colostomy, back surgery, ureteral stent placement. FAMILY HISTORY: Positive for Parkinson's disease. SOCIAL HISTORY: Patient lives at [facility]. No history of tobacco , alcohol or illicit drug abuse. PAST PSYCHIATRIC HISTORY: Bipolar disorder and dementia. EMERGENCY ROOM COURSE: Patient has received Protonix bolus and then Protonix drip was started. PHYSICAL EXAMINATION: VITAL SIGNS: On arrival, blood pressure 112/67, pulse 97, respiratory rate 16, temperature 98.4, saturation 97% on room air, weight 89.8 kilograms. GENERAL: Patient is currently alert, awake, no obvious acute distress. HEAD: Normocephalic, atraumatic. EYES: Pupils round, reactive to light. Conjunctivae pale. ENT: Oropharynx within normal limit. Pale mucous membranes. NECK: Supple, no JVD, no thyromegaly, no carotid bruit. LUNGS: Clear to auscultation, though air entry reduced both at the bases. No wheeze, no rhonchi, no accessory muscles of respiration in use. CARDIAC: S1, S2 appears regular. No murmur, no gallop, no rub. ABDOMEN: Soft, bowel sounds present, nontender, nondistended. No organomegaly , no mass, no suprapubic tenderness. Colostomy bag in place. BACK: Examination unremarkable, no CVA tenderness. EXTREMITIES: Upper extremity passive movements of all joints are normal. Lower extremities: Chronic bilateral +1 to 2 pitting edema noted. Good distal pulsation, no calf tenderness. SKIN: No skin rashes. MUSCULOSKELETAL: Mild contusion noted at left upper arm. NEUROLOGIC: Grossly nonfocal examination. IMAGING DATA AND SIGNIFICANT LABORATORY DATA: EKG showing first degree AV block , complete right bundle branch block, left axis deviation, nonspecific ST-T changes. CBC: WBC 13.0, hemoglobin 6.9, MCV 105, platelet of 213 with bandemia. INR 1.3. BMP: Sodium 136, potassium 3.9, chloride 98, carbon dioxide 31, anion gap 11, BUN 10, creatinine 0.67, glucose 98, calcium 8.4, bilirubin less than 0.2. AST 24, ALT 23, alkaline phosphatase 76, albumin 2.7. Urinalysis normal. ASSESSMENT AND PLAN/IMPRESSION: 1. Symptomatic anemia. The patient has type and cross done 2 units. We will transfuse 2 units of PRBCs and we will repeat CBC tomorrow. 2. Gastroenterology already consulted and saw this patient and no plan for any procedure at this admission. 3. Macrocytosis. We will continue folic acid and vitamin B12 therapy. 4. Bandemia. We will check chest x-ray to rule out any associated pneumonia, though less likely. We will repeat CBC tomorrow. 5. Anxiety and depression. Continue buspirone 30 mg p.o. b.i.d., risperidone 2 mg p.o. b.i.d. 6. Gastroesophageal reflux disease. Continue Protonix 40 mg p.o. daily after drip. 7. Paroxysmal atrial fibrillation. Continue Cardizem CD 120 mg p.o. daily. Patient is not a good candidate for long-term anticoagulation therapy because of fall risk and bleeding. 8. Peripheral neuropathy. Continue gabapentin 300 mg p.o. twice daily. 9. COPD/asthma. Continue DuoNeb therapy q.6 hourly and Symbicort 2 puff inhalation b.i.d. 10. Deep venous thrombosis prophylaxis. No Lovenox because of severe anemia. 11. Gastrointestinal prophylaxis, Protonix 40 mg p.o. daily after Protonix drip. 12. Code status. This patient has out of hospital DNR paperwork done during previous admission and patient wants to continue DNR order while in hospital as well. HOSPITAL COURSE: Disposition plan based on clinical course. We are expecting patient's stay in hospital more than 2 midnights. Plan of care discussed with the patient in detail. MTDD
[2017-11-30] MEDS: busPIRone HCl 10 MG TAB PO SCH ×2 (10:56→20:38)
[2017-11-30] MEDS: risperiDONE 1 MG TAB PO SCH ×2 (10:56→21:01)
[2017-11-30] MEDS: HYDROcodone/Acetaminophen 5/325 mg Tablet PO PRN (13:13)
--- NOTE | 2017-11-30 13:15 | RAD ---
FRONTAL RADIOGRAPH CHEST PORTABLE UPRIGHT: DATE: 11/30/17. COMPARISON: 11/18/17. HISTORY: Bandemia, abnormal white blood cell count. FINDINGS: There is a mass in the left upper lobe measuring 3.5 cm with adjacent AP density. This mass was bett er assessed on chest CT 10/12/17. There is a dual-lead transvenous pacing device inserted via left villareal bclavian approach. The right lung is clear. There is patchy opacity in the left lung base extending into the left costophrenic angle which could represent infiltrate or volume loss. IMPRESSION: 1. Left upper lobe mass worrisome for malignancy. 2. Patchy pulmonary parenchymal opacity in the left base, improved since 11/18/17. This may signify r esidual infectious pneumonitis within the left lung base. Followup to full resolution advised. POS: SUGAR
[2017-11-30] MEDS: Mometasone/Formoterol 120 PUFF INHALER INH SCH (18:57)
[2017-11-30] MEDS: Divalproex Sodium DR 500 MG TAB PO SCH (20:39)
[2017-12-01 05:47] LABS: Anion Gap 11 mmol/L (10-20); BUN (Urea Nitrogen) 7 mg/dL (8.4-25.7); Calc. Creatinine Clearance 152 mL/min (70-130); Calcium 9.1 mg/dL (7.8-10.44); Carbon Dioxide 31 mmol/L (23-31); Chloride 102 mmol/L (98-107); Estimated GFR-MDRD Greater than 90; Glucose 96 mg/dL (80-115); Potassium 3.7 mmol/L (3.5-5.1); Sodium 140 mmol/L (136-145)
[2017-12-01 06:37] LABS: Band 4 % (5-11); Eosinophils 2 % (0-10); Lymphocytes 14 % (21-51); MDiff Complete? YES; Macrocytosis SLIGHT = 6-15 cells (100X) (0-5/hpf); Mean Corpuscular HGB CONC 31.8 g/dL (32.0-36.0); Mean Corpuscular Hemoglobin 31.9 pg (27.0-31.0); Mean Platelet Volume 6.8 fL (7.4-10.4); Monocytes 22 % (0-10); Myelocyte 4 % (0-0); Neutrophil 54 % (42-75); Platelet Count 190 thou/uL (130-400); RBC Distribution Width 17.8 % (11.5-14.5); Red Blood Cell (RBC) Count 2.83 mill/uL (4.70-6.10); White Blood Cell (WBC) Count 7.6 thou/uL (4.8-10.8)
[2017-12-01] MEDS ORDERED: cefTRIAXone\\ROCEPHIN 1 GM in Sodium Chloride 0.9% 100 ML IVPB SCH (06:45)
[2017-12-01] MEDS: Folic Acid 1 MG TAB PO SCH (07:53)
[2017-12-01] MEDS: busPIRone HCl 10 MG TAB PO SCH ×2 (07:53→20:53)
[2017-12-01] MEDS: Multivit, Therapeutic 1 TAB PO SCH (07:53)
[2017-12-01] MEDS: Cyanocobalamin (Vitamin B-12) 1,000 MCG TAB PO SCH (07:54)
[2017-12-01] MEDS: Gabapentin 300 MG CAP PO SCH ×2 (07:54→20:51)
[2017-12-01] MEDS: Ferrous Sulfate 325 MG TAB PO SCH ×2 (07:54→18:42)
[2017-12-01] MEDS: risperiDONE 1 MG TAB PO SCH ×2 (07:54→20:50)
[2017-12-01] MEDS: cefTRIAXone\\ROCEPHIN 1 GM, Syringe 0.4 ML in Sterile Water 9.6 ML SLOW IVP SCH (09:22)
[2017-12-01] MEDS: Mometasone/Formoterol 120 PUFF INHALER INH SCH ×2 (09:31→19:41)
--- NOTE | 2017-12-01 11:39 | PDOC.PN ---
- Subjective Encounter Start Date: 12/01/17 Encounter Start Time: 07:00 -: old records requested/rev Patient seen and examined. No new complaints. No overnight events with therapy, he become tachycardic, but after that he became baseline EKG was done - Objective Resuscitation Status: Resuscitation Status DNR:Do Not Resuscitate MAR Reviewed: Yes Vital Signs & Weight: Vital Signs (12 hours) Temp Pulse Pulse Pulse Pulse Resp BP 12/01/17 09:31 116 H 18 12/01/17 09:30 12/01/17 09:29 116 H 18 12/01/17 09:21 113 H 132 H 115 H 12/01/17 09:20 118 H 12/01/17 09:10 12/01/17 09:03 130 H 12/01/17 08:01 98.5 F 108 H 20 12/01/17 07:54 104 H 108/69 12/01/17 07:50 98.5 F 104 H 20 12/01/17 04:00 97.2 F L 92 20 12/01/17 00:00 97.6 F 96 20 BP BP Pulse Ox Pulse Ox Pulse Ox Pulse Ox 12/01/17 09:31 12/01/17 09:30 95 12/01/17 09:29 12/01/17 09:21 91/55 L 94 L 92 L 116 H 12/01/17 09:20 93 L 12/01/17 09:10 116/62 93 L 12/01/17 09:03 91/55 L 92 L 12/01/17 08:01 93 L 12/01/17 07:54 12/01/17 07:50 108/69 93 L 12/01/17 04:00 128/63 93 L 12/01/17 00:00 128/63 92 L Weight Weight 208 lb 12.8 oz I&O: 11/30/17 12/01/17 12/02/17 06:59 06:59 06:59 Intake Total 600 1250 Output Total 250 Balance 350 1250 Result Diagrams: 12/01/17 04:47 12/01/17 04:47 Radiology Reviewed by me: Yes (chest xray) Phys Exam - Physical Examination Constitutional: NAD HEENT: PERRLA, moist MMs, sclera anicteric Neck: no JVD, supple Respiratory: no wheezing, no rhonchi left base rales Cardiovascular: RRR, no significant murmur, no rub Gastrointestinal: soft, non-tender, no distention, positive bowel sounds Musculoskeletal: no edema, pulses present Neurological: non-focal, normal sensation Lymphatic: no nodes Psychiatric: normal affect Skin: no rash, normal turgor Dx/Plan (1) Left lower lobe pneumonia Code(s): J18.1 - LOBAR PNEUMONIA, UNSPECIFIED ORGANISM Status: Acute Qualifiers: Pneumonia type: aspiration pneumonia (2) Symptomatic anemia Code(s): D64.9 - ANEMIA, UNSPECIFIED Status: Acute Comment: 2 unit PRBC given (3) UTI (urinary tract infection) Status: Acute Comment: GNR (4) BPH (benign prostatic hyperplasia) Code(s): N40.0 - BENIGN PROSTATIC HYPERPLASIA WITHOUT LOWER URINRY TRACT SYMP Status: Chronic Qualifiers: (5) Bipolar disorder Code(s): F31.9 - BIPOLAR DISORDER, UNSPECIFIED Status: Chronic Qualifiers: (6) Colostomy in place Code(s): Z93.3 - COLOSTOMY STATUS Status: Chronic (7) DJD (degenerative joint disease) of cervical spine Code(s): M47.812 - SPONDYLOSIS W/O MYELOPATHY OR RADICULOPATHY, CERVICAL REGION Status: Chronic (8) GERD (gastroesophageal reflux disease) Code(s): K21.9 - GASTRO-ESOPHAGEAL REFLUX DISEASE WITHOUT ESOPHAGITIS Status: Chronic (9) H/O sick sinus syndrome Code(s): Z86.79 - PERSONAL HISTORY OF OTHER DISEASES OF THE CIRCULATORY SYSTEM Status: Chronic Comment: has pacemaker (10) HLD (hyperlipidemia) Code(s): E78.5 - HYPERLIPIDEMIA, UNSPECIFIED Status: Chronic Qualifiers: (11) HTN (hypertension) Code(s): I10 - ESSENTIAL (PRIMARY) HYPERTENSION Status: Chronic Qualifiers: (12) Lung cancer, primary, with metastasis from lung to other site Code(s): C34.90 - MALIGNANT NEOPLASM OF UNSP PART OF UNSP BRONCHUS OR LUNG Status: Chronic Qualifiers: Comment: (13) Macrocytic anemia Code(s): D53.9 - NUTRITIONAL ANEMIA, UNSPECIFIED Status: Chronic (14) Mass of upper lobe of left lung Code(s): R91.8 - OTHER NONSPECIFIC ABNORMAL FINDING OF LUNG FIELD Status: Chronic (15) Paroxysmal atrial fibrillation Code(s): I48.0 - PAROXYSMAL ATRIAL FIBRILLATION Status: Chronic Comment: Tachycardic. Diltiazem dose increased. Not on Pradaxa 2/2 recent GI bleed. - Plan cont current plan of care, continue antibiotics, PT/OT, outreach and education social worker, speech therapy * consult speech therapy * start rocephin and levaquin * follow culture * H & H stable * medication reviewed as below * symptomatic treatment. Review of Systems - Review of Systems Constitutional: negative: fever, chills, sweats, weakness, malaise, other ENT: negative: Ear Pain, Ear Discharge, Nose Pain, Nose Discharge, Nose Congestion, Mouth Pain, Mouth Swelling, Throat Pain, Throat Swelling, Other Respiratory: negative: Cough, Dry, Shortness of Breath, Hemoptysis, SOB with Excertion, Pleuritic Pain, Sputum, Wheezing Cardiovascular: negative: chest pain, palpitations, orthopnea, paroxysmal nocturnal dyspnea, edema, light headedness, other Gastrointestinal: negative: Nausea, Vomiting, Abdominal Pain, Diarrhea, Constipation, Melena, Hematochezia, Other Genitourinary: negative: Dysuria, Frequency, Incontinence, Hematuria, Retention , Other Musculoskeletal: negative: Neck Pain, Shoulder Pain, Arm Pain, Back Pain, Hand Pain, Leg Pain, Foot Pain, Other Skin: negative: Rash, Lesions, Anup, Bruising, Other - Medications/Allergies Allergies/Adverse Reactions: Allergies Allergy/AdvReac Type Severity Reaction Status Date / Time simvastatin Allergy Verified 11/30/17 06:21 Medications: Current Medications Acetaminophen (Tylenol) 650 mg PO Q4H PRN PRN Reason: Headache/Fever or Pain Last Admin: 11/30/17 10:55 Dose: 650 mg Acetaminophen/Codeine Phosphate (Tylenol #3) 1 tab PO Q6H PRN PRN Reason: Pain Hydrocodone Bitart/Acetaminophen ([place] 5/325) 1 tab PO Q4H PRN PRN Reason: Moderate Pain (4-6) Al Hydroxide/Mg Hydroxide (Maalox) 30 ml PO Q6H PRN PRN Reason: Heartburn or Indigestion Albuterol/Ipratropium (Duoneb) 3 ml NEB Q6H PRN PRN Reason: SOB &/or Wheezing Last Admin: 12/01/17 09:29 Dose: 3 ml Artificial Tears (Tears Naturale) 0 drop EA EYE PRN PRN PRN Reason: Dry Eyes Buspirone HCl (Buspar) 30 mg PO BID [facility] Last Admin: 12/01/17 07:53 Dose: 30 mg Cyanocobalamin (Vitamin B-12) 1,000 mcg PO DAILY [facility] Last Admin: 12/01/17 07:54 Dose: 1,000 mcg Diltiazem HCl (Cardizem Cd) 120 mg PO DAILY [facility] Last Admin: 12/01/17 07:54 Dose: 120 mg Divalproex Sodium (Depakote) 1,500 mg PO HS [facility] Last Admin: 11/30/17 20:39 Dose: 1,500 mg Ferrous Sulfate (Feosol) 325 mg PO BID-WM [facility] Last Admin: 12/01/17 07:54 Dose: 325 mg Folic Acid (Folvite) 2 mg PO DAILY [facility] Last Admin: 12/01/17 07:53 Dose: 2 mg Gabapentin (Neurontin) 300 mg PO BID [facility] Last Admin: 12/01/17 07:54 Dose: 300 mg Guaifenesin (Robitussin Sf) 200 mg PO Q4H PRN PRN Reason: Cough Last Admin: 11/30/17 13:13 Dose: 200 mg Hydralazine HCl (Apresoline) 10 mg SLOW IVP Q4H PRN PRN Reason: Systolic BP > 180 Levofloxacin 500 mg/ Device 100 mls @ 100 mls/hr IVPB 0700 [facility] Last Admin: 12/01/17 07:52 Dose: 100 mls Ceftriaxone Sodium 1 gm/ (Syringe 0.4 ml/ Sterile Water) 10 mls @ 120 mls/hr SLOW IVP 0900 [facility] Last Admin: 12/01/17 09:22 Dose: 10 mls Loperamide HCl (Imodium) 2 mg PO PRN PRN PRN Reason: Diarrhea/Loose Stools Loratadine (Claritin) 10 mg PO DAILYPRN PRN PRN Reason: Sinus Symptoms Magnesium Hydroxide (Milk Of Magnesium) 30 ml PO DAILYPRN PRN PRN Reason: Constipation Mineral Oil/White Petrolatum (Eucerin Cream) 0 gm TOP BIDPRN PRN PRN Reason: Dry Skin Mometasone Furoate/Formoterol Fumar (Dulera 100 Mcg/5 Mcg Inhaler) 2 puff INH BID-RT [facility] Last Admin: 12/01/17 09:31 Dose: 2 puff Multivitamins (Theragran) 1 tab PO DAILY [facility] Last Admin: 12/01/17 07:53 Dose: 1 tab Ondansetron HCl (Zofran Odt) 4 mg PO Q6H PRN PRN Reason: Nausea/Vomiting Ondansetron HCl (Zofran) 4 mg IVP Q6H PRN PRN Reason: Nausea/Vomiting Pantoprazole Sodium (Protonix) 40 mg PO DAILY [facility] Last Admin: 12/01/17 07:54 Dose: 40 mg Phenol (Chloraseptic [place] 180 Ml Bot) 0 ml PO PRN PRN PRN Reason: Sore Throat Risperidone (Risperidone) 2 mg PO BID [facility] Last Admin: 12/01/17 07:54 Dose: 2 mg Senna (Senokot) 2 tab PO HSPRN PRN PRN Reason: Constipation Sodium Chloride ([place] Nasal [place] 0.65%) 0 ml EA NARE QIDPRN PRN PRN Reason: Nasal Congestion Sodium Chloride (Flush - Normal Saline) 10 ml IVF Q12HR [facility] Last Admin: 12/01/17 09:22 Dose: 10 ml Sodium Chloride (Flush - Normal Saline) 10 ml IVF PRN PRN PRN Reason: Saline Flush Tramadol HCl (Ultram) 50 mg PO BID PRN PRN Reason: Pain Last Admin: 11/30/17 08:05 Dose: 50 mg Zolpidem Tartrate (Ambien) 5 mg PO HSPRN PRN PRN Reason: Insomnia
[2017-12-01] MEDS: Divalproex Sodium DR 500 MG TAB PO SCH (20:52)
[2017-12-02] MEDS: Mometasone/Formoterol 120 PUFF INHALER INH SCH ×2 (08:32→19:11)
[2017-12-02] MEDS: Folic Acid 1 MG TAB PO SCH (08:37)
[2017-12-02] MEDS: Gabapentin 300 MG CAP PO SCH ×2 (08:38→21:10)
[2017-12-02] MEDS: Cyanocobalamin (Vitamin B-12) 1,000 MCG TAB PO SCH (08:38)
[2017-12-02] MEDS: Multivit, Therapeutic 1 TAB PO SCH (08:38)
[2017-12-02] MEDS: Ferrous Sulfate 325 MG TAB PO SCH ×2 (08:38→17:14)
[2017-12-02] MEDS: risperiDONE 1 MG TAB PO SCH ×2 (09:05→21:10)
[2017-12-02] MEDS: busPIRone HCl 10 MG TAB PO SCH ×2 (09:05→21:10)
[2017-12-02] MEDS: cefTRIAXone\\ROCEPHIN 1 GM, Syringe 0.4 ML in Sterile Water 9.6 ML SLOW IVP SCH (09:20)
--- NOTE | 2017-12-02 14:24 | EKG ---
Test Reason : Blood Pressure : / mmHG Vent. Rate : 092 BPM Atrial Rate : 092 BPM P-R Int : 214 ms QRS Dur : 118 ms QT Int : 380 ms P-R-T Axes : 099 -57 007 degrees QTc Int : 469 ms Sinus rhythm with 1st degree A-V block Left axis deviation Pulmonary disease pattern Right bundle branch block Inferior infarct , age undetermined Abnormal ECG Confirmed by CROW Lopez, ORTIZ ([id number]), commissioning editor TRIPP LUJAN ([id number] on 12/02/2017 2:22:04 PM Referred By: Confirmed By:ORTIZ MARIA M.D.
--- NOTE | 2017-12-02 14:30 | PDOC.PN ---
- Subjective Encounter Start Date: 12/02/17 Encounter Start Time: 09:00 Patient seen and examined. No new complaints. No overnight events. Dark stools per RN - Objective Resuscitation Status: Resuscitation Status DNR:Do Not Resuscitate MAR Reviewed: Yes Vital Signs & Weight: Vital Signs (12 hours) Temp Pulse Resp BP Pulse Ox 12/02/17 11:47 97.9 F 88 28 H 105/60 99 12/02/17 08:39 95 12/02/17 08:38 108 H 12/02/17 08:32 101 H 20 95 12/02/17 08:00 98.1 F 108 H 20 107/67 97 Weight Weight 208 lb 12.8 oz I&O: 12/01/17 12/02/17 12/03/17 06:59 06:59 06:59 Intake Total 1250 730 Output Total 250 Balance 1250 480 Result Diagrams: 12/01/17 04:47 12/01/17 04:47 Radiology Reviewed by me: Yes (Infiltrate +) Phys Exam - Physical Examination Constitutional: NAD Respiratory: no wheezing, no rhonchi Scat rales at bases Cardiovascular: RRR, no rub Gastrointestinal: soft, non-tender, positive bowel sounds Colostomy + Musculoskeletal: no edema Dx/Plan - Plan DVT proph w/SCDs IMPRESSION: 1. Severe Anemia (Acute on chronic) s/p 2 units PRBC 2. Pneumonia ?aspiration 3. h/o Lung Ca with mets 4. HTN/ HLD/ Par Afib / Swallow dys / Moderate PEM PLAN: * Change Atbx to PO due to lack of IV access (Augmentin with Levaquin) * Await PHARMACY INFORMATICS MANAGER * Cont current meds as below * AM labs * Cont to monitor * GI input appreciated Review of Systems - Review of Systems Respiratory: negative: Cough, Dry, Shortness of Breath, Hemoptysis, SOB with Excertion, Pleuritic Pain, Sputum, Wheezing Cardiovascular: negative: chest pain, palpitations, orthopnea, paroxysmal nocturnal dyspnea, edema, light headedness - Medications/Allergies Allergies/Adverse Reactions: Allergies Allergy/AdvReac Type Severity Reaction Status Date / Time simvastatin Allergy Verified 11/30/17 06:21 Medications: Current Medications Acetaminophen (Tylenol) 650 mg PO Q4H PRN PRN Reason: Headache/Fever or Pain Last Admin: 11/30/17 10:55 Dose: 650 mg Acetaminophen/Codeine Phosphate (Tylenol #3) 1 tab PO Q6H PRN PRN Reason: Pain Hydrocodone Bitart/Acetaminophen ([place] 5/325) 1 tab PO Q4H PRN PRN Reason: Moderate Pain (4-6) Al Hydroxide/Mg Hydroxide (Maalox) 30 ml PO Q6H PRN PRN Reason: Heartburn or Indigestion Albuterol/Ipratropium (Duoneb) 3 ml NEB Q6H PRN PRN Reason: SOB &/or Wheezing Last Admin: 12/01/17 19:41 Dose: 3 ml Amoxicillin/Clavulanate Potassium (Augmentin 600mg/5ml Oral Susp) 600 mg PO TID [facility] Artificial Tears (Tears Naturale) 0 drop EA EYE PRN PRN PRN Reason: Dry Eyes Buspirone HCl (Buspar) 30 mg PO BID [facility] Last Admin: 12/02/17 09:05 Dose: 30 mg Cyanocobalamin (Vitamin B-12) 1,000 mcg PO DAILY [facility] Last Admin: 12/02/17 08:38 Dose: 1,000 mcg Diltiazem HCl (Cardizem Cd) 120 mg PO DAILY [facility] Last Admin: 12/02/17 08:38 Dose: 120 mg Divalproex Sodium (Depakote) 1,500 mg PO HS [facility] Last Admin: 12/01/17 20:52 Dose: 1,500 mg Ferrous Sulfate (Feosol) 325 mg PO BID-[facility] Last Admin: 12/02/17 08:38 Dose: 325 mg Folic Acid (Folvite) 2 mg PO DAILY [facility] Last Admin: 12/02/17 08:37 Dose: 2 mg Gabapentin (Neurontin) 300 mg PO BID [facility] Last Admin: 12/02/17 08:38 Dose: 300 mg Guaifenesin (Robitussin Sf) 200 mg PO Q4H PRN PRN Reason: Cough Last Admin: 11/30/17 13:13 Dose: 200 mg Hydralazine HCl (Apresoline) 10 mg SLOW IVP Q4H PRN PRN Reason: Systolic BP > 180 Levofloxacin (Levaquin) 500 mg PO 0600 [facility] Loperamide HCl (Imodium) 2 mg PO PRN PRN PRN Reason: Diarrhea/Loose Stools Loratadine (Claritin) 10 mg PO DAILYPRN PRN PRN Reason: Sinus Symptoms Magnesium Hydroxide (Milk Of Magnesium) 30 ml PO DAILYPRN PRN PRN Reason: Constipation Mineral Oil/White Petrolatum (Eucerin Cream) 0 gm TOP BIDPRN PRN PRN Reason: Dry Skin Mometasone Furoate/Formoterol Fumar (Dulera 100 Mcg/5 Mcg Inhaler) 2 puff INH BID-RT [facility] Last Admin: 12/02/17 08:32 Dose: 2 puff Multivitamins (Theragran) 1 tab PO DAILY [facility] Last Admin: 12/02/17 08:38 Dose: 1 tab Ondansetron HCl (Zofran Odt) 4 mg PO Q6H PRN PRN Reason: Nausea/Vomiting Ondansetron HCl (Zofran) 4 mg IVP Q6H PRN PRN Reason: Nausea/Vomiting Pantoprazole Sodium (Protonix) 40 mg PO DAILY [facility] Last Admin: 12/02/17 08:38 Dose: 40 mg Phenol (Chloraseptic [place] 180 Ml Bot) 0 ml PO PRN PRN PRN Reason: Sore Throat Risperidone (Risperidone) 2 mg PO BID [facility] Last Admin: 12/02/17 09:05 Dose: 2 mg Senna (Senokot) 2 tab PO HSPRN PRN PRN Reason: Constipation Sodium Chloride ([place] Nasal [place] 0.65%) 0 ml EA NARE QIDPRN PRN PRN Reason: Nasal Congestion Sodium Chloride (Flush - Normal Saline) 10 ml IVF Q12HR [facility] Last Admin: 12/02/17 09:05 Dose: 10 ml Sodium Chloride (Flush - Normal Saline) 10 ml IVF PRN PRN PRN Reason: Saline Flush Tramadol HCl (Ultram) 50 mg PO BID PRN PRN Reason: Pain Last Admin: 11/30/17 08:05 Dose: 50 mg Zolpidem Tartrate (Ambien) 5 mg PO HSPRN PRN PRN Reason: Insomnia
[2017-12-02] MEDS: Amoxicillin/Potassium Clav 600 mg/5 ml Oral Suspension PO SCH ×2 (16:46→21:10)
[2017-12-02] MEDS: traMADol HCl 50 MG TAB PO PRN (18:00)
[2017-12-02] MEDS: Divalproex Sodium DR 500 MG TAB PO SCH (21:10)
[2017-12-02] MEDS ORDERED: Sodium Chloride 0.9% 10 ML ONE (22:23)
[2017-12-03] MEDS: traMADol HCl 50 MG TAB PO PRN (04:54)
[2017-12-03] MEDS: Mometasone/Formoterol 120 PUFF INHALER INH SCH ×2 (08:21→19:33)
[2017-12-03] MEDS: Multivit, Therapeutic 1 TAB PO SCH (09:25)
[2017-12-03] MEDS: Folic Acid 1 MG TAB PO SCH (09:25)
[2017-12-03] MEDS: Amoxicillin/Potassium Clav 600 mg/5 ml Oral Suspension PO SCH ×3 (09:25→20:26)
[2017-12-03] MEDS: Gabapentin 300 MG CAP PO SCH ×2 (09:25→20:28)
[2017-12-03] MEDS: busPIRone HCl 10 MG TAB PO SCH ×2 (09:29→20:27)
[2017-12-03] MEDS: Cyanocobalamin (Vitamin B-12) 1,000 MCG TAB PO SCH (09:30)
[2017-12-03] MEDS: Ferrous Sulfate 325 MG TAB PO SCH ×2 (09:30→16:39)
[2017-12-03] MEDS: risperiDONE 1 MG TAB PO SCH ×2 (09:30→20:29)
[2017-12-03] MEDS: Acetaminophen/Codeine 30-300mg Tablet PO PRN (09:37)
[2017-12-03] MEDS: Divalproex Sodium DR 500 MG TAB PO SCH (20:28)
--- NOTE | 2017-12-03 21:41 | PDOC.PN ---
- Subjective Encounter Start Date: 12/03/17 Encounter Start Time: 09:30 Patient seen and examined. No new complaints. No overnight events - Objective Resuscitation Status: Resuscitation Status DNR:Do Not Resuscitate MAR Reviewed: Yes Vital Signs & Weight: Vital Signs (12 hours) Pulse Ox 12/03/17 19:35 95 12/03/17 19:34 95 12/03/17 19:33 95 Weight Weight 208 lb 12.8 oz I&O: 12/02/17 12/03/17 12/04/17 06:59 06:59 06:59 Intake Total 730 1450 840 Output Total 250 50 Balance 480 1450 790 Result Diagrams: 12/01/17 04:47 12/01/17 04:47 Phys Exam - Physical Examination Constitutional: NAD Respiratory: no wheezing, no rhonchi Scat rales at bases Cardiovascular: RRR, no rub Gastrointestinal: soft, non-tender, positive bowel sounds Neurological: moves all 4 limbs Dx/Plan - Plan DVT proph w/SCDs IMPRESSION: 1. Severe Anemia (Acute on chronic) s/p 2 units PRBC 2. Pneumonia ?aspiration - on Atbx 3. h/o Lung Ca with mets 4. HTN/ HLD/ Par Afib / Swallow dys on modified diet / Moderate PEM PLAN: * Cont Augmentin with Levaquin * Cont current meds as below * AM labs * Cont to monitor * DC to [facility] with Palliative care/Hospice when arranged. Review of Systems - Review of Systems Respiratory: negative: Cough, Dry, Shortness of Breath, Hemoptysis, SOB with Excertion, Pleuritic Pain, Sputum, Wheezing Cardiovascular: negative: chest pain, palpitations, orthopnea, paroxysmal nocturnal dyspnea, edema, light headedness - Medications/Allergies Allergies/Adverse Reactions: Allergies Allergy/AdvReac Type Severity Reaction Status Date / Time simvastatin Allergy Verified 11/30/17 06:21 Medications: Current Medications Acetaminophen (Tylenol) 650 mg PO Q4H PRN PRN Reason: Headache/Fever or Pain Last Admin: 11/30/17 10:55 Dose: 650 mg Acetaminophen/Codeine Phosphate (Tylenol #3) 1 tab PO Q6H PRN PRN Reason: Pain Last Admin: 12/03/17 09:37 Dose: 1 tab Hydrocodone Bitart/Acetaminophen ([place] 5/325) 1 tab PO Q4H PRN PRN Reason: Moderate Pain (4-6) Al Hydroxide/Mg Hydroxide (Maalox) 30 ml PO Q6H PRN PRN Reason: Heartburn or Indigestion Albuterol/Ipratropium (Duoneb) 3 ml NEB Q6H PRN PRN Reason: SOB &/or Wheezing Last Admin: 12/03/17 19:34 Dose: 3 ml Amoxicillin/Clavulanate Potassium (Augmentin 600mg/5ml Oral Susp) 600 mg PO TID [facility] Last Admin: 12/03/17 20:26 Dose: 600 mg Artificial Tears (Tears Naturale) 0 drop EA EYE PRN PRN PRN Reason: Dry Eyes Buspirone HCl (Buspar) 30 mg PO BID [facility] Last Admin: 12/03/17 20:27 Dose: 30 mg Cyanocobalamin (Vitamin B-12) 1,000 mcg PO DAILY [facility] Last Admin: 12/03/17 09:30 Dose: 1,000 mcg Diltiazem HCl (Cardizem Cd) 120 mg PO DAILY [facility] Last Admin: 12/03/17 09:29 Dose: Not Given Divalproex Sodium (Depakote) 1,500 mg PO [facility] Last Admin: 12/03/17 20:28 Dose: 1,500 mg Ferrous Sulfate (Feosol) 325 mg PO BID-[facility] Last Admin: 12/03/17 16:39 Dose: 325 mg Folic Acid (Folvite) 2 mg PO DAILY [facility] Last Admin: 12/03/17 09:25 Dose: 2 mg Gabapentin (Neurontin) 300 mg PO BID [facility] Last Admin: 12/03/17 20:28 Dose: 300 mg Guaifenesin (Robitussin Sf) 200 mg PO Q4H PRN PRN Reason: Cough Last Admin: 11/30/17 13:13 Dose: 200 mg Hydralazine HCl (Apresoline) 10 mg SLOW IVP Q4H PRN PRN Reason: Systolic BP > 180 Levofloxacin (Levaquin) 500 mg PO 0600 [facility] Last Admin: 12/03/17 04:54 Dose: 500 mg Loperamide HCl (Imodium) 2 mg PO PRN PRN PRN Reason: Diarrhea/Loose Stools Loratadine (Claritin) 10 mg PO DAILYPRN PRN PRN Reason: Sinus Symptoms Magnesium Hydroxide (Milk Of Magnesium) 30 ml PO DAILYPRN PRN PRN Reason: Constipation Mineral Oil/White Petrolatum (Eucerin Cream) 0 gm TOP BIDPRN PRN PRN Reason: Dry Skin Mometasone Furoate/Formoterol Fumar (Dulera 100 Mcg/5 Mcg Inhaler) 2 puff INH BID-RT [facility] Last Admin: 12/03/17 19:33 Dose: 2 puff Multivitamins (Theragran) 1 tab PO DAILY [facility] Last Admin: 12/03/17 09:25 Dose: 1 tab Ondansetron HCl (Zofran Odt) 4 mg PO Q6H PRN PRN Reason: Nausea/Vomiting Ondansetron HCl (Zofran) 4 mg IVP Q6H PRN PRN Reason: Nausea/Vomiting Pantoprazole Sodium (Protonix) 40 mg PO DAILY [facility] Last Admin: 12/03/17 09:25 Dose: 40 mg Phenol (Chloraseptic [place] 180 Ml Bot) 0 ml PO PRN PRN PRN Reason: Sore Throat Risperidone (Risperidone) 2 mg PO BID [facility] Last Admin: 12/03/17 20:29 Dose: 2 mg Senna (Senokot) 2 tab PO HSPRN PRN PRN Reason: Constipation Sodium Chloride ([place] Nasal [place] 0.65%) 0 ml EA NARE QIDPRN PRN PRN Reason: Nasal Congestion Sodium Chloride (Flush - Normal Saline) 10 ml IVF Q12HR [facility] Last Admin: 12/03/17 20:29 Dose: Not Given Sodium Chloride (Flush - Normal Saline) 10 ml IVF PRN PRN PRN Reason: Saline Flush Tramadol HCl (Ultram) 50 mg PO BID PRN PRN Reason: Pain Last Admin: 12/03/17 04:54 Dose: 50 mg Zolpidem Tartrate (Ambien) 5 mg PO HSPRN PRN PRN Reason: Insomnia
[2017-12-04 05:55] LABS: Hemoglobin 8.6 g/dL (14.0-18.0); Platelet Count 206 thou/uL (130-400)
[2017-12-04 06:07] LABS: Anion Gap 11 mmol/L (10-20); BUN (Urea Nitrogen) 11 mg/dL (8.4-25.7); Calc. Creatinine Clearance 152 mL/min (70-130); Carbon Dioxide 30 mmol/L (23-31); Chloride 99 mmol/L (98-107); Estimated GFR-MDRD Greater than 90; Glucose 93 mg/dL (80-115); Magnesium 1.9 mg/dL (1.6-2.6); Phosphorus 3.5 mg/dL (2.3-4.7); Sodium 136 mmol/L (136-145)
[2017-12-04] MEDS: Mometasone/Formoterol 120 PUFF INHALER INH SCH ×2 (07:13→18:32)
[2017-12-04] MEDS: Amoxicillin/Potassium Clav 600 mg/5 ml Oral Suspension PO SCH ×3 (08:25→21:19)
[2017-12-04] MEDS: busPIRone HCl 10 MG TAB PO SCH ×2 (08:25→21:19)
[2017-12-04] MEDS: risperiDONE 1 MG TAB PO SCH ×2 (08:25→21:18)
[2017-12-04] MEDS: Folic Acid 1 MG TAB PO SCH (08:26)
[2017-12-04] MEDS: Gabapentin 300 MG CAP PO SCH ×2 (08:26→21:18)
[2017-12-04] MEDS: Ferrous Sulfate 325 MG TAB PO SCH ×2 (08:26→16:24)
[2017-12-04] MEDS: Cyanocobalamin (Vitamin B-12) 1,000 MCG TAB PO SCH (08:26)
[2017-12-04] MEDS: Multivit, Therapeutic 1 TAB PO SCH (08:26)
[2017-12-04] MEDS: Acetaminophen/Codeine 30-300mg Tablet PO PRN (08:27)
[2017-12-04] MEDS: Diltiazem HCl SR 90 mg Capsule PO SCH ×2 (10:26→21:18)
--- NOTE | 2017-12-04 14:32 | PDOC.PN ---
- Subjective Encounter Start Date: 12/04/17 Encounter Start Time: 14:30 Subjective: no new complaints. denies any AP/N/V/D -: no acute events overnight - Objective Resuscitation Status: Resuscitation Status DNR:Do Not Resuscitate MAR Reviewed: Yes Vital Signs & Weight: Vital Signs (12 hours) Temp Pulse Resp BP BP Pulse Ox 12/04/17 12:00 97.5 F L 94 20 104/57 L 97 12/04/17 08:27 109 H 111/58 L 12/04/17 08:00 97.5 F L 109 H 18 92 L 12/04/17 07:35 97.5 F L 109 H 18 111/58 L 92 L 12/04/17 07:13 116 H 20 94 L 12/04/17 03:52 97.8 F 104 H 16 119/60 95 Weight Weight 208 lb 12.8 oz I&O: 12/03/17 12/04/17 12/05/17 06:59 06:59 06:59 Intake Total 1450 960 Output Total 200 Balance 1450 760 Result Diagrams: 12/04/17 05:30 12/04/17 05:30 Additional Labs: Microbiology 11/29/17 19:36 Urine voided Urine Culture - Final Gram Negative David 11/29/17 18:28 Stool - Pending Stool Occult Blood (JESSICA) - Final Phys Exam - Physical Examination Constitutional: NAD HEENT: PERRLA, sclera anicteric, oral pharynx no lesions dry mucosa.mouth breathing Neck: no nodes, no JVD, supple, full ROM Respiratory: no wheezing, clear to auscultation bilateral Cardiovascular: RRR, no significant murmur Gastrointestinal: soft, non-tender, no distention, positive bowel sounds ostomy in place Musculoskeletal: no edema, pulses present Neurological: moves all 4 limbs Psychiatric: normal affect Skin: no rash Dx/Plan (1) Anemia Code(s): D64.9 - ANEMIA, UNSPECIFIED Status: Acute Comment: Ac on chronic.S/ P 2 units PRBC (2) Atrial fibrillation with RVR Code(s): I48.91 - UNSPECIFIED ATRIAL FIBRILLATION Status: Acute (3) PNA (pneumonia) Code(s): J18.9 - PNEUMONIA, UNSPECIFIED ORGANISM Status: Acute Comment: on empiric ABx (4) BPH (benign prostatic hyperplasia) Code(s): N40.0 - BENIGN PROSTATIC HYPERPLASIA WITHOUT LOWER URINRY TRACT SYMP Status: Chronic Qualifiers: (5) Bipolar disorder Code(s): F31.9 - BIPOLAR DISORDER, UNSPECIFIED Status: Chronic Qualifiers: (6) Colostomy in place Code(s): Z93.3 - COLOSTOMY STATUS Status: Chronic (7) DJD (degenerative joint disease) of cervical spine Code(s): M47.812 - SPONDYLOSIS W/O MYELOPATHY OR RADICULOPATHY, CERVICAL REGION Status: Chronic (8) GERD (gastroesophageal reflux disease) Code(s): K21.9 - GASTRO-ESOPHAGEAL REFLUX DISEASE WITHOUT ESOPHAGITIS Status: Chronic (9) H/O sick sinus syndrome Code(s): Z86.79 - PERSONAL HISTORY OF OTHER DISEASES OF THE CIRCULATORY SYSTEM Status: Chronic Comment: has pacemaker (10) HLD (hyperlipidemia) Code(s): E78.5 - HYPERLIPIDEMIA, UNSPECIFIED Status: Chronic Qualifiers: (11) HTN (hypertension) Code(s): I10 - ESSENTIAL (PRIMARY) HYPERTENSION Status: Chronic Qualifiers: (12) Lung cancer, primary, with metastasis from lung to other site Code(s): C34.90 - MALIGNANT NEOPLASM OF UNSP PART OF UNSP BRONCHUS OR LUNG Status: Chronic Qualifiers: Comment: - Plan PT/OT, social welfare research worker, incentive spirometry, out of bed/ambulate, DVT proph w/ SCDs Change Cardiazem OD to SR BID as BP low & HR high -: cont empiric ABx. Follow Cx results. ? aspiration.on Modified diet -: monitor H/H.stable post transfusion.GI recs noted-no invasive testing -: awaiting placement w hospice -: am labs * . Review of Systems - Review of Systems Constitutional: weakness. negative: fever, chills, sweats, malaise, other Respiratory: negative: Cough, Dry, Shortness of Breath, Hemoptysis, SOB with Excertion, Pleuritic Pain, Sputum, Wheezing Cardiovascular: negative: chest pain, palpitations, orthopnea, paroxysmal nocturnal dyspnea, edema, light headedness, other Gastrointestinal: negative: Nausea, Vomiting, Abdominal Pain, Diarrhea, Constipation, Melena, Hematochezia, Other Genitourinary: negative: Dysuria, Frequency, Incontinence, Hematuria, Retention , Other Neurological: negative: Weakness, Numbness, Incoordination, Change in Speech, Confusion, Seizures, Other - Medications/Allergies Allergies/Adverse Reactions: Allergies Allergy/AdvReac Type Severity Reaction Status Date / Time simvastatin Allergy Verified 11/30/17 06:21 Medications: Current Medications Acetaminophen (Tylenol) 650 mg PO Q4H PRN PRN Reason: Headache/Fever or Pain Last Admin: 11/30/17 10:55 Dose: 650 mg Acetaminophen/Codeine Phosphate (Tylenol #3) 1 tab PO Q6H PRN PRN Reason: Pain Last Admin: 12/04/17 08:27 Dose: 1 tab Hydrocodone Bitart/Acetaminophen ([place] 5/325) 1 tab PO Q4H PRN PRN Reason: Moderate Pain (4-6) Al Hydroxide/Mg Hydroxide (Maalox) 30 ml PO Q6H PRN PRN Reason: Heartburn or Indigestion Albuterol/Ipratropium (Duoneb) 3 ml NEB Q6H PRN PRN Reason: SOB &/or Wheezing Last Admin: 12/03/17 19:34 Dose: 3 ml Amoxicillin/Clavulanate Potassium (Augmentin 600mg/5ml Oral Susp) 600 mg PO TID [facility] Last Admin: 12/04/17 08:25 Dose: 600 mg Artificial Tears (Tears Naturale) 0 drop EA EYE PRN PRN PRN Reason: Dry Eyes Buspirone HCl (Buspar) 30 mg PO BID [facility] Last Admin: 12/04/17 08:25 Dose: 30 mg Cyanocobalamin (Vitamin B-12) 1,000 mcg PO DAILY [facility] Last Admin: 12/04/17 08:26 Dose: 1,000 mcg Diltiazem HCl (Cardizem Sr) 90 mg PO BID [facility] Last Admin: 12/04/17 10:26 Dose: Not Given Divalproex Sodium (Depakote) 1,500 mg PO HS [facility] Last Admin: 12/03/17 20:28 Dose: 1,500 mg Ferrous Sulfate (Feosol) 325 mg PO BID-[facility] Last Admin: 12/04/17 08:26 Dose: 325 mg Folic Acid (Folvite) 2 mg PO DAILY [facility] Last Admin: 12/04/17 08:26 Dose: 2 mg Gabapentin (Neurontin) 300 mg PO BID [facility] Last Admin: 12/04/17 08:26 Dose: 300 mg Guaifenesin (Robitussin Sf) 200 mg PO Q4H PRN PRN Reason: Cough Last Admin: 11/30/17 13:13 Dose: 200 mg Hydralazine HCl (Apresoline) 10 mg SLOW IVP Q4H PRN PRN Reason: Systolic BP > 180 Levofloxacin (Levaquin) 500 mg PO 0600 [facility] Last Admin: 12/04/17 05:48 Dose: 500 mg Loperamide HCl (Imodium) 2 mg PO PRN PRN PRN Reason: Diarrhea/Loose Stools Loratadine (Claritin) 10 mg PO DAILYPRN PRN PRN Reason: Sinus Symptoms Magnesium Hydroxide (Milk Of Magnesium) 30 ml PO DAILYPRN PRN PRN Reason: Constipation Mineral Oil/White Petrolatum (Eucerin Cream) 0 gm TOP BIDPRN PRN PRN Reason: Dry Skin Mometasone Furoate/Formoterol Fumar (Dulera 100 Mcg/5 Mcg Inhaler) 2 puff INH BID-RT [facility] Last Admin: 12/04/17 07:13 Dose: 2 puff Multivitamins (Theragran) 1 tab PO DAILY [facility] Last Admin: 12/04/17 08:26 Dose: 1 tab Ondansetron HCl (Zofran Odt) 4 mg PO Q6H PRN PRN Reason: Nausea/Vomiting Ondansetron HCl (Zofran) 4 mg IVP Q6H PRN PRN Reason: Nausea/Vomiting Pantoprazole Sodium (Protonix) 40 mg PO DAILY [facility] Last Admin: 12/04/17 08:28 Dose: 40 mg Phenol (Chloraseptic [place] 180 Ml Bot) 0 ml PO PRN PRN PRN Reason: Sore Throat Risperidone (Risperidone) 2 mg PO BID [facility] Last Admin: 12/04/17 08:25 Dose: 2 mg Senna (Senokot) 2 tab PO HSPRN PRN PRN Reason: Constipation Sodium Chloride ([place] Nasal [place] 0.65%) 0 ml EA NARE QIDPRN PRN PRN Reason: Nasal Congestion Sodium Chloride (Flush - Normal Saline) 10 ml IVF Q12HR [facility] Last Admin: 12/04/17 10:26 Dose: Not Given Sodium Chloride (Flush - Normal Saline) 10 ml IVF PRN PRN PRN Reason: Saline Flush Tramadol HCl (Ultram) 50 mg PO BID PRN PRN Reason: Pain Last Admin: 12/03/17 04:54 Dose: 50 mg Zolpidem Tartrate (Ambien) 5 mg PO HSPRN PRN PRN Reason: Insomnia
[2017-12-04] MEDS: Divalproex Sodium DR 500 MG TAB PO SCH (21:18)
[2017-12-05] MEDS: Mometasone/Formoterol 120 PUFF INHALER INH SCH ×2 (07:14→18:47)
[2017-12-05] MEDS: Folic Acid 1 MG TAB PO SCH (09:01)
[2017-12-05] MEDS: busPIRone HCl 10 MG TAB PO SCH ×2 (09:01→19:51)
[2017-12-05] MEDS: Amoxicillin/Potassium Clav 600 mg/5 ml Oral Suspension PO SCH ×3 (09:01→19:54)
[2017-12-05] MEDS: risperiDONE 1 MG TAB PO SCH ×2 (09:02→19:52)
[2017-12-05] MEDS: Multivit, Therapeutic 1 TAB PO SCH (09:02)
[2017-12-05] MEDS: Ferrous Sulfate 325 MG TAB PO SCH ×2 (09:02→16:51)
[2017-12-05] MEDS: Gabapentin 300 MG CAP PO SCH ×2 (09:02→19:46)
[2017-12-05] MEDS: Cyanocobalamin (Vitamin B-12) 1,000 MCG TAB PO SCH (09:02)
[2017-12-05] MEDS: Diltiazem HCl SR 90 mg Capsule PO SCH ×2 (09:04→19:50)
--- NOTE | 2017-12-05 15:42 | PDOC.PN ---
- Subjective Encounter Start Date: 12/05/17 Encounter Start Time: 15:41 Subjective: coughing .denies any chest pain/SOB. -: PT reports increased weakness today w minimal participation -: no overnight events - Objective Resuscitation Status: Resuscitation Status DNR:Do Not Resuscitate MAR Reviewed: Yes Vital Signs & Weight: Vital Signs (12 hours) Temp Pulse Pulse Pulse Resp BP BP 12/05/17 12:31 105 H 100 103/77 98/63 12/05/17 11:37 97.1 F L 100 24 H 12/05/17 08:00 98.2 F 105 H 24 H 12/05/17 07:30 98.2 F 105 H 24 H 12/05/17 07:14 96 18 BP Pulse Ox 12/05/17 12:31 12/05/17 11:37 100/57 L 96 12/05/17 08:00 12/05/17 07:30 83/53 L 93 L 12/05/17 07:14 94 L Weight Weight 208 lb 12.8 oz I&O: 12/04/17 12/05/17 12/06/17 06:59 06:59 06:59 Intake Total 960 1180 Output Total 200 Balance 760 1180 Result Diagrams: 12/04/17 05:30 12/04/17 05:30 Additional Labs: Microbiology 11/29/17 19:36 Urine voided Urine Culture - Final Gram Negative David 11/29/17 18:28 Stool - Pending Stool Occult Blood (JESSICA) - Final Phys Exam - Physical Examination Constitutional: NAD coughinging but settles down. awake ,alert but sleepy HEENT: PERRLA, moist MMs, sclera anicteric, oral pharynx no lesions Neck: no nodes, no JVD, supple, full ROM Respiratory: no wheezing, no rales, no rhonchi, clear to auscultation bilateral Cardiovascular: RRR, no significant murmur Gastrointestinal: soft, non-tender, no distention, positive bowel sounds Musculoskeletal: no edema, pulses present Neurological: non-focal, normal sensation, moves all 4 limbs Psychiatric: normal affect, A&O x 3 Skin: no rash Dx/Plan (1) Anemia Code(s): D64.9 - ANEMIA, UNSPECIFIED Status: Acute Comment: Ac on chronic.S/ P 2 units PRBC (2) Atrial fibrillation with RVR Code(s): I48.91 - UNSPECIFIED ATRIAL FIBRILLATION Status: Acute (3) PNA (pneumonia) Code(s): J18.9 - PNEUMONIA, UNSPECIFIED ORGANISM Status: Acute Comment: on empiric ABx (4) BPH (benign prostatic hyperplasia) Code(s): N40.0 - BENIGN PROSTATIC HYPERPLASIA WITHOUT LOWER URINRY TRACT SYMP Status: Chronic Qualifiers: (5) Bipolar disorder Code(s): F31.9 - BIPOLAR DISORDER, UNSPECIFIED Status: Chronic Qualifiers: (6) Colostomy in place Code(s): Z93.3 - COLOSTOMY STATUS Status: Chronic (7) DJD (degenerative joint disease) of cervical spine Code(s): M47.812 - SPONDYLOSIS W/O MYELOPATHY OR RADICULOPATHY, CERVICAL REGION Status: Chronic (8) GERD (gastroesophageal reflux disease) Code(s): K21.9 - GASTRO-ESOPHAGEAL REFLUX DISEASE WITHOUT ESOPHAGITIS Status: Chronic (9) H/O sick sinus syndrome Code(s): Z86.79 - PERSONAL HISTORY OF OTHER DISEASES OF THE CIRCULATORY SYSTEM Status: Chronic Comment: has pacemaker (10) HLD (hyperlipidemia) Code(s): E78.5 - HYPERLIPIDEMIA, UNSPECIFIED Status: Chronic Qualifiers: (11) HTN (hypertension) Code(s): I10 - ESSENTIAL (PRIMARY) HYPERTENSION Status: Chronic Qualifiers: (12) Lung cancer, primary, with metastasis from lung to other site Code(s): C34.90 - MALIGNANT NEOPLASM OF UNSP PART OF UNSP BRONCHUS OR LUNG Status: Chronic Qualifiers: Comment: - Plan continue antibiotics, PT/OT, respiratory therapy, incentive spirometry, out of bed/ambulate, DVT proph w/SCDs BP and HR better w BID Cardiazem instead of OD long acting.monitor. -: cont empiric ABx, high risk of aspiration.on Modified diet -: check labs and CXR in am. -: cont PT/OT.Hopefully rehab tomorrow am if remains stable. 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 Review of Systems - Review of Systems Other: Limited ROS due to somnolence. reorts that "he feels fine" - Medications/Allergies Allergies/Adverse Reactions: Allergies Allergy/AdvReac Type Severity Reaction Status Date / Time simvastatin Allergy Verified 11/30/17 06:21 Medications: Current Medications Acetaminophen (Tylenol) 650 mg PO Q4H PRN PRN Reason: Headache/Fever or Pain Last Admin: 11/30/17 10:55 Dose: 650 mg Acetaminophen/Codeine Phosphate (Tylenol #3) 1 tab PO Q6H PRN PRN Reason: Pain Last Admin: 12/04/17 08:27 Dose: 1 tab Hydrocodone Bitart/Acetaminophen ([place] 5/325) 1 tab PO Q4H PRN PRN Reason: Moderate Pain (4-6) Al Hydroxide/Mg Hydroxide (Maalox) 30 ml PO Q6H PRN PRN Reason: Heartburn or Indigestion Albuterol/Ipratropium (Duoneb) 3 ml NEB Q6H PRN PRN Reason: SOB &/or Wheezing Last Admin: 12/03/17 19:34 Dose: 3 ml Amoxicillin/Clavulanate Potassium (Augmentin 600mg/5ml Oral Susp) 600 mg PO TID [facility] Last Admin: 12/05/17 14:53 Dose: 600 mg Artificial Tears (Tears Naturale) 0 drop EA EYE PRN PRN PRN Reason: Dry Eyes Buspirone HCl (Buspar) 30 mg PO BID [facility] Last Admin: 12/05/17 09:01 Dose: 30 mg Cyanocobalamin (Vitamin B-12) 1,000 mcg PO DAILY [facility] Last Admin: 12/05/17 09:02 Dose: 1,000 mcg Diltiazem HCl (Cardizem Sr) 90 mg PO BID [facility] Last Admin: 12/05/17 09:04 Dose: Not Given Divalproex Sodium (Depakote) 1,500 mg PO HS [facility] Last Admin: 12/04/17 21:18 Dose: 1,500 mg Ferrous Sulfate (Feosol) 325 mg PO BID-WM [facility] Last Admin: 12/05/17 09:02 Dose: 325 mg Folic Acid (Folvite) 2 mg PO DAILY [facility] Last Admin: 12/05/17 09:01 Dose: 2 mg Gabapentin (Neurontin) 300 mg PO BID [facility] Last Admin: 12/05/17 09:02 Dose: 300 mg Guaifenesin (Robitussin Sf) 200 mg PO Q4H PRN PRN Reason: Cough Last Admin: 11/30/17 13:13 Dose: 200 mg Hydralazine HCl (Apresoline) 10 mg SLOW IVP Q4H PRN PRN Reason: Systolic BP > 180 Levofloxacin (Levaquin) 500 mg PO 0600 [facility] Last Admin: 12/05/17 05:44 Dose: 500 mg Loperamide HCl (Imodium) 2 mg PO PRN PRN PRN Reason: Diarrhea/Loose Stools Loratadine (Claritin) 10 mg PO DAILYPRN PRN PRN Reason: Sinus Symptoms Magnesium Hydroxide (Milk Of Magnesium) 30 ml PO DAILYPRN PRN PRN Reason: Constipation Mineral Oil/White Petrolatum (Eucerin Cream) 0 gm TOP BIDPRN PRN PRN Reason: Dry Skin Mometasone Furoate/Formoterol Fumar (Dulera 100 Mcg/5 Mcg Inhaler) 2 puff INH BID-RT [facility] Last Admin: 12/05/17 07:14 Dose: 2 puff Multivitamins (Theragran) 1 tab PO DAILY [facility] Last Admin: 12/05/17 09:02 Dose: 1 tab Ondansetron HCl (Zofran Odt) 4 mg PO Q6H PRN PRN Reason: Nausea/Vomiting Ondansetron HCl (Zofran) 4 mg IVP Q6H PRN PRN Reason: Nausea/Vomiting Pantoprazole Sodium (Protonix) 40 mg PO DAILY [facility] Last Admin: 12/05/17 09:02 Dose: 40 mg Phenol (Chloraseptic [place] 180 Ml Bot) 0 ml PO PRN PRN PRN Reason: Sore Throat Risperidone (Risperidone) 2 mg PO BID [facility] Last Admin: 12/05/17 09:02 Dose: 2 mg Senna (Senokot) 2 tab PO HSPRN PRN PRN Reason: Constipation Sodium Chloride ([place] Nasal [place] 0.65%) 0 ml EA NARE QIDPRN PRN PRN Reason: Nasal Congestion Sodium Chloride (Flush - Normal Saline) 10 ml IVF Q12HR [facility] Last Admin: 12/05/17 09:05 Dose: Not Given Sodium Chloride (Flush - Normal Saline) 10 ml IVF PRN PRN PRN Reason: Saline Flush Tramadol HCl (Ultram) 50 mg PO BID PRN PRN Reason: Pain Last Admin: 12/03/17 04:54 Dose: 50 mg Zolpidem Tartrate (Ambien) 5 mg PO HSPRN PRN PRN Reason: Insomnia
[2017-12-05] MEDS: Divalproex Sodium DR 500 MG TAB PO SCH (19:50)
--- NOTE | 2017-12-05 20:13 | EKG ---
Test Reason : Blood Pressure : / mmHG Vent. Rate : 114 BPM Atrial Rate : 114 BPM P-R Int : 180 ms QRS Dur : 120 ms QT Int : 338 ms P-R-T Axes : 058 -79 033 degrees QTc Int : 465 ms Sinus tachycardia Left axis deviation Right bundle branch block Inferior infarct (cited on or before 15-OCT-2017) Abnormal ECG When compared with ECG of 29-NOV-2017 18:29, (Unconfirmed) UT interval has decreased Confirmed by FAHAD ALAS (2) on 12/05/2017 8:12:42 PM Referred By: TERE Confirmed By:FAHAD ALAS
[2017-12-06 06:11] LABS: Anion Gap 10 mmol/L (10-20); BUN (Urea Nitrogen) 16 mg/dL (8.4-25.7); Calc. Creatinine Clearance 147 mL/min (70-130); Calcium 9.7 mg/dL (7.8-10.44); Carbon Dioxide 33 mmol/L (23-31); Chloride 98 mmol/L (98-107); Estimated GFR-MDRD Greater than 90; Glucose 93 mg/dL (80-115); Potassium 4.3 mmol/L (3.5-5.1); Sodium 137 mmol/L (136-145)
[2017-12-06 06:30] LABS: Band 14 % (5-11); Hemoglobin 9.2 g/dL (14.0-18.0); Lymphocytes 20 % (21-51); MDiff Complete? YES; Mean Corpuscular HGB CONC 30.9 g/dL (32.0-36.0); Mean Corpuscular Hemoglobin 30.8 pg (27.0-31.0); Mean Corpuscular Volume 99.4 fl (80.0-94.0); Mean Platelet Volume 6.5 fL (7.4-10.4); Monocytes 18 % (0-10); Neutrophil 48 % (42-75); Platelet Count 229 thou/uL (130-400); RBC Distribution Width 17.2 % (11.5-14.5); Red Blood Cell (RBC) Count 2.98 mill/uL (4.70-6.10); White Blood Cell (WBC) Count 5.6 thou/uL (4.8-10.8)
[2017-12-06] MEDS: Mometasone/Formoterol 120 PUFF INHALER INH SCH ×2 (07:49→19:29)
[2017-12-06] MEDS: risperiDONE 1 MG TAB PO SCH ×2 (09:27→21:30)
[2017-12-06] MEDS: Amoxicillin/Potassium Clav 600 mg/5 ml Oral Suspension PO SCH ×3 (09:27→21:30)
[2017-12-06] MEDS: Gabapentin 300 MG CAP PO SCH ×2 (09:28→21:30)
[2017-12-06] MEDS: Folic Acid 1 MG TAB PO SCH (09:28)
[2017-12-06] MEDS: Diltiazem HCl SR 90 mg Capsule PO SCH ×2 (09:28→23:30)
[2017-12-06] MEDS: Cyanocobalamin (Vitamin B-12) 1,000 MCG TAB PO SCH (09:28)
[2017-12-06] MEDS: busPIRone HCl 10 MG TAB PO SCH ×2 (09:28→21:30)
[2017-12-06] MEDS: Multivit, Therapeutic 1 TAB PO SCH (09:28)
[2017-12-06] MEDS: Ferrous Sulfate 325 MG TAB PO SCH ×2 (09:29→16:05)
--- NOTE | 2017-12-06 09:51 | RAD ---
CHEST ONE VIEW: History: Pneumonia. Comparison: 11-30-17 FINDINGS: The left upper lobe mass is similar in appearance. Dual-lead pacer is present. There is some consolidation in the left lower lobe. Right lung is relatively clear. IMPRESSION: 1. Similar appearance of upper lobe mass concerning for malignancy. 2. Left basilar airspace opacity concerning for infection. POS: OFF
--- NOTE | 2017-12-06 14:35 | PDOC.PN ---
- Subjective Encounter Start Date: 12/06/17 Encounter Start Time: 14:34 Subjective: remains stable.weaker than yesterday but no acute events - Objective Resuscitation Status: Resuscitation Status DNR:Do Not Resuscitate MAR Reviewed: Yes Vital Signs & Weight: Vital Signs (12 hours) Temp Pulse Resp BP Pulse Ox 12/06/17 12:35 96 20 99 12/06/17 12:00 99 12/06/17 11:56 97.9 F 103 H 20 103/61 99 12/06/17 08:00 97.7 F 94 24 H 124/73 100 Weight Weight 208 lb 12.8 oz I&O: 12/05/17 12/06/17 12/07/17 06:59 06:59 06:59 Intake Total 1180 550 Balance 1180 550 Result Diagrams: 12/06/17 05:29 12/06/17 05:29 Radiology Reviewed by me: Yes (CXR-L Lobe opacity) Phys Exam - Physical Examination Constitutional: NAD HEENT: PERRLA, moist MMs, sclera anicteric, oral pharynx no lesions Neck: no nodes, no JVD, supple, full ROM Respiratory: no wheezing, clear to auscultation bilateral Cardiovascular: RRR, no significant murmur Gastrointestinal: soft, non-tender, no distention, positive bowel sounds Musculoskeletal: no edema, pulses present Neurological: non-focal, normal sensation, moves all 4 limbs Psychiatric: normal affect, A&O x 3 Dx/Plan (1) Anemia Code(s): D64.9 - ANEMIA, UNSPECIFIED Status: Acute Comment: Ac on chronic.S/ P 2 units PRBC (2) Atrial fibrillation with RVR Code(s): I48.91 - UNSPECIFIED ATRIAL FIBRILLATION Status: Acute (3) PNA (pneumonia) Code(s): J18.9 - PNEUMONIA, UNSPECIFIED ORGANISM Status: Acute Comment: on empiric ABx (4) BPH (benign prostatic hyperplasia) Code(s): N40.0 - BENIGN PROSTATIC HYPERPLASIA WITHOUT LOWER URINRY TRACT SYMP Status: Chronic Qualifiers: (5) Bipolar disorder Code(s): F31.9 - BIPOLAR DISORDER, UNSPECIFIED Status: Chronic Qualifiers: (6) Colostomy in place Code(s): Z93.3 - COLOSTOMY STATUS Status: Chronic (7) DJD (degenerative joint disease) of cervical spine Code(s): M47.812 - SPONDYLOSIS W/O MYELOPATHY OR RADICULOPATHY, CERVICAL REGION Status: Chronic (8) GERD (gastroesophageal reflux disease) Code(s): K21.9 - GASTRO-ESOPHAGEAL REFLUX DISEASE WITHOUT ESOPHAGITIS Status: Chronic (9) H/O sick sinus syndrome Code(s): Z86.79 - PERSONAL HISTORY OF OTHER DISEASES OF THE CIRCULATORY SYSTEM Status: Chronic Comment: has pacemaker (10) HLD (hyperlipidemia) Code(s): E78.5 - HYPERLIPIDEMIA, UNSPECIFIED Status: Chronic Qualifiers: (11) HTN (hypertension) Code(s): I10 - ESSENTIAL (PRIMARY) HYPERTENSION Status: Chronic Qualifiers: (12) Lung cancer, primary, with metastasis from lung to other site Code(s): C34.90 - MALIGNANT NEOPLASM OF UNSP PART OF UNSP BRONCHUS OR LUNG Status: Chronic Qualifiers: Comment: - Plan continue antibiotics, PT/OT, 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 no clinical progress so far.suspect end of life -: awaiting hospice approval.cont supportive care -: H/H stable. no active bleed. -: HR & BP better w BID dosing of cardiazem. * . Review of Systems - Review of Systems Other: Limited ROS...he keeps repeating "im fine" - Medications/Allergies Allergies/Adverse Reactions: Allergies Allergy/AdvReac Type Severity Reaction Status Date / Time simvastatin Allergy Verified 11/30/17 06:21 Medications: Current Medications Acetaminophen (Tylenol) 650 mg PO Q4H PRN PRN Reason: Headache/Fever or Pain Last Admin: 11/30/17 10:55 Dose: 650 mg Acetaminophen/Codeine Phosphate (Tylenol #3) 1 tab PO Q6H PRN PRN Reason: Pain Last Admin: 12/04/17 08:27 Dose: 1 tab Hydrocodone Bitart/Acetaminophen ([place] 5/325) 1 tab PO Q4H PRN PRN Reason: Moderate Pain (4-6) Al Hydroxide/Mg Hydroxide (Maalox) 30 ml PO Q6H PRN PRN Reason: Heartburn or Indigestion Albuterol/Ipratropium (Duoneb) 3 ml NEB Q6H PRN PRN Reason: SOB &/or Wheezing Last Admin: 12/06/17 12:35 Dose: 3 ml Amoxicillin/Clavulanate Potassium (Augmentin 600mg/5ml Oral Susp) 600 mg PO TID [facility] Last Admin: 12/06/17 09:27 Dose: 600 mg Artificial Tears (Tears Naturale) 0 drop EA EYE PRN PRN PRN Reason: Dry Eyes Buspirone HCl (Buspar) 30 mg PO BID [facility] Last Admin: 12/06/17 09:28 Dose: 30 mg Cyanocobalamin (Vitamin B-12) 1,000 mcg PO DAILY [facility] Last Admin: 12/06/17 09:28 Dose: 1,000 mcg Diltiazem HCl (Cardizem Sr) 90 mg PO BID [facility] Last Admin: 12/06/17 09:28 Dose: 90 mg Divalproex Sodium (Depakote) 1,500 mg PO HS [facility] Last Admin: 12/05/17 19:50 Dose: 1,500 mg Ferrous Sulfate (Feosol) 325 mg PO BID[facility] Last Admin: 12/06/17 09:29 Dose: 325 mg Folic Acid (Folvite) 2 mg PO DAILY [facility] Last Admin: 12/06/17 09:28 Dose: 2 mg Gabapentin (Neurontin) 300 mg PO BID [facility] Last Admin: 12/06/17 09:28 Dose: 300 mg Guaifenesin (Robitussin Sf) 200 mg PO Q4H PRN PRN Reason: Cough Last Admin: 11/30/17 13:13 Dose: 200 mg Hydralazine HCl (Apresoline) 10 mg SLOW IVP Q4H PRN PRN Reason: Systolic BP > 180 Levofloxacin (Levaquin) 500 mg PO 0600 [facility] Last Admin: 12/06/17 05:26 Dose: 500 mg Loperamide HCl (Imodium) 2 mg PO PRN PRN PRN Reason: Diarrhea/Loose Stools Loratadine (Claritin) 10 mg PO DAILYPRN PRN PRN Reason: Sinus Symptoms Magnesium Hydroxide (Milk Of Magnesium) 30 ml PO DAILYPRN PRN PRN Reason: Constipation Mineral Oil/White Petrolatum (Eucerin Cream) 0 gm TOP BIDPRN PRN PRN Reason: Dry Skin Mometasone Furoate/Formoterol Fumar (Dulera 100 Mcg/5 Mcg Inhaler) 2 puff INH BID-RT [facility] Last Admin: 12/06/17 07:49 Dose: Not Given Multivitamins (Theragran) 1 tab PO DAILY [facility] Last Admin: 12/06/17 09:28 Dose: 1 tab Ondansetron HCl (Zofran Odt) 4 mg PO Q6H PRN PRN Reason: Nausea/Vomiting Ondansetron HCl (Zofran) 4 mg IVP Q6H PRN PRN Reason: Nausea/Vomiting Pantoprazole Sodium (Protonix) 40 mg PO DAILY [facility] Last Admin: 12/06/17 09:28 Dose: 40 mg Phenol (Chloraseptic [place] 180 Ml Bot) 0 ml PO PRN PRN PRN Reason: Sore Throat Risperidone (Risperidone) 2 mg PO BID [facility] Last Admin: 12/06/17 09:27 Dose: 2 mg Senna (Senokot) 2 tab PO HSPRN PRN PRN Reason: Constipation Sodium Chloride ([place] Nasal [place] 0.65%) 0 ml EA NARE QIDPRN PRN PRN Reason: Nasal Congestion Sodium Chloride (Flush - Normal Saline) 10 ml IVF Q12HR [facility] Last Admin: 12/06/17 09:29 Dose: Not Given Sodium Chloride (Flush - Normal Saline) 10 ml IVF PRN PRN PRN Reason: Saline Flush Tramadol HCl (Ultram) 50 mg PO BID PRN PRN Reason: Pain Last Admin: 12/03/17 04:54 Dose: 50 mg Zolpidem Tartrate (Ambien) 5 mg PO HSPRN PRN PRN Reason: Insomnia
[2017-12-06] MEDS: Divalproex Sodium DR 500 MG TAB PO SCH (21:30)
[2017-12-07] MEDS: Amoxicillin/Potassium Clav 600 mg/5 ml Oral Suspension PO SCH ×4 (00:05→21:10)
[2017-12-07] MEDS: Mometasone/Formoterol 120 PUFF INHALER INH SCH (08:05)
[2017-12-07] MEDS: Diltiazem HCl SR 90 mg Capsule PO SCH ×2 (09:18→21:10)
[2017-12-07] MEDS: Gabapentin 300 MG CAP PO SCH ×2 (09:18→21:10)
[2017-12-07] MEDS: Folic Acid 1 MG TAB PO SCH (09:18)
[2017-12-07] MEDS: Cyanocobalamin (Vitamin B-12) 1,000 MCG TAB PO SCH (09:18)
[2017-12-07] MEDS: Ferrous Sulfate 325 MG TAB PO SCH ×2 (09:19→16:11)
[2017-12-07] MEDS: Multivit, Therapeutic 1 TAB PO SCH (09:19)
[2017-12-07] MEDS: risperiDONE 1 MG TAB PO SCH ×2 (09:19→21:11)
[2017-12-07] MEDS: busPIRone HCl 10 MG TAB PO SCH ×2 (09:19→21:10)
--- NOTE | 2017-12-07 12:33 | PRG ---
DATE OF SERVICE: 12/07/2017 SUBJECTIVE: The patient is seen and examined at the bedside. He is in quite deep, but he is arousab le. There is no any good contact with him. He is not very verbal. He does not really follow my com mands. OBJECTIVE: VITAL SIGNS: Blood pressure is 101/65, pulse is 97, temperature is 97.7, O2 saturation is 90% on 3 l iters by nasal cannula. HEENT: His head is atraumatic. Pupils are responding to light properly. Sclerae is nonicteric. NECK: Supple. LUNGS: Emphysematous. No wheezing. HEART: S1 and S2, somewhat irregularly irregular. No S3, no S4. ABDOMEN: Soft, nontender and nondistended. EXTREMITIES: 1+ peripheral edema similar bilaterally. NEUROLOGIC: He does not follow my commands. He is able to move his all 4 extremities. I do not see any motor deficits at this point. LABORATORY DATA: None. IMAGING DATA: Chest x-ray was done yesterday, showed similar appearance of the upper lobe mass brenda rning for malignancy and the left basilar airspace opacity concerning for infection. IMPRESSION: 1. Possible lung malignancy with pneumonia. 2. Anemia. 3. Atrial fibrillation with rapid ventricular response, now controlled. 4. Benign prostatic hypertrophy. 5. Bipolar disorder. 6. Colostomy in place. 7. Hyperlipidemia. 8. Hypertension. 9. Lung cancer primary with metastasis from the lung to the other side. PLAN: Continue his current regimen with antibiotics, PT, OT, director social welfare, DVT prophylaxis with S CDs. We are waiting for the family to arrange hospice in his assisted and as soon as this is arr anged, the patient will be transferred.
[2017-12-07 20:04] VITALS: TEMP 97.8
[2017-12-07] MEDS: Divalproex Sodium DR 500 MG TAB PO SCH (21:11)
[2017-12-08] MEDS: HYDROcodone/Acetaminophen 5/325 mg Tablet PO PRN (04:31)
[2017-12-08 08:01] VITALS: BP 104/63
[2017-12-08] MEDS: busPIRone HCl 10 MG TAB PO SCH (09:54)
[2017-12-08] MEDS: Multivit, Therapeutic 1 TAB PO SCH (09:54)
[2017-12-08] MEDS: Ferrous Sulfate 325 MG TAB PO SCH ×2 (09:54→16:53)
[2017-12-08] MEDS: Amoxicillin/Potassium Clav 600 mg/5 ml Oral Suspension PO SCH ×2 (09:54→15:14)
[2017-12-08] MEDS: Gabapentin 300 MG CAP PO SCH (09:54)
[2017-12-08] MEDS: Diltiazem HCl SR 90 mg Capsule PO SCH (09:55)
[2017-12-08] MEDS: Cyanocobalamin (Vitamin B-12) 1,000 MCG TAB PO SCH (09:55)
[2017-12-08] MEDS: risperiDONE 1 MG TAB PO SCH (09:55)
[2017-12-08] MEDS: Folic Acid 1 MG TAB PO SCH (10:04)
--- NOTE | 2017-12-08 11:45 | PDOC.PN ---
- Subjective Encounter Start Date: 12/08/17 Encounter Start Time: 07:10 -: old records requested/rev Patient seen and examined. No new complaints. No overnight events - Objective Resuscitation Status: Resuscitation Status DNR:Do Not Resuscitate MAR Reviewed: Yes Vital Signs & Weight: Vital Signs (12 hours) Temp Pulse Resp BP Pulse Ox 12/08/17 08:42 92 L 12/08/17 08:00 97.8 F 86 20 104/63 100 12/08/17 07:25 97.8 F 99 16 12/08/17 00:24 97 Weight Admit Weight 208 lb 12.8 oz Weight 208 lb 12.8 oz I&O: 12/07/17 12/08/17 12/09/17 06:59 06:59 06:59 Intake Total 1450 0 Output Total 2 Balance 1448 2079 Result Diagrams: 12/06/17 05:29 12/06/17 05:29 Phys Exam - Physical Examination Constitutional: NAD HEENT: PERRLA, moist MMs, sclera anicteric Neck: no JVD, supple Respiratory: no wheezing, no rales, no rhonchi Cardiovascular: RRR, no significant murmur, no rub Gastrointestinal: soft, non-tender, no distention, positive bowel sounds Musculoskeletal: no edema, pulses present Neurological: moves all 4 limbs Lymphatic: no nodes Psychiatric: normal affect Skin: no rash, normal turgor Dx/Plan (1) Left lower lobe pneumonia Code(s): J18.1 - LOBAR PNEUMONIA, UNSPECIFIED ORGANISM Status: Acute Qualifiers: Pneumonia type: aspiration pneumonia (2) Symptomatic anemia Code(s): D64.9 - ANEMIA, UNSPECIFIED Status: Acute Comment: 2 unit PRBC given (3) UTI (urinary tract infection) Status: Acute Comment: GNR (4) BPH (benign prostatic hyperplasia) Code(s): N40.0 - BENIGN PROSTATIC HYPERPLASIA WITHOUT LOWER URINRY TRACT SYMP Status: Chronic Qualifiers: (5) Bipolar disorder Code(s): F31.9 - BIPOLAR DISORDER, UNSPECIFIED Status: Chronic Qualifiers: (6) Colostomy in place Code(s): Z93.3 - COLOSTOMY STATUS Status: Chronic (7) DJD (degenerative joint disease) of cervical spine Code(s): M47.812 - SPONDYLOSIS W/O MYELOPATHY OR RADICULOPATHY, CERVICAL REGION Status: Chronic (8) GERD (gastroesophageal reflux disease) Code(s): K21.9 - GASTRO-ESOPHAGEAL REFLUX DISEASE WITHOUT ESOPHAGITIS Status: Chronic (9) H/O sick sinus syndrome Code(s): Z86.79 - PERSONAL HISTORY OF OTHER DISEASES OF THE CIRCULATORY SYSTEM Status: Chronic Comment: has pacemaker (10) HLD (hyperlipidemia) Code(s): E78.5 - HYPERLIPIDEMIA, UNSPECIFIED Status: Chronic Qualifiers: (11) HTN (hypertension) Code(s): I10 - ESSENTIAL (PRIMARY) HYPERTENSION Status: Chronic Qualifiers: (12) Lung cancer, primary, with metastasis from lung to other site Code(s): C34.90 - MALIGNANT NEOPLASM OF UNSP PART OF UNSP BRONCHUS OR LUNG Status: Chronic Qualifiers: Comment: (13) Macrocytic anemia Code(s): D53.9 - NUTRITIONAL ANEMIA, UNSPECIFIED Status: Chronic (14) Mass of upper lobe of left lung Code(s): R91.8 - OTHER NONSPECIFIC ABNORMAL FINDING OF LUNG FIELD Status: Chronic (15) Paroxysmal atrial fibrillation Code(s): I48.0 - PAROXYSMAL ATRIAL FIBRILLATION Status: Chronic Comment: - Plan cont current plan of care * not a candidate for chronic anticoagulation * await hospice arrangement at home * medication reviewed as below * symptomatic treatment. Review of Systems - Review of Systems Eyes: negative: Pain, Vision Change, Conjunctivae Inflammation, Eyelid Inflammation, Redness, Other ENT: negative: Ear Pain, Ear Discharge, Nose Pain, Nose Discharge, Nose Congestion, Mouth Pain, Mouth Swelling, Throat Pain, Throat Swelling, Other Respiratory: negative: Cough, Dry, Shortness of Breath, Hemoptysis, SOB with Excertion, Pleuritic Pain, Sputum, Wheezing Cardiovascular: negative: chest pain, palpitations, orthopnea, paroxysmal nocturnal dyspnea, edema, light headedness, other Gastrointestinal: negative: Nausea, Vomiting, Abdominal Pain, Diarrhea, Constipation, Melena, Hematochezia, Other Genitourinary: negative: Dysuria, Frequency, Incontinence, Hematuria, Retention , Other Musculoskeletal: negative: Neck Pain, Shoulder Pain, Arm Pain, Back Pain, Hand Pain, Leg Pain, Foot Pain, Other - Medications/Allergies Allergies/Adverse Reactions: Allergies Allergy/AdvReac Type Severity Reaction Status Date / Time simvastatin Allergy Verified 11/30/17 06:21 Medications: Current Medications Acetaminophen (Tylenol) 650 mg PO Q4H PRN PRN Reason: Headache/Fever or Pain Last Admin: 11/30/17 10:55 Dose: 650 mg Acetaminophen/Codeine Phosphate (Tylenol #3) 1 tab PO Q6H PRN PRN Reason: Pain Last Admin: 12/04/17 08:27 Dose: 1 tab Hydrocodone Bitart/Acetaminophen (Girard 5/325) 1 tab PO Q4H PRN PRN Reason: Moderate Pain (4-6) Last Admin: 12/08/17 04:31 Dose: 1 tab Al Hydroxide/Mg Hydroxide (Maalox) 30 ml PO Q6H PRN PRN Reason: Heartburn or Indigestion Albuterol/Ipratropium (Duoneb) 3 ml NEB Q6H PRN PRN Reason: SOB &/or Wheezing Last Admin: 12/07/17 08:04 Dose: 3 ml Amoxicillin/Clavulanate Potassium (Augmentin 600mg/5ml Oral Susp) 600 mg PO TID [facility] Last Admin: 12/08/17 09:54 Dose: 600 mg Artificial Tears (Tears Naturale) 0 drop EA EYE PRN PRN PRN Reason: Dry Eyes Buspirone HCl (Buspar) 30 mg PO BID [facility] Last Admin: 12/08/17 09:54 Dose: 30 mg Cyanocobalamin (Vitamin B-12) 1,000 mcg PO DAILY [facility] Last Admin: 12/08/17 09:55 Dose: 1,000 mcg Diltiazem HCl (Cardizem Sr) 90 mg PO BID [facility] Last Admin: 12/08/17 09:55 Dose: 90 mg Divalproex Sodium (Depakote) 1,500 mg PO HS [facility] Last Admin: 12/07/17 21:11 Dose: 1,500 mg Ferrous Sulfate (Feosol) 325 mg PO BID-WM [facility] Last Admin: 12/08/17 09:54 Dose: 325 mg Folic Acid (Folvite) 2 mg PO DAILY [facility] Last Admin: 12/08/17 10:04 Dose: 2 mg Gabapentin (Neurontin) 300 mg PO BID [facility] Last Admin: 12/08/17 09:54 Dose: 300 mg Guaifenesin (Robitussin Sf) 200 mg PO Q4H PRN PRN Reason: Cough Last Admin: 11/30/17 13:13 Dose: 200 mg Hydralazine HCl (Apresoline) 10 mg SLOW IVP Q4H PRN PRN Reason: Systolic BP > 180 Levofloxacin (Levaquin) 500 mg PO 0600 [facility] Last Admin: 12/08/17 04:33 Dose: 500 mg Loperamide HCl (Imodium) 2 mg PO PRN PRN PRN Reason: Diarrhea/Loose Stools Loratadine (Claritin) 10 mg PO DAILYPRN PRN PRN Reason: Sinus Symptoms Magnesium Hydroxide (Milk Of Magnesium) 30 ml PO DAILYPRN PRN PRN Reason: Constipation Mineral Oil/White Petrolatum (Eucerin Cream) 0 gm TOP BIDPRN PRN PRN Reason: Dry Skin Multivitamins (Theragran) 1 tab PO DAILY [facility] Last Admin: 12/08/17 09:54 Dose: 1 tab Ondansetron HCl (Zofran Odt) 4 mg PO Q6H PRN PRN Reason: Nausea/Vomiting Ondansetron HCl (Zofran) 4 mg IVP Q6H PRN PRN Reason: Nausea/Vomiting Pantoprazole Sodium (Protonix) 40 mg PO DAILY [facility] Last Admin: 12/08/17 09:55 Dose: 40 mg Phenol (Chloraseptic Timber 180 Ml Bot) 0 ml PO PRN PRN PRN Reason: Sore Throat Risperidone (Risperidone) 2 mg PO BID [facility] Last Admin: 12/08/17 09:55 Dose: 2 mg Senna (Senokot) 2 tab PO HSPRN PRN PRN Reason: Constipation Sodium Chloride ([place] Nasal [place]ber 0.65%) 0 ml EA NARE QIDPRN PRN PRN Reason: Nasal Congestion Sodium Chloride (Flush - Normal Saline) 10 ml IVF Q12HR [facility] Last Admin: 12/08/17 09:55 Dose: Not Given Sodium Chloride (Flush - Normal Saline) 10 ml IVF PRN PRN PRN Reason: Saline Flush Tramadol HCl (Ultram) 50 mg PO BID PRN PRN Reason: Pain Last Admin: 12/03/17 04:54 Dose: 50 mg Zolpidem Tartrate (Ambien) 5 mg PO HSPRN PRN PRN Reason: Insomnia
--- NOTE | 2017-12-08 16:16 | DIS ---
DATE OF ADMISSION: 11/29/2017 DATE OF DISCHARGE: 12/08/2017 PRIMARY CARE PHYSICIAN: Dr. Romero. DISCHARGE DISPOSITION: Home with home hospice. PRIMARY DISCHARGE DIAGNOSES: 1. Symptomatic anemia. 2. Atrial fibrillation with rapid ventricular response. 3. Left lower lobe pneumonia. 4. Urinary tract infection. SECONDARY DISCHARGE DIAGNOSES: Paroxysmal atrial fibrillation, left upper lobe lung mass, macrocytic anemia, hypertension, dyslipidemia, sick sinus syndrome, gastroesophageal reflux disease, degenerati ve joint disease of spine, colostomy status, benign enlargement of prostate, bipolar disorder. PRIMARY PROCEDURE/OPERATION: None. RADIOLOGICAL INVESTIGATION: Chest x-ray. SIGNIFICANT LABORATORY DATA: Hemoglobin 9.2, INR 1.3, creatinine 0.66. DISCHARGE MEDICATIONS: Tylenol No. 3 one or two tablets q.6 hourly p.r.n., Symbicort 2 puffs inhalat ion b.i.d., buspirone 30 mg p.o. b.i.d., vitamin B12 1000 mcg p.o. daily, Cardizem CD 120 mg p.o. kaylen ly, Depakote 1500 mg p.o. at bedtime, ferrous sulfate 325 mg p.o. b.i.d., folic acid 1 mg p.o. daily, gabapentin 300 mg p.o. b.i.d., DuoNeb q.6 hourly, Milk of Magnesia 30 mL p.o. daily, multivitamin 1 tablet p.o. daily, Protonix 40 mg p.o. daily, risperidone 2 mg p.o. b.i.d., and tramadol 50 mg p.o. b .i.d. p.r.n. CONTRAINDICATIONS: None. CODE STATUS: DNR. INPATIENT CONSULTANTS: None. ALLERGIES: ZOCOR. DISCHARGE PLAN: Post hospital, patient will follow up with primary care physician. The patient is d ischarged home with home hospice. HOSPITAL COURSE: A 67-year-old male who was admitted by me. Please see my HPI for further details. This patient was having symptomatic anemia with dyspnea, fatigue, easy fatigability. He was having severe anemia. He was given a total of 2 units of blood transfusion. He was also found with left lo wer lobe pneumonia. He was given IV antibiotic therapy while in hospital. The patient has completed IV antibiotic therapy. Patient is seen and examined at bedside today. Please see my progress note from today for further de tail. Regarding discharge planning, patient is discharged to home with home hospice after consideration wit h the family member. During this admission, we also consulted Dr. Payton, but he did not require any G I workup at this time. The patient is medically stable for discharge home with home hospice. His long-term prognosis is scott y poor.
== END 2017-12-08 19:00 | disposition hospice, home (50) | DRG 811 ==
LOC: ERS 16:13 → ONC 18:51
PROVIDERS: ADMIT Emergency Medicine; ATTEND Emergency Medicine
PROC: 30233N1 Transfusion of Nonautologous Red Blood Cells into Peripheral Vein, Percutaneous Approach (ICD-10-PCS; principal; 2017-11-30)
DX: D64.9 Anemia, unspecified (principal); J18.9 Pneumonia, unspecified organism; J96.10 Chronic respiratory failure, unspecified whether with hypoxia or hypercapnia; I48.0 Paroxysmal atrial fibrillation; Z99.81 Dependence on supplemental oxygen; N39.0 Urinary tract infection, site not specified; R13.12 Dysphagia, oropharyngeal phase; F03.90 Unspecified dementia, unspecified severity, without behavioral disturbance, psychotic disturbance, mood disturbance, and anxiety; J44.9 Chronic obstructive pulmonary disease, unspecified; G62.9 Polyneuropathy, unspecified; D53.9 Nutritional anemia, unspecified; Z51.5 Encounter for palliative care; R91.8 Other nonspecific abnormal finding of lung field; I10 Essential (primary) hypertension; E78.5 Hyperlipidemia, unspecified; K21.9 Gastro-esophageal reflux disease without esophagitis; N40.0 Benign prostatic hyperplasia without lower urinary tract symptoms; F31.9 Bipolar disorder, unspecified; Z93.3 Colostomy status; Z66 Do not resuscitate; Z95.0 Presence of cardiac pacemaker; F17.210 Nicotine dependence, cigarettes, uncomplicated; Z85.118 Personal history of other malignant neoplasm of bronchus and lung; M47.892 Other spondylosis, cervical region; F32.9 Major depressive disorder, single episode, unspecified; F41.9 Anxiety disorder, unspecified
CPT/HCPCS: 36415; 36430; 71045; 80048; 80053; 81003; 82274; 83735; 84100; 85014; 85018; 85025; 85049; 85610; 85730; 86850; 86900; 86901; 87086; 93005; 93010; 94640; 94664; 96365; 96366; 96376; A4216; C9113; G8978-GP-CK; G8979-GP-CI; G8996-GN-CL; G8997-GN-CL; J0696; J1956; J7050; J7620; P9016